=== PATIENT | male | born 1935 | race Caucasian/White ===

== ENCOUNTER 2017-05-31 13:38 | Emergency (ER) | payer MEDICARE ==
[~2017-05-31] VITALS: Ht 177.8 cm; Wt 80.0 kg
[~2017-05-31 13:38] MED LIST: GLUCTAB PO; [UNRECOGNIZED DRUG - OTHER] PO; [UNRECOGNIZED DRUG - OTHER] PO
[2017-05-31 13:40] VITALS: BP 150/87; PULSE 78; RESP 14; TEMP 98.8; O2SAT 97
[2017-05-31] MEDS ORDERED: TETANUS/DIPHTHERIA TOXOID ADULT 0.5 ML VIAL IM ONE (14:30)
--- NOTE | 2017-05-31 14:33 | PD ---
HPI Chief Complaint: Fall Time Seen by Provider: 14:20 Travel History International Travel<30 days: No Contact w/Intl Traveler<30days: No Traveled to known affect area: No History of Present Illness HPI This 81-year-old male says he lost his balance and fell. He landed on his head his right knee and his right arm. He did not have loss of consciousness. He was diagnosed with Parkinson's disease around 8 months ago and occasionally loses balance. He did not lose consciousness today. PFSH Past Medical History Diabetes: Yes Patient Takes Glucophage: No Hypertension: Yes Parkinson's Disease: Yes Tetanus Vaccination: Unknown Influenza Vaccination: No Past Surgical History Abdominal Surgery: Yes ([facility]) Joint Replacement: Yes (Lt. hip ) Pacemaker: No Social History Alcohol Use: Yes (Occ.) Tobacco Use: No Substance Use: No Allergies-Medications (Allergen,Severity, Reaction): Coded Allergies: No Known Allergies (Unverified , 05/31/17) Reported Meds & Prescriptions Reported Meds & Active Scripts Active Reported Megace Liq (Megestrol Acetate) 40 Mg/Ml Susp 10 Ml PO BID Tolterodine ER (Tolterodine Tartrate) 2 Mg Cap 2 Mg PO DAILY Flomax (Tamsulosin HCl) 0.4 Mg Cap 0.4 Mg PO HS Gabapentin 100 Mg Cap 100 Mg PO TID Metformin (Metformin HCl) 1,000 Mg Tab 1,000 Mg PO BIDPC With meals Carbidopa-Levodopa 25-100 Mg Tab 1 Tab PO Q8HR Meclizine (Meclizine HCl) 25 Mg Tab 25 Mg PO TID Review of Systems General / Constitutional: No: Fever, Chills Eyes: No: Diploplia HENT: Positive: Headaches, No: Vertigo Cardiovascular: No: Chest Pain or Discomfort Respiratory: No: Cough, Shortness of Breath Gastrointestinal: No: Nausea, Vomiting Genitourinary: No: Urgency, Frequency Musculoskeletal: No: Myalgias Skin: No Rash Physical Exam Narrative GENERAL: Well-developed male SKIN: Focused skin assessment warm/dry. HEAD: There is an abrasion and swelling on the right side of forehead Normocephalic. EYES: Pupils equal and round. No scleral icterus. No injection or drainage. ENT: No nasal bleeding or discharge. Mucous membranes pink and moist. NECK: Trachea midline. No JVD. CARDIOVASCULAR: Regular rate and rhythm. No murmur appreciated. RESPIRATORY: No accessory muscle use. Clear to auscultation. Breath sounds equal bilaterally. GASTROINTESTINAL: Abdomen soft, non-tender, nondistended. Hepatic and splenic margins not palpable. MUSCULOSKELETAL: No obvious deformities. No clubbing. No cyanosis. No edema. He is an abrasion of the right wrist. There is no bony tenderness There is an abrasion over the right knee. There is no bony tenderness NEUROLOGICAL: Awake and alert. No obvious cranial nerve deficits. Motor grossly within normal limits. Normal speech. PSYCHIATRIC: Appropriate mood and affect; insight and judgment normal. Data Data Last Documented VS Vital Signs Date Time Temp Pulse Resp B/P (MAP) Pulse Ox O2 Delivery O2 Flow Rate FiO2 05/31/17 13:40 98.8 78 14 150/87 (108) [address] Brain W/O Iv Contrast(Rout) (05/31/17 14:30) Tetanus/Diphtheria Tox Adult (Tetanus/Di (05/31/17 14:30) MDM Medical Decision Making Medical Screen Exam Complete: Yes Emergency Medical Condition: Yes Medical Record Reviewed: Yes Differential Diagnosis Differential includes contusion, skull fracture, subdural Narrative Course CT of the brain is negative. Patient is stable for discharge Diagnosis Primary Impression: Contusion of head Disposition: 01 DISCHARGE HOME Condition: Stable Arturo Perez MD May 31, 2017 14:33
[2017-05-31] MEDS ORDERED: MECL-62 PO (14:35)
[2017-05-31] MEDS ORDERED: CARB25TA9 PO (14:35)
[2017-05-31] MEDS ORDERED: METF1000 PO (14:35)
[2017-05-31] MEDS ORDERED: GABA100C4 PO (14:35)
[2017-05-31] MEDS ORDERED: MEGE40S PO (14:35)
[2017-05-31] MEDS ORDERED: TOLT1CAP4 PO (14:35)
[2017-05-31] MEDS ORDERED: TAMS5CAP PO (14:35)
--- NOTE | 2017-05-31 15:26 | RADRPT ---
EXAM DATE/TIME: 05/31/2017 15:11 [place] COMPARISON: No previous studies available for comparison. INDICATIONS : Fall. Right frontal abrasion. RADIATION DOSE: 60.99 CTDIvol (mGy) MEDICAL HISTORY : Parkinson's. Hypertension. Diabetes. SURGICAL HISTORY : None. ENCOUNTER: Initial ACUITY: 1 day PAIN SCALE: 4/10 LOCATION: Right frontal TECHNIQUE: Multiple contiguous axial images were obtained of the head. Using automated exposure control and adj ustment of the mA and/or kV according to patient size, radiation dose was kept as low as reasonably a chievable to obtain optimal diagnostic quality images. DICOM format image data is available electro nically for review and comparison. FINDINGS: CEREBRUM: The ventricles are normal for age. No evidence of midline shift, mass lesion, hemorrhage or acute in farction. No extra-axial fluid collections are seen. POSTERIOR FOSSA: The cerebellum and brainstem are intact. The 4th ventricle is midline. The cerebellopontine angle i s unremarkable. EXTRACRANIAL: The visualized portion of the orbits is intact. SKULL: The calvaria is intact. No evidence of skull fracture. CONCLUSION: 1. No acute intracranial abnormality. Domingo uBnch MD on May 31, 2017 at 15:23 Board Certified Radiologist. This report was verified electronically.
== END 2017-05-31 15:49 | disposition home or self-care (01) ==
LOC: PHED 13:38
DX: S00.83XA Contusion of other part of head, initial encounter (principal); G20 Parkinson's disease; W01.0XXA Fall on same level from slipping, tripping and stumbling without subsequent striking against object, initial encounter; Z23 Encounter for immunization
CPT/HCPCS: 70450; 90471; 90714

== ENCOUNTER 2018-04-04 00:34 | Inpatient (IN) ==
[2018-04-04 01:33] LABS: Baso # (Auto) 0.2 th/mm3 (0.0-0.2); Eos # (Auto) 0.1 th/mm3 (0.0-0.4); Eos % (Auto) 1.2 % (0.0-4.0); Hematocrit 46.1 % (39.0-51.0); Hemoglobin 15.7 gm/dL (13.0-17.0); Lymph # (Auto) 1.3 th/mm3 (1.0-4.8); Lymph % (Auto) 11.1 % (9.0-44.0); Mean Corpuscular HGB Conc 34.1 % (32.0-36.0); Mean Corpuscular Hemoglobin 30.6 pg (27.0-34.0); Mean Corpuscular Volume 89.8 fL (80.0-100.0); Mean Platelet Volume 8.4 fL (7.0-11.0); Mono # (Auto) 0.9 th/mm3 (0.0-0.9); Mono % (Auto) 7.6 % (0.0-8.0); Neut # (Auto) 9.4 th/mm3 (1.8-7.7); Neut % (Auto) 78.1 % (16.0-70.0); Platelet Count 190 th/mm3 (150-450); Red Blood Count 5.13 mil/mm3 (4.50-5.90)
[2018-04-04 02:00] LABS: Alanine Aminotransferase 13 U/L (12-78); Albumin 3.3 g/dL (3.4-5.0); Anion Gap 9 meq/L (5-15); Aspartate Aminotransferase 20 U/L (15-37); Blood Urea Nitrogen 26 mg/dL (7-18); Calcium 9.5 mg/dL (8.5-10.1); Carbon Dioxide 27.1 meq/L (21.0-32.0); Chloride 104 meq/L (98-107); Glomerular Filtration Rate 48 mL/min (>89); Glucose,Random 324 mg/dL (74-106); Potassium 4.1 meq/L (3.5-5.1); Sodium 140 meq/L (136-145)
[2018-04-04 02:09] LABS: Alkaline Phosphatase 130 U/L (45-117); Total Protein 7.4 g/dL (6.4-8.2)
[2018-04-04 02:15] LABS: Ovalocytes 1+; Platelet Estimate Normal (Normal); Platelet Morphology Normal (Normal)
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
[2018-04-04] MEDS ORDERED: LORazepam 1 MG Tablet PO PRN (08:21)
[2018-04-04] MEDS ORDERED: Aluminum/Magnesium/Simethacone Susp 30 ML UDC PO PRN (08:21)
[2018-04-04] MEDS ORDERED: Haloperidol Inj 5 MG/ML Ampul IM PRN (08:21)
[2018-04-04] MEDS ORDERED: Sod Chloride 0.9% Inj 1,000 ML IV.SIG ONE (09:54)
[2018-04-04 14:23] LABS: Bacteria,Urine Moderate /hpf; Bilirubin,Urine Negative (Negative); Clarity,Urine Hazy (Clear); Color,Urine Yellow (Yellw/Straw); Glucose,Urine (UA) 500 or Greater mg/dL (Negative); Hyaline Casts,Urine 1 /lpf (0-3); Leukocyte Esterase,Urine Negative (Negative); Nitrite,Urine Positive (Negative)
[2018-04-04 14:36] LABS: Amphetamine Screen,Urine Neg (Neg); Barbiturate Screen,Urine Neg (Neg); Cannabinoid Screen,Urine Neg (Neg); Cocaine Screen,Urine Neg (Neg)
[2018-04-04 14:43] LABS: Opiate Screen,Urine Neg (Neg)
[2018-04-04] MEDS ORDERED: Dextrose 50% in Water 50 ML Vial IV.PUSH PRN (16:56)
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
[2018-04-04] MEDS: Insulin NovoLOG Aspart Correctional Sugar Inj SQ SCH ×2 (17:32→21:19)
[2018-04-05] MEDS: Insulin NovoLOG Aspart Correctional Sugar Inj SQ SCH ×5 (03:18→20:19)
[2018-04-05 11:43] LABS: Anion Gap 9 meq/L (5-15); Aspartate Aminotransferase 16 U/L (15-37); Blood Urea Nitrogen 19 mg/dL (7-18); Calcium 9.3 mg/dL (8.5-10.1); Carbon Dioxide 27.5 meq/L (21.0-32.0); Chloride 105 meq/L (98-107); Glomerular Filtration Rate 63 mL/min (>89); Glucose,Random 285 mg/dL (74-106); Potassium 3.6 meq/L (3.5-5.1); Sodium 141 meq/L (136-145)
[2018-04-05 11:44] LABS: Alanine Aminotransferase 21 U/L (12-78)
[2018-04-05 11:46] LABS: Alkaline Phosphatase 126 U/L (45-117); Total Protein 7.1 g/dL (6.4-8.2)
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
[2018-04-05] MEDS ORDERED: hydrALAZINE HCl Inj 20 MG/ML Vial IV.PUSH PRN (15:01)
[2018-04-05 18:44] LABS: Hemoglobin A1c 8.3 % (4.3-6.0)
[2018-04-06] MEDS: Insulin NovoLOG Aspart Correctional Sugar Inj SQ SCH ×4 (08:40→21:30)
--- NOTE | 2018-04-06 10:13 | P.PN ---
Subjective Interval history: Patient is seen resting quietly in bed. Sitter is at bedside and reports no adverse events other than the fact that he was very active and up most of the night. Patient briefly wakes him on both that he is "okay" and goes back to sleep. Physical Exam Vital signs: Vital Signs 04/05/18 18:05 Temperature 97.2 F L Pulse Rate 97 H Respiratory Rate 16 Blood Pressure 136/85 Pulse Oximetry 95 Intake & Output 04/05/18 04/06/18 04/06/18 18:59 06:59 18:59 Intake Total 1200 / 1200 0 / 0 Balance 1200 / 1200 0 / 0 Intake: Oral 1200 / 1200 0 / 0 Oral Supplement 0 / 0 Other: # Voids 1 # Bowel Movements 0 Narrative: GENERAL: Well-nourished, well-developed adult male in no obvious distress. SKIN: Warm and dry. HEAD: Atraumatic. Normocephalic. CARDIOVASCULAR: Regular rate and rhythm. RESPIRATORY: No accessory muscle use. Clear to auscultation. Breath sounds equal bilaterally. GASTROINTESTINAL: Abdomen soft, non-tender, non-distended. Positive bowel sounds. MUSCULOSKELETAL: Extremities without clubbing, cyanosis, or edema. No obvious deformities. NEUROLOGICAL: sleepy; oriented to self. No obvious cranial nerve deficits. Motor grossly within normal limits. Normal speech. Results - Labs CBC & Chem 7: 04/04/18 01:20 04/05/18 10:35 Laboratory Results - last 24 hr 04/05/18 04/05/18 04/05/18 10:35 11:59 16:25 Sodium 141 Potassium 3.6 Chloride 105 Carbon Dioxide 27.5 Anion Gap 9 BUN 19 H Creatinine 1.12 Estimated GFR 63 L POC Glucose 255 H 239 H Random Glucose 285 H Hemoglobin A1c Calcium 9.3 Total Bilirubin 0.7 AST 16 ALT 21 Alkaline Phosphatase 126 H Total Protein 7.1 Albumin 3.0 L 04/05/18 04/05/18 04/06/18 17:05 20:01 07:44 Sodium Potassium Chloride Carbon Dioxide Anion Gap BUN Creatinine Estimated GFR POC Glucose 123 H 154 H Random Glucose Hemoglobin A1c 8.3 H Calcium Total Bilirubin AST ALT Alkaline Phosphatase Total Protein Albumin Assessment and Plan - Plan 82-year-old male admitted for dementia with agitation. Past medical history includes Parkinson's, DM, HTN. Hospitalist service consulted for medical management. Dementia (Acute) -Managed by psychiatry/primary Parkinson disease -Need confirmation of doses of current medications -will restart as appropriate when known. Diabetes -Continue metformin 1000 twice daily. Add sliding scale coverage. -A1c 8.3 Hypertension -Reported as chronic however no home medications are known; patient is an adequate historian. Nursing to confirm current medication -Improved; possibly related to agitation -Add as needed hydralazine DVT prophylaxis: Patient is ambulatory Discussed with: Nurse
--- NOTE | 2018-04-06 16:42 | P.PNPSY ---
Subjective Remarks: Patient seen for follow, chart reviewed. Discussion nursing staff reported the patient continued to be confused, no behavioral issues, compliant with medications. Patient was found sitting in hospital bed noted B, cooperative. Patient states that his appetite has been "a little off for the past couple of weeks" but states that he is attempting to improve his nutritional intake. Patient's reports having slept well last evening, his mood has been "pretty good " recalls having had visitors earlier today primarily his sister's which he states had gone well. Patient aware of the plan to implement services in the home to assist with his care which he agrees with. Patient denies any difficulty bowel movement. Patient denies any perceptional services or delusions. Review of Systems All other systems reviewed negative except as stated in HPI Mental Status Examination Appearance: Appropriate Consciousness: Clouded Orientation: Person, Place Speech: Hesitant, Slow Language: Adequate Fund of Knowledge: Inadequate Attention and Concentration: Easily distracted Memory: Impaired Mood: Good Affect: Blunt Thought Process & Associations: Other ([place]) Thought Content: Appropriate Hallucination Type: None Delusion Type: None Suicidal Ideation: No Suicidal Plan: No Suicidal Intention: No Homicidal Ideation: No Homicidal Plan: No Homicidal Intention: No Insight: Poor Judgment: Poor Assessment and Plan - Assessment (1) Unspecified psychosis Code(s): F29 - Unspecified psychosis not due to a substance or known physiological condition Status: Acute - Plan Plan: Patient continued with good behavioral control, had sister's visit with patient which went well. Siblings currently attempting to establish home services for support in his care upon discharge back to his residence. We will continue current treatment. We will continue to monitor mood and behavior. Discharge planning in progress. Justification for Continued Inpatient Stay: At risk for further decompensation if at lower level of care
[2018-04-06] MEDS: QUEtiapine 25 MG Tablet PO SCH (20:55)
[2018-04-07] MEDS: Insulin NovoLOG Aspart Correctional Sugar Inj SQ SCH ×4 (05:14→16:29)
[2018-04-07] MEDS: QUEtiapine 25 MG Tablet PO SCH ×2 (08:28→20:13)
--- NOTE | 2018-04-07 11:19 | P.PN ---
Subjective Interval history: Patient is seen lying in bed. He continues to be very confused and is a poor historian. Does not have any specific complaints but tells me that he is kind of tired. Nursing reports no adverse events. Physical Exam Vital signs: Vital Signs 04/07/18 06:09 Temperature 96.8 F L Pulse Rate 64 Respiratory Rate 14 Blood Pressure 152/82 H Pulse Oximetry 95 Intake & Output 04/06/18 04/07/18 04/07/18 18:59 06:59 18:59 Other: # Voids 1 Narrative: GENERAL: Well-nourished, well-developed adult male in no obvious distress. SKIN: Warm and dry. HEAD: Atraumatic. Normocephalic. CARDIOVASCULAR: Regular rate and rhythm. RESPIRATORY: No accessory muscle use. Clear to auscultation. Breath sounds equal bilaterally. GASTROINTESTINAL: Abdomen soft, non-tender, non-distended. Positive bowel sounds. MUSCULOSKELETAL: Extremities without clubbing, cyanosis, or edema. No obvious deformities. NEUROLOGICAL: sleepy; oriented to self. No obvious cranial nerve deficits. Motor grossly within normal limits. Normal speech. Results - Labs CBC & Chem 7: 04/04/18 01:20 04/05/18 10:35 Laboratory Results - last 24 hr 04/06/18 04/06/18 04/06/18 11:53 16:48 21:11 POC Glucose 158 H 148 H 219 H 04/07/18 04/07/18 05:56 11:11 POC Glucose 98 184 H Assessment and Plan - Plan 82-year-old male admitted for dementia with agitation. Past medical history includes Parkinson's, DM, HTN. Hospitalist service consulted for medical management. Dementia (Acute) -Managed by psychiatry/primary Parkinson disease -Need confirmation of doses of current medications -will restart as appropriate when known. Diabetes -Continue metformin 1000 twice daily. Add sliding scale coverage. -A1c 8.3 Hypertension -Reported as chronic however no home medications are known; patient is an adequate historian. Nursing to confirm current medication; second request made. -Improved; possibly related to agitation -Add as needed hydralazine DVT prophylaxis: Patient is ambulatory Discussed with: Nurse
--- NOTE | 2018-04-07 18:09 | P.PNPSY ---
Subjective Remarks: Patient seen for follow-up, chart reviewed. Discussion with nursing staff reported that the patient confused at times, pleasant, cooperative treatment. Patient was found sitting in hospital bed stating feeling "alright" reports sleeping well "like a log". Patient stated his mood has been fine, denying physical complaints at this time, denies any perceptional services or delusions. Review of Systems All other systems reviewed negative except as stated in HPI Mental Status Examination Appearance: Appropriate Consciousness: Clouded Orientation: Person, Place Speech: Hesitant, Slow Language: Adequate Fund of Knowledge: Inadequate Attention and Concentration: Easily distracted Memory: Impaired Mood: Good Affect: Blunt Thought Process & Associations: Other ([place]) Thought Content: Appropriate Hallucination Type: None Delusion Type: None Suicidal Ideation: No Suicidal Plan: No Suicidal Intention: No Homicidal Ideation: No Homicidal Plan: No Homicidal Intention: No Insight: Poor Judgment: Poor Assessment and Plan - Assessment (1) Unspecified psychosis Code(s): F29 - Unspecified psychosis not due to a substance or known physiological condition Status: Acute - Plan Plan: Patient continues with adequate behavioral control, no episodes of agitation, calm and cooperative with staff and compliant with treatment. We will continue to monitor mood and behavior. Arranging home health services upon patient's discharge. Discharge planning in progress. Justification for Continued Inpatient Stay: At risk for further decompensation if at lower level of care.
[2018-04-08 08:26] LABS: Baso % (Auto) 0.5 % (0.0-2.0); Eos # (Auto) 0.2 th/mm3 (0.0-0.4); Eos % (Auto) 2.7 % (0.0-4.0); Hemoglobin 14.9 gm/dL (13.0-17.0); Lymph # (Auto) 1.4 th/mm3 (1.0-4.8); Lymph % (Auto) 18.6 % (9.0-44.0); Mean Corpuscular HGB Conc 33.8 % (32.0-36.0); Mean Corpuscular Hemoglobin 30.5 pg (27.0-34.0); Mean Corpuscular Volume 90.1 fL (80.0-100.0); Mean Platelet Volume 7.7 fL (7.0-11.0); Mono # (Auto) 0.9 th/mm3 (0.0-0.9); Mono % (Auto) 11.1 % (0.0-8.0); Neut # (Auto) 5.2 th/mm3 (1.8-7.7); Neut % (Auto) 67.1 % (16.0-70.0); Platelet Count 212 th/mm3 (150-450); Red Blood Count 4.89 mil/mm3 (4.50-5.90); Red Cell Distribution Width 13.7 % (11.6-17.2); White Blood Count 7.7 th/mm3 (4.0-11.0)
[2018-04-08 08:34] LABS: Calcium 9.1 mg/dL (8.5-10.1); Carbon Dioxide 29.7 meq/L (21.0-32.0); Potassium 3.2 meq/L (3.5-5.1)
[2018-04-08] MEDS: QUEtiapine 25 MG Tablet PO SCH ×2 (09:13→21:38)
[2018-04-08] MEDS: amLODIPine 5 MG Tablet PO SCH (09:16)
[2018-04-08] MEDS: Insulin NovoLOG Aspart Correctional Sugar Inj SQ SCH ×4 (10:46→21:35)
--- NOTE | 2018-04-08 12:10 | P.PN ---
Subjective Interval history: Patient is seen sleeping in bed. Awakes easily but is somewhat drowsy. He has a poor historian. Simply tells me that he is doing okay. Nursing reports no adverse events. Physical Exam Vital signs: Vital Signs 04/07/18 18:00 04/08/18 05:44 04/08/18 06:00 Temperature 97.2 F L 97.9 F 97.7 F Pulse Rate 87 68 68 Respiratory Rate 16 16 16 Blood Pressure 174/89 H 171/86 H 171/86 H Pulse Oximetry 94 L 93 L 93 L 04/08/18 06:32 Temperature 97.7 F Pulse Rate 68 Respiratory Rate 16 Blood Pressure 171/86 H Pulse Oximetry 93 L Intake & Output 04/07/18 04/08/18 04/08/18 18:59 06:59 18:59 Intake Total 360 / 360 240 / 240 Balance 360 / 360 240 / 240 Intake: Oral 360 / 360 240 / 240 Other: # Voids 2 Narrative: GENERAL: Well-nourished, well-developed adult male in no obvious distress. SKIN: Warm and dry. HEAD: Atraumatic. Normocephalic. CARDIOVASCULAR: Regular rate and rhythm. RESPIRATORY: No accessory muscle use. Clear to auscultation. Breath sounds equal bilaterally. GASTROINTESTINAL: Abdomen soft, non-tender, non-distended. Positive bowel sounds. MUSCULOSKELETAL: Extremities without clubbing, cyanosis, or edema. No obvious deformities. NEUROLOGICAL: sleepy; oriented to self. No obvious cranial nerve deficits. Motor grossly within normal limits. Normal speech. Results - Labs CBC & Chem 7: 04/08/18 06:30 04/08/18 06:30 Laboratory Results - last 24 hr 04/07/18 04/07/18 04/08/18 16:09 20:05 06:30 WBC 7.7 RBC 4.89 Hgb 14.9 Hct 44.0 MCV 90.1 MCH 30.5 MCHC 33.8 RDW 13.7 Plt Count 212 MPV 7.7 Neut % (Auto) 67.1 Lymph % (Auto) 18.6 Burnett % (Auto) 11.1 H Eos % (Auto) 2.7 Baso % (Auto) 0.5 Neut # (Auto) 5.2 Lymph # (Auto) 1.4 [place]ett # (Auto) 0.9 Eos # (Auto) 0.2 Baso # (Auto) 0.0 WBC Differential . Differential Comment Auto diff final Sodium Potassium Chloride Carbon Dioxide Anion Gap BUN Creatinine Estimated GFR POC Glucose 118 H 151 H Random Glucose Calcium 04/08/18 04/08/18 04/08/18 06:30 07:45 11:59 WBC RBC Hgb Hct MCV MCH MCHC RDW Plt Count MPV Neut % (Auto) Lymph % (Auto) Burnett % (Auto) Eos % (Auto) Baso % (Auto) Neut # (Auto) Lymph # (Auto) [place]ett # (Auto) Eos # (Auto) Baso # (Auto) WBC Differential Differential Comment Sodium 142 Potassium 3.2 L Chloride 104 Carbon Dioxide 29.7 Anion Gap 8 BUN 18 Creatinine 1.00 Estimated GFR 72 L POC Glucose 130 H 158 H Random Glucose 131 H Calcium 9.1 Assessment and Plan - Plan 82-year-old male admitted for dementia with agitation. Past medical history includes Parkinson's, DM, HTN. Hospitalist service consulted for medical management. Dementia (Acute) -Managed by psychiatry/primary Parkinson disease -Need confirmation of doses of current medications -will restart as appropriate when known. Diabetes -Continue metformin 1000 twice daily. Add sliding scale coverage. -A1c 8.3 Hypertension -Reported as chronic however no home medications are known; patient is a poor historian. Nursing to confirm current medication; second request made. -Improved but still remains elevated; added amlodipine 5 mg on 04/08. -Add as needed hydralazine Hypokalemia -acute -3.2 on 04/08. Ordered 20 mEq oral replacement. Monitor labs. DVT prophylaxis: Patient is ambulatory Discussed with: Nurse
--- NOTE | 2018-04-08 19:07 | P.PNPSY ---
Subjective Remarks: Patient seen for follow-up, chart reviewed. Discussion with nursing staff reported that the patient compliant with medications. Patient was found sitting hospital bed asleep was able to wake up to interact with interview. Patient states that he is feeling somewhat constipated the past couple of days but had a small bowel movement yesterday. Patient denies any other physical complaints at this time reports his mood has been "just fine". Patient continued denying perceptual services or delusions. Review of Systems All other systems reviewed negative except as stated in HPI Gastrointestinal: Reports constipation Mental Status Examination Appearance: Appropriate Consciousness: Clouded Orientation: Person, Place Speech: Hesitant, Slow Language: Adequate Fund of Knowledge: Inadequate Attention and Concentration: Easily distracted Memory: Impaired Mood: Good Affect: Blunt Thought Process & Associations: Other ([place]) Thought Content: Appropriate Hallucination Type: None Delusion Type: None Suicidal Ideation: No Suicidal Plan: No Suicidal Intention: No Homicidal Ideation: No Homicidal Plan: No Homicidal Intention: No Insight: Poor Judgment: Poor Assessment and Plan - Assessment (1) Unspecified psychosis Code(s): F29 - Unspecified psychosis not due to a substance or known physiological condition Status: Acute - Plan Plan: Patient continues with appropriate behavior,, cooperative. Patient tolerated medications well. Patient currently waiting to have services implemented as patient's family cannot care for patient at this time without help. We will continue current treatment. We will continue to monitor mood and behavior. Discharge planning a progress. Justification for Continued Inpatient Stay: At risk for further decompensation if at lower level of care.
[2018-04-09] MEDS: QUEtiapine 25 MG Tablet PO SCH ×2 (08:52→20:53)
[2018-04-09] MEDS: amLODIPine 5 MG Tablet PO SCH (08:52)
[2018-04-09] MEDS: Insulin NovoLOG Aspart Correctional Sugar Inj SQ SCH ×4 (08:52→21:00)
[2018-04-09 10:01] LABS: Potassium 3.2 meq/L (3.5-5.1)
[2018-04-09 10:02] LABS: Magnesium 1.7 mg/dL (1.5-2.5)
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
--- NOTE | 2018-04-09 16:42 | P.PN ---
Subjective Interval history: Patient is seen lying in bed. Continues to be drowsy but does awaken easily. Denies any pain or discomfort. Denies any shortness of breath. No nausea vomiting or diarrhea. Nursing reports no adverse events; they have been unable to confirm doses of home meds. Physical Exam Vital signs: Vital Signs 04/08/18 18:08 04/09/18 05:44 Temperature 97.8 F 97.4 F L Pulse Rate 91 H 64 Respiratory Rate 18 15 Blood Pressure 163/86 H 170/82 H Pulse Oximetry 96 96 Intake & Output 04/08/18 04/09/18 04/09/18 18:59 06:59 18:59 Intake Total 600 / 600 Output Total Balance 599 / 599 - Intake: Oral 600 / 600 Output: Urine Stool Other: # Voids 3 # Incontinent Voids 3 # Urine Diapers 3 Date of Last Bowel Movement 04/08/18 04/08/18 # Bowel Movements 1 Narrative: GENERAL: Well-nourished, well-developed adult male in no obvious distress. SKIN: Warm and dry. HEAD: Atraumatic. Normocephalic. CARDIOVASCULAR: Regular rate and rhythm. RESPIRATORY: No accessory muscle use. Clear to auscultation. Breath sounds equal bilaterally. GASTROINTESTINAL: Abdomen soft, non-tender, non-distended. Positive bowel sounds. MUSCULOSKELETAL: Extremities without clubbing, cyanosis, or edema. No obvious deformities. NEUROLOGICAL: sleepy; oriented to self. No obvious cranial nerve deficits. Motor grossly within normal limits. Normal speech. Results - Labs CBC & Chem 7: 04/08/18 06:30 04/09/18 09:00 Laboratory Results - last 24 hr 04/08/18 04/08/18 04/09/18 21:23 22:27 07:31 Potassium POC Glucose 55 L 109 135 H Magnesium 04/09/18 04/09/18 04/09/18 09:00 11:27 16:17 Potassium 3.2 L POC Glucose 149 H 169 H Magnesium 1.7 Assessment and Plan - Plan 82-year-old male admitted for dementia with agitation. Past medical history includes Parkinson's, DM, HTN. Hospitalist service consulted for medical management. Dementia (Acute) -Managed by psychiatry/primary Parkinson disease - 04/09 add carbidopalevodopa -Unable to confirm via family; dose taken from prior records Diabetes -Continue metformin 1000 twice daily. Add sliding scale coverage. -A1c 8.3 Hypertension -Reported as chronic however no home medications are known; patient is a poor historian. Nursing to confirm current medication. -Improved but still remains elevated; added amlodipine 5 mg on 04/08. 04/09 still elevated - add lisinopril 10mg -PRN hydralazine added Hypokalemia -acute -3.2 on 04/08. Ordered 20 mEq oral replacement (questionable if received). 04/09 Repeat 20 mEq dose and Monitor labs. DVT prophylaxis: Patient is ambulatory Discussed with: Nurse
[2018-04-10] MEDS: Insulin NovoLOG Aspart Correctional Sugar Inj SQ SCH ×5 (04:09→21:26)
[2018-04-10] MEDS: Lisinopril 10 MG Tablet PO SCH (10:38)
[2018-04-10] MEDS: QUEtiapine 25 MG Tablet PO SCH ×2 (10:38→21:27)
[2018-04-10] MEDS: amLODIPine 5 MG Tablet PO SCH (10:38)
[2018-04-10 12:07] LABS: Carbon Dioxide 28.4 meq/L (21.0-32.0); Magnesium 1.5 mg/dL (1.5-2.5); Potassium 3.5 meq/L (3.5-5.1)
--- NOTE | 2018-04-10 15:50 | P.PN ---
Subjective Interval history: Patient is seen sitting up in bed eating lunch. He is much more alert and talkative today. Tells me that he is feeling pretty good. Does ask if his brother is lost in the hospital -orientation remains questionable. Nurse reports no adverse events overnight and no concerns. Physical Exam Vital signs: Vital Signs 04/09/18 18:29 04/10/18 05:04 Temperature 98.2 F 98.1 F Pulse Rate 76 67 Respiratory Rate 15 16 Blood Pressure 169/81 H 171/85 H Pulse Oximetry 92 L 93 L Intake & Output 04/09/18 04/10/18 04/10/18 18:59 06:59 18:59 Intake Total 1680 / 1680 600 / 600 720 / 720 Output Total 2 / 2 Balance 1678 / 1678 600 / 600 720 / 720 Intake: Oral 1680 / 1680 600 / 600 720 / 720 Output: Urine 2 / Other: # Voids 3 Date of Last Bowel Movement 04/08/18 Narrative: GENERAL: Well-nourished, well-developed adult male in no obvious distress. SKIN: Warm and dry. HEAD: Atraumatic. Normocephalic. CARDIOVASCULAR: Regular rate and rhythm. RESPIRATORY: No accessory muscle use. Clear to auscultation. Breath sounds equal bilaterally. GASTROINTESTINAL: Abdomen soft, non-tender, non-distended. Positive bowel sounds. MUSCULOSKELETAL: Extremities without clubbing, cyanosis, or edema. No obvious deformities. NEUROLOGICAL: sleepy; oriented to self. No obvious cranial nerve deficits. Motor grossly within normal limits. Normal speech. Results - Labs CBC & Chem 7: 04/08/18 06:30 04/10/18 11:11 Laboratory Results - last 24 hr 04/09/18 04/10/18 04/10/18 16:17 04:08 06:33 Sodium Potassium Chloride Carbon Dioxide Anion Gap BUN Creatinine Estimated GFR POC Glucose 169 H 103 118 H Random Glucose Calcium Magnesium 04/10/18 04/10/18 10:53 11:11 Sodium 140 Potassium 3.5 Chloride 103 Carbon Dioxide 28.4 Anion Gap 9 BUN 17 Creatinine 1.14 Estimated GFR 62 L POC Glucose 170 H Random Glucose 152 H Calcium 9.0 Magnesium 1.5 Assessment and Plan - Plan 82-year-old male admitted for dementia with agitation. Past medical history includes Parkinson's, DM, HTN. Hospitalist service consulted for medical management. Dementia (Acute) -Managed by psychiatry/primary Parkinson disease - 04/09 add carbidopalevodopa -Unable to confirm via family; dose taken from prior records Diabetes -Continue metformin 1000 twice daily. Add sliding scale coverage. -A1c 8.3 Hypertension -Reported as chronic however no home medications are known; patient is a poor historian. Nursing to confirm current medication. -Improved but still remains elevated; added amlodipine 5 mg on 04/08. 04/09 still elevated - add lisinopril 10mg. 04/10 - BP unchanged. Nursing order to evaluate BP in both arms ordered. -PRN hydralazine added Hypokalemia -acute -3.2 on 04/08. Ordered 20 mEq oral replacement (questionable if received). 04/09 Repeat 20 mEq dose and Monitor labs. 04/10 - K+ WNL DVT prophylaxis: Patient is ambulatory Discussed with: Nurse and pt
--- NOTE | 2018-04-10 19:44 | P.PNPSY ---
Subjective Remarks: Reviewed electronic medical records and discussed case with staff. Follow-up was conducted in patient's room. He had just come back from a visit with his sister. He is pleasantly confused. He attempts to hold a conversation however is largely disorganized. He denies having any complaints at this time. His sister advises that they are in the process having him [facility]". Mental Status Examination Appearance: Appropriate Consciousness: Clouded Orientation: Person, Place Speech: Hesitant, Slow Language: Adequate Fund of Knowledge: Inadequate Attention and Concentration: Easily distracted Memory: Impaired Mood: Good Affect: Blunt Thought Process & Associations: Other ([place]) Thought Content: Appropriate Hallucination Type: None Delusion Type: None Suicidal Ideation: No Suicidal Plan: No Suicidal Intention: No Homicidal Ideation: No Homicidal Plan: No Homicidal Intention: No Insight: Poor Judgment: Poor Assessment and Plan - Assessment (1) Unspecified psychosis Code(s): F29 - Unspecified psychosis not due to a substance or known physiological condition Status: Acute - Plan Plan: Patient will be reevaluated tomorrow by the attending psychiatrist. Continue with current treatment plan. Appears family is working on a safe discharge plan. Justification for Continued Inpatient Stay: Moving this patient to a less restrictive environment would likely result in decompensation.
[2018-04-11] MEDS: Insulin NovoLOG Aspart Correctional Sugar Inj SQ SCH ×2 (03:35→07:53)
[2018-04-11] MEDS: amLODIPine 5 MG Tablet PO SCH (10:15)
[2018-04-11] MEDS: Lisinopril 10 MG Tablet PO SCH (10:15)
[2018-04-11] MEDS: QUEtiapine 25 MG Tablet PO SCH (10:16)
--- NOTE | 2018-04-11 11:06 | P.PN ---
Subjective Interval history: Patient is seen lying in bed. Nurse is present. Patient is pleasant and denies any problems but remains somewhat confused. Recheck blood pressure with nurse and found left arm to be 20 points higher systolic than right arm-190's vs 160's. Patient noted to have tremor in left arm. Physical Exam Vital signs: Vital Signs 04/10/18 18:00 04/11/18 06:00 04/11/18 10:12 Temperature 98.3 F 98 F Pulse Rate 91 H 63 65 Respiratory Rate 18 16 Blood Pressure 106/58 L 154/80 H 190/84 H Pulse Oximetry 96 94 L 04/11/18 10:14 Temperature Pulse Rate 61 Respiratory Rate Blood Pressure 172/81 H Pulse Oximetry Intake & Output 04/10/18 04/11/18 04/11/18 18:59 06:59 18:59 Intake Total 1919 / 1919 340 / 340 Output Total 2 / 2 Balance 1917 / 1917 340 / 340 Weight 85.8 kg Intake: Oral 1919 / 1919 240 / 240 Oral Supplement 100 / 100 Output: Urine 2 / 2 Other: # Voids 2 Narrative: GENERAL: Well-nourished, well-developed adult male in no obvious distress. SKIN: Warm and dry. CARDIOVASCULAR: Regular rate and rhythm. RESPIRATORY: No accessory muscle use. Clear to auscultation. Breath sounds equal bilaterally. GASTROINTESTINAL: Abdomen soft, non-tender, non-distended. Positive bowel sounds. MUSCULOSKELETAL: Extremities without clubbing, cyanosis, or edema. No obvious deformities. NEUROLOGICAL: sleepy; oriented to self. No obvious cranial nerve deficits. Motor grossly within normal limits. Normal speech. Results - Labs CBC & Chem 7: 04/08/18 06:30 04/10/18 11:11 Laboratory Results - last 24 hr 04/10/18 04/10/18 04/10/18 11:11 16:45 20:46 Sodium 140 Potassium 3.5 Chloride 103 Carbon Dioxide 28.4 Anion Gap 9 BUN 17 Creatinine 1.14 Estimated GFR 62 L POC Glucose 81 160 H Random Glucose 152 H Calcium 9.0 Magnesium 1.5 04/11/18 05:52 Sodium Potassium Chloride Carbon Dioxide Anion Gap BUN Creatinine Estimated GFR POC Glucose 118 H Random Glucose Calcium Magnesium Assessment and Plan - Plan 82-year-old male admitted for dementia with agitation. Past medical history includes Parkinson's, DM, HTN. Hospitalist service consulted for medical management. Dementia (Acute) -Managed by psychiatry/primary Parkinson disease - 04/09 add carbidopalevodopa 25/ -Unable to confirm via family; dose taken from prior records Diabetes -Continue metformin 1000 twice daily. Add sliding scale coverage. -A1c 8.3 Hypertension -Reported as chronic however no home medications are known; patient is a poor historian. Nursing to confirm current medication. -Improved but still remains elevated; added amlodipine 5 mg on 04/08. 04/09 still elevated - add lisinopril 10mg. 04/10 - BP unchanged. Nursing order to evaluate BP in both arms ordered -due to discrepancy blood pressure should be taken in right arm only. -PRN hydralazine added Hypokalemia -acute -3.2 on 04/08. Ordered 20 mEq oral replacement (questionable if received). 04/09 Repeat 20 mEq dose and Monitor labs. 04/10 - K+ WNL DVT prophylaxis: Patient is ambulatory Discussed with: Nurse and pt Patient appears medically stable. Agree with plan to discharge.
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
== END 2018-04-11 13:15 | disposition home or self-care (01) ==
LOC: NEPD 00:34 → H4EA 14:49
PROVIDERS: ADMIT Student in an Organized Health Care Education/Training Program; ATTEND Student in an Organized Health Care Education/Training Program

== ENCOUNTER 2018-06-06 21:41 | Inpatient (IN) ==
--- NOTE | 2018-06-06 22:13 | ED ---
HPI General Chief Complaint: Psychiatric Symptoms Stated Complaint: Psych eval / [employer] Time Seen by Provider: 06/06/18 22:08 Source: patient and police Mode of arrival: ambulatory Limitations: no limitations History of Present Illness HPI Narrative: 82-year-old white male presents emergency department under [employer] act by PD. Patient has a history of dementia, Parkinson's disease, hypertension , diabetes and behavioral issues. According to the [employer] act the patient has been having more confusion. He is been attempting to leave his home. The patient here is alert to person but does not know the year, president, or reason for evaluation. He denies any medical complaints. He has been eating and drinking. He states that he has a appointment tomorrow at court. 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 Related Data Home Medications Medication Instructions Recorded Confirmed memantine 0 03/20/18 Allergies Allergy/AdvReac Type Severity Reaction Status Date / Time No Known Allergies Allergy Unverified 03/24/18 12:16 Review of Systems ROS: all other systems reviewed are negative [facility] Medical History Medical History Parkinson disease (Acute) Diabetes (Acute) Dementia (Acute) Hypertension (Acute) Hernia (Acute) Surgical History Surgical History History of left hip replacement (Acute) Social History Social History Substance History: No History of Abuse Second Hand Smoke Exposure: No Smoking Status: Unknown if ever smoked How Often Do You Have a Drink Containing Alcohol: Never Recent Travel in [facility] [[email or web address] within the Last 8 Weeks: No Recent Out of Country Travel within the Last 8 Weeks: No Exam Narrative Exam Narrative: GENERAL: Well-nourished, well-developed patient. SKIN: Warm and dry. HEAD: Normocephalic and atraumatic. EYES: No scleral icterus. No injection or drainage. ENT: No nasal drainage noted. Mucous membranes pink. Airway patent. NECK: Supple, trachea midline. Moves head freely without obvious discomfort. CARDIOVASCULAR: Regular rate and rhythm without murmurs, gallops, or rubs. RESPIRATORY: Breath sounds equal bilaterally. No accessory muscle use. GASTROINTESTINAL: Abdomen soft, non-tender, nondistended. EXTREMITIES: No cyanosis or edema. BACK: Nontender without obvious deformity. No CVA tenderness. NEURO: Patient is alert and oriented to person. no focal motor or sensory deficits. Patient is generally weak and uses a walker secondary to his Parkinson's. Normal speech. PSYCH: No delusions. No auditory or visual hallucinations. Course Initial Documented Vital Signs Temperature 97.9 F 06/06/18 21:53 Pulse Rate 86 06/06/18 21:53 Respiratory Rate 12 06/06/18 21:53 Blood Pressure 186/100 H 06/06/18 21:53 Pulse Oximetry 97 06/06/18 21:53 Last Documented Vital Signs Temperature 97.9 F 06/06/18 21:53 Pulse Rate 86 06/06/18 21:53 Respiratory Rate 12 06/06/18 21:53 Blood Pressure 186/100 H 06/06/18 21:53 Pulse Oximetry 97 06/06/18 21:53 Medical Decision Making MDM Narrative Medical decision making narrative: We will perform routine laboratory testing for medical clearance. Medical Screen Exam Complete: Yes Emergency Medical Condition: Yes Differential Diagnosis Differential Diagnosis: MDM: High Differential diagnoses: Schizophrenia, schizoaffective disorder, bipolar, anxiety, depression, adjustment reaction, mood disorder NOS, ODD, depressive disorder NOS, Parkinson's dementia, dementia with agitation, psychosis NOS, substance induced mood disorder, DMDD, Asperger syndrome, infection,electrolyte abnormality, malingering. Mental health screening discussed with the patient. Psychiatric screen ordered. Lab Data Result diagrams: 06/06/18 23:10 06/06/18 23:10 Lab Results 06/06/18 06/06/18 06/07/18 Range/Units 23:10 23:10 00:35 WBC 8.4 (4.0-11.0) th/mm3 RBC 4.91 (4.50-5.90) mil/mm3 Hgb 15.0 (13.0-17.0) gm/dL Hct 44.9 (39.0-51.0) % MCV 91.5 (80.0-100.0) fL MCH 30.6 (27.0-34.0) pg MCHC 33.4 (32.0-36.0) % RDW 14.6 (11.6-17.2) % Plt Count 188 (150-450) th/mm3 MPV 7.9 (7.0-11.0) fL Neut % (Auto) 68.5 (16.0-70.0) % Lymph % (Auto) 18.5 (9.0-44.0) % Curry % (Auto) 9.7 H (0.0-8.0) % Eos % (Auto) 2.3 (0.0-4.0) % Baso % (Auto) 1.0 (0.0-2.0) % Neut # (Auto) 5.7 (1.8-7.7) th/mm3 Lymph # (Auto) 1.6 (1.0-4.8) th/mm3 Curry # (Auto) 0.8 (0.0-0.9) th/mm3 Eos # (Auto) 0.2 (0.0-0.4) th/mm3 Baso # (Auto) 0.1 (0.0-0.2) th/mm3 WBC Differential . Differential Comment Auto diff final Sodium 143 (136-145) meq/L Potassium 4.1 (3.5-5.1) meq/L Chloride 105 (98-107) meq/L Carbon Dioxide 24.6 (21.0-32.0) meq/L Anion Gap 13 (5-15) meq/L BUN 24 H (7-18) mg/dL Creatinine 1.11 (0.60-1.30) mg/dL Estimated GFR 64 L (>89) mL/min Random Glucose 144 H (74-106) mg/dL Calcium 8.8 (8.5-10.1) mg/dL Total Bilirubin 0.5 (0.2-1.0) mg/dL AST 18 (15-37) U/L ALT 11 L (12-78) U/L Alkaline Phosphatase 106 (45-117) U/L Total Protein 6.7 (6.4-8.2) g/dL Albumin 3.2 L (3.4-5.0) g/dL TSH 1.190 (0.358-3.740) uIU/mL Urine Opiates Screen Neg (Neg) Ur Barbiturates Screen Neg (Neg) Ur Amphetamines Screen Neg (Neg) U Benzodiazepines Scrn Neg (Neg) Urine Cocaine Screen Neg (Neg) U Cannabinoids Screen Neg (Neg) Serum Alcohol Less than 3 (0-5) mg/dL Discharge Plan Discharge Disposition Patient Disposition: 30 Still Patient Discharge Condition Condition: Stable Discharge Details Anticipated Discharge Date: 06/07/18 Physicians Team ED Provider: Domingo Bravo ED Midlevel Provider: Juanpablo Morgan Rxs /Orders / Referrals /Forms Prescriptions: No Action memantine 5 mg Tablet RF: 0 Status ED Status: Medically Cleared
[2018-06-06 23:38] LABS: Baso # (Auto) 0.1 th/mm3 (0.0-0.2); Eos # (Auto) 0.2 th/mm3 (0.0-0.4); Eos % (Auto) 2.3 % (0.0-4.0); Hematocrit 44.9 % (39.0-51.0); Lymph # (Auto) 1.6 th/mm3 (1.0-4.8); Lymph % (Auto) 18.5 % (9.0-44.0); Mean Corpuscular HGB Conc 33.4 % (32.0-36.0); Mean Corpuscular Hemoglobin 30.6 pg (27.0-34.0); Mean Corpuscular Volume 91.5 fL (80.0-100.0); Mean Platelet Volume 7.9 fL (7.0-11.0); Mono # (Auto) 0.8 th/mm3 (0.0-0.9); Mono % (Auto) 9.7 % (0.0-8.0); Neut # (Auto) 5.7 th/mm3 (1.8-7.7); Neut % (Auto) 68.5 % (16.0-70.0); Platelet Count 188 th/mm3 (150-450); Red Blood Count 4.91 mil/mm3 (4.50-5.90); Red Cell Distribution Width 14.6 % (11.6-17.2); White Blood Count 8.4 th/mm3 (4.0-11.0)
[2018-06-06 23:55] LABS: Alanine Aminotransferase 11 U/L (12-78); Albumin 3.2 g/dL (3.4-5.0); Anion Gap 13 meq/L (5-15); Aspartate Aminotransferase 18 U/L (15-37); Blood Urea Nitrogen 24 mg/dL (7-18); Calcium 8.8 mg/dL (8.5-10.1); Carbon Dioxide 24.6 meq/L (21.0-32.0); Chloride 105 meq/L (98-107); Glomerular Filtration Rate 64 mL/min (>89); Glucose,Random 144 mg/dL (74-106); Potassium 4.1 meq/L (3.5-5.1); Sodium 143 meq/L (136-145)
[2018-06-07 00:05] LABS: Alkaline Phosphatase 106 U/L (45-117); Total Protein 6.7 g/dL (6.4-8.2)
[2018-06-07 01:01] LABS: Barbiturate Screen,Urine Neg (Neg)
[2018-06-07 01:03] LABS: Amphetamine Screen,Urine Neg (Neg); Cannabinoid Screen,Urine Neg (Neg); Cocaine Screen,Urine Neg (Neg)
[2018-06-07 01:08] LABS: Opiate Screen,Urine Neg (Neg)
[2018-06-07] MEDS ORDERED: amLODIPine 10 MG Tablet PO ONE (10:37)
[2018-06-07] MEDS ORDERED: Aluminum/Magnesium/Simethacone Susp 30 ML UDC PO PRN (11:03)
[2018-06-07] MEDS ORDERED: Bisacodyl 10 MG Supp RECTAL PRN (11:03)
[2018-06-07] MEDS: Senna/Docusate Sodium 8.6/50 MG Tablet PO SCH (20:25)
[2018-06-07 22:17] LABS: Bacteria,Urine Moderate /hpf; Bilirubin,Urine Negative (Negative); Clarity,Urine Hazy (Clear); Color,Urine Yellow (Yellw/Straw); Glucose,Urine (UA) 50 mg/dL (Negative); Leukocyte Esterase,Urine Trace (Negative); Nitrite,Urine Positive (Negative); Specific Gravity,Urine 1.014 (1.002-1.035)
[2018-06-08] MEDS: Senna/Docusate Sodium 8.6/50 MG Tablet PO SCH ×2 (12:08→20:32)
[2018-06-08] MEDS ORDERED: Docusate Sodium 100 MG Capsule PO PRN (13:01)
--- NOTE | 2018-06-08 13:08 | P.HPPSY ---
Provisional Diagnosis Admission Date: June 07, 2018 11:35 Powell I.: Dementia with behavioral disturbances Competence Certification of Person's Competence To Provide Express and Informed Consent I have personally examined Sin Liao, a person being served at [facility] on, June 08, 2018 1303. Express and informed consent means consent voluntarily given in writing, by a competent person, after sufficient explanation and disclosure of the subject matter involved to enable the person to make a knowing and willful decision without any element of force, fraud, deceit, duress, or other form of constraint or coercion. This person is 18 years of age or older, is not now known to be incompetent to consent to treatment with a guardian advocate, and does not have a health care surrogate or proxy currently making medical treatment decisions. I have found this person to be one of the following: [] Competent to provide express and informed consent, as defined above, for voluntary admission to this facility and is competent to provide express and informed consent for treatment. He/she has the consistent capacity to make well reasoned, willful, and knowing decisions concerning his or her medical or mental health treatment. The person fully and consistently understands the purpose of the admission for examination/placement and is fully capable of personally exercising all rights assured under [place]] Incompetent to provide express and informed consent to voluntary admission, and this is incompetent to provide express and informed consent to treatment. The person must be transferred to involuntary status and a petition for a guardian advocate filed with the Circuit Court. [] Refusing to provide express and informed consent to voluntary admission but is competent to provide express and informed consent for treatment. The person must be discharged or transferred to involuntary status. Form shall be completed within 24 hours of a person's arrival at the receiving facility and filed in the clinical record of each person: 1. Admitted on a voluntary basis 2. Permitted to provide express and informed consent to his/her own treatment 3. Allowed to transfer from involuntary to voluntary status 4. Prior to permitting a person to consent to his or her own treatment after having been previously found incompetent to consent to treatment. History of Present Illness Capacity: Lacks capacity History of Present Illness: Patient is an 82-year-old male comes here under Merchant act by the [place] [employer] dated 06/06/2018 at 205 4 hours that document reviewed status when I contacted Mr. Liao he appeared to be very confused but asked what year it was and who was the president Mr. Liao stated there was 2008 and the president was Ernst. There is denial stated that a female and 2 males were walking past I thought it was krystle Nicole and her crew. Mr. Liao also stated that he was at a dinner last night however his sister stated that he was at home did not go anywhere but she is now sister advised that he suffers from Parkinson's disease and has been suffering from dementia and now is wanted to leave his residence tonight however one asked where he lives stated the pickup location and did not realize that is where he already was patient seen and screened in the ED urine toxicology negative, urinalysis showed signs of a UTI with culture indicated. Of interest patient was hospitalized here recently under Dr. Kristian Gifford that time was also confused with psychotic flavor also at the time to his aggressive towards family. At the present time patient sitting quietly in Heidy chair in the dayroom nurse Analia present throughout session. Patient is diffusely disorganized he knows that [place] but did not know what was [place]. He does have moments [place] he thought it was 2018 and September he did not know the day of the week. There is some confusion as to his living situation he states he has 3 sisters that he may be living with 1 of them. 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 He states he was a social drinker but then for a period of time was perseverating on his past alcohol history. He denied detox or rehab. Denies other drug use. He states he has been but he has no children. There is a vagueness about past mental health history in family. He denies any physical or sexual abuse if the stomach feel patient does meet criteria for further involuntary psychiatric hospitalization and observation and assessment. I will do first opinion request second opinion. I feel he does not have capacity thus I will ask for guardian advocate. We will attempt to reach patient's family to get further information. We will have the hospitalist consult will us she does have Parkinson's disease along with his dementia and other medical issues. - Inpatient Certification I certify that the inpatient services were ordered in accordance with Medicare regulations governing the order. This includes certification that hospital inpatient services are reasonable and necessary and in the case of services not specified as inpatient-only under 42 CFR 419.22(n), that they are appropriately provided as inpatient services in accordance to with the 2-midnight benchmark under 43 CFR 412.3(e) I certify that inpatient psychiatric hospital services are medically necessary. Evaluation and treatment and/or diagnostic testing are expected to improve the patient's condition. The patient needs on a daily basis, active treatment furnished directly by or requiring the supervision of inpatient psychiatric facility personnel. Estimated Total Length of Stay (Days): 7 Plans for Post Hospital Care: Not yet determined Review of Systems All other systems reviewed negative except as stated in HPI PMFSH - History History Provided By: Patient, Medical Record - Medical History Medical History: Medical History (Last Reviewed 06/08/18 @ 13:11 by Gregorio Pierre MD) Parkinson disease (Acute) Diabetes (Acute) Dementia (Acute) Hypertension (Acute) Hernia (Acute) - Surgical History Surgical History: Surgical History (Last Reviewed 06/08/18 @ 13:11 by Gregorio Pierre MD) History of left hip replacement (Acute) - Family History Family History: Family History (Last Reviewed 06/08/18 @ 13:11 by Gregorio Pierre MD) Other Family history non-contributory - Social History I have reviewed the patient's Social History: Yes - Tobacco History Second Hand Smoke Exposure: No Smoking Status: Cognitive impairment - Alcohol History How Often Do You Have a Drink Containing Alcohol: Unable to Obtain - Substance Use History Substance History: No History of Abuse - Travel History Recent Travel in the USA Within the Last 8 Weeks: No Recent Travel Out of the Country Within the Last 8 Weeks: No - Immunization History Tetanus Immunization: Unsure Quality Measures - Psychiatric History Psychological trauma history: Patient denies Violence risk to others in the last 6 months: Patient has been aggressive towards family members Violence risk to self in the last 6 months: Denies suicidality - Substance Abuse History Drug or alcohol use in the past 12 months: States occasional "social drinker" but none in a few weeks - Patient Strengths Patient's strengths (minimum of 2): Patient verbal able access healthcare Medications and Allergies Active Medications: Active Medications Al Hydrox/Mg Hydrox/Simethicone (Mag-Al Plus Susp Liq) 30 ml PO Q6H PRN PRN Reason: DYSPEPSIA Al Hydroxide/Mg Hydroxide (Milk Of Magnesia Liq) 30 ml PO Q12H PRN PRN Reason: Mild Constipation Al Hydroxide/Mg Hydroxide (Milk Of Magnesia Liq) 30 ml PO Q12H PRN PRN Reason: Mild Constipation Bisacodyl (Dulcolax Supp) 10 mg RECTAL DAILY PRN PRN Reason: SEVERE CONSITIPATION Carbidopa/Levodopa (Sinemet 25/100 Mg) tab PO BID [facility] Diphenhydramine HCl (Benadryl) 50 mg PO HS PRN PRN Reason: INSOMNIA Docusate Sodium (Colace) 100 mg PO DAILY PRN PRN Reason: Constipation Hydroxyzine HCl (Atarax) 50 mg PO Q6H PRN PRN Reason: ANXIETY Lactulose (Lactulose Liq) 30 ml PO DAILY PRN PRN Reason: SEVERE CONSITIPATION Memantine (Namenda) 20 mg PO BID [facility] Metformin HCl (Glucophage) 1,000 mg PO BID [facility] Senna/Docusate Sodium (Ginny-Colace) 1 tab PO BID [facility] Last Admin: 06/08/18 12:08 Dose: Not Given Sennosides (Senokot) 17.2 mg PO Q12H PRN PRN Reason: Moderate Constipation Allergies Allergy/AdvReac Type Severity Reaction Status Date / Time No Known Allergies Allergy Verified 06/07/18 06:13 Home Medications Medication Instructions Recorded Confirmed Type carbidopa-levodopa 200 mg PO BID 06/07/18 06/07/18 History docusate sodium [Colace] 100 mg PO DAILY PRN 06/07/18 06/07/18 History memantine 20 mg PO BID 06/07/18 06/07/18 History metformin [Glucophage] 1,000 mg PO BID 06/07/18 06/07/18 History Results - Labs CBC & Chem 7: 06/06/18 23:10 06/06/18 23:10 Labs: Laboratory Results - last 24 hr 06/07/18 18:04 Urine Color Yellow Urine Clarity Hazy H Urine pH 5.0 Ur Specific [place] 1.014 Urine Protein 100 H Urine Glucose (UA) 50 Urine Ketones Negative Urine Occult Blood Negative Urine Nitrate Positive H Urine Bilirubin Negative Urine Urobilinogen Less than 2 Ur Leukocyte Esterase Trace H Urine RBC 2 Urine WBC 18 H Urine WBC Clumps Rare H Urine Bacteria Moderate H Micro UA Comment Culture indicated Ur Microscopic Review Not Reportable Urine Culture Comments Culture indicated Exam Vital signs: Vital Signs 06/07/18 14:33 06/07/18 18:16 Temperature 98.1 F 97.9 F Pulse Rate 75 102 H Respiratory Rate 18 18 Blood Pressure 173/85 H 150/82 H Pulse Oximetry 100 96 Intake & Output 06/07/18 06/08/18 06/08/18 18:59 06:59 18:59 Intake Total 1919 840 / 840 Balance 1919 840 / 840 Weight 92.4 kg Intake: Oral 1919 840 / 840 Other: # Voids 3 2 # Urine Diapers 1 Weight On Admission 92.4 kg Narrative: Patient seen in day room with nurse Analia, patient in no acute distress, patient no respiratory distress, no complaints of chest pain or abdominal pain. Patient moving all 4 extremities but unable to assess his ambulation Mental Status Examination Appearance: Appropriate Consciousness: Alert Orientation: Person, Place, Date/Time (Vaguely confused vaguely confused) Motor Activity: Other (Patient sitting in Heidy chair unable to ascertain) Speech: Unremarkable Language: Adequate Fund of Knowledge: Inadequate Attention and Concentration: Adequate Memory: Impaired (Fair) Mood: Other (Euthymic to somewhat restricted) Affect: Other (Good range and intensity) Thought Process & Associations: Disorganized Thought Content: Other (Disorganized) Hallucination Type: None Delusion Type: None Suicidal Ideation: No Suicidal Plan: No Suicidal Intention: No Homicidal Ideation: No Homicidal Plan: No Homicidal Intention: No Insight: Poor Judgment: Poor Assessment and Plan - Assessment (1) Dementia in other diseases classified elsewhere with behavioral disturbance Code(s): F02.81 - Dementia in other diseases classified elsewhere with behavioral disturbance Status: Acute (2) Alzheimer's disease with late onset Code(s): G30.1 - Alzheimer's disease with late onset; F02.80 - Dementia in other diseases classified elsewhere without behavioral disturbance Status: Acute - Plan Plan: Estimated LOS: [] days Patient remains confused demented. He does not meet criteria for further involuntary psychiatric hospitalization thus I will do first opinion request second opinion. I also feel he does not have capacity I will ask for guardian advocate. We will have hospitalist consult will us continue medications per the med reconciliation Justification for Continued Inpatient Stay: At this time patient would decompensate a place to a lower level of care Discharge Planning: To be determined Request Healthcare Surrogate/Guardian Advocate?: Yes
--- NOTE | 2018-06-08 14:53 | P.TTN ---
- Patient Problems Problems: 1. Discharge planning 2. Medication compliance 3. Knowledge deficit 4. Lack of coping skills - Progress Toward Goals Provider Present: Dr. Julián Pierre Provider Input: 06/08/18: New admission as of 06/07/18. Will remain for further stabilization. Nurse(s) Present: Analia GARCIA Nurse Input: Confused, Med compliant, No behavioral issues. Psychiatric Counselors Present: Carmelo Berger Jr., [facility], Other (Talia Duncan) Psychiatric Therapist Input: New admission: 06/07/18 Group Spec/RT/OT/PAYTON Present: KENDRA Wilson, Phil Mckeon, OT Group Spec/RT/OT/PAYTON Input: Unable to tolerate the group activities at this time. Pt will be encouraged to attend and participate. - Documentation Teaching Recipient: Patient
[2018-06-09 07:12] LABS: Calcium 8.9 mg/dL (8.5-10.1); Carbon Dioxide 30.2 meq/L (21.0-32.0); Potassium 3.6 meq/L (3.5-5.1)
[2018-06-09 07:14] LABS: Chol/HDL Ratio 3.64 Ratio; HDL Cholesterol 48.3 mg/dL (40.0-60.0)
[2018-06-09] MEDS: Senna/Docusate Sodium 8.6/50 MG Tablet PO SCH ×2 (13:09→21:04)
--- NOTE | 2018-06-09 13:15 | P.PNPSY ---
Subjective Remarks: Patient seen and unit with nurse Analia, chart reviewed, patient compliant medication. Patient remains somewhat diffusely confused still overall response fairly well. He did remember me but totally mispronounce my name. He denies suicidality homicidality voice or visions. There is no behavioral problems. For now continue treatment Review of Systems All other systems reviewed negative except as stated in HPI Mental Status Examination Appearance: Appropriate Consciousness: Alert Orientation: Person, Place, Date/Time (Vaguely confused vaguely confused) Motor Activity: Other (Patient sitting in Heidy chair unable to ascertain) Speech: Unremarkable Language: Adequate Fund of Knowledge: Inadequate Attention and Concentration: Adequate Memory: Impaired (Fair) Mood: Other (Euthymic to somewhat restricted) Affect: Other (Good range and intensity) Thought Process & Associations: Disorganized Thought Content: Other (Disorganized) Hallucination Type: None Delusion Type: None Suicidal Ideation: No Suicidal Plan: No Suicidal Intention: No Homicidal Ideation: No Homicidal Plan: No Homicidal Intention: No Insight: Poor Judgment: Poor Assessment and Plan - Assessment (1) Dementia in other diseases classified elsewhere with behavioral disturbance Code(s): F02.81 - Dementia in other diseases classified elsewhere with behavioral disturbance Status: Acute (2) Alzheimer's disease with late onset Code(s): G30.1 - Alzheimer's disease with late onset; F02.80 - Dementia in other diseases classified elsewhere without behavioral disturbance Status: Acute - Plan Plan: Patient continues somewhat confused and demented the low behavioral problems, compliant medication Justification for Continued Inpatient Stay: At this time patient would decompensate a place to a lower level of care Discharge Planning: To be determined Request Healthcare Surrogate/Guardian Advocate?: Yes
--- NOTE | 2018-06-09 15:02 | P.CONPSY ---
Provisional Diagnosis Admission Date: June 07, 2018 11:35 Alma I.: Dementia with behavioral disturbances History of Present Illness Service: Psychiatry Primary Care Provider: UNKNOWN Family Provider: Rubio Puga MD History of Present Illness: Patient is an 82-year-old male comes here under [employer]chant act by the [place] [employer] dated 06/06/2018 at 205 4 hours that document reviewed status when I contacted Mr. Liao he appeared to be very confused but asked what year it was and who was the president Mr. Liao stated there was 2008 and the president was Ernst. There is denial stated that a female and 2 males were walking past I thought it was [employer] and her crew. Mr. Liao also stated that he was at a dinner last night however his sister stated that he was at home did not go anywhere but she is now sister advised that he suffers from Parkinson's disease and has been suffering from dementia and now is wanted to leave his residence tonight however one asked where he lives stated the pickup location and did not realize that is where he already was patient seen and screened in the ED urine toxicology negative, urinalysis showed signs of a UTI with culture indicated. Of interest patient was hospitalized here recently under Dr. Kristian Gifford that time was also confused with psychotic flavor also at the time to his aggressive towards family. At the present time patient sitting quietly in Heidy chair in the dayroom nurse Analia present throughout session. Patient is diffusely disorganized he knows that [place] but did not know what was [place]. He does have moments [place] he thought it was 2018 and September he did not know the day of the week. There is some confusion as to his living situation he states he has 3 sisters that he may be living with 1 of them. 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 He states he was a social drinker but then for a period of time was perseverating on his past alcohol history. He denied detox or rehab. Denies other drug use. He states he has been but he has no children. There is a vagueness about past mental health history in family. He denies any physical or sexual abuse if the stomach feel patient does meet criteria for further involuntary psychiatric hospitalization and observation and assessment. I will do first opinion request second opinion. I feel he does not have capacity thus I will ask for guardian advocate. We will attempt to reach patient's family to get further information. We will have the hospitalist consult will us she does have Parkinson's disease along with his dementia and other medical issues. The patient is a 82 years old man, with psychiatric history of psychosis, dementia, medication induced psychosis, medical history of Parkinson disease, admitted on the [employer] act. Consulted to me for second opinion. Today on psychiatric evaluation. He reports feeling better today. Patient remains somewhat diffusely confused still overall response fairly well. He did remember me but totally mispronounce my name. He denies suicidality homicidality voice or visions. There is no behavioral problems. He has been compliant with medications, no significant side effects. PMF - History History Provided By: Patient, Medical Record - Medical History Medical History: Medical History (Last Reviewed 06/08/18 @ 13:11 by Gregorio Pierre MD) Parkinson disease (Acute) Diabetes (Acute) Dementia (Acute) Hypertension (Acute) Hernia (Acute) - Surgical History Surgical History: Surgical History (Last Reviewed 06/08/18 @ 13:11 by Gregorio Pierre MD) History of left hip replacement (Acute) - Family History Family History: Family History (Last Reviewed 06/08/18 @ 13:11 by Gregorio Pierre MD) Other Family history non-contributory - Tobacco History Second Hand Smoke Exposure: No Smoking Status: Cognitive impairment - Alcohol History How Often Do You Have a Drink Containing Alcohol: Unable to Obtain - Substance Use History Substance History: No History of Abuse - Travel History Recent Travel in the [place] Within the Last 8 Weeks: No Recent Travel Out of the Country Within the Last 8 Weeks: No - Immunization History Tetanus Immunization: Unsure Medications and Allergies Active Medications: Active Medications Al Hydrox/Mg Hydrox/Simethicone (Mag-Al Plus Susp Liq) 30 ml PO Q6H PRN PRN Reason: DYSPEPSIA Al Hydroxide/Mg Hydroxide (Milk Of Magnesia Liq) 30 ml PO Q12H PRN PRN Reason: Mild Constipation Bisacodyl (Dulcolax Supp) 10 mg RECTAL DAILY PRN PRN Reason: SEVERE CONSITIPATION Carbidopa/Levodopa (Sinemet 25/100 Mg) 1 tab PO BID [facility] Last Admin: 06/09/18 13:09 Dose: 1 tab Diphenhydramine HCl (Benadryl) 50 mg PO HS PRN PRN Reason: INSOMNIA Docusate Sodium (Colace) 100 mg PO DAILY PRN PRN Reason: Constipation Hydroxyzine HCl (Atarax) 50 mg PO Q6H PRN PRN Reason: ANXIETY Lactulose (Lactulose Liq) 30 ml PO DAILY PRN PRN Reason: SEVERE CONSITIPATION Memantine (Namenda) 20 mg PO BID [facility] Last Admin: 06/09/18 13:09 Dose: 20 mg Metformin HCl (Glucophage) 1,000 mg PO BIDPC [facility] Last Admin: 06/09/18 13:09 Dose: 1,000 mg Senna/Docusate Sodium (Ginny-Colace) 1 tab PO BID [facility] Last Admin: 06/09/18 13:09 Dose: 1 tab Sennosides (Senokot) 17.2 mg PO Q12H PRN PRN Reason: Moderate Constipation Allergies Allergy/AdvReac Type Severity Reaction Status Date / Time No Known Allergies Allergy Verified 06/07/18 06:13 Home Medications Medication Instructions Recorded Confirmed Type carbidopa-levodopa 200 mg PO BID 06/07/18 06/07/18 History docusate sodium [Colace] 100 mg PO DAILY PRN 06/07/18 06/07/18 History memantine 20 mg PO BID 06/07/18 06/07/18 History metformin [Glucophage] 1,000 mg PO BID 06/07/18 06/07/18 History Exam Vital signs: Vital Signs 06/09/18 06:07 06/09/18 06:56 Temperature 98.5 F Pulse Rate 70 92 H Respiratory Rate 16 16 Blood Pressure 184/88 H 165/89 H Pulse Oximetry 96 Intake & Output 06/08/18 06/09/18 06/09/18 18:59 06:59 18:59 Intake Total 480 / 480 340 / 340 840 / 840 Balance 480 / 480 340 / 340 840 / 840 Intake: Oral 480 / 480 240 / 240 840 / 840 Oral Supplement 100 / 100 Other: # Incontinent Voids 3 # Urine Diapers 1 # Bowel Movements 0 Mental Status Examination Appearance: Appropriate Consciousness: Alert Orientation: Person, Place, Date/Time (Vaguely confused vaguely confused) Motor Activity: Other (Patient sitting in Heidy chair unable to ascertain) Speech: Unremarkable Language: Adequate Fund of Knowledge: Inadequate Attention and Concentration: Adequate Memory: Impaired (Fair) Mood: Other (Euthymic to somewhat restricted) Affect: Other (Good range and intensity) Thought Process & Associations: Disorganized Thought Content: Other (Disorganized) Hallucination Type: None Delusion Type: None Suicidal Ideation: No Suicidal Plan: No Suicidal Intention: No Homicidal Ideation: No Homicidal Plan: No Homicidal Intention: No Insight: Poor Judgment: Poor Assessment and Plan - Assessment (1) Dementia in other diseases classified elsewhere with behavioral disturbance Code(s): F02.81 - Dementia in other diseases classified elsewhere with behavioral disturbance Status: Acute (2) Alzheimer's disease with late onset Code(s): G30.1 - Alzheimer's disease with late onset; F02.80 - Dementia in other diseases classified elsewhere without behavioral disturbance Status: Acute - Plan Plan: I have seen and examined this patient for psychiatric second opinion reviewed documentation, I completely agree with Dr. Pierre's assessment and plan. Justification for Continued Inpatient Stay: Continue admission Request Healthcare Surrogate/Guardian Advocate?: Yes
[2018-06-09 17:44] LABS: Hemoglobin A1c 8.7 % (4.3-6.0)
--- NOTE | 2018-06-10 11:53 | P.PNPSY ---
Subjective Remarks: Patient is seen in day room with nurse Georgia and medical student Ashley, chart reviewed, patient calm continues pleasantly confused, no behavioral problems, needs some frequent assistance. We are attempting to reach patient's family I attempted to call patient's sister whose name is Katy at [phone] left a message for her to call me here Review of Systems All other systems reviewed negative except as stated in HPI Mental Status Examination Appearance: Appropriate Consciousness: Alert Orientation: Person, Place, Date/Time (Vaguely confused vaguely confused) Motor Activity: Other (Patient sitting in Heidy chair unable to ascertain) Speech: Unremarkable Language: Adequate Fund of Knowledge: Inadequate Attention and Concentration: Adequate Memory: Impaired (Fair) Mood: Other (Euthymic to somewhat restricted) Affect: Other (Good range and intensity) Thought Process & Associations: Disorganized Thought Content: Other (Disorganized) Hallucination Type: None Delusion Type: None Suicidal Ideation: No Suicidal Plan: No Suicidal Intention: No Homicidal Ideation: No Homicidal Plan: No Homicidal Intention: No Insight: Poor Judgment: Poor Assessment and Plan - Assessment (1) Dementia in other diseases classified elsewhere with behavioral disturbance Code(s): F02.81 - Dementia in other diseases classified elsewhere with behavioral disturbance Status: Acute (2) Alzheimer's disease with late onset Code(s): G30.1 - Alzheimer's disease with late onset; F02.80 - Dementia in other diseases classified elsewhere without behavioral disturbance Status: Acute - Plan Plan: Patient remains diffusely confused disoriented though no behavioral problems. He is calm and cooperative Justification for Continued Inpatient Stay: At this time patient would decompensate a place to a lower level of care Discharge Planning: To be determined Request Healthcare Surrogate/Guardian Advocate?: Yes
[2018-06-10] MEDS: Senna/Docusate Sodium 8.6/50 MG Tablet PO SCH ×2 (14:54→20:53)
--- NOTE | 2018-06-11 11:11 | P.PNPSY ---
Subjective Remarks: Reviewed electronic medical records and discussed case with staff. Follow-up was conducted in his room. Patient was found in bed still sleeping. His nurse reports that her staff he was confused last night. He states that he "stayed up late". Does report feeling a bit lightheaded and dizzy however, he was just awakened. He states that his appetite has been off that he has "just not been hungry". In looking back through the records it seems as if recently he has been eating as much. Question whether he may be becoming depressed. Mental Status Examination Appearance: Appropriate Consciousness: Alert Orientation: Person, Place, Date/Time (Vaguely confused vaguely confused) Motor Activity: Other (Patient sitting in Heidy chair unable to ascertain) Speech: Unremarkable Language: Adequate Fund of Knowledge: Inadequate Attention and Concentration: Adequate Memory: Impaired (Fair) Mood: Other (Euthymic to somewhat restricted) Affect: Other (Good range and intensity) Thought Process & Associations: Disorganized Thought Content: Other (Disorganized) Hallucination Type: None Delusion Type: None Suicidal Ideation: No Suicidal Plan: No Suicidal Intention: No Homicidal Ideation: No Homicidal Plan: No Homicidal Intention: No Insight: Poor Judgment: Poor Assessment and Plan - Assessment (1) Dementia in other diseases classified elsewhere with behavioral disturbance Code(s): F02.81 - Dementia in other diseases classified elsewhere with behavioral disturbance Status: Acute - Plan Plan: Patient will be reevaluated Wednesday by the attending psychiatrist. Continue with current treatment plan. Justification for Continued Inpatient Stay: Moving this patient to a less restrictive environment would likely result in decompensation. Request Healthcare Surrogate/Guardian Advocate?: Yes
[2018-06-11] MEDS: Senna/Docusate Sodium 8.6/50 MG Tablet PO SCH ×2 (11:23→20:41)
[2018-06-12] MEDS: Senna/Docusate Sodium 8.6/50 MG Tablet PO SCH ×2 (09:29→21:17)
--- NOTE | 2018-06-12 12:42 | P.PNPSY ---
Subjective Remarks: Reviewed electronic medical records and discussed case with staff. Follow-up was conducted in the hallway. Patient observed ambulating with a walker after staff had woke him up to come to lunch. Patient reports that he slept well his appetite's been good. When asked about his mood he responds "I do not know how I feel". His affect continues to be depressed. Mental Status Examination Appearance: Appropriate Consciousness: Alert Orientation: Person, Place, Date/Time (Vaguely confused vaguely confused) Motor Activity: Other (Patient sitting in Heidy chair unable to ascertain) Speech: Unremarkable Language: Adequate Fund of Knowledge: Inadequate Attention and Concentration: Adequate Memory: Impaired (Fair) Mood: Other (Euthymic to somewhat restricted) Affect: Other (Good range and intensity) Thought Process & Associations: Disorganized Thought Content: Other (Disorganized) Hallucination Type: None Delusion Type: None Suicidal Ideation: No Suicidal Plan: No Suicidal Intention: No Homicidal Ideation: No Homicidal Plan: No Homicidal Intention: No Insight: Poor Judgment: Poor Assessment and Plan - Assessment (1) Dementia in other diseases classified elsewhere with behavioral disturbance Code(s): F02.81 - Dementia in other diseases classified elsewhere with behavioral disturbance Status: Acute - Plan Plan: Patient will be reevaluated Wednesday by the attending psychiatrist. Continue with current treatment plan. Justification for Continued Inpatient Stay: Moving this patient to a less restrictive environment would likely result in decompensation. Request Healthcare Surrogate/Guardian Advocate?: Yes
[2018-06-13] MEDS: Senna/Docusate Sodium 8.6/50 MG Tablet PO SCH ×2 (08:26→20:10)
--- NOTE | 2018-06-13 11:36 | P.PNPSY ---
Subjective Remarks: Patient seen in day room with medical student Iram chart reviewed, patient compliant medication., patient eating lunch she is calm cooperative continues confused but no behavioral problem. Counselors have been contact with patient' s family they have made arrangements for him to return home tomorrow. They are planning on a gradual transition to a alf type facility in the next 1- 2 weeks. Review of Systems All other systems reviewed negative except as stated in HPI Mental Status Examination Appearance: Appropriate Consciousness: Alert Orientation: Person, Place, Date/Time (Vaguely confused vaguely confused) Motor Activity: Other (Patient sitting in Heidy chair unable to ascertain) Speech: Unremarkable Language: Adequate Fund of Knowledge: Inadequate Attention and Concentration: Adequate Memory: Impaired (Fair) Mood: Other (Euthymic to somewhat restricted) Affect: Other (Good range and intensity) Thought Process & Associations: Disorganized Thought Content: Other (Disorganized) Hallucination Type: None Delusion Type: None Suicidal Ideation: No Suicidal Plan: No Suicidal Intention: No Homicidal Ideation: No Homicidal Plan: No Homicidal Intention: No Insight: Poor Judgment: Poor Assessment and Plan - Assessment (1) Dementia in other diseases classified elsewhere with behavioral disturbance Code(s): F02.81 - Dementia in other diseases classified elsewhere with behavioral disturbance Status: Acute (2) Alzheimer's disease with late onset Code(s): G30.1 - Alzheimer's disease with late onset; F02.80 - Dementia in other diseases classified elsewhere without behavioral disturbance Status: Acute - Plan Plan: Patient continues demented confused the low behavioral problems, family is willing to take patient home tomorrow with a gradual transition to a alf in the near future. Patient to be discharged tomorrow to family Justification for Continued Inpatient Stay: Family will take patient home tomorrow Discharge Planning: Discharge tomorrow to family Request Healthcare Surrogate/Guardian Advocate?: Yes
[2018-06-14] MEDS: Senna/Docusate Sodium 8.6/50 MG Tablet PO SCH ×2 (08:56→20:29)
--- NOTE | 2018-06-14 09:56 | P.PNPSY ---
Subjective Remarks: Patient seen in day room with medical student Ashley and medical student Kwaku, chart reviewed, patient compliant medication. Patient continues diffusely confused disoriented but no behavioral problems. [facility] appears [facility] will be coming to assess patient today. For possible placement. Otherwise consider discharge to family and to his own home tomorrow Review of Systems All other systems reviewed negative except as stated in HPI Mental Status Examination Appearance: Appropriate Consciousness: Alert Orientation: Person, Place, Date/Time (Vaguely confused vaguely confused) Motor Activity: Other (Patient sitting in Heidy chair unable to ascertain) Speech: Unremarkable Language: Adequate Fund of Knowledge: Inadequate Attention and Concentration: Adequate Memory: Impaired (Fair) Mood: Other (Euthymic to somewhat restricted) Affect: Other (Good range and intensity) Thought Process & Associations: Disorganized Thought Content: Other (Disorganized) Hallucination Type: None Delusion Type: None Suicidal Ideation: No Suicidal Plan: No Suicidal Intention: No Homicidal Ideation: No Homicidal Plan: No Homicidal Intention: No Insight: Poor Judgment: Poor Assessment and Plan - Assessment (1) Dementia in other diseases classified elsewhere with behavioral disturbance Code(s): F02.81 - Dementia in other diseases classified elsewhere with behavioral disturbance Status: Acute (2) Alzheimer's disease with late onset Code(s): G30.1 - Alzheimer's disease with late onset; F02.80 - Dementia in other diseases classified elsewhere without behavioral disturbance Status: Acute - Plan Plan: Patient continues diffusely confused and no behavior problems today, compliant medication. Patient to be assessed by [facility] today. If the not able to accept him consider discharge to his home within 24-48 hours Justification for Continued Inpatient Stay: At this time patient would decompensate a place to a lower level of care Discharge Planning: To be determined Request Healthcare Surrogate/Guardian Advocate?: Yes
[2018-06-14 17:48] VITALS: RESP 16
[2018-06-15] MEDS: Senna/Docusate Sodium 8.6/50 MG Tablet PO SCH ×2 (09:10→20:28)
--- NOTE | 2018-06-15 10:09 | P.DSPSY ---
Psychiatry Discharge Summary Inpatient Psychiatric care?: Yes Advance Directives: No Reason for Unknown:: Due to Patient Condition Mental Health Advance Directive: No Health Care Proxy: No - Admission Admission Date: June 07, 2018 11:35 - Admission Diagnosis (1) Dementia in other diseases classified elsewhere with behavioral disturbance Code(s): F02.81 - Dementia in other diseases classified elsewhere with behavioral disturbance (2) Alzheimer's disease with late onset Code(s): G30.1 - Alzheimer's disease with late onset; F02.80 - Dementia in other diseases classified elsewhere without behavioral disturbance Brief History: Patient is an 82-year-old male comes here under [employer] act by the [place] [employer] dated 06/06/2018 at 205 4 hours that document reviewed status when I contacted Mr. Liao he appeared to be very confused but asked what year it was and who was the president Mr. Liao stated there was 2008 and the president was Marco Antonionick. There is denial stated that a female and 2 males were walking past I thought it was [employer] and her crew. Mr. Liao also stated that he was at a dinner last night however his sister stated that he was at home did not go anywhere but she is now sister advised that he suffers from Parkinson's disease and has been suffering from dementia and now is wanted to leave his residence tonight however one asked where he lives stated the pickup location and did not realize that is where he already was patient seen and screened in the ED urine toxicology negative, urinalysis showed signs of a UTI with culture indicated. Of interest patient was hospitalized here recently under Dr. Kristian Gifford that time was also confused with psychotic flavor also at the time to his aggressive towards family. At the present time patient sitting quietly in Heidy chair in the dayroom nurse Analia present throughout session. Patient is diffusely disorganized he knows that [place] but did not know what was [place]. He does have moments [place] he thought it was 2018 and September he did not know the day of the week. There is some confusion as to his living situation he states he has 3 sisters that he may be living with 1 of them. 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 He states he was a social drinker but then for a period of time was perseverating on his past alcohol history. He denied detox or rehab. Denies other drug use. He states he has been but he has no children. There is a vagueness about past mental health history in family. He denies any physical or sexual abuse if the stomach feel patient does meet criteria for further involuntary psychiatric hospitalization and observation and assessment. I will do first opinion request second opinion. I feel he does not have capacity thus I will ask for guardian advocate. We will attempt to reach patient's family to get further information. We will have the hospitalist consult will us she does have Parkinson's disease along with his dementia and other medical issues. Tobacco Use In Past 30 Days: No How Often Do You Have a Drink Containing Alcohol: Unable to Obtain Hospital Course: Patient's hospital course was uneventful, he showed no significant behavioral problems. Though did the patient intervention by staff. His cognitive deficits remained consistent. He was calm pleasant. It appears his siblings are attempting to find a bed at [facility] for this gentleman. However there may be some delays in the bed placement. However the patient is reached maximum benefit of this hospitalization. Thus patient will go back to his own condominium with his sister to await possible placement at [facility]. The B Rx times 1 month. He may follow through with his PCP if he is at home or with the services through [facility] if he does go there in the next few days - Discharge Discharge Date: 06/15/18 - Discharge Diagnosis (1) Dementia in other diseases classified elsewhere with behavioral disturbance Diagnosis: Principal Code(s): F02.81 - Dementia in other diseases classified elsewhere with behavioral disturbance Status: Acute (2) Alzheimer's disease with late onset Diagnosis: Principal Code(s): G30.1 - Alzheimer's disease with late onset; F02.80 - Dementia in other diseases classified elsewhere without behavioral disturbance Status: Acute Discharge Disposition: Or possibly to [facility] - Discharge Instructions Discharge Diet: Diabetic Diet Activities You Can Perform: Regular- No Restrictions - Discharge Time > 30 minutes Mental Status Examination Appearance: Appropriate Consciousness: Alert Orientation: Person, Place, Date/Time (Vaguely confused vaguely confused) Motor Activity: Other (Patient sitting in Heidy chair unable to ascertain) Speech: Unremarkable Language: Adequate Fund of Knowledge: Inadequate Attention and Concentration: Adequate Memory: Impaired (Fair) Mood: Other (Euthymic to somewhat restricted) Affect: Other (Good range and intensity) Thought Process & Associations: Disorganized Thought Content: Other (Disorganized) Hallucination Type: None Delusion Type: None Suicidal Ideation: No Suicidal Plan: No Suicidal Intention: No Homicidal Ideation: No Homicidal Plan: No Homicidal Intention: No Insight: Poor Judgment: Poor Discharge/Advance Care Plan - Results Vital Signs: Last Vital Signs Temp 97.8 F 06/15/18 06:13 Pulse 77 06/15/18 06:13 Resp 16 06/14/18 17:47 BP 162/104 H 06/15/18 06:13 Pulse Ox 93 L 06/15/18 06:13 Lab Results: Laboratory Results Hemoglobin A1c 8.7 % (4.3-6.0) H 06/09/18 05:38 Triglycerides 136 mg/dL (42-150) 06/09/18 05:38 Cholesterol 176 mg/dL (120-200) 06/09/18 05:38 LDL Cholesterol, Calc 101 mg/dL (0-99) H 06/09/18 05:38 HDL Cholesterol 48.3 mg/dL (40.0-60.0) 06/09/18 05:38 TSH 1.190 uIU/mL (0.358-3.740) 06/06/18 23:10 Urine Culture Comments Culture indicated 06/07/18 18:04 Summary of Procedures: None done Pending Results: None - Medications Number of antipsychotic medications at discharge: 0 - Discharge Care Plan Goals to Promote Your Health: * To prevent worsening of your condition and complications * To maintain your health at the optimal level Directions to Meet Your Goals: Take your medications as prescribed Follow your dietary instruction Follow activity as directed Keep your appointments as scheduled Take your immunizations and boosters as scheduled If your symptoms worsen call your PCP, if no PCP go to Urgent Care Center or Emergency Room For 29/03 questions related to your inpatient stay or results of tests pending at discharge, please contact Dr. Gregorio Pierre MD at Smoking is Dangerous to Your Health. Avoid second hand smoking
[2018-06-16 05:30] VITALS: BP 146/75; PULSE 74; TEMP 97.5; O2SAT 95
[2018-06-16] MEDS: Senna/Docusate Sodium 8.6/50 MG Tablet PO SCH (09:54)
== END 2018-06-16 14:40 ==
LOC: NEDAMB 21:41 → NEDA 06-07 11:35 → H250 06-07 14:14
PROVIDERS: ADMIT Psychiatry & Neurology Psychiatry; ATTEND Psychiatry & Neurology Psychiatry

== ENCOUNTER 2018-09-10 13:34 | Inpatient (IN) ==
[2018-09-10] MEDS ORDERED: Acetaminophen 650 MG Supp RECTAL ONE (13:41)
--- NOTE | 2018-09-10 13:53 | ED ---
HPI General Chief Complaint: Altered Mental Status Stated Complaint: confusion Time Seen by Provider: 09/10/18 13:40 Source: EMS Mode of arrival: EMS Limitations: altered mental status History of Present Illness HPI narrative: 83-year-old male with PMH of HTN, DM, dementia, Parkinson's presents the ED from [facility] for evaluation of 3-day history of altered mental status. The patient is breathing on his own but does not respond to questioning or follow commands. He does not respond to noxious stimuli. Per the EMS report the patient has been having difficulties breathing for the last few days. His sister has been at bedside feeding him despite his altered mental status. EMS states that the patient is able to communicate independently but is nonambulatory at baseline. Patient is unable to provide any other meaningful history. Per review of the record the patient has been on Bactrim for the last 5 days. There is no paperwork to indicate the condition being treated. Related Data Home Medications Medication Instructions Recorded Confirmed acetaminophen [Tylenol Extra 500 mg PO TID 09/10/18 09/10/18 Strength] amlodipine [Norvasc] 5 mg PO DAILY 09/10/18 09/10/18 hydrochlorothiazide 25 mg PO DAILY 09/10/18 09/10/18 lactulose 2 tbsp PO EVERY OTHER DAY 09/10/18 09/10/18 memantine 10 mg PO BID 09/10/18 09/10/18 montelukast [Singulair] 10 mg PO QPM 09/10/18 09/10/18 sulfamethoxazole-trimethoprim 1 tab PO BID 09/10/18 09/10/18 Previous Rx's Medication Instructions Recorded carbidopa-levodopa 1 tab PO BID #60 tab 06/15/18 metformin [Glucophage] 1,000 mg PO BID #120 tab 06/15/18 Allergies Allergy/AdvReac Type Severity Reaction Status Date / Time No Known Allergies Allergy Verified 09/10/18 13:43 Review of Systems ROS Unobtainable ROS Unobtainable: unobtainable due to mental status PMFSH Medical History Medical History Parkinson disease (Acute) Diabetes (Acute) Dementia (Acute) Hypertension (Acute) Hernia (Acute) Surgical History Surgical History History of left hip replacement (Acute) Family History Family History Other Family history non-contributory Social History Social History Substance History: Unable to Obtain Second Hand Smoke Exposure: No Smoking Status: Unknown if ever smoked Tobacco Type: Cigarettes How Often Do You Have a Drink Containing Alcohol: Unable to Obtain Recent Travel in [facility] within the Last 8 Weeks: No Recent Out of Country Travel within the Last 8 Weeks: No Exam Narrative Exam Narrative: GENERAL: Thin, pale white male with tachypnea and shallow breathing. SKIN: Focused skin assessment warm/pale. 3-4 cm necrotic wound of the left hip noted. There is also a shallow necrotic wound of the sacrum. Heel pads bilaterally with a necrotic and foul smelling wound of the left heel. HEAD: Atraumatic. Normocephalic. EYES: Pupils equal and round. No scleral icterus. No injection or drainage. ENT: No nasal bleeding or discharge. Mucous membranes pink and moist. NECK: Trachea midline. No JVD. CARDIOVASCULAR: Regular rate and rhythm. No murmur appreciated. RESPIRATORY:+ accessory muscle use. Rhonchi in all lung guevara. Breath sounds equal bilaterally. GASTROINTESTINAL: Abdomen soft, non-tender, nondistended. No palpable masses. Hypoactive bowel sounds. RECTAL: Brown stool with streaky blood. Guaiac +. MUSCULOSKELETAL: Contractures of bilateral lower extremities. No clubbing. No cyanosis. No edema. NEUROLOGICAL: Obtunded Course Initial Documented Vital Signs Temperature 103.4 F H 09/10/18 13:43 Pulse Rate 110 H 09/10/18 13:43 Respiratory Rate 50 H 09/10/18 13:43 Blood Pressure 129/83 09/10/18 13:43 Pulse Oximetry 94 L 09/10/18 13:43 Last Documented Vital Signs Temperature 102.4 F H 09/10/18 18:00 Pulse Rate 89 09/10/18 19:27 Respiratory Rate 17 09/10/18 19:27 Blood Pressure 106/68 09/10/18 19:00 Pulse Oximetry 100 09/10/18 19:27 Procedures Hemaprompt Stool Procedural Steps Taken: specimen placed in appropriate test area and controls appropriately positive and negative Hemaprompt Stool Result: positive Intubation Time Out Performed: Yes Sedative: etomidate Mg Given: 20 Paralytic: succinylcholine Mg Given: 100 Laryngoscope: fiber optic video scope Assist Device Used: fiber optic device ET Tube Size: 8 ET Tube Uncuffed: No Tube Secured Depth (cm): 23 Tube Secured Location: lips Tube Placement Confirmation: visualized tube passing through cords, equal breath sounds bilaterally, no breath sounds over epigastrium and confirmation by capnometry Patient Tolerated Procedure: well Intubation Complications: none Critical Care Time Critical Care Time: Yes Total Critical Care Time: 45 Attestation: Aggregate critical care time was Gibbs minutes. Time to perform other separately billable procedures was not included in the critical care time. My time did not include minutes spent treating any other patients simultaneously or on activities that did not directly contribute to the patient' s treatment. The services I provided to this patient were to treat and/or prevent clinically significant deterioration that could result in: Anoxia, hypoxia, aspiration, septic shock, . I provided critical care services requiring my management, as noted below: Chart data review, documentation time, medication orders and management, vital sign assessments/reviewing monitor data, ordering and reviewing lab tests, ordering and interpreting/reviewing x-rays and diagnostic studies, care of the patient and discussion of the patient with the admitting physicians. Medical Decision Making LEVY Attestation LEVY supervised visit: Yes Attestation: I, Dr. Gibbs, have reviewed the advance practice practitioner' s documentation and am in agreement, met with the patient face to face, made the diagnosis, and the medical decision making was done by me. *My assessment and Findings: The patient is 83-year-old male who presents to the emergency department from the correction for altered mental status, fever , and increased work of breathing. The patient apparently has a history of dementia but is able to hold a conversation with the staff at the correction. It was noted that the patient had decreased mental status with increased work of breathing earlier this morning. The patient apparently has been fed by family members at the correction, there was concern for possible aspiration pneumonia. Upon arrival the patient was noted to have tachypnea with a respiratory rate of 50, mild withdrawal to pain, positive gag reflex, temperature of greater than 103, and tachycardia. The patient was placed on supplemental oxygen is as initial O2 saturation was 89% on room air. The patient continued to have increased work of breathing with a respiratory rate in the 30s, therefore, was intubated using rapid sequence intubation with etomidate and succinylcholine at bedside. Post intubation chest x-ray was obtained. The patient had a lactic acid and blood culture sent to lab and was covered with cefepime, Zithromax, and vancomycin. The patient was also noted to have chronic wounds on the sacrum, left ankle, and left hip. The patient also had a foul smell to the necrotic left heel wound. The patient meets sepsis criteria with fever, tachycardia, altered mental status, and increased work of breathing. The patient will be admitted to the intensive care unit. MDM Narrative Medical decision making narrative: 83-year-old male with PMH of HTN, DM, dementia, Parkinson's presents the ED from [facility] for evaluation of 3-day history of altered mental status. The patient is breathing on his own but does not respond to questioning or follow commands. Per reports the patient is normally able to converse with staff. Patient is febrile, tachycardic with a respiratory rate nearing 50 and O2 saturations of 94% on 4 L by nasal cannula on arrival. On physical exam he is has several necrotic pressure wounds and coarse lung sounds diffusely. IV was established. Patient was placed on continuous monitoring and intubated shortly after arrival. IV fluid resuscitation was initiated. CBC with WBCs of 17.5, 90.4% neutrophils. Blood gas with pH of 7.45, PCO2 33, bicarb 23. CMP with sodium of 155, potassium of 5.5 and chloride of 122. BUN 50, creatinine 1.84, lactic acid 3.3. Patient was administered vancomycin, cefepime, azithromycin. Flu swab was positive. Patient was administered a dose of Tamiflu. Dr. Gibbs spoke with the [employer] business analyst who agrees to accept the patient to the medicine service. Please see medicine notes for disposition per Medical Screen Exam Complete: Yes Emergency Medical Condition: Yes Differential Diagnosis Differential Diagnosis: Urosepsis versus pneumonia versus aspiration pneumonia versus metabolic derangement versus other Lab Data Result diagrams: 09/10/18 13:53 09/10/18 13:53 Lab Results 09/10/18 09/10/18 09/10/18 Range/Units 13:53 13:53 13:53 WBC 17.5 H (4.0-11.0) th/mm3 RBC 5.55 (4.50-5.90) mil/mm3 Hgb 16.9 (13.0-17.0) gm/dL Hct 50.9 (39.0-51.0) % MCV 91.6 (80.0-100.0) fL MCH 30.3 (27.0-34.0) pg MCHC 33.1 (32.0-36.0) % RDW 14.3 (11.6-17.2) % Plt Count 329 (150-450) th/mm3 MPV 8.6 (7.0-11.0) fL Neut % (Auto) 90.4 H (16.0-70.0) % Lymph % (Auto) 6.1 L (9.0-44.0) % Nolan % (Auto) 2.8 (0.0-8.0) % Eos % (Auto) 0.2 (0.0-4.0) % Baso % (Auto) 0.5 (0.0-2.0) % Neut # (Auto) 15.8 H (1.8-7.7) th/mm3 Lymph # (Auto) 1.1 (1.0-4.8) th/mm3 Nolan # (Auto) 0.5 (0.0-0.9) th/mm3 Eos # (Auto) 0.0 (0.0-0.4) th/mm3 Baso # (Auto) 0.1 (0.0-0.2) th/mm3 WBC Differential . Differential Comment Auto diff final PT 11.6 (9.8-11.6) sec INR 1.1 Ratio APTT 25.2 (23.4-31.7) sec Puncture Site Patient Temperature O2 Saturation (90-100) % ABG pH (7.380-7.420) ABG pCO2 (38-42) mmHg ABG pO2 (61-120) mmHg ABG HCO3 (22-26) mmol/L ABG O2 Content (12.0-20.0) Vol % ABG Base Excess (-2-2) mmol/L ABG Methemoglobin (0-2) % Lino Test Hemoglobin (12.0-16.0) G/DL Carboxyhemoglobin (0-4) % O2 Delivery Device Vent Setting Inspired O2 % Critical Value Sodium 155 H (136-145) meq/L Potassium 5.5 H (3.5-5.1) meq/L Chloride 122 H (98-107) meq/L Carbon Dioxide 26.1 (21.0-32.0) meq/L Anion Gap 7 (5-15) meq/L BUN 50 H (7-18) mg/dL Creatinine 1.84 H (0.60-1.30) mg/dL Estimated GFR 35 L (>89) mL/min POC Glucose (68-110) mg/dl Random Glucose 308 H (74-106) mg/dL Lactic Acid (0.4-2.0) mmol/L Calcium 9.2 (8.5-10.1) mg/dL Calcium Adj for Albumin Magnesium 2.6 H (1.5-2.5) mg/dL Total Bilirubin 2.1 H (0.2-1.0) mg/dL AST 78 H (15-37) U/L ALT 63 (12-78) U/L Alkaline Phosphatase 174 H (45-117) U/L Ammonia (11-32) mcmol/L Total Creatine Kinase 310 H (39-308) U/L CK-MB (CK-2) Less than 1.0 (0.5-3.6) ng/mL CK-MB (CK-2) % 0.3 (0.0-4.0) % Troponin I Less than 0.02 L (0.02-0.05) ng/mL Total Protein 7.7 (6.4-8.2) g/dL Albumin 2.0 L (3.4-5.0) g/dL Urine Color (Yellw/Straw) Urine Clarity (Clear) Urine pH (5.0-8.5) Ur Specific [place] (1.002-1.035) Urine Protein (Neg-Trace) mg/dL Urine Glucose (UA) (Negative) mg/dL Urine Ketones (Negative) mg/dL Urine Occult Blood (Negative) Urine Nitrate (Negative) Urine Bilirubin (Negative) Urine Urobilinogen (Less than 2) mg/dL Ur Leukocyte Esterase (Negative) Urine RBC (0-3) /hpf Urine WBC (0-5) /hpf Amorphous Sediment (None) /hpf Urine Bacteria (None) /hpf Granular Casts (None) /lpf Urine Mucus (Occasional) /lpf Micro UA Comment Ur Microscopic Review Urine Culture Comments 09/10/18 09/10/18 09/10/18 Range/Units 13:53 13:53 15:00 WBC (4.0-11.0) th/mm3 RBC (4.50-5.90) mil/mm3 Hgb (13.0-17.0) gm/dL Hct (39.0-51.0) % MCV (80.0-100.0) fL MCH (27.0-34.0) pg MCHC (32.0-36.0) % RDW (11.6-17.2) % Plt Count (150-450) th/mm3 MPV (7.0-11.0) fL Neut % (Auto) (16.0-70.0) % Lymph % (Auto) (9.0-44.0) % Nolan % (Auto) (0.0-8.0) % Eos % (Auto) (0.0-4.0) % Baso % (Auto) (0.0-2.0) % Neut # (Auto) (1.8-7.7) th/mm3 Lymph # (Auto) (1.0-4.8) th/mm3 Nolan # (Auto) (0.0-0.9) th/mm3 Eos # (Auto) (0.0-0.4) th/mm3 Baso # (Auto) (0.0-0.2) th/mm3 WBC Differential Differential Comment PT (9.8-11.6) sec INR Ratio APTT (23.4-31.7) sec Puncture Site Right radial Patient Temperature 98.6 O2 Saturation 98 (90-100) % ABG pH 7.45 H (7.380-7.420) ABG pCO2 33 L (38-42) mmHg ABG pO2 226 H (61-120) mmHg ABG HCO3 23 (22-26) mmol/L ABG O2 Content 18.2 (12.0-20.0) Vol % ABG Base Excess -0.9 (-2-2) mmol/L ABG Methemoglobin 0.7 (0-2) % Lino Test Present Hemoglobin 12.9 (12.0-16.0) G/DL Carboxyhemoglobin 0.9 (0-4) % O2 Delivery Device Ventilator Vent Setting Prvc/ac Inspired O2 60 % Critical Value No Sodium Cancelled (136-145) meq/L Potassium Cancelled (3.5-5.1) meq/L Chloride Cancelled (98-107) meq/L Carbon Dioxide Cancelled (21.0-32.0) meq/L Anion Gap Cancelled (5-15) meq/L BUN Cancelled (7-18) mg/dL Creatinine Cancelled (0.60-1.30) mg/dL Estimated GFR Cancelled (>89) mL/min POC Glucose (68-110) mg/dl Random Glucose Cancelled (74-106) mg/dL Lactic Acid 3.3 H (0.4-2.0) mmol/L Calcium Cancelled (8.5-10.1) mg/dL Calcium Adj for Albumin Cancelled Magnesium Cancelled (1.5-2.5) mg/dL Total Bilirubin Cancelled (0.2-1.0) mg/dL AST Cancelled (15-37) U/L ALT Cancelled (12-78) U/L Alkaline Phosphatase Cancelled (45-117) U/L Ammonia (11-32) mcmol/L Total Creatine Kinase (39-308) U/L CK-MB (CK-2) (0.5-3.6) ng/mL CK-MB (CK-2) % (0.0-4.0) % Troponin I (0.02-0.05) ng/mL Total Protein Cancelled (6.4-8.2) g/dL Albumin Cancelled (3.4-5.0) g/dL Urine Color (Yellw/Straw) Urine Clarity (Clear) Urine pH (5.0-8.5) Ur Specific [place] (1.002-1.035) Urine Protein (Neg-Trace) mg/dL Urine Glucose (UA) (Negative) mg/dL Urine Ketones (Negative) mg/dL Urine Occult Blood (Negative) Urine Nitrate (Negative) Urine Bilirubin (Negative) Urine Urobilinogen (Less than 2) mg/dL Ur Leukocyte Esterase (Negative) Urine RBC (0-3) /hpf Urine WBC (0-5) /hpf Amorphous Sediment (None) /hpf Urine Bacteria (None) /hpf Granular Casts (None) /lpf Urine Mucus (Occasional) /lpf Micro UA Comment Ur Microscopic Review Urine Culture Comments 09/10/18 09/10/18 09/10/18 Range/Units 15:15 17:15 17:15 WBC (4.0-11.0) th/mm3 RBC (4.50-5.90) mil/mm3 Hgb (13.0-17.0) gm/dL Hct (39.0-51.0) % MCV (80.0-100.0) fL MCH (27.0-34.0) pg MCHC (32.0-36.0) % RDW (11.6-17.2) % Plt Count (150-450) th/mm3 MPV (7.0-11.0) fL Neut % (Auto) (16.0-70.0) % Lymph % (Auto) (9.0-44.0) % Nolan % (Auto) (0.0-8.0) % Eos % (Auto) (0.0-4.0) % Baso % (Auto) (0.0-2.0) % Neut # (Auto) (1.8-7.7) th/mm3 Lymph # (Auto) (1.0-4.8) th/mm3 Nolan # (Auto) (0.0-0.9) th/mm3 Eos # (Auto) (0.0-0.4) th/mm3 Baso # (Auto) (0.0-0.2) th/mm3 WBC Differential Differential Comment PT (9.8-11.6) sec INR Ratio APTT (23.4-31.7) sec Puncture Site Patient Temperature O2 Saturation (90-100) % ABG pH (7.380-7.420) ABG pCO2 (38-42) mmHg ABG pO2 (61-120) mmHg ABG HCO3 (22-26) mmol/L ABG O2 Content (12.0-20.0) Vol % ABG Base Excess (-2-2) mmol/L ABG Methemoglobin (0-2) % Lino Test Hemoglobin (12.0-16.0) G/DL Carboxyhemoglobin (0-4) % O2 Delivery Device Vent Setting Inspired O2 % Critical Value Sodium (136-145) meq/L Potassium (3.5-5.1) meq/L Chloride (98-107) meq/L Carbon Dioxide (21.0-32.0) meq/L Anion Gap (5-15) meq/L BUN (7-18) mg/dL Creatinine (0.60-1.30) mg/dL Estimated GFR (>89) mL/min POC Glucose (68-110) mg/dl Random Glucose (74-106) mg/dL Lactic Acid 2.2 H (0.4-2.0) mmol/L Calcium (8.5-10.1) mg/dL Calcium Adj for Albumin Magnesium (1.5-2.5) mg/dL Total Bilirubin (0.2-1.0) mg/dL AST (15-37) U/L ALT (12-78) U/L Alkaline Phosphatase (45-117) U/L Ammonia 29 (11-32) mcmol/L Total Creatine Kinase (39-308) U/L CK-MB (CK-2) (0.5-3.6) ng/mL CK-MB (CK-2) % (0.0-4.0) % Troponin I (0.02-0.05) ng/mL Total Protein (6.4-8.2) g/dL Albumin (3.4-5.0) g/dL Urine Color Norma (Yellw/Straw) Urine Clarity Hazy H (Clear) Urine pH 5.0 (5.0-8.5) Ur Specific [place] 1.023 (1.002-1.035) Urine Protein 100 H (Neg-Trace) mg/dL Urine Glucose (UA) Negative (Negative) mg/dL Urine Ketones Negative (Negative) mg/dL Urine Occult Blood Negative (Negative) Urine Nitrate Negative (Negative) Urine Bilirubin Negative (Negative) Urine Urobilinogen 4 or greater (Less than 2) mg/dL Ur Leukocyte Esterase Negative (Negative) Urine RBC 1 (0-3) /hpf Urine WBC 3 (0-5) /hpf Amorphous Sediment Rare H (None) /hpf Urine Bacteria Rare H (None) /hpf Granular Casts 1 (None) /lpf Urine Mucus Few H (Occasional) /lpf Micro UA Comment Cath-culture ind Ur Microscopic Review Not Reportable Urine Culture Comments Cath-cult indicated 09/10/18 Range/Units 18:59 WBC (4.0-11.0) th/mm3 RBC (4.50-5.90) mil/mm3 Hgb (13.0-17.0) gm/dL Hct (39.0-51.0) % MCV (80.0-100.0) fL MCH (27.0-34.0) pg MCHC (32.0-36.0) % RDW (11.6-17.2) % Plt Count (150-450) th/mm3 MPV (7.0-11.0) fL Neut % (Auto) (16.0-70.0) % Lymph % (Auto) (9.0-44.0) % Nolan % (Auto) (0.0-8.0) % Eos % (Auto) (0.0-4.0) % Baso % (Auto) (0.0-2.0) % Neut # (Auto) (1.8-7.7) th/mm3 Lymph # (Auto) (1.0-4.8) th/mm3 Nolan # (Auto) (0.0-0.9) th/mm3 Eos # (Auto) (0.0-0.4) th/mm3 Baso # (Auto) (0.0-0.2) th/mm3 WBC Differential Differential Comment PT (9.8-11.6) sec INR Ratio APTT (23.4-31.7) sec Puncture Site Patient Temperature O2 Saturation (90-100) % ABG pH (7.380-7.420) ABG pCO2 (38-42) mmHg ABG pO2 (61-120) mmHg ABG HCO3 (22-26) mmol/L ABG O2 Content (12.0-20.0) Vol % ABG Base Excess (-2-2) mmol/L ABG Methemoglobin (0-2) % Lino Test Hemoglobin (12.0-16.0) G/DL Carboxyhemoglobin (0-4) % O2 Delivery Device Vent Setting Inspired O2 % Critical Value Sodium (136-145) meq/L Potassium (3.5-5.1) meq/L Chloride (98-107) meq/L Carbon Dioxide (21.0-32.0) meq/L Anion Gap (5-15) meq/L BUN (7-18) mg/dL Creatinine (0.60-1.30) mg/dL Estimated GFR (>89) mL/min POC Glucose 314 H (68-110) mg/dl Random Glucose (74-106) mg/dL Lactic Acid (0.4-2.0) mmol/L Calcium (8.5-10.1) mg/dL Calcium Adj for Albumin Magnesium (1.5-2.5) mg/dL Total Bilirubin (0.2-1.0) mg/dL AST (15-37) U/L ALT (12-78) U/L Alkaline Phosphatase (45-117) U/L Ammonia (11-32) mcmol/L Total Creatine Kinase (39-308) U/L CK-MB (CK-2) (0.5-3.6) ng/mL CK-MB (CK-2) % (0.0-4.0) % Troponin I (0.02-0.05) ng/mL Total Protein (6.4-8.2) g/dL Albumin (3.4-5.0) g/dL Urine Color (Yellw/Straw) Urine Clarity (Clear) Urine pH (5.0-8.5) Ur Specific [place] (1.002-1.035) Urine Protein (Neg-Trace) mg/dL Urine Glucose (UA) (Negative) mg/dL Urine Ketones (Negative) mg/dL Urine Occult Blood (Negative) Urine Nitrate (Negative) Urine Bilirubin (Negative) Urine Urobilinogen (Less than 2) mg/dL Ur Leukocyte Esterase (Negative) Urine RBC (0-3) /hpf Urine WBC (0-5) /hpf Amorphous Sediment (None) /hpf Urine Bacteria (None) /hpf Granular Casts (None) /lpf Urine Mucus (Occasional) /lpf Micro UA Comment Ur Microscopic Review Urine Culture Comments Imaging Data Radiologist's impression: Chest X-Ray 09/10/18 13:42 CONCLUSION: No acute cardiopulmonary disease. ECG Data EKG Prior to Arrival: No Attestation: I personally reviewed and interpreted this ECG as follows: Interpretation: EKG reveals sinus tachycardia with a heart rate of 113. Right bundle branch block. Discharge Plan Discharge Disposition Patient Disposition: ED Admit(ED Internal Use Only) Discharge Order Discharge Orders: ED Use Only Admit Order (Routine); Ordered 09/10/18 Ordered By: Phoebe Roberts Physicians Team ED Provider: Escobar Gibbs ED Midlevel Provider: Phoebe Roberts Primary Care Provider: Rubio Puga Attending Provider: Consuelo Hobson Other Providers: Mary Hernandez ; Neil Wade ; Ines Staples Status ED Status: Admitted Patient
[2018-09-10] MEDS ORDERED: Sodium Chlor 0.9% Inj 500 ML IV.SIG SCH (14:00)
[2018-09-10] MEDS ORDERED: Etomidate Inj 20 MG/10 ML Ampul IV.PUSH ONE (14:04)
[2018-09-10] MEDS ORDERED: Succinylcholine Inj 100 MG/5 ML Syringe IV.PUSH ONE (14:04)
[2018-09-10] MEDS ORDERED: Succinylcholine Inj 200 MG/10 ML Vial ONE (14:09)
[2018-09-10 14:23] LABS: Baso # (Auto) 0.1 th/mm3 (0.0-0.2); Baso % (Auto) 0.5 % (0.0-2.0); Eos % (Auto) 0.2 % (0.0-4.0); Hematocrit 50.9 % (39.0-51.0); Hemoglobin 16.9 gm/dL (13.0-17.0); Lymph # (Auto) 1.1 th/mm3 (1.0-4.8); Lymph % (Auto) 6.1 % (9.0-44.0); Mean Corpuscular HGB Conc 33.1 % (32.0-36.0); Mean Corpuscular Hemoglobin 30.3 pg (27.0-34.0); Mean Corpuscular Volume 91.6 fL (80.0-100.0); Mean Platelet Volume 8.6 fL (7.0-11.0); Mono # (Auto) 0.5 th/mm3 (0.0-0.9); Mono % (Auto) 2.8 % (0.0-8.0); Neut # (Auto) 15.8 th/mm3 (1.8-7.7); Neut % (Auto) 90.4 % (16.0-70.0); Platelet Count 329 th/mm3 (150-450); Red Blood Count 5.55 mil/mm3 (4.50-5.90); Red Cell Distribution Width 14.3 % (11.6-17.2); White Blood Count 17.5 th/mm3 (4.0-11.0)
[2018-09-10] MEDS ORDERED: Midazolam Inj 5 MG/ML 1 ML Vial ONE (14:23)
[2018-09-10 14:26] LABS: Activated Partial Thrombo Time 25.2 sec (23.4-31.7); INR 1.1 Ratio; Prothrombin Time 11.6 sec (9.8-11.6)
[2018-09-10] MEDS ORDERED: Azithromycin Inj 500 MG in Sodium Chlor 0.9% Inj 250 ML IV.SIG ONE (14:28)
[2018-09-10] MEDS ORDERED: Vancomycin Inj 1,000 MG in Sodium Chlor 0.9% Inj 250 ML IV.SIG ONE ×2 (14:28→17:00)
[2018-09-10] MEDS ORDERED: Sod Chloride 0.9% Inj 1,000 ML IV.SIG ONE (14:28)
[2018-09-10 14:44] LABS: Alanine Aminotransferase 63 U/L (12-78); Alkaline Phosphatase 174 U/L (45-117); Anion Gap 7 meq/L (5-15); Aspartate Aminotransferase 78 U/L (15-37); Blood Urea Nitrogen 50 mg/dL (7-18); Calcium 9.2 mg/dL (8.5-10.1); Carbon Dioxide 26.1 meq/L (21.0-32.0); Chloride 122 meq/L (98-107); Creatine Kinase 310 U/L (39-308); Glomerular Filtration Rate 35 mL/min (>89); Glucose,Random 308 mg/dL (74-106); Magnesium 2.6 mg/dL (1.5-2.5); Potassium 5.5 meq/L (3.5-5.1); Sodium 155 meq/L (136-145); Total Protein 7.7 g/dL (6.4-8.2)
[2018-09-10 14:56] LABS: CKMB Percent 0.3 % (0.0-4.0)
[2018-09-10] MEDS: Propofol 1000 mg/100 ml Inj 1,000 MG/100 ML BOTTLE IV.CONT PRN ×3 (14:57→17:00)
--- NOTE | 2018-09-10 14:57 | XR ---
EXAM DATE: 09/10/2018 2:43 PM EST AGE/SEX: 83 years / Male INDICATIONS: Status post intubation and OG tube placement. CLINICAL DATA: This is the patient's initial encounter. Patient reports that signs and symptoms have been present for 1 day and indicates a pain score of Nonresponsive. MEDICAL/SURGICAL HISTORY: Non-responsive. Non-responsive. COMPARISON: [facility] [place], CHEST 1V SINGLE AP, 08/10/2018. . FINDINGS: The lungs are clear without infiltrate, nodule, or mass. There is no appreciable pleural effusion for technique. Heart and mediastinum are unremarkable. NG tube is present with tip in the stomach. ET tube is present with tip overlapping approximately 4 above the yury. CONCLUSION: No acute cardiopulmonary disease. Electronically signed by: Dottie Sahu MD Board Certified Radiologist 09/10/2018 2:55 PM EST
[2018-09-10 15:08] LABS: ABG Base Excess -0.9 mmol/L (-2-2); ABG PCO2 33 mmHg (38-42); ABG PO2 226 mmHg (61-120)
[2018-09-10] MEDS ORDERED: Acetaminophen 325 MG Tablet PO PRN (15:49)
[2018-09-10] MEDS ORDERED: Bisacodyl 10 MG Supp RECTAL PRN (15:49)
[2018-09-10] MEDS ORDERED: fentaNYL 10 mcg/mL Premix Drip 2,500 MCG/250 ML BAG IV.SIG PRN (15:49)
[2018-09-10 15:53] LABS: Amorphous Sediment,Urine Rare /hpf; Bacteria,Urine Rare /hpf; Bilirubin,Urine Negative (Negative); Clarity,Urine Hazy (Clear); Color,Urine Amber (Yellw/Straw); Glucose,Urine (UA) Negative (Negative); Leukocyte Esterase,Urine Negative (Negative); Mucus,Urine Few /lpf (Occasional); Nitrite,Urine Negative (Negative); Specific Gravity,Urine 1.023 (1.002-1.035); Urobilinogen,Urine 4 or Greater mg/dL (Less than 2)
[2018-09-10] MEDS ORDERED: Vancomycin Consult Pharmacy OTHER PRN (16:04)
[2018-09-10] MEDS ORDERED: Dextrose 50% in Water 50 ML Vial IV.PUSH PRN (16:06)
[2018-09-10] MEDS ORDERED: Oseltamivir Liq 30 MG/5 ML Oral Syringe NG/OG ONE (16:53)
[2018-09-10] MEDS ORDERED: RASS Change Order OTHER ONE (17:00)
[2018-09-10] MEDS: Sod Chloride 0.9% Inj 1,000 ML IV.CONT SCH (17:27)
--- NOTE | 2018-09-10 18:36 | P.HPCC ---
History of Present Illness Service: ICU Primary Care Physician: Rubio Puga MD Chief Complaint: Altered mental status History of Present Illness: This is an 83-year-old male with a medical history significant for Parkinson's and dementia that resides in a half-way but normally with half-way staff and family members. The patient was noted to have a change in mentation as well as the patient became tachycardic and hypoxic. EMS was called the patient was transported emergently to the [facility]. Upon arrival the patient was noted to have a lactic acidemia and a leukocytosis parental diagnosis included healthcare associated pneumonia in the antibiotic coverage. The patient was also bolused with 2 L of normal saline. The patient continued to have respiratory insufficiency and required emergent intubation in the emergency department and placed on sedation. Further review the patient was noted to have significant multiple decubiti ,chronic wounds noted on the left hip the left ankle and sacral area all 3 necrotic and malodorous. Critical care medicine was consulted for management. Further cultures were obtained, the patient was noted to be positive for influenza A. Other cultures are pending. - Diagnosis (1) Influenza A (2) Sacral decubitus ulcer, stage IV (3) Decubitus ulcer of ankle (4) Decubitus ulcer, hip (5) Renal insufficiency (6) Sepsis Inpatient Certification: I certify that the inpatient services were ordered in accordance with Medicare regulations governing the order. This includes certification that hospital inpatient services are reasonable and necessary and in the case of services not specified as inpatient-only under 42 CFR 419.22(n), that they are appropriately provided as inpatient services in accordance to with the 2-midnight benchmark under 43 CFR 412.3(e) Estimated Total Length of Stay (Days): 5 Plans for Post Hospital Care: Not yet determined Review of Systems unobtainable due to endotracheal tube, unobtainable due to mental condition, unobtainable due to mental status PMFSH - History History Provided By: Patient - Medical History Medical History: Medical History (Last Reviewed 09/10/18 @ 13:49 by CATHERINE Castillo) Parkinson disease (Acute) Diabetes (Acute) Dementia (Acute) Hypertension (Acute) Hernia (Acute) - Surgical History Surgical History: Surgical History (Last Reviewed 09/10/18 @ 13:49 by CATHERINE Castillo) History of left hip replacement (Acute) - Family History Family History: Family History (Last Reviewed 09/10/18 @ 13:49 by CATHERINE Castillo) Other Family history non-contributory - Tobacco History Second Hand Smoke Exposure: No Tobacco Use In Past 30 Days: No Smoking Status: Smoker, status unknown Tobacco Type: Cigarettes - Alcohol History How Often Do You Have a Drink Containing Alcohol: Unable to Obtain - Substance Use History Substance History: Unable to Obtain - Travel History Recent Travel in the [place] Within the Last 8 Weeks: No Recent Travel Out of the Country Within the Last 8 Weeks: No - Immunization History Tetanus Immunization: Unable to Assess Medications and Allergies Active Medications: Active Medications Acetaminophen (Tylenol) 650 mg PO Q6H PRN PRN Reason: PAIN 1-10 AND/OR FEVER >101F Al Hydroxide/Mg Hydroxide (Milk Of Magnnegrita Liq) 30 ml PO Q12H PRN PRN Reason: Mild Constipation Albuterol (Albuterol Neb (Prn)) 2.5 mg NEB Q2HR NEB PRN PRN Reason: SHORTNESS OF BREATH/WHEEZING Albuterol (Duoneb Neb (Bienvenido)) 1 ampul NEB Q4HR NEB [facility] Last Admin: 09/10/18 16:20 Dose: 1 ampul Bisacodyl (Dulcolax Supp) 10 mg RECTAL DAILY PRN PRN Reason: SEVERE CONSITIPATION Chlorhexidine Gluconate (Peridex 0.12% Oral Kit) 15 ml OROPHARYNG BID@0800, 2000 [facility] Chlorhexidine Gluconate (Chlorhexidine 2% Cloth) 3 pack TOPICAL DAILY@0400 BIENVENIDO Stop: 09/16/18 03:59 Chlorhexidine Gluconate (Chlorhexidine 2% Cloth) 3 pack TOPICAL DAILY@0400 PRN PRN Reason: Extra cloth needed Stop: 09/16/18 03:59 Dextrose (D50w Vial) 50 ml IV.PUSH UNSCH PRN PRN Reason: PER HYPOGLYCEMIA PROTOCOL Famotidine (Pepcid Pf Inj) 20 mg IV.PUSH Q12HR BIENVENIDO Glucagon (Glucagon Inj) 1 mg OTHER PRN PRN PRN Reason: for Hypoglycemia Protocol Heparin Sodium (Porcine) (Heparin Inj) 5,000 units SQ Q12H BIENVENIDO Fentanyl (Fentanyl 10 Mcg/Ml Premix Drip) 2,500 mcg in 250 mls @ 5 mls/hr IV.SIG TITRATE PRN; Protocol PRN Reason: Per Protocol Sodium Chloride (Ns Inj) 1,000 mls @ 84 mls/hr IV.CONT .[id number] [facility] Last Admin: 09/10/18 17:27 Dose: 84 mls/hr Propofol (Diprivan 1000 Mg/100 Ml Inj) 1,000 mg in 100 mls @ 2.381 mls/hr IV.CONT TITRATE PRN; Protocol PRN Reason: Per Protocol Cefepime HCl 500 mg/ Sodium (Chloride) 100 mls @ 200 mls/hr IV.SIG Q12H [facility] Insulin Aspart (Novolog Insulin Correctional Sugar Inj) 0 unit SQ Q6HR [facility]; Protocol Lactulose (Lactulose Liq) 30 ml PO DAILY PRN PRN Reason: SEVERE CONSITIPATION Miscellaneous Medication () 1 each OROPHARYNG 0000,0400,1200,1600 [facility] Pharmacy Profile Note (Vancomycin Consult Pharmacy) 1 each OTHER UNSCH PRN PRN Reason: Pharmacy to dose Senna/Docusate Sodium (Ginny-Colace) 1 tab PO BID [facility] Sennosides (Senokot) 17.2 mg PO Q12H PRN PRN Reason: Moderate Constipation Sodium Chloride (Ns Flush) 2 ml IV.FLUSH BID [facility] Sodium Chloride (Ns Flush) 2 ml IV.FLUSH PRN PRN PRN Reason: FLUSH AFTER USING IV ACCESS Allergies Allergy/AdvReac Type Severity Reaction Status Date / Time No Known Allergies Allergy Verified 09/10/18 13:43 Home Medications Medication Instructions Recorded Confirmed Type acetaminophen [Tylenol Extra 500 mg PO TID 09/10/18 09/10/18 History Strength] amlodipine [Norvasc] 5 mg PO DAILY 09/10/18 09/10/18 History hydrochlorothiazide 25 mg PO DAILY 09/10/18 09/10/18 History lactulose 2 tbsp PO EVERY OTHER DAY 09/10/18 09/10/18 History memantine 10 mg PO BID 09/10/18 09/10/18 History montelukast [Singulair] 10 mg PO QPM 09/10/18 09/10/18 History sulfamethoxazole-trimethoprim 1 tab PO BID 09/10/18 09/10/18 History Results - Labs CBC & Chem 7: 09/10/18 13:53 09/10/18 13:53 Labs: Short CBC 09/10/18 Range/Units 13:53 WBC 17.5 H (4.0-11.0) th/mm3 Hgb 16.9 (13.0-17.0) gm/dL Hct 50.9 (39.0-51.0) % Plt Count 329 (150-450) th/mm3 BMP 09/10/18 09/10/18 13:53 13:53 Sodium 155 H Cancelled Potassium 5.5 H Cancelled Chloride 122 H Cancelled Carbon Dioxide 26.1 Cancelled BUN 50 H Cancelled Creatinine 1.84 H Cancelled Calcium 9.2 Cancelled Cardiac Enzymes 09/10/18 Range/Units 13:53 Total Creatine Kinase 310 H (39-308) U/L CK-MB (CK-2) Less than 1.0 (0.5-3.6) ng/mL Troponin I Less than 0.02 L (0.02-0.05) ng/mL Liver Function 09/10/18 09/10/18 Range/Units 13:53 13:53 Total Bilirubin 2.1 H Cancelled (0.2-1.0) mg/dL AST 78 H Cancelled (15-37) U/L ALT 63 Cancelled (12-78) U/L Alkaline Phosphatase 174 H Cancelled (45-117) U/L Albumin 2.0 L Cancelled (3.4-5.0) g/dL Urine 09/10/18 Range/Units 15:15 Urine Color Norma (Yellw/Straw) Urine Clarity Hazy H (Clear) Urine pH 5.0 (5.0-8.5) Ur Specific [place] 1.023 (1.002-1.035) Urine Protein 100 H (Neg-Trace) mg/dL Urine Glucose (UA) Negative (Negative) mg/dL - Imaging Impressions Chest X-Ray 09/10/18 13:42 CONCLUSION: No acute cardiopulmonary disease. Exam Vital signs: Vital Signs 09/10/18 13:43 09/10/18 13:51 09/10/18 13:55 Temperature 103.4 F H Pulse Rate 110 H Respiratory Rate 50 H 50 H 28 H Blood Pressure 129/83 Pulse Oximetry 94 L 95 09/10/18 14:05 09/10/18 14:17 09/10/18 14:23 Temperature Pulse Rate 109 H 101 H 106 H Respiratory Rate 44 H 18 18 Blood Pressure 132/64 146/87 H 193/91 H Pulse Oximetry 4 L 100 100 09/10/18 14:26 09/10/18 14:30 09/10/18 14:44 Temperature Pulse Rate 113 H Respiratory Rate 18 32 H Blood Pressure 172/79 H Pulse Oximetry 99 199 H 99 09/10/18 15:18 09/10/18 16:21 09/10/18 16:25 Temperature Pulse Rate 89 89 88 Respiratory Rate 26 H 14 26 H Blood Pressure 103/67 108/59 L Pulse Oximetry 100 98 09/10/18 16:26 09/10/18 16:34 09/10/18 16:54 Temperature Pulse Rate 88 88 Respiratory Rate 31 H 14 28 H Blood Pressure 111/60 100/61 Pulse Oximetry 100 100 98 09/10/18 16:56 09/10/18 17:21 09/10/18 17:55 Temperature 101.4 F H Pulse Rate 89 90 Respiratory Rate 26 H 28 H Blood Pressure 109/63 125/63 Pulse Oximetry 100 Intake & Output 09/09/18 09/10/18 09/10/18 18:59 06:59 18:59 Intake Total 1700 / 1700 Balance 1700 / 1700 Weight 79.379 kg Intake: IV 1700 / 1700 Diprivan 1000 mg/100 ml Inj 1, 100 / 100 000 mg In 100 ml @ 5 MCG/KG/MIN 2.381 mls/hr IV.CONT TITRATE PRN Rx#:[id number] Maxipime Inj 2,000 MG In NS Inj 100 / 100 100 ML @ 200 mls/hr IV.SIG ONCE ONE Rx#:[id number] NS Inj 1,000 ML @ Wide Open IV. 1000 / 1000 SIG BOLUS ONE Rx#:[id number] NS Inj 500 ML @ 1000 mls/hr IV. 500 / 500 SIG BOLUS BIENVENIDO Rx#:[id number] - Constitutional moderate distress, average body habitus, chronically ill appearing - Routine HEENT Exam Head: Present: normocephalic Eye: Present: PERRL ENT: Present: mucous membranes moist, dentition normal, nares patent - Routine Neck Exam Present: supple, trachea midline - Routine Respiratory Exam Present: patient mechanically ventilated, CTA bilaterally - Routine Cardiovascular Exam Present: S1, S2, tachycardia - Routine Abdominal Exam Present: soft, normoactive bowel sounds - Routine Extremities Exam Present: pulses intact (Noted left ankle wound, necrotic, left hip wound necrotic, gluteal fold necrosis) - Routine Skin Exam Present: lesions, wounds Caprini VTE Risk Assessment Caprini VTE Risk Assessment: Moderate/High Risk (score >= 2) Caprini Risk Assessment Model: Point Value = 1 Point Value = 2 Point Value = 3 Point Value = 5 Age 41-60 Minor surgery BMI > 25 kg/m2 Swollen legs Varicose veins or History of unexplained or recurrent spontaneous Oral contraceptives or hormone replacement Sepsis (< 1 month) Serious lung disease, including pneumonia (< 1 month) Abnormal pulmonary function Acute myocardial infarction Congestive heart failure (< 1 month) History of inflammatory bowel disease Medical patient at bed rest Age 61-74 Arthroscopic surgery Major open surgery (> 45 min) Laparoscopic surgery (> 45 min) Malignancy Confined to bed (> 72 hours) Immobilizing plaster cast Central venous access Age >= 75 History of VTE Family history of VTE Factor V Leiden Prothrombin [id number] Lupus anticoagulant Anticardiolipin antibodies Elevated serum homocysteine Heparin-induced thrombocytopenia Other congenital or acquired thrombophilia Stroke (< 1 month) Elective arthroplasty Hip, pelvis, or leg fracture Acute spinal cord injury (< 1 month) Prophylaxis Regimen: Total Risk Factor Score Risk Level Prophylaxis Regimen 0-1 Low Early ambulation 2 Moderate Order ONE of the following: *Sequential Compression Device (SCD) *Heparin 5000 units SQ BID 3-4 Higher Order ONE of the following medications: *Heparin 5000 units SQ TID *Enoxaparin/Lovenox 40 mg SQ daily (WT < 150 kg, CrCl > 30 mL/min) *Enoxaparin/Lovenox 30 mg SQ daily (WT < 150 kg, CrCl > 10-29 mL/min) *Enoxaparin/Lovenox 30 mg SQ BID (WT < 150 kg, CrCl > 30 mL/min) AND/OR *Sequential Compression Device (SCD) 5 or more Highest Order ONE of the following medications: *Heparin 5000 units SQ TID (Preferred with Epidurals) *Enoxaparin/Lovenox 40 mg SQ daily (WT < 150 kg, CrCl > 30 mL/min) *Enoxaparin/Lovenox 30 mg SQ daily (WT < 150 kg, CrCl > 10-29 mL/min) *Enoxaparin/Lovenox 30 mg SQ BID (WT < 150 kg, CrCl > 30 mL/min) AND *Sequential Compression Device (SCD) Assessment and Plan - Problem List (1) Influenza A Code(s): J10.1 - Influenza due to other identified influenza virus with other respiratory manifestations Status: Acute (2) Sacral decubitus ulcer, stage IV Code(s): L89.154 - Pressure ulcer of sacral region, stage 4 Status: Acute (3) Decubitus ulcer of ankle Code(s): L89.509 - Pressure ulcer of unspecified ankle, unspecified stage Status: Acute (4) Decubitus ulcer, hip Code(s): L89.209 - Pressure ulcer of unspecified hip, unspecified stage Status : Acute (5) Renal insufficiency Code(s): N28.9 - Disorder of kidney and ureter, unspecified Status: Acute (6) Sepsis Code(s): A41.9 - Sepsis, unspecified organism Status: Acute - Assessment and Plan Plan: Assessment This is a 83-year-old half-way with multiple comorbidities that had an alteration in mental status most likely secondary to sepsis the patient required intubation for airway detection and due to respiratory insufficiency, with noted concomitant influenza A diagnosis. The patient is critically ill. Plan by systems: Neurologic: Dementia Parkinson's disease Metabolic encephalopathy, most likely secondary to sepsis Propofol and fentanyl infusions to maintain ventilator synchrony Daily sedation vacation Obtain ammonia, cortisol, TSH level Obtain medication list from half-way Respiratory: Acute hypoxemic respiratory failure 1/5 intubated in the ED 8.0 ET tube 26cm at the lip Ventilator bundle Duo nebs every 4 hours scheduled and every 2 hours as needed Wean FiO2 to maintain O2 saturation greater than 92% Follow-up chest x-ray in a.m. Cardiovascular: Sinus tachycardia Normotensive Initial troponin 0 0.02, follow-up in 6hrs Renal: Maintain Lainez Trend creatinine kinase -- Strict I/Os FEN/GI: Maintain n.p.o. status now Continue normal saline at 4 cc/hour Heme/ID: Influenza A Leukocytosis Sepsis Begin Tamiflu Follow pneumococcal, Legionella urine antigens Obtain sputum culture Follow-up blood and urine culture Monitor CBC Continue empiric dosing of vancomycin, and cefepime (renal dosing) Patient noted to have multiple necrotic wounds, malodorous will obtain wound consult Endocrine: Diabetes mellitus Glucose monitoring per ICU protocol -- SSI Prophylaxis: GI Prophylaxis Famotidine twice daily DVT Prophylaxis -- SCDs Subcutaneous heparin every 12 hours Lines: Of IVs providing adequate access. Central line if clinically indicated Dispo: My billing statement This patient remains critically ill with one or more organ systems which are or may become a threat to life. I have spent in excess of 60 minutes discontinuously in the care and management of this patient. This time is exclusive of procedures, and includes, but is not limited to, evaluation of the patient, review of the medical record, discussions with family, consultants, nursing staff, or respiratory therapy, and documentation in the medical record. Code Status: full Discussed Condition With: Family (sister) and DEBATE DIRECTOR at bedside
[2018-09-10] MEDS: Oral Hygiene Kit OROPHARYNG SCH (18:55)
[2018-09-10] MEDS: Insulin NovoLOG Aspart Correctional Sugar Inj SQ SCH (19:00)
[2018-09-10] MEDS: Heparin - SQ 10,000 UNITS/ML Vial SQ SCH (19:26)
[2018-09-10] MEDS ORDERED: Sodium Polystyrene Sulfonate/Sorbitol Liq 15 GM/60 ML UDC NG/OG ONE (20:32)
[2018-09-10] MEDS: Oseltamivir Liq 30 MG/5 ML Oral Syringe PO SCH (20:38)
[2018-09-10] MEDS: Senna/Docusate Sodium 8.6/50 MG Tablet PO SCH (20:38)
[2018-09-10] MEDS: Chlorhexidine 0.12% Oral Kit 15 ML UDC OROPHARYNG SCH (20:38)
[2018-09-10] MEDS: Famotidine PF Inj 20 MG/2 ML Vial IV.PUSH SCH (20:38)
[2018-09-10 21:32] LABS: T4 (Thyroxine) 8.7 mcg/dL (4.5-12.1)
[2018-09-10 21:40] LABS: Thyroid Stimulating Hormone 0.435 uIU/mL (0.358-3.740); Troponin I 0.05 ng/mL (0.02-0.05)
[2018-09-11] MEDS: Insulin NovoLOG Aspart Correctional Sugar Inj SQ SCH (00:08)
[2018-09-11] MEDS: Oral Hygiene Kit OROPHARYNG SCH ×4 (00:08→16:43)
[2018-09-11] MEDS: Cefepime Inj 500 MG in Sodium Chlor 0.9% Inj 100 ML IV.SIG SCH ×2 (03:27→14:03)
[2018-09-11] MEDS: Chlorhexidine Gluconate 2% 1 Pack (2 Cloths) TOPICAL SCH (03:28)
[2018-09-11] MEDS: Heparin - SQ 10,000 UNITS/ML Vial SQ SCH ×2 (03:28→16:42)
[2018-09-11] MEDS: Propofol 1000 mg/100 ml Inj 1,000 MG/100 ML BOTTLE IV.CONT PRN ×2 (03:29→21:01)
[2018-09-11] MEDS ORDERED: Chlorhexidine Gluconate 2% 1 Pack (2 Cloths) TOPICAL PRN (04:00)
[2018-09-11] MEDS: Sod Chloride 0.9% Inj 1,000 ML IV.CONT SCH (04:05)
[2018-09-11 04:12] LABS: Alanine Aminotransferase 56 U/L (12-78); Albumin 1.6 g/dL (3.4-5.0); Alkaline Phosphatase 139 U/L (45-117); Anion Gap 10 meq/L (5-15); Aspartate Aminotransferase 43 U/L (15-37); Blood Urea Nitrogen 45 mg/dL (7-18); Calcium 8.2 mg/dL (8.5-10.1); Carbon Dioxide 24.1 meq/L (21.0-32.0); Chloride 129 meq/L (98-107); Creatine Kinase 154 U/L (39-308); Glomerular Filtration Rate 36 mL/min (>89); Glucose,Random 290 mg/dL (74-106); Magnesium 2.4 mg/dL (1.5-2.5); Phosphorus 3.4 mg/dL (2.5-4.9); Potassium 3.7 meq/L (3.5-5.1); Total Protein 6.2 g/dL (6.4-8.2)
[2018-09-11 04:14] LABS: Sodium 163 meq/L (136-145)
[2018-09-11] MEDS ORDERED: Dextrose 50% in Water 50 ML Vial IV.PUSH PRN (04:39)
[2018-09-11] MEDS: Insulin Regular (For Infusion) 100 UNIT in Sodium Chlor 0.9% Inj 99 ML IV.CONT PRN (05:09)
--- NOTE | 2018-09-11 06:52 | XR ---
EXAM DATE: 09/11/2018 6:33 AM EST AGE/SEX: 83 years / Male INDICATIONS: Shortness of breath, possible pulmonary disease. Patient with slurred speech. CLINICAL DATA: This is the patient's subsequent encounter. Patient reports that signs and symptoms h ave been present for 2 days and indicates a pain score of Nonresponsive. MEDICAL/SURGICAL HISTORY: Diabetes. Hypertension. Parkinson's disease. Non-responsive. COMPARISON: [facility] [place], CHEST 1V SINGLE AP, 09/10/2018. . FINDINGS: A single AP view of the chest demonstrates the lungs to be symmetrically aerated without evidence of mass, infiltrate or effusion. The cardiomediastinal contours are unremarkable. Osseous structures a re intact. The endotracheal tube and nasogastric tube remain in place. CONCLUSION: Stable appearance with no acute cardiopulmonary disease. Electronically signed by: Jorge Berry MD Board Certified Radiologist 09/11/2018 6:51 AM EST
[2018-09-11] MEDS: Dextrose 5% in Water Inj 1,000 ML IV.CONT SCH ×2 (07:00→16:52)
[2018-09-11] MEDS: Famotidine PF Inj 20 MG/2 ML Vial IV.PUSH SCH ×2 (08:15→21:02)
[2018-09-11] MEDS: Chlorhexidine 0.12% Oral Kit 15 ML UDC OROPHARYNG SCH ×2 (08:16→20:12)
[2018-09-11] MEDS: Oseltamivir Liq 30 MG/5 ML Oral Syringe PO SCH ×2 (08:16→22:43)
[2018-09-11 11:50] LABS: Baso # (Auto) 0.1 th/mm3 (0.0-0.2); Baso % (Auto) 0.3 % (0.0-2.0); Eos # (Auto) 0.2 th/mm3 (0.0-0.4); Eos % (Auto) 1.1 % (0.0-4.0); Hematocrit 37.7 % (39.0-51.0); Hemoglobin 11.4 gm/dL (13.0-17.0); Lymph # (Auto) 1.4 th/mm3 (1.0-4.8); Lymph % (Auto) 8.4 % (9.0-44.0); Mean Corpuscular Hemoglobin 29.3 pg (27.0-34.0); Mean Corpuscular Volume 97.1 fL (80.0-100.0); Mono # (Auto) 0.6 th/mm3 (0.0-0.9); Mono % (Auto) 3.9 % (0.0-8.0); Neut # (Auto) 14.3 th/mm3 (1.8-7.7); Neut % (Auto) 86.3 % (16.0-70.0); Platelet Count 194 th/mm3 (150-450); Red Blood Count 3.88 mil/mm3 (4.50-5.90); Red Cell Distribution Width 15.4 % (11.6-17.2); White Blood Count 16.6 th/mm3 (4.0-11.0)
[2018-09-11 11:54] LABS: Mean Corpuscular HGB Conc 30.2 % (32.0-36.0)
[2018-09-11 12:36] LABS: ABG Base Excess -1.8 mmol/L (-2-2); ABG PCO2 31 mmHg (38-42); ABG PO2 178 mmHG (61-120)
--- NOTE | 2018-09-11 13:08 | P.DIET ---
Nutritional Evaluation Type of nutrition evaluation: initial Nutrition consult regarding: Tube Feeding Nutrition screening: [facility] [place] Screening comments: 09/11 [facility] [place] TF Objective - Diagnosis Sepsis - Objective % IBW: 93 Body Weight Used for Calculations: Actual (78.4) Energy Needs - Lower Range (kCal/kg): 27 Energy Needs - Upper Range (kCal/kg): 32 Lower Limit kCal/kg (kCals): 2,117 Upper Limit kCal/kg (kCals): 2,509 Lower Limit Protein Factor (Grams per Kg): 1.2 Upper Limit Protein Factor (Grams per Kg): 1.5 Lower Protein Needs (Protein): 94 Upper Protein Needs (Protein): 118 Dietitian Reviewed in Medical Record: Current diet, Curent medications, Intake & Output, Labs, Medical history Diet Order: NPO Objective Comments: PMH: Dementia, HTN, DM, Parkinson's Labs include: Lactic Acid 5.4, Cr 1.8, Na 163, Glu 290 Meds include: Propofol Skin: Stage IV sacral decubitus ulcer, L hip and ankle decubitus ulcers not staged Assessment Assessment: Pt at high nutritional risk r/t current clinical status. Pt intubated and sedated, admitted from intermediate with sepsis. Pt has multiple pressure injuries, WOC consult pending. Pt's nutritional needs as stated above. Recommend TF Glucerna 1.5 with goal rate 60ml/hr to provide 2160kcals, 119 gms protein and 1093mls free water. Propofol adds additional kcals when running. Recommend Bhanu 1 pkt bid to aid in wound healing. Will monitor TF tolerance, wounds, clinical course. Recommendations: TF Glucerna 1.5 with goal rate 60ml/hr Bhanu, 1 packet bid to help promote wound healing Dietitian to Monitor: Lab values, Renal labs, Intake & Output, Tube feeding tolerance, Weight change, Wound/skin status, Medical course
[2018-09-11] MEDS: Senna/Docusate Sodium 8.6/50 MG Tablet PO SCH ×2 (13:50→21:02)
[2018-09-11] MEDS ORDERED: Vancomycin Inj 1,250 MG in Sodium Chlor 0.9% Inj 250 ML IV.SIG ONE (14:00)
--- NOTE | 2018-09-11 14:47 | ECG ---
Date Performed: 09/10/2018 Time Performed: 13:58:16 PTAGE: 83 years EKG: SINUS TACHYCARDIA RIGHT BUNDLE BRANCH BLOCK ABNORMAL ECG Since PREVIOUS TRACING , no significant change noted PREVIOUS TRACIN08/10/2018 13.40 DOCTOR: Kenny Workman Interpretating Date/Time 09/11/2018 14:46:29
[2018-09-11 14:48] LABS: Calcium 8.2 mg/dL (8.5-10.1); Carbon Dioxide 22.6 meq/L (21.0-32.0); Potassium 3.2 meq/L (3.5-5.1)
--- NOTE | 2018-09-11 14:54 | P.CONID ---
History of Present Illness Service: Infectious disease Consult date: 09/11/18 Requesting Physician: Consuelo Hobson Reason for Consult: Evaluate patient with sepsis, positive influenza a Primary Care Provider: Rubio Puga MD Chief Complaint: Altered mental status History of Present Illness: Patient seen and examined. Records reviewed. Patient is an 83-year-old male, brought into the hospital with altered mental status. He apparently also has been having breathing problem the last several days. There was no mention of any fever chills or any congestion. No mention of any other problem as far as or any GI complaints. According to the record patient is able to communicate but otherwise nonambulatory as a baseline. On evaluation he was found to have leukocytosis. His creatinine was 1.8. Lactic acid was elevated. Chest x-ray was normal. Urinalysis was unremarkable. Patient required intubation. His initial white count was 17,000 , and its down to 16,000. Influenza testing is positive for influenza A. Blood cultures are negative. Patient was found to have multiple decubitus including the left hip, the coccyx, and bilateral heel. His LFTs are also mildly elevated. Infectious disease consultation has been requested to assist with evaluation and treatment of leukocytosis. Review of Systems unobtainable due to endotracheal tube PMFSH - History History Provided By: Patient - Medical History Medical History: Medical History (Last Reviewed 09/11/18 @ 15:04 by Margo Cooper MD) Parkinson disease (Acute) Diabetes (Acute) Dementia (Acute) Hypertension (Acute) Hernia (Acute) - Surgical History Surgical History: Surgical History (Last Reviewed 09/11/18 @ 15:04 by Margo Cooper MD) History of left hip replacement (Acute) - Family History Family History: Family History (Last Reviewed 09/11/18 @ 15:04 by Margo Cooper MD) Other Family history non-contributory - Tobacco History Second Hand Smoke Exposure: No Tobacco Use In Past 30 Days: No Smoking Status: Unknown if ever smoked Tobacco Type: Cigarettes - Alcohol History How Often Do You Have a Drink Containing Alcohol: Unable to Obtain - Substance Use History Substance History: Unable to Obtain - Travel History Recent Travel in the [place] Within the Last 8 Weeks: No Recent Travel Out of the Country Within the Last 8 Weeks: No - Immunization History Tetanus Immunization: Unable to Assess Medications and Allergies Active Medications: Active Medications Acetaminophen (Tylenol) 650 mg PO Q6H PRN PRN Reason: PAIN 1-10 AND/OR FEVER >101F Al Hydroxide/Mg Hydroxide (Milk Of Magnnegrita Liq) 30 ml PO Q12H PRN PRN Reason: Mild Constipation Albuterol (Albuterol Neb (Prn)) 2.5 mg NEB Q2HR NEB PRN PRN Reason: SHORTNESS OF BREATH/WHEEZING Albuterol (Duoneb Neb ([facility])) 1 ampul NEB Q4HR NEB [facility] Last Admin: 09/11/18 07:07 Dose: 1 ampul Bisacodyl (Dulcolax Supp) 10 mg RECTAL DAILY PRN PRN Reason: SEVERE CONSITIPATION Chlorhexidine Gluconate (Peridex 0.12% Oral Kit) 15 ml OROPHARYNG BID@0800, 1999 [facility] Last Admin: 09/11/18 08:16 Dose: 15 ml Chlorhexidine Gluconate (Chlorhexidine 2% Cloth) 3 pack TOPICAL DAILY@0400 [facility] Stop: 09/16/18 03:59 Last Admin: 09/11/18 03:28 Dose: Not Given Chlorhexidine Gluconate (Chlorhexidine 2% Cloth) 3 pack TOPICAL DAILY@0400 PRN PRN Reason: Extra cloth needed Stop: 09/16/18 03:59 Dextrose (D50w Vial) 50 ml IV.PUSH UNSCH PRN PRN Reason: PER HYPOGLYCEMIA PROTOCOL Famotidine (Pepcid Pf Inj) 20 mg IV.PUSH Q12HR [facility] Last Admin: 09/11/18 08:15 Dose: 20 mg Heparin Sodium (Porcine) (Heparin Inj) 5,000 units SQ Q12H [facility] Last Admin: 09/11/18 03:28 Dose: 5,000 units Propofol (Diprivan 1000 Mg/100 Ml Inj) 1,000 mg in 100 mls @ 2.381 mls/hr IV.CONT TITRATE PRN; Protocol PRN Reason: Per Protocol Last Titration: 09/11/18 08:30 Dose: 15 mcg/kg/min, 7.14 mls/hr Cefepime HCl 500 mg/ Sodium (Chloride) 100 mls @ 200 mls/hr IV.SIG Q12H [facility] Last Admin: 09/11/18 14:03 Dose: 100 mls/hr Insulin Human Regular 100 unit (/ Sodium Chloride) 100 mls @ 0 mls/hr IV.CONT TITRATE PRN; Protocol PRN Reason: See protocol Last Titration: 09/11/18 07:03 Dose: 2 units/hr, 2 mls/hr Dextrose (D5w Inj) 1,000 mls @ 110 mls/hr IV.CONT .Q9H6M [facility] Last Admin: 09/11/18 07:00 Dose: 110 mls/hr Vancomycin HCl 1,250 mg/ (Sodium Chloride) 262.5 mls @ 250 mls/hr IV.SIG ONCE ONE Stop: 09/11/18 15:02 Last Admin: 09/11/18 13:56 Dose: 125 mls/hr Lactulose (Lactulose Liq) 30 ml PO DAILY PRN PRN Reason: SEVERE CONSITIPATION Miscellaneous Medication () 1 each OROPHARYNG 0000,0400,1200,1600 [facility] Last Admin: 09/11/18 12:00 Dose: 1 each Oseltamivir Phosphate (Tamiflu Liq) 75 mg PO BID [facility] Stop: 09/17/18 20:59 Last Admin: 09/11/18 08:16 Dose: 75 mg Pharmacy Profile Note (Vancomycin Consult Pharmacy) 1 each OTHER UNSCH PRN PRN Reason: Pharmacy to dose Senna/Docusate Sodium (Ginny-Colace) 1 tab PO BID [facility] Last Admin: 09/11/18 13:50 Dose: 1 tab Sennosides (Senokot) 17.2 mg PO Q12H PRN PRN Reason: Moderate Constipation Sodium Chloride (Ns Flush) 2 ml IV.FLUSH BID [facility] Last Admin: 09/11/18 08:16 Dose: 2 ml Sodium Chloride (Ns Flush) 2 ml IV.FLUSH PRN PRN PRN Reason: FLUSH AFTER USING IV ACCESS Allergies Allergy/AdvReac Type Severity Reaction Status Date / Time No Known Allergies Allergy Verified 09/10/18 13:43 Home Medications Medication Instructions Recorded Confirmed Type acetaminophen [Tylenol Extra 500 mg PO TID 09/10/18 09/10/18 History Strength] amlodipine [Norvasc] 5 mg PO DAILY 09/10/18 09/10/18 History hydrochlorothiazide 25 mg PO DAILY 09/10/18 09/10/18 History lactulose 2 tbsp PO EVERY OTHER DAY 09/10/18 09/10/18 History memantine 10 mg PO BID 09/10/18 09/10/18 History montelukast [Singulair] 10 mg PO QPM 09/10/18 09/10/18 History sulfamethoxazole-trimethoprim 1 tab PO BID 09/10/18 09/10/18 History Exam Vital signs: Vital Signs 09/10/18 15:18 09/10/18 16:21 09/10/18 16:25 Temperature Pulse Rate 89 89 88 Respiratory Rate 26 H 14 26 H Blood Pressure 103/67 108/59 L Pulse Oximetry 100 98 09/10/18 16:26 09/10/18 16:34 09/10/18 16:54 Temperature Pulse Rate 88 88 Respiratory Rate 31 H 14 28 H Blood Pressure 111/60 100/61 Pulse Oximetry 100 100 98 09/10/18 16:56 09/10/18 17:21 09/10/18 17:50 Temperature 101.4 F H Pulse Rate 89 90 90 Respiratory Rate 26 H 28 H Blood Pressure 109/63 125/63 Pulse Oximetry 09/10/18 17:55 09/10/18 18:00 09/10/18 18:01 Temperature 102.4 F H Pulse Rate 89 89 Respiratory Rate 31 H 26 H Blood Pressure 106/67 106/67 Pulse Oximetry 100 100 100 09/10/18 18:30 09/10/18 18:36 09/10/18 19:00 Temperature Pulse Rate 88 90 Respiratory Rate 16 24 12 Blood Pressure 105/61 106/68 Pulse Oximetry 100 100 09/10/18 19:27 09/10/18 19:30 09/10/18 20:00 Temperature 100.3 F H Pulse Rate 89 88 89 Respiratory Rate 17 13 12 Blood Pressure 102/63 111/63 Pulse Oximetry 100 100 100 09/10/18 20:30 09/10/18 21:00 09/10/18 21:30 Temperature Pulse Rate 90 90 89 Respiratory Rate 17 20 19 Blood Pressure 117/62 115/62 114/63 Pulse Oximetry 100 100 100 09/10/18 21:59 09/10/18 22:00 09/10/18 22:30 Temperature Pulse Rate 89 89 87 Respiratory Rate 16 16 19 Blood Pressure 124/64 119/64 Pulse Oximetry 100 100 100 09/10/18 23:00 09/11/18 00:00 09/11/18 00:05 Temperature 100.5 F H Pulse Rate 86 86 86 Respiratory Rate 21 17 18 Blood Pressure 121/64 129/62 Pulse Oximetry 100 100 100 09/11/18 01:00 09/11/18 02:00 09/11/18 03:00 Temperature Pulse Rate 88 87 84 Respiratory Rate 21 19 31 H Blood Pressure 121/65 119/66 Pulse Oximetry 100 100 100 09/11/18 03:03 09/11/18 03:18 09/11/18 04:00 Temperature 98.8 F Pulse Rate 83 81 86 Respiratory Rate 18 19 22 Blood Pressure 112/60 119/76 Pulse Oximetry 100 100 100 09/11/18 05:00 09/11/18 06:00 09/11/18 07:00 Temperature Pulse Rate 85 78 73 Respiratory Rate 19 21 17 Blood Pressure 132/75 143/71 H 99/57 L Pulse Oximetry 100 96 100 09/11/18 07:08 09/11/18 07:39 09/11/18 08:00 Temperature 96.4 F L Pulse Rate 71 78 Respiratory Rate 16 15 20 Blood Pressure 103/55 L Pulse Oximetry 100 99 09/11/18 09:00 09/11/18 10:00 09/11/18 11:00 Temperature Pulse Rate 63 68 66 Respiratory Rate 17 17 19 Blood Pressure 104/56 L 107/58 L 103/58 L Pulse Oximetry 100 94 L 98 09/11/18 11:34 09/11/18 11:35 09/11/18 12:00 Temperature 97.8 F Pulse Rate 70 63 Respiratory Rate 17 17 16 Blood Pressure Pulse Oximetry 98 100 09/11/18 12:01 09/11/18 13:00 Temperature Pulse Rate 64 68 Respiratory Rate 16 19 Blood Pressure 121/59 L 98/56 L Pulse Oximetry 100 100 Intake & Output 09/10/18 09/11/18 09/11/18 18:59 06:59 18:59 Intake Total 1999 2774 / 2774 1000 / 1000 Output Total 450 / 450 Balance 1999 2324 / 2324 1000 / 1000 Weight 79.379 kg 78.4 kg Intake: IV 1999 277 / 2774 1000 / 1000 Diprivan 1000 mg/100 ml Inj 1, 150 / 150 90 / 90 000 mg In 100 ml @ 5 MCG/KG/MIN 2.381 mls/hr IV.CONT TITRATE PRN Rx#:[id number] NS Inj 1,000 ML @ 84 mls/hr IV. 1084 / 1084 CONT .[id number] [facility] Rx#:[id number] Azithromycin Inj 500 MG In NS 250 / 250 Inj 250 ML @ 250 mls/hr IV.SIG ONCE ONE Rx#:[id number] Maxipime Inj 500 MG In NS Inj 100 / 100 100 ML @ 200 mls/hr IV.SIG Q12H [facility] Rx#:[id number] Maxipime Inj 2,000 MG In NS Inj 100 / 100 100 ML @ 200 mls/hr IV.SIG ONCE ONE Rx#:[id number] LR 1000 mL Inj 1,000 ML @ 1000 1000 / 1000 1000 / 1000 mls/hr IV.SIG BOLUS ONE Rx#: [id number] NS Inj 1,000 ML @ Wide Open IV. 1000 / 1000 SIG BOLUS ONE Rx#:[id number] NS Inj 500 ML @ 1000 mls/hr IV. 500 / 500 SIG BOLUS [facility] Rx#:[id number] Vancomycin Inj 1,000 MG In NS 250 / 250 250 / 250 Inj 250 ML @ 250 mls/hr IV.SIG ONCE ONE Rx#:[id number] Output: Urine Amount (Catheter) 450 / 450 Indwelling Urethral Catheter 450 / 450 Other: Date of Last Bowel Movement 09/11/18 09/11/18 # Bowel Movements 1 Narrative: Physical examination GENERAL: Patient is a well-nourished, well-developed male, sedated on the vent, not in respiratory distress. SKIN: Cool and dry. No generalized rash. He has dry decubitus in both heel, larger on L than on R. There is an unstageable decubitus, black eschar, about 1.2 in, in L hip. There is a large black eschar in coccyx. HEAD: Atraumatic. Normocephalic. No temporal wasting, or tenderness. EYES: [place] conjunctiva. No petechia or hemorrhage. Pupils equal, round and reactive to light. Extraocular movements full and intact. No scleral icterus. No injection or drainage. EARS, NOSE AND THROAT: Nose without bleeding or purulent nasal discharge. He is orally intubated. NECK: Trachea midline. Supple and not tender, no meningeal signs CARDIOVASCULAR: Regular rate and rhythm. No murmurs, rubs or gallops heard RESPIRATORY: Clear to auscultation. Breath sounds equal bilaterally. No rales , wheezing or rhonchi ABDOMEN: Soft, non-tender, nondistended. Bowel sounds present and normoactive. No guarding. No rebound. No organomegaly. EXTREMITIES: No clubbing, cyanosis, or edema.his extremities are very stiff and spastic NEUROLOGICAL: Sedated on the vent PSYCHIATRIC: Unable to assess : Lainez catheter in place, urine looks clear LINE: No evidence of infection Results - Labs CBC & Chem 7: 09/11/18 11:18 09/11/18 13:50 Labs: Laboratory Results - last 24 hr 09/10/18 09/10/18 09/10/18 13:53 15:00 15:15 WBC RBC Hgb Hct MCV MCH MCHC RDW Plt Count MPV Neut % (Auto) Lymph % (Auto) [place] % (Auto) Eos % (Auto) Baso % (Auto) Neut # (Auto) Lymph # (Auto) [place] # (Auto) Eos # (Auto) Baso # (Auto) WBC Differential Differential Comment Puncture Site Right radial Patient Temperature 98.6 O2 Saturation 98 ABG pH 7.45 H ABG pCO2 33 L ABG pO2 226 H ABG HCO3 23 ABG O2 Content 18.2 ABG Base Excess -0.9 ABG Methemoglobin 0.7 Lino Test Present Hemoglobin 12.9 Carboxyhemoglobin 0.9 O2 Delivery Device Ventilator Vent Setting Prvc/ac Inspired O2 60 Critical Value No Sodium Potassium Chloride Carbon Dioxide Anion Gap BUN Creatinine Estimated GFR POC Glucose Random Glucose Lactic Acid Calcium Phosphorus Magnesium Total Bilirubin AST ALT Alkaline Phosphatase Ammonia Total Creatine Kinase CK-MB (CK-2) Less than 1.0 CK-MB (CK-2) % 0.3 Troponin I Total Protein Albumin TSH Thyroxine (T4) Cortisol Urine Color Norma Urine Clarity Hazy H Urine pH 5.0 Ur Specific [place] 1.023 Urine Protein 100 H Urine Glucose (UA) Negative Urine Ketones Negative Urine Occult Blood Negative Urine Nitrate Negative Urine Bilirubin Negative Urine Urobilinogen 4 or greater Ur Leukocyte Esterase Negative Urine RBC 1 Urine WBC 3 Amorphous Sediment Rare H Urine Bacteria Rare H Granular Casts 1 Urine Mucus Few H Micro UA Comment Cath-culture ind Ur Microscopic Review Not Reportable Urine Culture Comments Cath-cult indicated Nasal Screen MRSA (PCR) Random Vancomycin 09/10/18 09/10/18 09/10/18 17:15 17:15 18:30 WBC RBC Hgb Hct MCV MCH MCHC RDW Plt Count MPV Neut % (Auto) Lymph % (Auto) [place] % (Auto) Eos % (Auto) Baso % (Auto) Neut # (Auto) Lymph # (Auto) [place] # (Auto) Eos # (Auto) Baso # (Auto) WBC Differential Differential Comment Puncture Site Patient Temperature O2 Saturation ABG pH ABG pCO2 ABG pO2 ABG HCO3 ABG O2 Content ABG Base Excess ABG Methemoglobin Lino Test Hemoglobin Carboxyhemoglobin O2 Delivery Device Vent Setting Inspired O2 Critical Value Sodium Potassium Chloride Carbon Dioxide Anion Gap BUN Creatinine Estimated GFR POC Glucose Random Glucose Lactic Acid 2.2 H Calcium Phosphorus Magnesium Total Bilirubin AST ALT Alkaline Phosphatase Ammonia 29 Total Creatine Kinase CK-MB (CK-2) CK-MB (CK-2) % Troponin I Total Protein Albumin TSH Thyroxine (T4) Cortisol Urine Color Urine Clarity Urine pH Ur Specific [place] Urine Protein Urine Glucose (UA) Urine Ketones Urine Occult Blood Urine Nitrate Urine Bilirubin Urine Urobilinogen Ur Leukocyte Esterase Urine RBC Urine WBC Amorphous Sediment Urine Bacteria Granular Casts Urine Mucus Micro UA Comment Ur Microscopic Review Urine Culture Comments Nasal Screen MRSA (PCR) Not detected Random Vancomycin 09/10/18 09/10/18 09/10/18 18:59 20:59 20:59 WBC RBC Hgb Hct MCV MCH MCHC RDW Plt Count MPV Neut % (Auto) Lymph % (Auto) [place] % (Auto) Eos % (Auto) Baso % (Auto) Neut # (Auto) Lymph # (Auto) [place] # (Auto) Eos # (Auto) Baso # (Auto) WBC Differential Differential Comment Puncture Site Patient Temperature O2 Saturation ABG pH ABG pCO2 ABG pO2 ABG HCO3 ABG O2 Content ABG Base Excess ABG Methemoglobin Lino Test Hemoglobin Carboxyhemoglobin O2 Delivery Device Vent Setting Inspired O2 Critical Value Sodium Potassium Chloride Carbon Dioxide Anion Gap BUN Creatinine Estimated GFR POC Glucose 314 H Random Glucose Lactic Acid Calcium Phosphorus Magnesium Total Bilirubin AST ALT Alkaline Phosphatase Ammonia 18 Total Creatine Kinase CK-MB (CK-2) CK-MB (CK-2) % Troponin I 0.05 Total Protein Albumin TSH 0.435 Thyroxine (T4) 8.7 Cortisol Urine Color Urine Clarity Urine pH Ur Specific [place] Urine Protein Urine Glucose (UA) Urine Ketones Urine Occult Blood Urine Nitrate Urine Bilirubin Urine Urobilinogen Ur Leukocyte Esterase Urine RBC Urine WBC Amorphous Sediment Urine Bacteria Granular Casts Urine Mucus Micro UA Comment Ur Microscopic Review Urine Culture Comments Nasal Screen MRSA (PCR) Random Vancomycin 09/10/18 09/10/18 09/11/18 20:59 23:53 00:46 WBC RBC Hgb Hct MCV MCH MCHC RDW Plt Count MPV Neut % (Auto) Lymph % (Auto) [place] % (Auto) Eos % (Auto) Baso % (Auto) Neut # (Auto) Lymph # (Auto) [place] # (Auto) Eos # (Auto) Baso # (Auto) WBC Differential Differential Comment Puncture Site Patient Temperature O2 Saturation ABG pH ABG pCO2 ABG pO2 ABG HCO3 ABG O2 Content ABG Base Excess ABG Methemoglobin Lino Test Hemoglobin Carboxyhemoglobin O2 Delivery Device Vent Setting Inspired O2 Critical Value Sodium Potassium 4.0 D Chloride Carbon Dioxide Anion Gap BUN Creatinine Estimated GFR POC Glucose 376 H Random Glucose Lactic Acid Calcium Phosphorus Magnesium Total Bilirubin AST ALT Alkaline Phosphatase Ammonia Total Creatine Kinase CK-MB (CK-2) CK-MB (CK-2) % Troponin I Total Protein Albumin TSH Thyroxine (T4) Cortisol 34.8 Urine Color Urine Clarity Urine pH Ur Specific [place] Urine Protein Urine Glucose (UA) Urine Ketones Urine Occult Blood Urine Nitrate Urine Bilirubin Urine Urobilinogen Ur Leukocyte Esterase Urine RBC Urine WBC Amorphous Sediment Urine Bacteria Granular Casts Urine Mucus Micro UA Comment Ur Microscopic Review Urine Culture Comments Nasal Screen MRSA (PCR) Random Vancomycin 09/11/18 09/11/18 09/11/18 02:45 02:45 05:05 WBC RBC Hgb Hct MCV MCH MCHC RDW Plt Count MPV Neut % (Auto) Lymph % (Auto) [place] % (Auto) Eos % (Auto) Baso % (Auto) Neut # (Auto) Lymph # (Auto) [place] # (Auto) Eos # (Auto) Baso # (Auto) WBC Differential Differential Comment Puncture Site Patient Temperature O2 Saturation ABG pH ABG pCO2 ABG pO2 ABG HCO3 ABG O2 Content ABG Base Excess ABG Methemoglobin Lino Test Hemoglobin Carboxyhemoglobin O2 Delivery Device Vent Setting Inspired O2 Critical Value Sodium 163 H* Potassium 3.7 Chloride 129 H Carbon Dioxide 24.1 Anion Gap 10 BUN 45 H Creatinine 1.80 H Estimated GFR 36 L POC Glucose 305 H Random Glucose 290 H Lactic Acid 5.5 H* Calcium 8.2 L D Phosphorus 3.4 Magnesium 2.4 Total Bilirubin 1.6 H AST 43 H ALT 56 Alkaline Phosphatase 139 H Ammonia Total Creatine Kinase 154 CK-MB (CK-2) CK-MB (CK-2) % Troponin I Total Protein 6.2 L D Albumin 1.6 L TSH Thyroxine (T4) Cortisol Urine Color Urine Clarity Urine pH Ur Specific [place] Urine Protein Urine Glucose (UA) Urine Ketones Urine Occult Blood Urine Nitrate Urine Bilirubin Urine Urobilinogen Ur Leukocyte Esterase Urine RBC Urine WBC Amorphous Sediment Urine Bacteria Granular Casts Urine Mucus Micro UA Comment Ur Microscopic Review Urine Culture Comments Nasal Screen MRSA (PCR) Random Vancomycin 20.0 09/11/18 09/11/18 09/11/18 06:01 07:03 08:07 WBC RBC Hgb Hct MCV MCH MCHC RDW Plt Count MPV Neut % (Auto) Lymph % (Auto) [place] % (Auto) Eos % (Auto) Baso % (Auto) Neut # (Auto) Lymph # (Auto) [place] # (Auto) Eos # (Auto) Baso # (Auto) WBC Differential Differential Comment Puncture Site Patient Temperature O2 Saturation ABG pH ABG pCO2 ABG pO2 ABG HCO3 ABG O2 Content ABG Base Excess ABG Methemoglobin Lino Test Hemoglobin Carboxyhemoglobin O2 Delivery Device Vent Setting Inspired O2 Critical Value Sodium Potassium Chloride Carbon Dioxide Anion Gap BUN Creatinine Estimated GFR POC Glucose 265 H 217 H 224 H Random Glucose Lactic Acid Calcium Phosphorus Magnesium Total Bilirubin AST ALT Alkaline Phosphatase Ammonia Total Creatine Kinase CK-MB (CK-2) CK-MB (CK-2) % Troponin I Total Protein Albumin TSH Thyroxine (T4) Cortisol Urine Color Urine Clarity Urine pH Ur Specific [place] Urine Protein Urine Glucose (UA) Urine Ketones Urine Occult Blood Urine Nitrate Urine Bilirubin Urine Urobilinogen Ur Leukocyte Esterase Urine RBC Urine WBC Amorphous Sediment Urine Bacteria Granular Casts Urine Mucus Micro UA Comment Ur Microscopic Review Urine Culture Comments Nasal Screen MRSA (PCR) Random Vancomycin 09/11/18 09/11/18 09/11/18 09:08 10:03 10:04 WBC RBC Hgb Hct MCV MCH MCHC RDW Plt Count MPV Neut % (Auto) Lymph % (Auto) [place] % (Auto) Eos % (Auto) Baso % (Auto) Neut # (Auto) Lymph # (Auto) [place] # (Auto) Eos # (Auto) Baso # (Auto) WBC Differential Differential Comment Puncture Site Patient Temperature O2 Saturation ABG pH ABG pCO2 ABG pO2 ABG HCO3 ABG O2 Content ABG Base Excess ABG Methemoglobin Lino Test Hemoglobin Carboxyhemoglobin O2 Delivery Device Vent Setting Inspired O2 Critical Value Sodium Potassium Chloride Carbon Dioxide Anion Gap BUN Creatinine Estimated GFR POC Glucose 212 H 197 H Random Glucose Lactic Acid 5.4 H* Calcium Phosphorus Magnesium Total Bilirubin AST ALT Alkaline Phosphatase Ammonia Total Creatine Kinase CK-MB (CK-2) CK-MB (CK-2) % Troponin I Total Protein Albumin TSH Thyroxine (T4) Cortisol Urine Color Urine Clarity Urine pH Ur Specific [place] Urine Protein Urine Glucose (UA) Urine Ketones Urine Occult Blood Urine Nitrate Urine Bilirubin Urine Urobilinogen Ur Leukocyte Esterase Urine RBC Urine WBC Amorphous Sediment Urine Bacteria Granular Casts Urine Mucus Micro UA Comment Ur Microscopic Review Urine Culture Comments Nasal Screen MRSA (PCR) Random Vancomycin 09/11/18 09/11/18 09/11/18 11:07 11:18 11:56 WBC 16.6 H RBC 3.88 L Hgb 11.4 L D Hct 37.7 L MCV 97.1 D MCH 29.3 MCHC 30.2 L RDW 15.4 Plt Count 194 D MPV 9.0 Neut % (Auto) 86.3 H Lymph % (Auto) 8.4 L [place] % (Auto) 3.9 Eos % (Auto) 1.1 Baso % (Auto) 0.3 Neut # (Auto) 14.3 H Lymph # (Auto) 1.4 [place] # (Auto) 0.6 Eos # (Auto) 0.2 Baso # (Auto) 0.1 WBC Differential . Differential Comment Auto diff final Puncture Site Patient Temperature O2 Saturation ABG pH ABG pCO2 ABG pO2 ABG HCO3 ABG O2 Content ABG Base Excess ABG Methemoglobin Lino Test Hemoglobin Carboxyhemoglobin O2 Delivery Device Vent Setting Inspired O2 Critical Value Sodium Potassium Chloride Carbon Dioxide Anion Gap BUN Creatinine Estimated GFR POC Glucose 224 H 208 H Random Glucose Lactic Acid Calcium Phosphorus Magnesium Total Bilirubin AST ALT Alkaline Phosphatase Ammonia Total Creatine Kinase CK-MB (CK-2) CK-MB (CK-2) % Troponin I Total Protein Albumin TSH Thyroxine (T4) Cortisol Urine Color Urine Clarity Urine pH Ur Specific [place] Urine Protein Urine Glucose (UA) Urine Ketones Urine Occult Blood Urine Nitrate Urine Bilirubin Urine Urobilinogen Ur Leukocyte Esterase Urine RBC Urine WBC Amorphous Sediment Urine Bacteria Granular Casts Urine Mucus Micro UA Comment Ur Microscopic Review Urine Culture Comments Nasal Screen MRSA (PCR) Random Vancomycin 09/11/18 09/11/18 09/11/18 12:30 13:06 14:02 WBC RBC Hgb Hct MCV MCH MCHC RDW Plt Count MPV Neut % (Auto) Lymph % (Auto) [place] % (Auto) Eos % (Auto) Baso % (Auto) Neut # (Auto) Lymph # (Auto) [place] # (Auto) Eos # (Auto) Baso # (Auto) WBC Differential Differential Comment Puncture Site Right radial Patient Temperature 98.6 O2 Saturation 97 ABG pH 7.46 H ABG pCO2 31 L ABG pO2 178 H ABG HCO3 22 ABG O2 Content 15.4 ABG Base Excess -1.8 ABG Methemoglobin 1.5 Lino Test Present Hemoglobin 11.1 L Carboxyhemoglobin 0.7 O2 Delivery Device Ventilator Vent Setting [id number] Inspired O2 35 Critical Value No Sodium Potassium Chloride Carbon Dioxide Anion Gap BUN Creatinine Estimated GFR POC Glucose 220 H 200 H Random Glucose Lactic Acid Calcium Phosphorus Magnesium Total Bilirubin AST ALT Alkaline Phosphatase Ammonia Total Creatine Kinase CK-MB (CK-2) CK-MB (CK-2) % Troponin I Total Protein Albumin TSH Thyroxine (T4) Cortisol Urine Color Urine Clarity Urine pH Ur Specific [place] Urine Protein Urine Glucose (UA) Urine Ketones Urine Occult Blood Urine Nitrate Urine Bilirubin Urine Urobilinogen Ur Leukocyte Esterase Urine RBC Urine WBC Amorphous Sediment Urine Bacteria Granular Casts Urine Mucus Micro UA Comment Ur Microscopic Review Urine Culture Comments Nasal Screen MRSA (PCR) Random Vancomycin - Imaging Impressions Chest X-Ray 09/10/18 13:42 CONCLUSION: No acute cardiopulmonary disease. Chest X-Ray 09/11/18 04:00 CONCLUSION: Stable appearance with no acute cardiopulmonary disease. Assessment and Plan - Plan Impression Leukocytosis, etiology? - CXR clear - UA ok - has multiple unstageable decubitus - dehydrated - abnormal LFT Multiple decubitus Influenza A (+) Respiratory failure Renal insufficiency, better, likely dehydrated Recommendation Follow C/S Liver US IV Unasyn Wound care consult Follow CBC Will make further recs once results of workup available Monitor progress I will follow along with you Thank you for this consultation
--- NOTE | 2018-09-11 15:26 | P.PNCC ---
Subjective Subjective Remarks/Hospital Course: Subjective 09/11: Afebrile . Lactic acid only slightly decreased this a.m. ID has been consulted patient continues on vancomycin and the patient was noted to be hypernatremic D5W was started last evening and subsequently insulin infusion at 2 units/h. The patient has 3 siblings. Sister met yesterday evidently is the one that goes to the shelter facility and feeds him, despite being lethargic. Also informed that that sister was also feeding him narcotics, which the shelter facility is investigating. The patient continues to have decreased mentation off propofol. Repeat BMP shows decreasing sodium now 160. Free water flushes have been added to medication regimen. I discussed extensively with Sister Trena Zafar by telephone, the patient's POA the patient's condition and provided a medical status update. The patient's POA, and another sibling requested we place him in DNR. The POA states she has the paperwork at home however she is on vacation at this time and will provided via fax the patient has a living will. Palliative care also has been consulted to help evaluate/to define goals. The patient was placed in alternate CODE STATUS. The patient is hemodynamically stable at this time. Objective Vital Signs / I&O: Vital Signs 09/10/18 15:18 09/10/18 16:21 09/10/18 16:25 Temperature Pulse Rate 89 89 88 Respiratory Rate 26 H 14 26 H Blood Pressure 103/67 108/59 L Pulse Oximetry 100 98 09/10/18 16:26 09/10/18 16:34 09/10/18 16:54 Temperature Pulse Rate 88 88 Respiratory Rate 31 H 14 28 H Blood Pressure 111/60 100/61 Pulse Oximetry 100 100 98 09/10/18 16:56 09/10/18 17:21 09/10/18 17:50 Temperature 101.4 F H Pulse Rate 89 90 90 Respiratory Rate 26 H 28 H Blood Pressure 109/63 125/63 Pulse Oximetry 09/10/18 17:55 09/10/18 18:00 09/10/18 18:01 Temperature 102.4 F H Pulse Rate 89 89 Respiratory Rate 31 H 26 H Blood Pressure 106/67 106/67 Pulse Oximetry 100 100 100 09/10/18 18:30 09/10/18 18:36 09/10/18 19:00 Temperature Pulse Rate 88 90 Respiratory Rate 16 24 12 Blood Pressure 105/61 106/68 Pulse Oximetry 100 100 09/10/18 19:27 09/10/18 19:30 09/10/18 20:00 Temperature 100.3 F H Pulse Rate 89 88 89 Respiratory Rate 17 13 12 Blood Pressure 102/63 111/63 Pulse Oximetry 100 100 100 09/10/18 20:30 09/10/18 21:00 09/10/18 21:30 Temperature Pulse Rate 90 90 89 Respiratory Rate 17 20 19 Blood Pressure 117/62 115/62 114/63 Pulse Oximetry 100 100 100 09/10/18 21:59 09/10/18 22:00 09/10/18 22:30 Temperature Pulse Rate 89 89 87 Respiratory Rate 16 16 19 Blood Pressure 124/64 119/64 Pulse Oximetry 100 100 100 09/10/18 23:00 09/11/18 00:00 09/11/18 00:05 Temperature 100.5 F H Pulse Rate 86 86 86 Respiratory Rate 21 17 18 Blood Pressure 121/64 129/62 Pulse Oximetry 100 100 100 09/11/18 01:00 09/11/18 02:00 09/11/18 03:00 Temperature Pulse Rate 88 87 84 Respiratory Rate 21 19 31 H Blood Pressure 121/65 119/66 Pulse Oximetry 100 100 100 09/11/18 03:03 09/11/18 03:18 09/11/18 04:00 Temperature 98.8 F Pulse Rate 83 81 86 Respiratory Rate 18 19 22 Blood Pressure 112/60 119/76 Pulse Oximetry 100 100 100 09/11/18 05:00 09/11/18 06:00 09/11/18 07:00 Temperature Pulse Rate 85 78 73 Respiratory Rate 19 21 17 Blood Pressure 132/75 143/71 H 99/57 L Pulse Oximetry 100 96 100 09/11/18 07:08 09/11/18 07:39 09/11/18 08:00 Temperature 96.4 F L Pulse Rate 71 78 Respiratory Rate 16 15 20 Blood Pressure 103/55 L Pulse Oximetry 100 99 09/11/18 09:00 09/11/18 10:00 09/11/18 11:00 Temperature Pulse Rate 63 68 66 Respiratory Rate 17 17 19 Blood Pressure 104/56 L 107/58 L 103/58 L Pulse Oximetry 100 94 L 98 09/11/18 11:34 09/11/18 11:35 09/11/18 12:00 Temperature 97.8 F Pulse Rate 70 63 Respiratory Rate 17 17 16 Blood Pressure Pulse Oximetry 98 100 09/11/18 12:01 09/11/18 13:00 09/11/18 15:02 Temperature Pulse Rate 64 68 74 Respiratory Rate 16 19 12 Blood Pressure 121/59 L 98/56 L Pulse Oximetry 100 100 Intake & Output 09/10/18 09/11/18 09/11/18 18:59 06:59 18:59 Intake Total 1999 2774 / 2774 1000 / 1000 Output Total 450 / 450 Balance 1999 2324 / 2324 1000 / 1000 Weight 79.379 kg 78.4 kg Intake: IV 1999 2774 / 2774 1000 / 1000 Diprivan 1000 mg/100 ml Inj 1, 150 / 150 90 / 90 000 mg In 100 ml @ 5 MCG/KG/MIN 2.381 mls/hr IV.CONT TITRATE PRN Rx#:[id number] NS Inj 1,000 ML @ 84 mls/hr IV. 1084 / 1084 CONT .[id number] [facility] Rx#:[id number] Azithromycin Inj 500 MG In NS 250 / 250 Inj 250 ML @ 250 mls/hr IV.SIG ONCE ONE Rx#:[id number] Maxipime Inj 500 MG In NS Inj 100 / 100 100 ML @ 200 mls/hr IV.SIG Q12H [facility] Rx#:[id number] Maxipime Inj 2,000 MG In NS Inj 100 / 100 100 ML @ 200 mls/hr IV.SIG ONCE ONE Rx#:[id number] LR 1000 mL Inj 1,000 ML @ 1000 1000 / 1000 1000 / 1000 mls/hr IV.SIG BOLUS ONE Rx#: [id number] NS Inj 1,000 ML @ Wide Open IV. 1000 / 1000 SIG BOLUS ONE Rx#:[id number] NS Inj 500 ML @ 1000 mls/hr IV. 500 / 500 SIG BOLUS [facility] Rx#:[id number] Vancomycin Inj 1,000 MG In NS 250 / 250 250 / 250 Inj 250 ML @ 250 mls/hr IV.SIG ONCE ONE Rx#:[id number] Output: Urine Amount (Catheter) 450 / 450 Indwelling Urethral Catheter 450 / 450 Other: Date of Last Bowel Movement 09/11/18 09/11/18 # Bowel Movements 1 Result Diagrams: 09/12/18 04:11 09/12/18 04:11 Other Results: Laboratory Results WBC 16.6 th/mm3 (4.0-11.0) H 09/11/18 11:18 RBC 3.88 mil/mm3 (4.50-5.90) L 09/11/18 11:18 Hgb 11.4 gm/dL (13.0-17.0) L D 09/11/18 11:18 Hct 37.7 % (39.0-51.0) L 09/11/18 11:18 MCV 97.1 fL (80.0-100.0) D 09/11/18 11:18 MCH 29.3 pg (27.0-34.0) 09/11/18 11:18 MCHC 30.2 % (32.0-36.0) L 09/11/18 11:18 RDW 15.4 % (11.6-17.2) 09/11/18 11:18 Plt Count 194 th/mm3 (150-450) D 09/11/18 11:18 MPV 9.0 fL (7.0-11.0) 09/11/18 11:18 Neut % (Auto) 86.3 % (16.0-70.0) H 09/11/18 11:18 Lymph % (Auto) 8.4 % (9.0-44.0) L 09/11/18 11:18 [place] % (Auto) 3.9 % (0.0-8.0) 09/11/18 11:18 Eos % (Auto) 1.1 % (0.0-4.0) 09/11/18 11:18 Baso % (Auto) 0.3 % (0.0-2.0) 09/11/18 11:18 Neut # (Auto) 14.3 th/mm3 (1.8-7.7) H 09/11/18 11:18 Lymph # (Auto) 1.4 th/mm3 (1.0-4.8) 09/11/18 11:18 [place] # (Auto) 0.6 th/mm3 (0.0-0.9) 09/11/18 11:18 Eos # (Auto) 0.2 th/mm3 (0.0-0.4) 09/11/18 11:18 Baso # (Auto) 0.1 th/mm3 (0.0-0.2) 09/11/18 11:18 WBC Differential . 09/11/18 11:18 Differential Comment Auto diff final 09/11/18 11:18 PT 11.6 sec (9.8-11.6) 09/10/18 13:53 INR 1.1 Ratio 09/10/18 13:53 APTT 25.2 sec (23.4-31.7) 09/10/18 13:53 Puncture Site Right radial 09/11/18 12:30 Patient Temperature 98.6 09/11/18 12:30 O2 Saturation 97 % (90-100) 09/11/18 12:30 ABG pH 7.46 (7.380-7.420) H 09/11/18 12:30 ABG pCO2 31 mmHg (38-42) L 09/11/18 12:30 ABG pO2 178 mmHG (61-120) H 09/11/18 12:30 ABG HCO3 22 mmol/L (22-26) 09/11/18 12:30 ABG O2 Content 15.4 Vol % (12.0-20.0) 09/11/18 12:30 ABG Base Excess -1.8 mmol/L (-2-2) 09/11/18 12:30 ABG Methemoglobin 1.5 % (0-2) 09/11/18 12:30 Lino Test Present 09/11/18 12:30 Hemoglobin 11.1 G/DL (12.0-16.0) L 09/11/18 12:30 Carboxyhemoglobin 0.7 % (0-4) 09/11/18 12:30 O2 Delivery Device Ventilator 09/11/18 12:30 Vent Setting Prvc/ac550/14/5peep 09/11/18 12:30 Inspired O2 35 % 09/11/18 12:30 Critical Value No 09/11/18 12:30 Sodium 160 meq/L (136-145) H* 09/11/18 13:50 Potassium 3.2 meq/L (3.5-5.1) L 09/11/18 13:50 Chloride 127 meq/L (98-107) H 09/11/18 13:50 Carbon Dioxide 22.6 meq/L (21.0-32.0) 09/11/18 13:50 Anion Gap 10 meq/L (5-15) 09/11/18 13:50 BUN 40 mg/dL (7-18) H 09/11/18 13:50 Creatinine 1.45 mg/dL (0.60-1.30) H 09/11/18 13:50 Estimated GFR 47 mL/min (>89) L 09/11/18 13:50 POC Glucose 200 mg/dl (68-110) H 09/11/18 14:02 Random Glucose 227 mg/dL (74-106) H 09/11/18 13:50 Lactic Acid 5.4 mmol/L (0.4-2.0) H* 09/11/18 10:04 Calcium 8.2 mg/dL (8.5-10.1) L 09/11/18 13:50 Calcium Adj for Albumin Cancelled 09/10/18 13:53 Phosphorus 3.4 mg/dL (2.5-4.9) 09/11/18 02:45 Magnesium 2.4 mg/dL (1.5-2.5) 09/11/18 02:45 Total Bilirubin 1.6 mg/dL (0.2-1.0) H 09/11/18 02:45 AST 43 U/L (15-37) H 09/11/18 02:45 ALT 56 U/L (12-78) 09/11/18 02:45 Alkaline Phosphatase 139 U/L (45-117) H 09/11/18 02:45 Ammonia 18 mcmol/L (11-32) 09/10/18 20:59 Total Creatine Kinase 154 U/L (39-308) 09/11/18 02:45 CK-MB (CK-2) Less than 1.0 ng/mL (0.5-3.6) 09/10/18 13:53 CK-MB (CK-2) % 0.3 % (0.0-4.0) 09/10/18 13:53 Troponin I 0.05 ng/mL (0.02-0.05) 09/10/18 20:59 B-Natriuretic Peptide 39 pg/mL (0-100) 09/11/18 13:50 Total Protein 6.2 g/dL (6.4-8.2) L D 09/11/18 02:45 Albumin 1.6 g/dL (3.4-5.0) L 09/11/18 02:45 TSH 0.435 uIU/mL (0.358-3.740) 09/10/18 20:59 Thyroxine (T4) 8.7 mcg/dL (4.5-12.1) 09/10/18 20:59 Cortisol 34.8 mcg/dL 09/10/18 20:59 Urine Color Norma (Yellw/Straw) 09/10/18 15:15 Urine Clarity Hazy (Clear) H 09/10/18 15:15 Urine pH 5.0 (5.0-8.5) 09/10/18 15:15 Ur Specific [place] 1.023 (1.002-1.035) 09/10/18 15:15 Urine Protein 100 mg/dL (Neg-Trace) H 09/10/18 15:15 Urine Glucose (UA) Negative mg/dL (Negative) 09/10/18 15:15 Urine Ketones Negative mg/dL (Negative) 09/10/18 15:15 Urine Occult Blood Negative (Negative) 09/10/18 15:15 Urine Nitrate Negative (Negative) 09/10/18 15:15 Urine Bilirubin Negative (Negative) 09/10/18 15:15 Urine Urobilinogen 4 or greater mg/dL (Less than 2) 09/10/18 15:15 Ur Leukocyte Esterase Negative (Negative) 09/10/18 15:15 Urine RBC 1 /hpf (0-3) 09/10/18 15:15 Urine WBC 3 /hpf (0-5) 09/10/18 15:15 Amorphous Sediment Rare /hpf (None) H 09/10/18 15:15 Urine Bacteria Rare /hpf (None) H 09/10/18 15:15 Granular Casts 1 /lpf (None) 09/10/18 15:15 Urine Mucus Few /lpf (Occasional) H 09/10/18 15:15 Micro UA Comment Cath-culture ind 09/10/18 15:15 Ur Microscopic Review Not Reportable 09/10/18 15:15 Urine Culture Comments Cath-cult indicated 09/10/18 15:15 Nasal Screen MRSA (PCR) Not detected (Negative) 09/10/18 18:30 Random Vancomycin 20.0 Comment 09/11/18 02:45 Impressions Chest X-Ray 09/11/18 04:00 CONCLUSION: Stable appearance with no acute cardiopulmonary disease. Objective Remarks: GENERAL: Well-developed well-nourished early gentleman, intubated and sedated on Propofol SKIN: Warm and dry. HEAD: Atraumatic. Normocephalic. EYES: Pupils equal and round. No scleral icterus. No injection or drainage. ENT: No nasal bleeding or discharge. Mucous membranes pink and moist. NECK: Trachea midline. No JVD. CARDIOVASCULAR: Normal rate, regular rhythm. RESPIRATORY: No accessory muscle use. Clear to auscultation. Breath sounds equal bilaterally. GASTROINTESTINAL: Abdomen soft, non-tender, nondistended. No guarding. MUSCULOSKELETAL: Extremities without clubbing, cyanosis, or edema. Left heel necrotic skin wound, left hip, necrotic skin wound gluteal fold. NEUROLOGICAL: Intubated and sedated. RASS -3. No gross focal/sensory deficits. Does not follow command Assessment and Plan - Problem List (1) Influenza A Code(s): J10.1 - Influenza due to other identified influenza virus with other respiratory manifestations Status: Acute (2) Sacral decubitus ulcer, stage IV Code(s): L89.154 - Pressure ulcer of sacral region, stage 4 Status: Acute (3) Decubitus ulcer of ankle Code(s): L89.509 - Pressure ulcer of unspecified ankle, unspecified stage Status: Acute (4) Decubitus ulcer, hip Code(s): L89.209 - Pressure ulcer of unspecified hip, unspecified stage Status : Acute (5) Renal insufficiency Code(s): N28.9 - Disorder of kidney and ureter, unspecified Status: Acute (6) Sepsis Code(s): A41.9 - Sepsis, unspecified organism Status: Acute - Assessment and Plan Plan: Assessment This is a 83-year-old shelter with multiple comorbidities that had an alteration in mental status most likely secondary to sepsis the patient required intubation for airway detection and due to respiratory insufficiency, with noted concomitant influenza A diagnosis. The patient is critically ill. Plan by systems: Neurologic: Dementia Parkinson's disease Metabolic encephalopathy, most likely secondary to sepsis Propofol and fentanyl infusions to maintain ventilator synchrony Daily sedation vacation Ammonia, cortisol, TSH level-WNL Home medications and Singulair,Norvasc, Resume Sinemet 25/100 Respiratory: Acute hypoxemic respiratory failure 1/5 intubated in the ED 8.0 ET tube 26cm at the lip Ventilator bundle Duo nebs every 4 hours scheduled and every 2 hours as needed Wean FiO2 to maintain O2 saturation greater than 92% Follow-up chest x-ray in a.m. Cardiovascular: Sinus tachycardia-resolved Normotensive Initial troponin 0.02->0.05 Renal: Maintain Lainez Trend creatinine kinase-decreasing -- Strict I/Os FEN/GI: Hypernatremia Hypokalemia Maintain n.p.o. status now Placed on D5W at 110 cc/now her last p.m. he is to 75 cc/hour Sodium level 163->160, continue to trend BMP Heme/ID: Influenza A Leukocytosis Sepsis Begin Tamiflu x 7days 09/10 Pneumococcal, Legionella urine antigens-NGTD F/u sputum culture Follow-up blood and urine culture Wound culture to-group D enterococcus Monitor CBC Continue empiric dosing of vancomycin, and cefepime (renal dosing)day 2 Patient noted to have multiple necrotic wounds, malodorous will obtain wound consult ID has been consulted Endocrine: Diabetes mellitus Glucose monitoring per ICU protocol Patient currently on insulin drip 2 units/hour plan to wean off transition to sliding scale dosing -- SSI Prophylaxis: GI Prophylaxis Famotidine twice daily DVT Prophylaxis -- SCDs Subcutaneous heparin every 12 hours Lines: Peripheral IVs providing adequate access. Central line if clinically indicated Dispo: My billing statement This patient remains critically ill with one or more organ systems which are or may become a threat to life. I have spent in excess of 35 minutes discontinuously in the care and management of this patient. This time is exclusive of procedures, and includes, but is not limited to, evaluation of the patient, review of the medical record, discussions with family, consultants, nursing staff, or respiratory therapy, and documentation in the medical record. The patient's CODE STATUS is changed to alternate CODE STATUS secondary to family request and patient's wishes. Palliative care has been consulted, to assist in determination of goals.
--- NOTE | 2018-09-11 15:50 | MB ---
cc: Ines Staples DPM DATE: 09/11/2018 REASON FOR CONSULTATION: Left heel wound. HISTORY OF PRESENT ILLNESS: The patient is an 83-year-old male who is intubated when I examine him. His medical history was gleaned from the chart. The patient is an 83-year-old male who presented to the hospital via EMS. Podiatry was consulted for his left heel wound. REVIEW OF SYSTEMS: Unable to obtain. PAST MEDICAL HISTORY: Per chart. PAST SURGICAL HISTORY: Per chart. PHYSICAL EXAMINATION: DP and PT diminished. Lower extremities, left warm, left heel decubitus ulcer. There is no fluctuance. There is no acute drainage. There is some ecchymosis. Muscle strength deferred. ASSESSMENT: Left heel decubitus ulcer. PLAN: Left foot x-ray. Continue offloading with left heel Hermes Prevalon boots. Recommend Betadine dressings daily for 3-5 days, then this can be changed to Santyl ointment, continue offloading. We will continue to follow the patient. If his x-rays are within normal limits, the patient can follow up as an outpatient or at his facility with local wound care. Ines Staples DPM SR/megan , 03:28 PM , 03:36 PM
[2018-09-11] MEDS ORDERED: Lidocaine 1%/Epinephrine 1:100,000 Inj 20 ML Vial ONE (15:54)
[2018-09-11] MEDS ORDERED: Potassium Phosphate Inj 30 MMOL in Sodium Chlor 0.9% Inj 250 ML IV.SIG PRN (15:58)
[2018-09-11] MEDS ORDERED: Sodium Phosphate Inj 30 MMOL in Sodium Chlor 0.9% Inj 250 ML IV.SIG PRN (15:58)
[2018-09-11] MEDS ORDERED: Potassium Chlor 40 mEq Premix 40 MEQ/100 ML PIGGYBACK IV.SIG PRN ×2 (15:58)
[2018-09-11] MEDS ORDERED: Potassium Phosphate 500 MG Soluble Tablet PO PRN (15:58)
[2018-09-11] MEDS ORDERED: Magnesium Sulfate Inj 2 GM in Sodium Chlor 0.9% Inj 96 ML IV.SIG PRN (15:58)
[2018-09-11] MEDS ORDERED: Magnesium Sulfate Inj 4 GM in Sodium Chlor 0.9% Inj 92 ML IV.SIG PRN (15:58)
[2018-09-11] MEDS ORDERED: Potassium Chlor 20 mEq Premix 20 MEQ/100 ML PIGGYBACK IV.SIG PRN (15:58)
[2018-09-11] MEDS ORDERED: Magnesium Oxide 400 MG Tablet PO PRN (15:58)
[2018-09-11] MEDS ORDERED: Potassium Chlor 20 mEq Premix 20 MEQ/100 ML PIGGYBACK IV.SIG ONE (16:02)
--- NOTE | 2018-09-11 16:07 | P.PNCC ---
Critical Care Event Note Code activated: No (Patient is DNR) Narrative: This case had a high probability of a clinically significant, sudden, or life threatening deterioration of this patient's condition which required my full and direct attention, intervention and personal management. The patient suddenly went into V. fib arrest, followed by asystole, during CPAP trials. Patient was placed on 100% oxygen and maintained on a rate. The patient returned to sinus rhythm and normotensive. The patient remains DNR no interventions performed Critical care time: less than 30 mins
[2018-09-11] MEDS: Potassium Chlor 20 mEq Premix 20 MEQ/100 ML PIGGYBACK IV.SIG PRN ×2 (16:19→18:06)
[2018-09-11] MEDS: Potassium Chloride 25 MEQ Effervescent Tablet PO PRN (16:19)
--- NOTE | 2018-09-11 16:21 | XR ---
EXAM DATE: 09/11/2018 4:07 PM EST AGE/SEX: 83 years / Male INDICATIONS: Pain. CLINICAL DATA: This is the patient's initial encounter. Patient reports that signs and symptoms have been present for 1 day and indicates a pain score of Nonresponsive. MEDICAL/SURGICAL HISTORY: Non-responsive. Non-responsive. COMPARISON: No prior exams available for comparison. FINDINGS: No definite fractures, or dislocations are identified. No definite lytic or sclerotic les ion is seen. 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 CONCLUSION: Chronic changes and no definite fracture for technique. Electronically signed by: Dottie Sahu MD Board Certified Radiologist 09/11/2018 4:20 PM EST
[2018-09-11] MEDS: Ampicillin/Sulbactam Inj 1,500 MG in Sodium Chloride 0.9% Inj 100 ML IV.SIG SCH ×2 (16:49→22:43)
[2018-09-12] MEDS: Oral Hygiene Kit OROPHARYNG SCH ×4 (00:37→20:28)
[2018-09-12] MEDS: Heparin - SQ 10,000 UNITS/ML Vial SQ SCH ×2 (04:12→16:54)
[2018-09-12] MEDS: Ampicillin/Sulbactam Inj 1,500 MG in Sodium Chloride 0.9% Inj 100 ML IV.SIG SCH ×4 (04:12→23:45)
[2018-09-12] MEDS: Chlorhexidine Gluconate 2% 1 Pack (2 Cloths) TOPICAL SCH (04:14)
[2018-09-12] MEDS: Dextrose 5% in Water Inj 1,000 ML IV.CONT SCH ×2 (04:55→20:28)
--- NOTE | 2018-09-12 05:34 | XR ---
EXAM DATE: 09/12/2018 5:11 AM EST AGE/SEX: 83 years / Male INDICATIONS: Shortness of breath, possible pulmonary disease. CLINICAL DATA: This is the patient's subsequent encounter. Patient reports that signs and symptoms h ave been present for 3 days and indicates a pain score of Nonresponsive. MEDICAL/SURGICAL HISTORY: Diabetes. Hypertension. Parkinson's disease. Non-responsive. COMPARISON: [facility] [place], CHEST 1V SINGLE AP, 09/11/2018. . FINDINGS: A single AP view of the chest demonstrates the lungs to be symmetrically aerated without evidence of mass, infiltrate or effusion. The cardiomediastinal contours are unremarkable. Osseous structures a re intact. Endotracheal tube in good position. Nasogastric tube courses off the inferior margin of t he film. CONCLUSION: Clear lungs. Electronically signed by: Juan Carlos Cisse MD Board Certified Radiologist 09/12/2018 5:33 AM EST
[2018-09-12 06:43] LABS: Baso # (Auto) 0.1 th/mm3 (0.0-0.2); Baso % (Auto) 0.5 % (0.0-2.0); Eos # (Auto) 0.4 th/mm3 (0.0-0.4); Eos % (Auto) 2.2 % (0.0-4.0); Hematocrit 37.1 % (39.0-51.0); Hemoglobin 11.7 gm/dL (13.0-17.0); Lymph # (Auto) 1.7 th/mm3 (1.0-4.8); Lymph % (Auto) 8.8 % (9.0-44.0); Mean Corpuscular HGB Conc 31.6 % (32.0-36.0); Mean Corpuscular Hemoglobin 29.3 pg (27.0-34.0); Mean Corpuscular Volume 92.7 fL (80.0-100.0); Mean Platelet Volume 9.2 fL (7.0-11.0); Mono # (Auto) 0.9 th/mm3 (0.0-0.9); Mono % (Auto) 4.8 % (0.0-8.0); Neut # (Auto) 15.7 th/mm3 (1.8-7.7); Neut % (Auto) 83.7 % (16.0-70.0); Platelet Count 193 th/mm3 (150-450); Red Cell Distribution Width 14.6 % (11.6-17.2); White Blood Count 18.7 th/mm3 (4.0-11.0)
[2018-09-12 07:08] LABS: Carbon Dioxide 21.2 meq/L (21.0-32.0); Magnesium 2.3 mg/dL (1.5-2.5); Phosphorus 2.4 mg/dL (2.5-4.9)
[2018-09-12 07:28] LABS: Potassium 4.2 meq/L (3.5-5.1)
--- NOTE | 2018-09-12 08:23 | P.PNCC ---
Subjective Subjective Remarks/Hospital Course: Subjective 09/11: Afebrile . Lactic acid only slightly decreased this a.m. ID has been consulted patient continues on vancomycin and the patient was noted to be hypernatremic D5W was started last evening and subsequently insulin infusion at 2 units/h. The patient has 3 siblings. Sister met yesterday evidently is the one that goes to the half-way facility and feeds him, despite being lethargic. Also informed that that sister was also feeding him narcotics, which the half-way facility is investigating. The patient continues to have decreased mentation off propofol. Repeat BMP shows decreasing sodium now 160. Free water flushes have been added to medication regimen. I discussed extensively with Sister Trena Zafar by telephone, the patient's POA the patient's condition and provided a medical status update. The patient's POA, and another sibling requested we place him in DNR. The POA states she has the paperwork at home however she is on vacation at this time and will provided via fax the patient has a living will. Palliative care also has been consulted to help evaluate/to define goals. The patient was placed in alternate CODE STATUS. The patient is hemodynamically stable at this time. 09/12: Today afternoon the patient during CPAP trials went into an episode of V. fib followed by asystole. Patient was immediately placed back on a ventilator rate and the patient converted to sinus arrhythmia and subsequently sinus rhythm. Post cardiac event neurological status was noted patient following commands and movement of extremities. Echo ordered. The patient remained normotensive post event. No vasopressor required. It was noted at that time potassium was 3.2 supplementation was provided. Overnight no cardiac events. The patient remains normotensive, home medication Norvasc remains on hold at this time. Hypernatremia resolving the patient continues on D5W at a decreased rate , and low-dose insulin infusion. D5W has been decreased, free water flushes have been added to medication regimen. Objective Vital Signs / I&O: Vital Signs 09/11/18 09:00 09/11/18 10:00 09/11/18 11:00 Temperature Pulse Rate 63 68 66 Respiratory Rate 17 17 19 Blood Pressure 104/56 L 107/58 L 103/58 L Pulse Oximetry 100 94 L 98 09/11/18 11:34 09/11/18 11:35 09/11/18 12:00 Temperature 97.8 F Pulse Rate 70 63 Respiratory Rate 17 17 16 Blood Pressure Pulse Oximetry 98 100 09/11/18 12:01 09/11/18 13:00 09/11/18 14:00 Temperature Pulse Rate 64 68 66 Respiratory Rate 16 19 21 Blood Pressure 121/59 L 98/56 L 140/68 Pulse Oximetry 100 100 100 09/11/18 15:00 09/11/18 15:02 09/11/18 15:28 Temperature Pulse Rate 74 74 Respiratory Rate 19 12 19 Blood Pressure 151/72 H Pulse Oximetry 100 100 09/11/18 15:56 09/11/18 16:00 09/11/18 16:04 Temperature 98.7 F Pulse Rate 79 96 H 96 H Respiratory Rate 16 26 H 20 Blood Pressure 143/69 H 128/78 Pulse Oximetry 100 100 100 09/11/18 16:10 09/11/18 16:20 09/11/18 16:30 Temperature Pulse Rate 101 H 93 H 92 H Respiratory Rate 24 19 18 Blood Pressure 138/78 129/72 132/70 Pulse Oximetry 100 100 100 09/11/18 16:40 09/11/18 16:50 09/11/18 17:00 Temperature Pulse Rate 93 H 88 91 H Respiratory Rate 20 17 19 Blood Pressure 129/72 109/62 125/67 Pulse Oximetry 100 100 100 09/11/18 17:10 09/11/18 17:20 09/11/18 17:30 Temperature Pulse Rate 90 86 84 Respiratory Rate 21 16 16 Blood Pressure 141/66 H 118/61 117/62 Pulse Oximetry 100 100 100 09/11/18 17:40 09/11/18 17:50 09/11/18 18:00 Temperature Pulse Rate 84 82 81 Respiratory Rate 17 18 17 Blood Pressure 118/64 109/64 105/60 Pulse Oximetry 100 100 100 09/11/18 18:10 09/11/18 18:20 09/11/18 19:45 Temperature Pulse Rate 83 81 78 Respiratory Rate 21 18 16 Blood Pressure 141/67 H 112/63 Pulse Oximetry 100 100 100 09/11/18 20:00 09/11/18 20:30 09/11/18 20:40 Temperature Pulse Rate 72 74 75 Respiratory Rate 17 17 Blood Pressure 125/70 123/68 Pulse Oximetry 99 100 100 09/11/18 20:50 09/11/18 21:00 09/11/18 21:10 Temperature Pulse Rate 74 75 79 Respiratory Rate 17 17 16 Blood Pressure 126/68 125/64 100/55 L Pulse Oximetry 100 100 100 09/11/18 21:20 09/11/18 21:30 09/11/18 21:40 Temperature Pulse Rate 75 69 67 Respiratory Rate 16 15 16 Blood Pressure 94/56 L 96/59 L 110/57 L Pulse Oximetry 100 100 100 09/11/18 21:50 09/11/18 22:00 09/11/18 22:10 Temperature Pulse Rate 66 70 73 Respiratory Rate 17 22 19 Blood Pressure 107/58 L 103/61 139/71 Pulse Oximetry 100 100 100 09/11/18 22:20 09/11/18 22:30 09/11/18 22:40 Temperature Pulse Rate 70 69 67 Respiratory Rate 17 16 19 Blood Pressure 132/71 122/70 124/65 Pulse Oximetry 100 100 100 09/11/18 22:50 09/11/18 23:00 09/11/18 23:10 Temperature Pulse Rate 69 67 66 Respiratory Rate 17 16 16 Blood Pressure 127/71 125/72 119/64 Pulse Oximetry 100 100 100 09/11/18 23:20 09/11/18 23:30 09/11/18 23:40 Temperature Pulse Rate 65 62 63 Respiratory Rate 16 15 15 Blood Pressure 115/63 105/62 106/57 L Pulse Oximetry 100 100 100 09/11/18 23:50 09/12/18 00:00 09/12/18 00:01 Temperature 98.5 F Pulse Rate 62 60 61 Respiratory Rate 15 16 14 Blood Pressure 105/59 L 107/55 L Pulse Oximetry 100 100 100 09/12/18 00:10 09/12/18 00:20 09/12/18 00:29 Temperature Pulse Rate 62 64 62 Respiratory Rate 16 14 15 Blood Pressure 115/64 107/58 L Pulse Oximetry 100 100 100 09/12/18 00:30 09/12/18 02:00 09/12/18 02:10 Temperature Pulse Rate 63 59 L Respiratory Rate 16 15 Blood Pressure 105/56 L 111/55 L Pulse Oximetry 100 100 09/12/18 02:20 09/12/18 02:30 09/12/18 02:40 Temperature Pulse Rate 60 68 60 Respiratory Rate 15 16 15 Blood Pressure 101/55 L 105/56 L 110/59 L Pulse Oximetry 100 100 100 09/12/18 02:50 09/12/18 03:00 09/12/18 03:10 Temperature Pulse Rate 59 L 59 L 59 L Respiratory Rate 16 15 18 Blood Pressure 113/62 106/56 L 149/72 H Pulse Oximetry 100 100 100 09/12/18 03:20 09/12/18 03:30 09/12/18 03:40 Temperature Pulse Rate 61 62 58 L Respiratory Rate 17 16 14 Blood Pressure 145/63 H 137/67 120/59 L Pulse Oximetry 100 100 100 09/12/18 03:51 09/12/18 04:00 09/12/18 04:01 Temperature 99.1 F Pulse Rate 60 65 64 Respiratory Rate 17 15 18 Blood Pressure 149/75 H 156/70 H Pulse Oximetry 100 100 100 09/12/18 04:10 09/12/18 04:20 09/12/18 04:30 Temperature Pulse Rate 59 L 60 56 L Respiratory Rate 16 16 14 Blood Pressure 133/58 L 136/65 123/58 L Pulse Oximetry 100 100 100 09/12/18 04:40 09/12/18 04:50 09/12/18 05:00 Temperature Pulse Rate 65 63 59 L Respiratory Rate 18 17 16 Blood Pressure 149/70 H 136/63 121/58 L Pulse Oximetry 99 100 99 09/12/18 05:10 09/12/18 05:20 09/12/18 05:30 Temperature Pulse Rate 54 L 57 L 62 Respiratory Rate 15 17 18 Blood Pressure 119/58 L 119/59 L 124/62 Pulse Oximetry 99 99 99 09/12/18 05:40 09/12/18 05:50 09/12/18 06:00 Temperature Pulse Rate 59 L 59 L 60 Respiratory Rate 19 18 17 Blood Pressure 148/65 H 125/55 L 124/60 Pulse Oximetry 100 100 100 09/12/18 07:11 09/12/18 07:23 Temperature Pulse Rate 56 L Respiratory Rate 17 17 Blood Pressure Pulse Oximetry 97 Intake & Output 09/11/18 09/12/18 09/12/18 18:59 06:59 18:59 Intake Total 2562.5 / 2562.5 1750 / 1750 Output Total 450 / 450 300 / 300 Balance 2112.5 / 2112.5 1450 / 1450 Weight 78.4 kg Intake: IV 2562.5 / 2562.5 1400 / 1400 D5W Inj 1,000 ML @ 75 mls/hr IV 1000 / 1000 1000 / 1000 .CONT .[id number] [facility] Rx#:[id number] Diprivan 1000 mg/100 ml Inj 1, 100 / 100 000 mg In 100 ml @ 5 MCG/KG/MIN 2.381 mls/hr IV.CONT TITRATE PRN Rx#:[id number] Unasyn Inj 1,500 MG In NS Inj 100 / 100 200 / 200 100 ML @ 200 mls/hr IV.SIG Q6H [facility] Rx#:[id number] Maxipime Inj 500 MG In NS Inj 100 / 100 100 ML @ 200 mls/hr IV.SIG Q12H [facility] Rx#:[id number] LR 1000 mL Inj 1,000 ML @ 1000 1000 / 1000 mls/hr IV.SIG BOLUS ONE Rx#: [id number] KCl 20 mEq Premix Inj 20 meq In 100 / 100 100 / 100 100 ml @ 50 mls/hr IV.SIG Q2H PRN Rx#:[id number] Vancomycin Inj 1,250 MG In NS 262.5 / 262.5 Inj 250 ML @ 250 mls/hr IV.SIG ONCE ONE Rx#:[id number] Tube Irrigant 100 / 100 Water Bolus Amount 250 / 250 Output: Urine Amount (Catheter) 450 / 450 300 / 300 Indwelling Urethral Catheter 450 / 450 300 / 300 Other: Date of Last Bowel Movement 09/11/18 09/11/18 # Bowel Movements 1 Result Diagrams: 09/12/18 04:11 09/12/18 04:11 Other Results: Laboratory Results WBC 18.7 th/mm3 (4.0-11.0) H 09/12/18 04:11 RBC 4.00 mil/mm3 (4.50-5.90) L 09/12/18 04:11 Hgb 11.7 gm/dL (13.0-17.0) L 09/12/18 04:11 Hct 37.1 % (39.0-51.0) L 09/12/18 04:11 MCV 92.7 fL (80.0-100.0) D 09/12/18 04:11 MCH 29.3 pg (27.0-34.0) 09/12/18 04:11 MCHC 31.6 % (32.0-36.0) L 09/12/18 04:11 RDW 14.6 % (11.6-17.2) 09/12/18 04:11 Plt Count 193 th/mm3 (150-450) 09/12/18 04:11 MPV 9.2 fL (7.0-11.0) 09/12/18 04:11 Neut % (Auto) 83.7 % (16.0-70.0) H 09/12/18 04:11 Lymph % (Auto) 8.8 % (9.0-44.0) L 09/12/18 04:11 Avery % (Auto) 4.8 % (0.0-8.0) 09/12/18 04:11 Eos % (Auto) 2.2 % (0.0-4.0) 09/12/18 04:11 Baso % (Auto) 0.5 % (0.0-2.0) 09/12/18 04:11 Neut # (Auto) 15.7 th/mm3 (1.8-7.7) H 09/12/18 04:11 Lymph # (Auto) 1.7 th/mm3 (1.0-4.8) 09/12/18 04:11 Avery # (Auto) 0.9 th/mm3 (0.0-0.9) 09/12/18 04:11 Eos # (Auto) 0.4 th/mm3 (0.0-0.4) 09/12/18 04:11 Baso # (Auto) 0.1 th/mm3 (0.0-0.2) 09/12/18 04:11 WBC Differential . 09/12/18 04:11 Differential Comment Auto diff final 09/12/18 04:11 PT 11.6 sec (9.8-11.6) 09/10/18 13:53 INR 1.1 Ratio 09/10/18 13:53 APTT 25.2 sec (23.4-31.7) 09/10/18 13:53 Puncture Site Right radial 09/11/18 12:30 Patient Temperature 98.6 09/11/18 12:30 O2 Saturation 97 % (90-100) 09/11/18 12:30 ABG pH 7.46 (7.380-7.420) H 09/11/18 12:30 ABG pCO2 31 mmHg (38-42) L 09/11/18 12:30 ABG pO2 178 mmHG (61-120) H 09/11/18 12:30 ABG HCO3 22 mmol/L (22-26) 09/11/18 12:30 ABG O2 Content 15.4 Vol % (12.0-20.0) 09/11/18 12:30 ABG Base Excess -1.8 mmol/L (-2-2) 09/11/18 12:30 ABG Methemoglobin 1.5 % (0-2) 09/11/18 12:30 Lino Test Present 09/11/18 12:30 Hemoglobin 11.1 G/DL (12.0-16.0) L 09/11/18 12:30 Carboxyhemoglobin 0.7 % (0-4) 09/11/18 12:30 O2 Delivery Device Ventilator 09/11/18 12:30 Vent Setting Prvc/[id number]/14/5peep 09/11/18 12:30 Inspired O2 35 % 09/11/18 12:30 Critical Value No 09/11/18 12:30 Sodium 156 meq/L (136-145) H* 09/12/18 04:11 Potassium 4.2 meq/L (3.5-5.1) D 09/12/18 04:11 Chloride 125 meq/L (98-107) H 09/12/18 04:11 Carbon Dioxide 21.2 meq/L (21.0-32.0) 09/12/18 04:11 Anion Gap 10 meq/L (5-15) 09/12/18 04:11 BUN 31 mg/dL (7-18) H 09/12/18 04:11 Creatinine 1.14 mg/dL (0.60-1.30) 09/12/18 04:11 Estimated GFR 62 mL/min (>89) L 09/12/18 04:11 POC Glucose 220 mg/dl (68-110) H 09/12/18 08:02 Random Glucose 162 mg/dL (74-106) H 09/12/18 04:11 Lactic Acid 5.4 mmol/L (0.4-2.0) H* 09/11/18 10:04 Calcium 8.0 mg/dL (8.5-10.1) L 09/12/18 04:11 Calcium Adj for Albumin Cancelled 09/10/18 13:53 Phosphorus 2.4 mg/dL (2.5-4.9) L D 09/12/18 04:11 Magnesium 2.3 mg/dL (1.5-2.5) 09/12/18 04:11 Total Bilirubin 1.6 mg/dL (0.2-1.0) H 09/11/18 02:45 AST 43 U/L (15-37) H 09/11/18 02:45 ALT 56 U/L (12-78) 09/11/18 02:45 Alkaline Phosphatase 139 U/L (45-117) H 09/11/18 02:45 Ammonia 18 mcmol/L (11-32) 09/10/18 20:59 Total Creatine Kinase 154 U/L (39-308) 09/11/18 02:45 CK-MB (CK-2) Less than 1.0 ng/mL (0.5-3.6) 09/10/18 13:53 CK-MB (CK-2) % 0.3 % (0.0-4.0) 09/10/18 13:53 Troponin I 0.05 ng/mL (0.02-0.05) 09/10/18 20:59 B-Natriuretic Peptide 39 pg/mL (0-100) 09/11/18 13:50 Total Protein 6.2 g/dL (6.4-8.2) L D 09/11/18 02:45 Albumin 1.6 g/dL (3.4-5.0) L 09/11/18 02:45 TSH 0.435 uIU/mL (0.358-3.740) 09/10/18 20:59 Thyroxine (T4) 8.7 mcg/dL (4.5-12.1) 09/10/18 20:59 Cortisol 34.8 mcg/dL 09/10/18 20:59 Urine Color Norma (Yellw/Straw) 09/10/18 15:15 Urine Clarity Hazy (Clear) H 09/10/18 15:15 Urine pH 5.0 (5.0-8.5) 09/10/18 15:15 Ur Specific [place] 1.023 (1.002-1.035) 09/10/18 15:15 Urine Protein 100 mg/dL (Neg-Trace) H 09/10/18 15:15 Urine Glucose (UA) Negative mg/dL (Negative) 09/10/18 15:15 Urine Ketones Negative mg/dL (Negative) 09/10/18 15:15 Urine Occult Blood Negative (Negative) 09/10/18 15:15 Urine Nitrate Negative (Negative) 09/10/18 15:15 Urine Bilirubin Negative (Negative) 09/10/18 15:15 Urine Urobilinogen 4 or greater mg/dL (Less than 2) 09/10/18 15:15 Ur Leukocyte Esterase Negative (Negative) 09/10/18 15:15 Urine RBC 1 /hpf (0-3) 09/10/18 15:15 Urine WBC 3 /hpf (0-5) 09/10/18 15:15 Amorphous Sediment Rare /hpf (None) H 09/10/18 15:15 Urine Bacteria Rare /hpf (None) H 09/10/18 15:15 Granular Casts 1 /lpf (None) 09/10/18 15:15 Urine Mucus Few /lpf (Occasional) H 09/10/18 15:15 Micro UA Comment Cath-culture ind 09/10/18 15:15 Ur Microscopic Review Not Reportable 09/10/18 15:15 Urine Culture Comments Cath-cult indicated 09/10/18 15:15 Nasal Screen MRSA (PCR) Not detected (Negative) 09/10/18 18:30 Random Vancomycin 20.0 Comment 09/11/18 02:45 Impressions Foot X-Ray 09/11/18 00:00 CONCLUSION: Chronic changes and no definite fracture for technique. Chest X-Ray 09/12/18 04:00 CONCLUSION: Clear lungs. Objective Remarks: GENERAL: Well-developed well-nourished early gentleman, intubated and lightly sedated on Propofol, responding to my commands SKIN: Warm and dry. HEAD: Atraumatic. Normocephalic. EYES: Pupils equal and round. No scleral icterus. No injection or drainage. ENT: No nasal bleeding or discharge. Mucous membranes pink and moist. NECK: Trachea midline. No JVD. CARDIOVASCULAR: Normal rate, regular rhythm. RESPIRATORY: No accessory muscle use. Clear to auscultation. Breath sounds equal bilaterally. GASTROINTESTINAL: Abdomen soft, non-tender, nondistended. No guarding. MUSCULOSKELETAL: Extremities without clubbing, cyanosis, or edema. Left heel necrotic skin wound with dressing intact, left hip, necrotic skin wound gluteal fold. NEUROLOGICAL: Intubated and sedated. RASS -1. No gross focal/sensory deficits. Does not follow command Assessment and Plan - Problem List (1) Influenza A Code(s): J10.1 - Influenza due to other identified influenza virus with other respiratory manifestations Status: Acute (2) Sacral decubitus ulcer, stage IV Code(s): L89.154 - Pressure ulcer of sacral region, stage 4 Status: Acute (3) Decubitus ulcer of ankle Code(s): L89.509 - Pressure ulcer of unspecified ankle, unspecified stage Status: Acute (4) Decubitus ulcer, hip Code(s): L89.209 - Pressure ulcer of unspecified hip, unspecified stage Status : Acute (5) Renal insufficiency Code(s): N28.9 - Disorder of kidney and ureter, unspecified Status: Acute (6) Sepsis Code(s): A41.9 - Sepsis, unspecified organism Status: Acute - Assessment and Plan Plan: Assessment This is a 83-year-old half-way with multiple comorbidities that had an alteration in mental status most likely secondary to sepsis the patient required intubation for airway detection and due to respiratory insufficiency, with noted concomitant influenza A diagnosis. The patient is critically ill. Plan by systems: Neurologic: Dementia Parkinson's disease Metabolic encephalopathy, most likely secondary to sepsis Propofol infusion to maintain ventilator synchrony Daily sedation vacation Ammonia, cortisol, TSH level-WNL Home medications and Marlen Shah, 09/11 resumed Sinemet 25/100 home medication Respiratory: Acute hypoxemic respiratory failure 09/10 intubated in the ED 8.0 ET tube 26cm at the lip Ventilator bundle Duo nebs every 4 hours scheduled and every 2 hours as needed Wean FiO2 to maintain O2 saturation greater than 92% Reinitiate CPAP trials, patient tolerated CPAP trials for approximately 4 hours yesterday ETT day 3 Cardiovascular: Sinus tachycardia-resolved H/O HTN Normotensive Initial troponin 0.02->0.05 Renal: Maintain Lainez -- Strict I/Os FEN/GI: Hypernatremia Hypokalemia Maintain n.p.o. status now Placed on D5W at 75 cc/hr decreased to 50 cc/hour Sodium level 160->156, continue to trend BMP Free water flushes 200 cc every 6 hours Continue to trend Na level F/U liver ultrasound Heme/ID: Influenza A Leukocytosis Sepsis Begin Tamiflu x 7days 09/10 Pneumococcal, Legionella urine antigens-NGTD F/u sputum culture Follow-up blood and urine culture Wound culture left hip-group D enterococcus Monitor CBC Patient noted to have multiple necrotic wounds, malodorous F/U wound consult ID following- Unasyn (day2), Vanc and Cefepime dc'd. Antibiotics recommendations per ID Podiatry following-wound recommendations per Dr. Staples Betadine dressing 3-5 days followed by [facility]: Diabetes mellitus Glucose monitoring per ICU protocol Patient currently on insulin drip 2 units/hour plan to wean off transition to sliding scale dosing -- SSI Prophylaxis: GI Prophylaxis Famotidine twice daily DVT Prophylaxis -- SCDs Subcutaneous heparin every 12 hours Lines: Peripheral IVs providing adequate access. Central line if clinically indicated Dispo: My billing statement This patient remains critically ill with one or more organ systems which are or may become a threat to life. I have spent in excess of 33 minutes discontinuously in the care and management of this patient. This time is exclusive of procedures, and includes, but is not limited to, evaluation of the patient, review of the medical record, discussions with family, consultants, nursing staff, or respiratory therapy, and documentation in the medical record. The patient's CODE STATUS is changed to alternate CODE STATUS secondary to family request and patient's wishes. Palliative care has been consulted, to assist in determination of goals. Code Status: Alternate-intubation only Discussed Condition With: No family at bedside. Discussed with VP [employer] at bedside.
[2018-09-12] MEDS: Senna/Docusate Sodium 8.6/50 MG Tablet PO SCH ×2 (08:47→21:02)
[2018-09-12] MEDS: Chlorhexidine 0.12% Oral Kit 15 ML UDC OROPHARYNG SCH ×2 (08:48→20:29)
[2018-09-12] MEDS: Famotidine PF Inj 20 MG/2 ML Vial IV.PUSH SCH ×2 (08:48→21:02)
--- NOTE | 2018-09-12 08:59 | US ---
EXAM DATE: 09/12/2018 8:31 AM EST AGE/SEX: 83 years / Male INDICATIONS: Elevated liver function tests. CLINICAL DATA: This is the patient's initial encounter. Patient reports that signs and symptoms have been present for 2 days and indicates a pain score of Nonresponsive. MEDICAL/SURGICAL HISTORY: Hypertension. Parkinson's disease. Dementia. Diabetes. Hernia. . Le ft hip replacement. COMPARISON: No prior exams available for comparison. MEASUREMENTS: Liver:__ 17.7 cm. Common Bile Duct:__ 5mm. Right Kidney:__ 12.5 x 5.0 x 5.4 cm. FINDINGS: Liver: Increased echogenicity without focal lesion or ductal dilatation. Portal Vein: Hepatopedal flow seen in portal vein. Common Duct: No intraluminal mass or stone visualized. Gallbladder: Gallbladder sludge without gallbladder wall thickening Pancreas: Not well visualized. Right Kidney: Increased echogenicity. No mass or hydronephrosis. Other: None. CONCLUSION: 1. Gallbladder sludge without gallbladder wall thickening 2. No intrahepatic biliary duct dilatation Electronically signed by: Murphy Bunch MD Board Certified Radiologist 09/12/2018 8:57 AM EST
--- NOTE | 2018-09-12 10:09 | P.CONPAL ---
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 Comment Ur Microscopic Review Urine Culture Comments Nasal Screen MRSA (PCR) Random Vancomycin 20.0 09/11/18 09/11/18 09/11/18 05:05 06:01 07:03 WBC RBC Hgb Hct MCV MCH MCHC RDW Plt Count MPV Neut % (Auto) Lymph % (Auto) [place] % (Auto) Eos % (Auto) Baso % (Auto) Neut # (Auto) Lymph # (Auto) [place] # (Auto) Eos # (Auto) Baso # (Auto) WBC Differential Differential Comment PT INR APTT Puncture Site Patient Temperature O2 Saturation ABG pH ABG pCO2 ABG pO2 ABG HCO3 ABG O2 Content ABG Base Excess ABG Methemoglobin Lino Test Hemoglobin Carboxyhemoglobin O2 Delivery Device Vent Setting Inspired O2 Critical Value Sodium Potassium Chloride Carbon Dioxide Anion Gap BUN Creatinine Estimated GFR POC Glucose 305 H 265 H 217 H Random Glucose Lactic Acid Calcium Calcium Adj for Albumin Phosphorus Magnesium Total Bilirubin AST ALT Alkaline Phosphatase Ammonia Total Creatine Kinase CK-MB (CK-2) CK-MB (CK-2) % Troponin I B-Natriuretic Peptide Total Protein Albumin TSH Thyroxine (T4) Cortisol Urine Color Urine Clarity Urine pH Ur Specific [place] Urine Protein Urine Glucose (UA) Urine Ketones Urine Occult Blood Urine Nitrate Urine Bilirubin Urine Urobilinogen Ur Leukocyte Esterase Urine RBC Urine WBC Amorphous Sediment Urine Bacteria Granular Casts Urine Mucus Micro UA Comment Ur Microscopic Review Urine Culture Comments Nasal Screen MRSA (PCR) Random Vancomycin 09/11/18 09/11/18 09/11/18 08:07 09:08 10:03 WBC RBC Hgb Hct MCV MCH MCHC RDW Plt Count MPV Neut % (Auto) Lymph % (Auto) [place] % (Auto) Eos % (Auto) Baso % (Auto) Neut # (Auto) Lymph # (Auto) [place] # (Auto) Eos # (Auto) Baso # (Auto) WBC Differential Differential Comment PT INR APTT Puncture Site Patient Temperature O2 Saturation ABG pH ABG pCO2 ABG pO2 ABG HCO3 ABG O2 Content ABG Base Excess ABG Methemoglobin Lino Test Hemoglobin Carboxyhemoglobin O2 Delivery Device Vent Setting Inspired O2 Critical Value Sodium Potassium Chloride Carbon Dioxide Anion Gap BUN Creatinine Estimated GFR POC Glucose 224 H 212 H 197 H Random Glucose Lactic Acid Calcium Calcium Adj for Albumin Phosphorus Magnesium Total Bilirubin AST ALT Alkaline Phosphatase Ammonia Total Creatine Kinase CK-MB (CK-2) CK-MB (CK-2) % Troponin I B-Natriuretic Peptide Total Protein Albumin TSH Thyroxine (T4) Cortisol Urine Color Urine Clarity Urine pH Ur Specific [place] Urine Protein Urine Glucose (UA) Urine Ketones Urine Occult Blood Urine Nitrate Urine Bilirubin Urine Urobilinogen Ur Leukocyte Esterase Urine RBC Urine WBC Amorphous Sediment Urine Bacteria Granular Casts Urine Mucus Micro UA Comment Ur Microscopic Review Urine Culture Comments Nasal Screen MRSA (PCR) Random Vancomycin 09/11/18 09/11/18 09/11/18 10:04 11:07 11:18 WBC 16.6 H RBC 3.88 L Hgb 11.4 L D Hct 37.7 L MCV 97.1 D MCH 29.3 MCHC 30.2 L RDW 15.4 Plt Count 194 D MPV 9.0 Neut % (Auto) 86.3 H Lymph % (Auto) 8.4 L [place] % (Auto) 3.9 Eos % (Auto) 1.1 Baso % (Auto) 0.3 Neut # (Auto) 14.3 H Lymph # (Auto) 1.4 [place] # (Auto) 0.6 Eos # (Auto) 0.2 Baso # (Auto) 0.1 WBC Differential . Differential Comment Auto diff final PT INR APTT Puncture Site Patient Temperature O2 Saturation ABG pH ABG pCO2 ABG pO2 ABG HCO3 ABG O2 Content ABG Base Excess ABG Methemoglobin Lino Test Hemoglobin Carboxyhemoglobin O2 Delivery Device Vent Setting Inspired O2 Critical Value Sodium Potassium Chloride Carbon Dioxide Anion Gap BUN Creatinine Estimated GFR POC Glucose 224 H Random Glucose Lactic Acid 5.4 H* Calcium Calcium Adj for Albumin Phosphorus Magnesium Total Bilirubin AST ALT Alkaline Phosphatase Ammonia Total Creatine Kinase CK-MB (CK-2) CK-MB (CK-2) % Troponin I B-Natriuretic Peptide Total Protein Albumin TSH Thyroxine (T4) Cortisol Urine Color Urine Clarity Urine pH Ur Specific [place] Urine Protein Urine Glucose (UA) Urine Ketones Urine Occult Blood Urine Nitrate Urine Bilirubin Urine Urobilinogen Ur Leukocyte Esterase Urine RBC Urine WBC Amorphous Sediment Urine Bacteria Granular Casts Urine Mucus Micro UA Comment Ur Microscopic Review Urine Culture Comments Nasal Screen MRSA (PCR) Random Vancomycin 09/11/18 09/11/18 09/11/18 11:56 12:30 13:06 WBC RBC Hgb Hct MCV MCH MCHC RDW Plt Count MPV Neut % (Auto) Lymph % (Auto) [place] % (Auto) Eos % (Auto) Baso % (Auto) Neut # (Auto) Lymph # (Auto) [place] # (Auto) Eos # (Auto) Baso # (Auto) WBC Differential Differential Comment PT INR APTT Puncture Site Right radial Patient Temperature 98.6 O2 Saturation 97 ABG pH 7.46 H ABG pCO2 31 L ABG pO2 178 H ABG HCO3 22 ABG O2 Content 15.4 ABG Base Excess -1.8 ABG Methemoglobin 1.5 Lino Test Present Hemoglobin 11.1 L Carboxyhemoglobin 0.7 O2 Delivery Device Ventilator Vent Setting [id number] Inspired O2 35 Critical Value No Sodium Potassium Chloride Carbon Dioxide Anion Gap BUN Creatinine Estimated GFR POC Glucose 208 H 220 H Random Glucose Lactic Acid Calcium Calcium Adj for Albumin Phosphorus Magnesium Total Bilirubin AST ALT Alkaline Phosphatase Ammonia Total Creatine Kinase CK-MB (CK-2) CK-MB (CK-2) % Troponin I B-Natriuretic Peptide Total Protein Albumin TSH Thyroxine (T4) Cortisol Urine Color Urine Clarity Urine pH Ur Specific [place] Urine Protein Urine Glucose (UA) Urine Ketones Urine Occult Blood Urine Nitrate Urine Bilirubin Urine Urobilinogen Ur Leukocyte Esterase Urine RBC Urine WBC Amorphous Sediment Urine Bacteria Granular Casts Urine Mucus Micro UA Comment Ur Microscopic Review Urine Culture Comments Nasal Screen MRSA (PCR) Random Vancomycin 09/11/18 09/11/18 09/11/18 13:50 13:50 14:02 WBC RBC Hgb Hct MCV MCH MCHC RDW Plt Count MPV Neut % (Auto) Lymph % (Auto) [place] % (Auto) Eos % (Auto) Baso % (Auto) Neut # (Auto) Lymph # (Auto) [place] # (Auto) Eos # (Auto) Baso # (Auto) WBC Differential Differential Comment PT INR APTT Puncture Site Patient Temperature O2 Saturation ABG pH ABG pCO2 ABG pO2 ABG HCO3 ABG O2 Content ABG Base Excess ABG Methemoglobin Lino Test Hemoglobin Carboxyhemoglobin O2 Delivery Device Vent Setting Inspired O2 Critical Value Sodium 160 H* Potassium 3.2 L Chloride 127 H Carbon Dioxide 22.6 Anion Gap 10 BUN 40 H Creatinine 1.45 H Estimated GFR 47 L POC Glucose 200 H Random Glucose 227 H Lactic Acid Calcium 8.2 L Calcium Adj for Albumin Phosphorus Magnesium Total Bilirubin AST ALT Alkaline Phosphatase Ammonia Total Creatine Kinase CK-MB (CK-2) CK-MB (CK-2) % Troponin I B-Natriuretic Peptide 39 Total Protein Albumin TSH Thyroxine (T4) Cortisol Urine Color Urine Clarity Urine pH Ur Specific [place] Urine Protein Urine Glucose (UA) Urine Ketones Urine Occult Blood Urine Nitrate Urine Bilirubin Urine Urobilinogen Ur Leukocyte Esterase Urine RBC Urine WBC Amorphous Sediment Urine Bacteria Granular Casts Urine Mucus Micro UA Comment Ur Microscopic Review Urine Culture Comments Nasal Screen MRSA (PCR) Random Vancomycin 09/11/18 09/11/18 09/11/18 15:18 16:36 16:58 WBC RBC Hgb Hct MCV MCH MCHC RDW Plt Count MPV Neut % (Auto) Lymph % (Auto) [place] % (Auto) Eos % (Auto) Baso % (Auto) Neut # (Auto) Lymph # (Auto) [place] # (Auto) Eos # (Auto) Baso # (Auto) WBC Differential Differential Comment PT INR APTT Puncture Site Patient Temperature O2 Saturation ABG pH ABG pCO2 ABG pO2 ABG HCO3 ABG O2 Content ABG Base Excess ABG Methemoglobin Lino Test Hemoglobin Carboxyhemoglobin O2 Delivery Device Vent Setting Inspired O2 Critical Value Sodium Potassium Chloride Carbon Dioxide Anion Gap BUN Creatinine Estimated GFR POC Glucose 230 H 221 H 238 H Random Glucose Lactic Acid Calcium Calcium Adj for Albumin Phosphorus Magnesium Total Bilirubin AST ALT Alkaline Phosphatase Ammonia Total Creatine Kinase CK-MB (CK-2) CK-MB (CK-2) % Troponin I B-Natriuretic Peptide Total Protein Albumin TSH Thyroxine (T4) Cortisol Urine Color Urine Clarity Urine pH Ur Specific [place] Urine Protein Urine Glucose (UA) Urine Ketones Urine Occult Blood Urine Nitrate Urine Bilirubin Urine Urobilinogen Ur Leukocyte Esterase Urine RBC Urine WBC Amorphous Sediment Urine Bacteria Granular Casts Urine Mucus Micro UA Comment Ur Microscopic Review Urine Culture Comments Nasal Screen MRSA (PCR) Random Vancomycin 09/11/18 09/11/18 09/11/18 18:05 18:46 20:10 WBC RBC Hgb Hct MCV MCH MCHC RDW Plt Count MPV Neut % (Auto) Lymph % (Auto) [place] % (Auto) Eos % (Auto) Baso % (Auto) Neut # (Auto) Lymph # (Auto) [place] # (Auto) Eos # (Auto) Baso # (Auto) WBC Differential Differential Comment PT INR APTT Puncture Site Patient Temperature O2 Saturation ABG pH ABG pCO2 ABG pO2 ABG HCO3 ABG O2 Content ABG Base Excess ABG Methemoglobin Lino Test Hemoglobin Carboxyhemoglobin O2 Delivery Device Vent Setting Inspired O2 Critical Value Sodium Potassium Chloride Carbon Dioxide Anion Gap BUN Creatinine Estimated GFR POC Glucose 269 H 245 H 234 H Random Glucose Lactic Acid Calcium Calcium Adj for Albumin Phosphorus Magnesium Total Bilirubin AST ALT Alkaline Phosphatase Ammonia Total Creatine Kinase CK-MB (CK-2) CK-MB (CK-2) % Troponin I B-Natriuretic Peptide Total Protein Albumin TSH Thyroxine (T4) Cortisol Urine Color Urine Clarity Urine pH Ur Specific [place] Urine Protein Urine Glucose (UA) Urine Ketones Urine Occult Blood Urine Nitrate Urine Bilirubin Urine Urobilinogen Ur Leukocyte Esterase Urine RBC Urine WBC Amorphous Sediment Urine Bacteria Granular Casts Urine Mucus Micro UA Comment Ur Microscopic Review Urine Culture Comments Nasal Screen MRSA (PCR) Random Vancomycin 09/11/18 09/11/18 09/11/18 21:29 22:51 23:21 WBC RBC Hgb Hct MCV MCH MCHC RDW Plt Count MPV Neut % (Auto) Lymph % (Auto) [place] % (Auto) Eos % (Auto) Baso % (Auto) Neut # (Auto) Lymph # (Auto) [place] # (Auto) Eos # (Auto) Baso # (Auto) WBC Differential Differential Comment PT INR APTT Puncture Site Patient Temperature O2 Saturation ABG pH ABG pCO2 ABG pO2 ABG HCO3 ABG O2 Content ABG Base Excess ABG Methemoglobin Lino Test Hemoglobin Carboxyhemoglobin O2 Delivery Device Vent Setting Inspired O2 Critical Value Sodium Potassium Chloride Carbon Dioxide Anion Gap BUN Creatinine Estimated GFR POC Glucose 226 H 234 H 188 H Random Glucose Lactic Acid Calcium Calcium Adj for Albumin Phosphorus Magnesium Total Bilirubin AST ALT Alkaline Phosphatase Ammonia Total Creatine Kinase CK-MB (CK-2) CK-MB (CK-2) % Troponin I B-Natriuretic Peptide Total Protein Albumin TSH Thyroxine (T4) Cortisol Urine Color Urine Clarity Urine pH Ur Specific [place] Urine Protein Urine Glucose (UA) Urine Ketones Urine Occult Blood Urine Nitrate Urine Bilirubin Urine Urobilinogen Ur Leukocyte Esterase Urine RBC Urine WBC Amorphous Sediment Urine Bacteria Granular Casts Urine Mucus Micro UA Comment Ur Microscopic Review Urine Culture Comments Nasal Screen MRSA (PCR) Random Vancomycin 09/12/18 09/12/18 09/12/18 00:36 01:45 02:49 WBC RBC Hgb Hct MCV MCH MCHC RDW Plt Count MPV Neut % (Auto) Lymph % (Auto) [place] % (Auto) Eos % (Auto) Baso % (Auto) Neut # (Auto) Lymph # (Auto) [place] # (Auto) Eos # (Auto) Baso # (Auto) WBC Differential Differential Comment PT INR APTT Puncture Site Patient Temperature O2 Saturation ABG pH ABG pCO2 ABG pO2 ABG HCO3 ABG O2 Content ABG Base Excess ABG Methemoglobin Lino Test Hemoglobin Carboxyhemoglobin O2 Delivery Device Vent Setting Inspired O2 Critical Value Sodium Potassium Chloride Carbon Dioxide Anion Gap BUN Creatinine Estimated GFR POC Glucose 187 H 195 H 186 H Random Glucose Lactic Acid Calcium Calcium Adj for Albumin Phosphorus Magnesium Total Bilirubin AST ALT Alkaline Phosphatase Ammonia Total Creatine Kinase CK-MB (CK-2) CK-MB (CK-2) % Troponin I B-Natriuretic Peptide Total Protein Albumin TSH Thyroxine (T4) Cortisol Urine Color Urine Clarity Urine pH Ur Specific [place] Urine Protein Urine Glucose (UA) Urine Ketones Urine Occult Blood Urine Nitrate Urine Bilirubin Urine Urobilinogen Ur Leukocyte Esterase Urine RBC Urine WBC Amorphous Sediment Urine Bacteria Granular Casts Urine Mucus Micro UA Comment Ur Microscopic Review Urine Culture Comments Nasal Screen MRSA (PCR) Random Vancomycin 09/12/18 09/12/18 09/12/18 03:49 04:11 04:11 WBC 18.7 H RBC 4.00 L Hgb 11.7 L Hct 37.1 L MCV 92.7 D MCH 29.3 MCHC 31.6 L RDW 14.6 Plt Count 193 MPV 9.2 Neut % (Auto) 83.7 H Lymph % (Auto) 8.8 L [place] % (Auto) 4.8 Eos % (Auto) 2.2 Baso % (Auto) 0.5 Neut # (Auto) 15.7 H Lymph # (Auto) 1.7 [place] # (Auto) 0.9 Eos # (Auto) 0.4 Baso # (Auto) 0.1 WBC Differential . Differential Comment Auto diff final PT INR APTT Puncture Site Patient Temperature O2 Saturation ABG pH ABG pCO2 ABG pO2 ABG HCO3 ABG O2 Content ABG Base Excess ABG Methemoglobin Lino Test Hemoglobin Carboxyhemoglobin O2 Delivery Device Vent Setting Inspired O2 Critical Value Sodium 156 H* Potassium 4.2 D Chloride 125 H Carbon Dioxide 21.2 Anion Gap 10 BUN 31 H Creatinine 1.14 Estimated GFR 62 L POC Glucose 175 H Random Glucose 162 H Lactic Acid Calcium 8.0 L Calcium Adj for Albumin Phosphorus 2.4 L D Magnesium 2.3 Total Bilirubin AST ALT Alkaline Phosphatase Ammonia Total Creatine Kinase CK-MB (CK-2) CK-MB (CK-2) % Troponin I B-Natriuretic Peptide Total Protein Albumin TSH Thyroxine (T4) Cortisol Urine Color Urine Clarity Urine pH Ur Specific [place] Urine Protein Urine Glucose (UA) Urine Ketones Urine Occult Blood Urine Nitrate Urine Bilirubin Urine Urobilinogen Ur Leukocyte Esterase Urine RBC Urine WBC Amorphous Sediment Urine Bacteria Granular Casts Urine Mucus Micro UA Comment Ur Microscopic Review Urine Culture Comments Nasal Screen MRSA (PCR) Random Vancomycin 09/12/18 09/12/18 09/12/18 04:17 05:34 06:19 WBC RBC Hgb Hct MCV MCH MCHC RDW Plt Count MPV Neut % (Auto) Lymph % (Auto) [place] % (Auto) Eos % (Auto) Baso % (Auto) Neut # (Auto) Lymph # (Auto) [place] # (Auto) Eos # (Auto) Baso # (Auto) WBC Differential Differential Comment PT INR APTT Puncture Site Patient Temperature O2 Saturation ABG pH ABG pCO2 ABG pO2 ABG HCO3 ABG O2 Content ABG Base Excess ABG Methemoglobin Lino Test Hemoglobin Carboxyhemoglobin O2 Delivery Device Vent Setting Inspired O2 Critical Value Sodium Potassium Chloride Carbon Dioxide Anion Gap BUN Creatinine Estimated GFR POC Glucose 187 H 165 H 194 H Random Glucose Lactic Acid Calcium Calcium Adj for Albumin Phosphorus Magnesium Total Bilirubin AST ALT Alkaline Phosphatase Ammonia Total Creatine Kinase CK-MB (CK-2) CK-MB (CK-2) % Troponin I B-Natriuretic Peptide Total Protein Albumin TSH Thyroxine (T4) Cortisol Urine Color Urine Clarity Urine pH Ur Specific [place] Urine Protein Urine Glucose (UA) Urine Ketones Urine Occult Blood Urine Nitrate Urine Bilirubin Urine Urobilinogen Ur Leukocyte Esterase Urine RBC Urine WBC Amorphous Sediment Urine Bacteria Granular Casts Urine Mucus Micro UA Comment Ur Microscopic Review Urine Culture Comments Nasal Screen MRSA (PCR) Random Vancomycin 09/12/18 09/12/18 09/12/18 07:02 08:02 09:02 WBC RBC Hgb Hct MCV MCH MCHC RDW Plt Count MPV Neut % (Auto) Lymph % (Auto) [place] % (Auto) Eos % (Auto) Baso % (Auto) Neut # (Auto) Lymph # (Auto) [place] # (Auto) Eos # (Auto) Baso # (Auto) WBC Differential Differential Comment PT INR APTT Puncture Site Patient Temperature O2 Saturation ABG pH ABG pCO2 ABG pO2 ABG HCO3 ABG O2 Content ABG Base Excess ABG Methemoglobin Lino Test Hemoglobin Carboxyhemoglobin O2 Delivery Device Vent Setting Inspired O2 Critical Value Sodium Potassium Chloride Carbon Dioxide Anion Gap BUN Creatinine Estimated GFR POC Glucose 216 H 220 H 225 H Random Glucose Lactic Acid Calcium Calcium Adj for Albumin Phosphorus Magnesium Total Bilirubin AST ALT Alkaline Phosphatase Ammonia Total Creatine Kinase CK-MB (CK-2) CK-MB (CK-2) % Troponin I B-Natriuretic Peptide Total Protein Albumin TSH Thyroxine (T4) Cortisol Urine Color Urine Clarity Urine pH Ur Specific [place] Urine Protein Urine Glucose (UA) Urine Ketones Urine Occult Blood Urine Nitrate Urine Bilirubin Urine Urobilinogen Ur Leukocyte Esterase Urine RBC Urine WBC Amorphous Sediment Urine Bacteria Granular Casts Urine Mucus Micro UA Comment Ur Microscopic Review Urine Culture Comments Nasal Screen MRSA (PCR) Random Vancomycin Result Diagrams: 09/12/18 04:11 09/12/18 04:11 Microbiology: Microbiology 09/10/18 15:55 Gram Stain - Final Wound - Hip Wound Culture - Preliminary Group D Enterococcus 09/10/18 15:15 Urine Culture - Preliminary Catheterized Urine No growth in 24 hours 09/10/18 20:20 Gram Stain - Final Sputum - Endotracheal Sputum Culture - Preliminary Immature growth - reincubate 09/10/18 13:53 Aerobic Blood Culture - Preliminary Blood - Peripheral No growth in 1 day Anaerobic Blood Culture - Preliminary No growth in 1 day 09/10/18 13:53 Aerobic Blood Culture - Preliminary Blood - Peripheral No growth in 1 day Anaerobic Blood Culture - Preliminary No growth in 1 day 09/10/18 15:15 Streptococcus pneumoniae Antigen (M - Final Urine - Catheterized Urine Presumptive negative for streptococcus pneumoniae antigen, suggesting no current or recent infection. Infection due to Streptococcus pneumoniae cannot be ruled out since the antigen present in the sample may be below the detection limit of the test. 09/10/18 15:55 Influenza Types A,B Antigen - Final Nasal Wash Positive for Flu A Antigen Imaging: Impressions Foot X-Ray 09/11/18 00:00 CONCLUSION: Chronic changes and no definite fracture for technique. Liver Ultrasound 09/12/18 00:00 CONCLUSION: 1. Gallbladder sludge without gallbladder wall thickening 2. No intrahepatic biliary duct dilatation Chest X-Ray 09/12/18 04:00 CONCLUSION: Clear lungs. Patient/Family Conference Issues Discussed: DRAFT * * Palliative care role, purpose, approach * Additional medical, psychosocial, and spiritual history * Patients general health, functional status, and cognitive changes in the months leading up to the current hospitalization * Patient/family understanding of the current medical problems * Patient/family understanding of prognosis * Patients goals of care as best understood from advance directives and/or conversations and/or values * Current medical treatment options and benefits/burdens of those options * Likely scenarios comparing ongoing aggressive care with a transition to comfort measures only * Questions answered to the best of my ability * Palliative care contact information provided Assessment and Plan - Symptom Scale (1) Pain 0-10 Scale: Unable to quantify (2) Dyspnea 0-10 Scale: Unable to quantify (3) Falls 0-10 Scale: Unable to quantify (4) Confusion 0-10 Scale: Unable to quantify Pertinent Non-Medical Issues: Psychosocial: Spiritual: Legal: Ethical issues impacting care: Important Contacts: Sister Trena Zafar (POA) [phone] Sister Radha Liao [phone] Sister Ginette Goldstein [phone] Prognosis: Patient has a long history of Parkinson's and dementia. He is sustained multiple falls over the past several months as well as had multiple ED visits secondary to altered mental status/unresponsiveness. He now presents with necrotic wounds likely secondary to immobility. This puts him at risk for complications and infections. Currently positive for influenza A, now having episodes of V. fib while attempting ventilator weaning trials further compounding complications and ability to be weaned from the ventilator. Code Status: Alternative Code Plan: Legal decision maker: Goals: CODE STATUS: SYMPTOMS: -- -- Palliative care will continue to follow during hospital course as condition evolves, to assist patient/decision-maker with understanding of medical conditions, weighing benefits/burdens of treatment options, for clarification of goals of treatment. Additionally will assist with any symptoms of palliative concern Appreciation Thank you for the opportunity to participate in the care of Sin Liao. Attestation Attestation: To help prompt me to consider important information that might be impacting today's encounter and assessment, information from prior notes written by myself or my colleagues may have been "brought forward" into today's note. My signature on this note, however, is an attestation that I personally performed the exam, history, and/or decision-making noted today, and, unless otherwise indicated, the interactions with patient, family, and staff as well as the review of records all occurred today. I also attest that the listed assessment and stated plan reflect my best clinical judgment today based on the combination of historical information, prior notes, and today's exam/ interactions. When time spent is documented, it refers only to time spent today by the signer, or if indicated, combined time spent today by collaborating physician/nurse practitioner.
[2018-09-12] MEDS: Oseltamivir Liq 30 MG/5 ML Oral Syringe PO SCH ×2 (10:11→22:39)
--- NOTE | 2018-09-12 12:45 | P.PNID ---
Subjective Remarks: Patient is an 83-year-old male, brought into the hospital with altered mental status. He apparently also has been having breathing problem the last several days. There was no mention of any fever chills or any congestion. No mention of any other problem as far as or any GI complaints. According to the record patient is able to communicate but otherwise nonambulatory as a baseline. On evaluation he was found to have leukocytosis. His creatinine was 1.8. Lactic acid was elevated. Chest x-ray was normal. Urinalysis was unremarkable. Patient required intubation. His initial white count was 17,000 , and its down to 16,000. Influenza testing is positive for influenza A. Blood cultures are negative. Patient was found to have multiple decubitus including the left hip, the coccyx, and bilateral heel. His LFTs are also mildly elevated. Infectious disease consultation has been requested to assist with evaluation and treatment of leukocytosis. Notes reviewed Events of yesterday noted Had cardiac arrest while he was on CPAP Put back on rate and he converted on his own without any other intervention He awakens Looks comfortable on vent Temps ok WBC higher today Cultures pending CXR clear Liver US with GB sludge no fluid around Antibiotics: Tamiflu Unasyn Past Medical History: Parkinson disease (Acute) Diabetes (Acute) Dementia (Acute) Hypertension (Acute) Hernia (Acute) History of left hip replacement (Acute) Allergies/Adverse Reactions: Allergies No Known Allergies Allergy (Verified 09/10/18 13:43) Objective Vital Signs 09/11/18 13:00 09/11/18 14:00 09/11/18 15:00 Temperature Pulse Rate 68 66 74 Respiratory Rate 19 21 19 Blood Pressure 98/56 L 140/68 151/72 H Pulse Oximetry 100 100 100 09/11/18 15:02 09/11/18 15:28 09/11/18 15:56 Temperature Pulse Rate 74 79 Respiratory Rate 12 19 16 Blood Pressure 143/69 H Pulse Oximetry 100 100 09/11/18 16:00 09/11/18 16:04 09/11/18 16:10 Temperature 98.7 F Pulse Rate 96 H 96 H 101 H Respiratory Rate 26 H 20 24 Blood Pressure 128/78 138/78 Pulse Oximetry 100 100 100 09/11/18 16:20 09/11/18 16:30 09/11/18 16:40 Temperature Pulse Rate 93 H 92 H 93 H Respiratory Rate 19 18 20 Blood Pressure 129/72 132/70 129/72 Pulse Oximetry 100 100 100 09/11/18 16:50 09/11/18 17:00 09/11/18 17:10 Temperature Pulse Rate 88 91 H 90 Respiratory Rate 17 19 21 Blood Pressure 109/62 125/67 141/66 H Pulse Oximetry 100 100 100 09/11/18 17:20 09/11/18 17:30 09/11/18 17:40 Temperature Pulse Rate 86 84 84 Respiratory Rate 16 16 17 Blood Pressure 118/61 117/62 118/64 Pulse Oximetry 100 100 100 09/11/18 17:50 09/11/18 18:00 09/11/18 18:10 Temperature Pulse Rate 82 81 83 Respiratory Rate 18 17 21 Blood Pressure 109/64 105/60 141/67 H Pulse Oximetry 100 100 100 09/11/18 18:20 09/11/18 19:45 09/11/18 20:00 Temperature Pulse Rate 81 78 72 Respiratory Rate 18 16 Blood Pressure 112/63 Pulse Oximetry 100 100 99 09/11/18 20:30 09/11/18 20:40 09/11/18 20:50 Temperature Pulse Rate 74 75 74 Respiratory Rate 17 17 17 Blood Pressure 125/70 123/68 126/68 Pulse Oximetry 100 100 100 09/11/18 21:00 09/11/18 21:10 09/11/18 21:20 Temperature Pulse Rate 75 79 75 Respiratory Rate 17 16 16 Blood Pressure 125/64 100/55 L 94/56 L Pulse Oximetry 100 100 100 09/11/18 21:30 09/11/18 21:40 09/11/18 21:50 Temperature Pulse Rate 69 67 66 Respiratory Rate 15 16 17 Blood Pressure 96/59 L 110/57 L 107/58 L Pulse Oximetry 100 100 100 09/11/18 22:00 09/11/18 22:10 09/11/18 22:20 Temperature Pulse Rate 70 73 70 Respiratory Rate 22 19 17 Blood Pressure 103/61 139/71 132/71 Pulse Oximetry 100 100 100 09/11/18 22:30 09/11/18 22:40 09/11/18 22:50 Temperature Pulse Rate 69 67 69 Respiratory Rate 16 19 17 Blood Pressure 122/70 124/65 127/71 Pulse Oximetry 100 100 100 09/11/18 23:00 09/11/18 23:10 09/11/18 23:20 Temperature Pulse Rate 67 66 65 Respiratory Rate 16 16 16 Blood Pressure 125/72 119/64 115/63 Pulse Oximetry 100 100 100 09/11/18 23:30 09/11/18 23:40 09/11/18 23:50 Temperature Pulse Rate 62 63 62 Respiratory Rate 15 15 15 Blood Pressure 105/62 106/57 L 105/59 L Pulse Oximetry 100 100 100 09/12/18 00:00 09/12/18 00:01 09/12/18 00:10 Temperature 98.5 F Pulse Rate 60 61 62 Respiratory Rate 16 14 16 Blood Pressure 107/55 L 115/64 Pulse Oximetry 100 100 100 09/12/18 00:20 09/12/18 00:29 09/12/18 00:30 Temperature Pulse Rate 64 62 Respiratory Rate 14 15 Blood Pressure 107/58 L 105/56 L Pulse Oximetry 100 100 09/12/18 02:00 09/12/18 02:10 09/12/18 02:20 Temperature Pulse Rate 63 59 L 60 Respiratory Rate 16 15 15 Blood Pressure 111/55 L 101/55 L Pulse Oximetry 100 100 100 09/12/18 02:30 09/12/18 02:40 09/12/18 02:50 Temperature Pulse Rate 68 60 59 L Respiratory Rate 16 15 16 Blood Pressure 105/56 L 110/59 L 113/62 Pulse Oximetry 100 100 100 09/12/18 03:00 09/12/18 03:10 09/12/18 03:20 Temperature Pulse Rate 59 L 59 L 61 Respiratory Rate 15 18 17 Blood Pressure 106/56 L 149/72 H 145/63 H Pulse Oximetry 100 100 100 09/12/18 03:30 09/12/18 03:40 09/12/18 03:51 Temperature Pulse Rate 62 58 L 60 Respiratory Rate 16 14 17 Blood Pressure 137/67 120/59 L 149/75 H Pulse Oximetry 100 100 100 09/12/18 04:00 09/12/18 04:01 09/12/18 04:10 Temperature 99.1 F Pulse Rate 65 64 59 L Respiratory Rate 15 18 16 Blood Pressure 156/70 H 133/58 L Pulse Oximetry 100 100 100 09/12/18 04:20 09/12/18 04:30 09/12/18 04:40 Temperature Pulse Rate 60 56 L 65 Respiratory Rate 16 14 18 Blood Pressure 136/65 123/58 L 149/70 H Pulse Oximetry 100 100 99 09/12/18 04:50 09/12/18 05:00 09/12/18 05:10 Temperature Pulse Rate 63 59 L 54 L Respiratory Rate 17 16 15 Blood Pressure 136/63 121/58 L 119/58 L Pulse Oximetry 100 99 99 09/12/18 05:20 09/12/18 05:30 09/12/18 05:40 Temperature Pulse Rate 57 L 62 59 L Respiratory Rate 17 18 19 Blood Pressure 119/59 L 124/62 148/65 H Pulse Oximetry 99 99 100 09/12/18 05:50 09/12/18 06:00 09/12/18 07:10 Temperature Pulse Rate 59 L 60 56 L Respiratory Rate 18 17 17 Blood Pressure 125/55 L 124/60 114/58 L Pulse Oximetry 100 100 97 09/12/18 07:11 09/12/18 07:20 09/12/18 07:23 Temperature Pulse Rate 57 L 56 L Respiratory Rate 17 18 17 Blood Pressure 118/55 L Pulse Oximetry 97 100 09/12/18 07:30 09/12/18 07:40 09/12/18 07:50 Temperature Pulse Rate 60 61 64 Respiratory Rate 17 17 17 Blood Pressure 115/56 L 116/62 117/57 L Pulse Oximetry 100 100 100 09/12/18 08:00 09/12/18 08:10 09/12/18 08:21 Temperature 98.5 F Pulse Rate 63 65 62 Respiratory Rate 18 17 17 Blood Pressure 122/63 133/62 122/57 L Pulse Oximetry 99 100 100 09/12/18 08:30 09/12/18 08:40 09/12/18 08:50 Temperature Pulse Rate 61 61 61 Respiratory Rate 18 17 17 Blood Pressure 120/60 119/61 124/64 Pulse Oximetry 100 100 100 09/12/18 09:00 09/12/18 09:10 09/12/18 09:20 Temperature Pulse Rate 66 59 L 62 Respiratory Rate 22 17 18 Blood Pressure 141/75 H 124/66 121/63 Pulse Oximetry 99 100 100 09/12/18 09:30 09/12/18 09:40 09/12/18 09:50 Temperature Pulse Rate 59 L 61 61 Respiratory Rate 16 18 18 Blood Pressure 117/60 116/61 113/59 L Pulse Oximetry 100 100 100 09/12/18 10:00 09/12/18 10:10 09/12/18 10:20 Temperature Pulse Rate 62 56 L 55 L Respiratory Rate 18 19 19 Blood Pressure 117/63 113/58 L 117/59 L Pulse Oximetry 100 100 100 09/12/18 10:30 09/12/18 10:40 09/12/18 10:50 Temperature Pulse Rate 55 L 57 L 59 L Respiratory Rate 19 20 19 Blood Pressure 112/57 L 113/62 119/61 Pulse Oximetry 100 100 100 09/12/18 11:00 09/12/18 11:07 09/12/18 11:10 Temperature Pulse Rate 56 L 54 L Respiratory Rate 20 19 Blood Pressure 124/63 119/62 Pulse Oximetry 100 100 100 Intake & Output 09/11/18 09/12/18 09/12/18 18:59 06:59 18:59 Intake Total 2562.5 / 2562.5 1750 / 1750 Output Total 450 / 450 300 / 300 Balance 2112.5 / 2112.5 1450 / 1450 Weight 78.4 kg Intake: IV 2562.5 / 2562.5 1400 / 1400 D5W Inj 1,000 ML @ 75 mls/hr IV 1000 / 1000 1000 / 1000 .CONT .[id number] [facility] Rx#:[id number] Diprivan 1000 mg/100 ml Inj 1, 100 / 100 000 mg In 100 ml @ 5 MCG/KG/MIN 2.381 mls/hr IV.CONT TITRATE PRN Rx#:[id number] Unasyn Inj 1,500 MG In NS Inj 100 / 100 200 / 200 100 ML @ 200 mls/hr IV.SIG Q6H [facility] Rx#:[id number] Maxipime Inj 500 MG In NS Inj 100 / 100 100 ML @ 200 mls/hr IV.SIG Q12H [facility]A Rx#:[id number] LR 1000 mL Inj 1,000 ML @ 1000 1000 / 1000 mls/hr IV.SIG BOLUS ONE Rx#: [id number] KCl 20 mEq Premix Inj 20 meq In 100 / 100 100 / 100 100 ml @ 50 mls/hr IV.SIG Q2H PRN Rx#:[id number] Vancomycin Inj 1,250 MG In NS 262.5 / 262.5 Inj 250 ML @ 250 mls/hr IV.SIG ONCE ONE Rx#:[id number] Tube Irrigant 100 / 100 Water Bolus Amount 250 / 250 Output: Urine Amount (Catheter) 450 / 450 300 / 300 Indwelling Urethral Catheter 450 / 450 300 / 300 Other: Date of Last Bowel Movement 09/11/18 09/11/18 09/11/18 # Bowel Movements 1 09/10/18 20:20 Sputum - Endotracheal Gram Stain - Final 09/10/18 20:20 Sputum - Endotracheal Sputum Culture - Preliminary Heavy growth normal respiratory almas 09/10/18 13:53 Blood - Peripheral Aerobic Blood Culture - Preliminary No growth in 2 days 09/10/18 13:53 Blood - Peripheral Anaerobic Blood Culture - Preliminary No growth in 2 days 09/10/18 13:53 Blood - Peripheral Aerobic Blood Culture - Preliminary No growth in 2 days 09/10/18 13:53 Blood - Peripheral Anaerobic Blood Culture - Preliminary No growth in 2 days 09/10/18 15:55 Wound - Hip Gram Stain - Final 09/10/18 15:55 Wound - Hip Wound Culture - Preliminary Group D Enterococcus 09/10/18 15:15 Catheterized Urine Urine Culture - Final No growth in 48 hours 09/10/18 15:15 Urine - Catheterized Urine Streptococcus pneumoniae Antigen ( M - Final Presumptive negative for streptococcus pneumoniae antigen, suggesting no current or recent infection. Infection due to Streptococcus pneumoniae cannot be ruled out since the antigen present in the sample may be below the detection limit of the test. 09/10/18 15:55 Nasal Wash Influenza Types A,B Antigen - Final Positive for Flu A Antigen Lab - Hematology Results 09/10/18 09/11/18 09/12/18 13:53 11:18 04:11 WBC 17.5 H 16.6 H 18.7 H RBC 5.55 3.88 L 4.00 L Hgb 16.9 11.4 L D 11.7 L Hct 50.9 37.7 L 37.1 L MCV 91.6 97.1 D 92.7 D MCH 30.3 29.3 29.3 MCHC 33.1 30.2 L 31.6 L RDW 14.3 15.4 14.6 Plt Count 329 194 D 193 MPV 8.6 9.0 9.2 Neut % (Auto) 90.4 H 86.3 H 83.7 H Lymph % (Auto) 6.1 L 8.4 L 8.8 L [place] % (Auto) 2.8 3.9 4.8 Eos % (Auto) 0.2 1.1 2.2 Baso % (Auto) 0.5 0.3 0.5 Neut # (Auto) 15.8 H 14.3 H 15.7 H Lymph # (Auto) 1.1 1.4 1.7 [place] # (Auto) 0.5 0.6 0.9 Eos # (Auto) 0.0 0.2 0.4 Baso # (Auto) 0.1 0.1 0.1 WBC Differential . . . Differential Comment Auto diff final Auto diff final Auto diff final Lab - Chemistry Results 09/10/18 09/10/18 09/10/18 13:53 13:53 13:53 Sodium 155 H Cancelled Potassium 5.5 H Cancelled Chloride 122 H Cancelled Carbon Dioxide 26.1 Cancelled Anion Gap 7 Cancelled BUN 50 H Cancelled Creatinine 1.84 H Cancelled Estimated GFR 35 L Cancelled POC Glucose Random Glucose 308 H Cancelled Lactic Acid 3.3 H Calcium 9.2 Cancelled Calcium Adj for Albumin Cancelled Phosphorus Magnesium 2.6 H Cancelled Total Bilirubin 2.1 H Cancelled AST 78 H Cancelled ALT 63 Cancelled Alkaline Phosphatase 174 H Cancelled Ammonia Total Creatine Kinase 310 H CK-MB (CK-2) Less than 1.0 CK-MB (CK-2) % 0.3 Troponin I Less than 0.02 L B-Natriuretic Peptide Total Protein 7.7 Cancelled Albumin 2.0 L Cancelled TSH Thyroxine (T4) Cortisol 09/10/18 09/10/18 09/10/18 17:15 17:15 18:59 Sodium Potassium Chloride Carbon Dioxide Anion Gap BUN Creatinine Estimated GFR POC Glucose 314 H Random Glucose Lactic Acid 2.2 H Calcium Calcium Adj for Albumin Phosphorus Magnesium Total Bilirubin AST ALT Alkaline Phosphatase Ammonia 29 Total Creatine Kinase CK-MB (CK-2) CK-MB (CK-2) % Troponin I B-Natriuretic Peptide Total Protein Albumin TSH Thyroxine (T4) Cortisol 09/10/18 09/10/18 09/10/18 20:59 20:59 20:59 Sodium Potassium Chloride Carbon Dioxide Anion Gap BUN Creatinine Estimated GFR POC Glucose Random Glucose Lactic Acid Calcium Calcium Adj for Albumin Phosphorus Magnesium Total Bilirubin AST ALT Alkaline Phosphatase Ammonia 18 Total Creatine Kinase CK-MB (CK-2) CK-MB (CK-2) % Troponin I 0.05 B-Natriuretic Peptide Total Protein Albumin TSH 0.435 Thyroxine (T4) 8.7 Cortisol 34.8 09/10/18 09/11/18 09/11/18 23:53 00:46 02:45 Sodium 163 H* Potassium 4.0 D 3.7 Chloride 129 H Carbon Dioxide 24.1 Anion Gap 10 BUN 45 H Creatinine 1.80 H Estimated GFR 36 L POC Glucose 376 H Random Glucose 290 H Lactic Acid Calcium 8.2 L D Calcium Adj for Albumin Phosphorus 3.4 Magnesium 2.4 Total Bilirubin 1.6 H AST 43 H ALT 56 Alkaline Phosphatase 139 H Ammonia Total Creatine Kinase 154 CK-MB (CK-2) CK-MB (CK-2) % Troponin I B-Natriuretic Peptide Total Protein 6.2 L D Albumin 1.6 L TSH Thyroxine (T4) Cortisol 09/11/18 09/11/18 09/11/18 02:45 05:05 06:01 Sodium Potassium Chloride Carbon Dioxide Anion Gap BUN Creatinine Estimated GFR POC Glucose 305 H 265 H Random Glucose Lactic Acid 5.5 H* Calcium Calcium Adj for Albumin Phosphorus Magnesium Total Bilirubin AST ALT Alkaline Phosphatase Ammonia Total Creatine Kinase CK-MB (CK-2) CK-MB (CK-2) % Troponin I B-Natriuretic Peptide Total Protein Albumin TSH Thyroxine (T4) Cortisol 09/11/18 09/11/18 09/11/18 07:03 08:07 09:08 Sodium Potassium Chloride Carbon Dioxide Anion Gap BUN Creatinine Estimated GFR POC Glucose 217 H 224 H 212 H Random Glucose Lactic Acid Calcium Calcium Adj for Albumin Phosphorus Magnesium Total Bilirubin AST ALT Alkaline Phosphatase Ammonia Total Creatine Kinase CK-MB (CK-2) CK-MB (CK-2) % Troponin I B-Natriuretic Peptide Total Protein Albumin TSH Thyroxine (T4) Cortisol 09/11/18 09/11/18 09/11/18 10:03 10:04 11:07 Sodium Potassium Chloride Carbon Dioxide Anion Gap BUN Creatinine Estimated GFR POC Glucose 197 H 224 H Random Glucose Lactic Acid 5.4 H* Calcium Calcium Adj for Albumin Phosphorus Magnesium Total Bilirubin AST ALT Alkaline Phosphatase Ammonia Total Creatine Kinase CK-MB (CK-2) CK-MB (CK-2) % Troponin I B-Natriuretic Peptide Total Protein Albumin TSH Thyroxine (T4) Cortisol 09/11/18 09/11/18 09/11/18 11:56 13:06 13:50 Sodium Potassium Chloride Carbon Dioxide Anion Gap BUN Creatinine Estimated GFR POC Glucose 208 H 220 H Random Glucose Lactic Acid Calcium Calcium Adj for Albumin Phosphorus Magnesium Total Bilirubin AST ALT Alkaline Phosphatase Ammonia Total Creatine Kinase CK-MB (CK-2) CK-MB (CK-2) % Troponin I B-Natriuretic Peptide 39 Total Protein Albumin TSH Thyroxine (T4) Cortisol 09/11/18 09/11/18 09/11/18 13:50 14:02 15:18 Sodium 160 H* Potassium 3.2 L Chloride 127 H Carbon Dioxide 22.6 Anion Gap 10 BUN 40 H Creatinine 1.45 H Estimated GFR 47 L POC Glucose 200 H 230 H Random Glucose 227 H Lactic Acid Calcium 8.2 L Calcium Adj for Albumin Phosphorus Magnesium Total Bilirubin AST ALT Alkaline Phosphatase Ammonia Total Creatine Kinase CK-MB (CK-2) CK-MB (CK-2) % Troponin I B-Natriuretic Peptide Total Protein Albumin TSH Thyroxine (T4) Cortisol 09/11/18 09/11/18 09/11/18 16:36 16:58 18:05 Sodium Potassium Chloride Carbon Dioxide Anion Gap BUN Creatinine Estimated GFR POC Glucose 221 H 238 H 269 H Random Glucose Lactic Acid Calcium Calcium Adj for Albumin Phosphorus Magnesium Total Bilirubin AST ALT Alkaline Phosphatase Ammonia Total Creatine Kinase CK-MB (CK-2) CK-MB (CK-2) % Troponin I B-Natriuretic Peptide Total Protein Albumin TSH Thyroxine (T4) Cortisol 09/11/18 09/11/18 09/11/18 18:46 20:10 21:29 Sodium Potassium Chloride Carbon Dioxide Anion Gap BUN Creatinine Estimated GFR POC Glucose 245 H 234 H 226 H Random Glucose Lactic Acid Calcium Calcium Adj for Albumin Phosphorus Magnesium Total Bilirubin AST ALT Alkaline Phosphatase Ammonia Total Creatine Kinase CK-MB (CK-2) CK-MB (CK-2) % Troponin I B-Natriuretic Peptide Total Protein Albumin TSH Thyroxine (T4) Cortisol 09/11/18 09/11/18 09/12/18 22:51 23:21 00:36 Sodium Potassium Chloride Carbon Dioxide Anion Gap BUN Creatinine Estimated GFR POC Glucose 234 H 188 H 187 H Random Glucose Lactic Acid Calcium Calcium Adj for Albumin Phosphorus Magnesium Total Bilirubin AST ALT Alkaline Phosphatase Ammonia Total Creatine Kinase CK-MB (CK-2) CK-MB (CK-2) % Troponin I B-Natriuretic Peptide Total Protein Albumin TSH Thyroxine (T4) Cortisol 09/12/18 09/12/18 09/12/18 01:45 02:49 03:49 Sodium Potassium Chloride Carbon Dioxide Anion Gap BUN Creatinine Estimated GFR POC Glucose 195 H 186 H 175 H Random Glucose Lactic Acid Calcium Calcium Adj for Albumin Phosphorus Magnesium Total Bilirubin AST ALT Alkaline Phosphatase Ammonia Total Creatine Kinase CK-MB (CK-2) CK-MB (CK-2) % Troponin I B-Natriuretic Peptide Total Protein Albumin TSH Thyroxine (T4) Cortisol 09/12/18 09/12/18 09/12/18 04:11 04:17 05:34 Sodium 156 H* Potassium 4.2 D Chloride 125 H Carbon Dioxide 21.2 Anion Gap 10 BUN 31 H Creatinine 1.14 Estimated GFR 62 L POC Glucose 187 H 165 H Random Glucose 162 H Lactic Acid Calcium 8.0 L Calcium Adj for Albumin Phosphorus 2.4 L D Magnesium 2.3 Total Bilirubin AST ALT Alkaline Phosphatase Ammonia Total Creatine Kinase CK-MB (CK-2) CK-MB (CK-2) % Troponin I B-Natriuretic Peptide Total Protein Albumin TSH Thyroxine (T4) Cortisol 09/12/18 09/12/18 09/12/18 06:19 07:02 08:02 Sodium Potassium Chloride Carbon Dioxide Anion Gap BUN Creatinine Estimated GFR POC Glucose 194 H 216 H 220 H Random Glucose Lactic Acid Calcium Calcium Adj for Albumin Phosphorus Magnesium Total Bilirubin AST ALT Alkaline Phosphatase Ammonia Total Creatine Kinase CK-MB (CK-2) CK-MB (CK-2) % Troponin I B-Natriuretic Peptide Total Protein Albumin TSH Thyroxine (T4) Cortisol 09/12/18 09/12/18 09/12/18 09:02 10:10 11:05 Sodium Potassium Chloride Carbon Dioxide Anion Gap BUN Creatinine Estimated GFR POC Glucose 225 H 212 H 211 H Random Glucose Lactic Acid Calcium Calcium Adj for Albumin Phosphorus Magnesium Total Bilirubin AST ALT Alkaline Phosphatase Ammonia Total Creatine Kinase CK-MB (CK-2) CK-MB (CK-2) % Troponin I B-Natriuretic Peptide Total Protein Albumin TSH Thyroxine (T4) Cortisol 09/12/18 12:01 Sodium Potassium Chloride Carbon Dioxide Anion Gap BUN Creatinine Estimated GFR POC Glucose 191 H Random Glucose Lactic Acid Calcium Calcium Adj for Albumin Phosphorus Magnesium Total Bilirubin AST ALT Alkaline Phosphatase Ammonia Total Creatine Kinase CK-MB (CK-2) CK-MB (CK-2) % Troponin I B-Natriuretic Peptide Total Protein Albumin TSH Thyroxine (T4) Cortisol Imaging: ITS Impressions Foot X-Ray 09/11/18 00:00 CONCLUSION: Chronic changes and no definite fracture for technique. Liver Ultrasound 09/12/18 00:00 CONCLUSION: 1. Gallbladder sludge without gallbladder wall thickening 2. No intrahepatic biliary duct dilatation Chest X-Ray 09/12/18 04:00 CONCLUSION: Clear lungs. Physical Exam: GENERAL: opens eyes, on the vent, not in respiratory distress. SKIN: Cool and dry. No generalized rash. He has dry decubitus in both heel, larger on L than on R. There is an unstageable decubitus, black eschar, about 1.2 in, in L hip. There is a large black eschar in coccyx. HEAD: Atraumatic. Normocephalic. No temporal wasting, or tenderness. EYES: Rulo conjunctiva. No petechia or hemorrhage. Pupils equal, round and reactive to light. Extraocular movements full and intact. No scleral icterus. No injection or drainage. EARS, NOSE AND THROAT: Nose without bleeding or purulent nasal discharge. He is orally intubated. NECK: Trachea midline. Supple and not tender, no meningeal signs CARDIOVASCULAR: Regular rate and rhythm. No murmurs, rubs or gallops heard RESPIRATORY: Clear to auscultation. Breath sounds equal bilaterally. No rales , wheezing or rhonchi ABDOMEN: Soft, non-tender, nondistended. Bowel sounds present and normoactive. No guarding. No rebound. No organomegaly. EXTREMITIES: No clubbing, cyanosis, or edema. NEUROLOGICAL: Opens eyes PSYCHIATRIC: Unable to assess : Lainez catheter in place, urine looks clear LINE: No evidence of infection Assessment and Plan - Plan Impression Leukocytosis, etiology? - CXR clear - UA ok - has multiple unstageable decubitus - dehydrated - abnormal LFT Multiple decubitus Influenza A (+) Respiratory failure Renal insufficiency, better, likely dehydrated Recommendation Follow C/S Continue IV Unasyn Wound care consult Follow CBC Will make further recs once results of workup available Monitor progress
[2018-09-12] MEDS ORDERED: Vancomycin Consult Pharmacy OTHER PRN (14:26)
--- NOTE | 2018-09-12 15:01 | ECHRPT ---
EXAM DATE: 09/12/2018 2:34 PM EST AGE/SEX: 83 years / Male INDICATIONS: sepsis CLINICAL DATA: This is the patient's initial encounter. Patient reports that signs and symptoms have been present for 1 week and indicates a pain score of 0/10. MEDICAL/SURGICAL HISTORY: None. dementia, diabetes, hernia, hypertension, Parkinson's . left h ip replacement COMPARISON: No prior exams available for comparison. TECHNIQUE: Five-station segmental examination of the lower extremities was performed. Pulsed-cuff wa veform tracings and pressures were recorded. Ankle-brachial indices and toe-brachial indices were kristen culated. PRESSURES (mmHg): Brachial (arm) : RIGHT: iv site, LEFT: 145 Ankle : RIGHT: 146, LEFT: 150 ANITRA : RIGHT: 1.01, LEFT: 1.03 Toe : RIGHT: 92, LEFT: 71 TBI : RIGHT: 0.63, LEFT: 0.49 FINDINGS: Pulsed-Cuff Waveform: There are good upstroke and dicrotic downstroke of the tracings. Other: None. CONCLUSION: 1. Normal ANITRA bilaterally. 2. 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 Electronically signed by: Daniel Ponce MD Board Certified Radiologist 09/12/2018 3:00 PM EST
--- NOTE | 2018-09-12 17:00 | ECHRPT ---
Indication: HYPERTENSIVE HEART FAILURE CONCLUSIONS The left ventricular systolic function is normal with an estimated ejection fraction in the range of 55-60%. Mild concentric left ventricular hypertrophy. There is trace tricuspid valve regurgitation. BP: / HR: Rhythm: MEASUREMENTS (Male / Female) Normal Values Technical Quality: 2D ECHO LV Diastolic Diameter PLAX 4.0 cm 4.2 - 5.9 / 3.9 - 5.3 cm LV Systolic Diameter PLAX 2.9 cm IVS Diastolic Thickness 3.3 cm 0.6 - 1.0 / 0.6 - 0.9 cm LVPW Diastolic Thickness 1.4 cm 0.6 - 1.0 / 0.6 - 0.9 cm LV Relative Wall Thickness 1.2 RV Internal Dim ED PLAX 2.9 cm LVOT Diameter 1.7 cm Aortic Root Diameter 3.3 cm LA Systolic Diameter LX 3.1 cm 3.0 - 4.0 / 2.7 - 3.8 cm M-MODE Aortic Root Diameter MM 3.0 cm LA Systolic Diameter MM 1.0 cm LA Ao Ratio MM 0.3 AV Cusp Separation MM 2.5 cm DOPPLER AV Peak Velocity 85.5 cm/s AV Peak Gradient 2.9 mmHg LVOT Peak Velocity 85.4 cm/s LVOT Peak Gradient 2.9 mmHg AV Area Cont Eq pk 2.3 cm Mitral E Point Velocity 67.1 cm/s Mitral A Point Velocity 77.0 cm/s Mitral E to A Ratio 0.9 TR Peak Velocity 267.0 cm/s TR Peak Gradient 28.5 mmHg Right Atrial Pressure 10.0 mmHg Pulmonary Artery Systolic Pressu 38.5 mmHg Right Ventricular Systolic Press 38.5 mmHg PV Peak Velocity 85.5 cm/s PV Peak Gradient 2.9 mmHg FINDINGS LEFT VENTRICLE Wall thickness is normal. Mild concentric left ventricular hypertrophy. The left ventricular systolic function is normal with an estimated ejection fraction in the range of 55-60%. RIGHT VENTRICLE Grossly normal LEFT ATRIUM The left atrial size is normal. RIGHT ATRIUM The right atrial size is normal. ATRIAL SEPTUM Normal atrial septal thickness. AORTA The aortic root and proximal ascending aorta are not well visualized. MITRAL VALVE Structurally normal mitral valve. No mitral valve regurgitation. No mitral valve stenosis. AORTIC VALVE Grossly normal No aortic valve regurgitation. No aortic valve stenosis. TRICUSPID VALVE Grossly normal The estimated pulmonary arterial pressure is 36 mmHg. There is trace tricuspid valve regurgitation. PULMONARY VALVE The pulmonary valve is not well visualized. PERICARDIUM No pericardial effusion. Maicol Bravo DO (Electronically Signed) Final Date:12 September 2018 16:58
--- NOTE | 2018-09-12 18:21 | P.PNWCN ---
Wound Care Nurse Consult Description: Received wound management consult for L heel, gluteal fold and Left hip areas from Doctor Consuelo hobson. Communicated with: RADHA LEE and Doctor Consuelo Hobson. Recommendation: 1.Please cleanse wounds to L hip and gluteal cleft/ Sacrococcygeal areas with normal saline and pat dry. 2. apply Dakin's 0.125% soaked gauze to wounds for 10 minutes and remove. 3. Apply Santyl to wound beds rosangela thickness. 4. Cover wounds with Dakin's moistened fluffed gauze avoiding intact skin at wound edges. 5. Apply Cavilon skin barrier film to periwound. 6. cover wounds with bordered gauze. 7. Change dressings daily. 8. Please follow orders written by podiatry for L heel wound. 9. Turn patient from L side to R side every 2 hours, limit time spent on back to P.T. and meals. 10. will need low airloss bed airapy or K4. Wound/Pressure Injury - Patient Status Premedicated for Pain Prior to Dressing Change: Yes - Wound Sacrococcygeal/ gluteal cleft Wound Staging: Unstageable Wound Assessment: Ongoing Wound Type: Pressure Injury Is This a Chronic Wound: No Requested from Provider a Wound Care Consult: Yes Length (cm): 9 Width (cm): 7 Depth (cm): 0 (eschar) Wound Bed Appearance: Wound bed presents with ~70% island of black eschar that has from the edges to reveal ~30% red non-granulation tissue. Surrounding Tissue Appearance: Erythema Surrounding Tissue Temperature: Cool Drainage Description: Serosanguinous Drainage Amount: Scant Drainage Odor: No Odor Dressing Status: Changed Cleansing Solution: Saline Primary Dressing: Gauze Pad Cover Dressing: Gauze Roll/Wrap Tape Type: Paper Wound Dressing Change Date: 09/12/18 Wound Margin Description: Wound margins are well defined and uneven. Left Hip Wound Staging: Unstageable Wound Assessment: Ongoing Wound Type: Pressure Injury Is This a Chronic Wound: No Requested from Provider a Wound Care Consult: Yes (Patient seen today by inpatient wound care nurse.) Length (cm): 2.9 Width (cm): 2.5 Depth (cm): 0 (eschar) Wound Bed Appearance: Necrotic Wound Bed Appearance: Wound bed presents with 100% black dry eschar that is at edges at 3 o 'clock. Surrounding Tissue Appearance: Blanched/Dull Surrounding Tissue Temperature: Cool Drainage Description: Serosanguinous Drainage Amount: Scant Drainage Odor: No Odor Dressing Status: Open to Air Cleansing Solution: Saline Topical: Povidine-Iodine (Betadine) Cover Dressing: Bordered gauze Wound Margin Description: Wound margins are well defined and uneven. Left Heel Wound Staging: DTI Wound Assessment: Ongoing Wound Type: Pressure Injury Is This a Chronic Wound: No Requested from Provider a Wound Care Consult: Yes (Patient seen today by inpatient wound care nurse.) Length (cm): 6 Width (cm): 11 Depth (cm): 0 (eschar) Wound Bed Appearance: Wound to L heel presents with Non-blanchable purple skin (DTI) that is opening. Surrounding Tissue Temperature: Cool Drainage Description: Serosanguinous Drainage Amount: Scant Drainage Odor: No Odor Dressing Status: Changed Cleansing Solution: Saline Topical: Povidine-Iodine (Betadine) Primary Dressing: Gauze Pad Cover Dressing: Gauze Roll/Wrap Tape Type: Paper Wound Dressing Change Date: 09/12/18 - Additional Information Patient seen on IM for wound management of L heel, gluteal fold and Left hip.Patient was assessed with the assistance of Jessica GARCIA [facility] and blog writer. Removed heel raiser boot to reveal opening Deep tissue injury to L heel. Wound presents with scant sero-sanguinous drainage and is without odor. 80% of wound is covered with intact non blanchable purple colored skin and ~20% of wound is opening to reveal pink tissue. Applied povidone-iodine to opening to DTI on L heel and covered with dry gauze, secured with rolled gauze and tape. The wound to L hip presents with 100% black dry eschar that is at edges at 3 o'clock. Wound has scant sero-sanguinous drainage where eschar is beginning to separate. Povidone iodine was applied to L hip wound and left open to air for now. Patient was then turned toward the R side to reveal wound to sacrococcygeal area /gluteal cleft. Wound presents with mixed etiology of moisture, pressure and friction. Wound bed presents with ~70% island of black eschar that has from the edges to reveal ~30% red non-granulation tissue.Wound drainage is scant and sero-sanguinous with odor. Periwound presents with erythema that is blanchable. Wound was cleansed with normal saline and patted dry. Applied cavilon skin barrier film to periwound before covering wound with bordered gauze. Patient is currently intubated and sedated. Will need plastics when stable.
[2018-09-12] MEDS ORDERED: Sodium Hypochlorite 0.125% Top Soln 500 ML Bottle TOPICAL ONE (19:00)
[2018-09-12] MEDS ORDERED: Collagenase Oint 30 GM Tube TOPICAL ONE (19:00)
[2018-09-12] MEDS: Propofol 1000 mg/100 ml Inj 1,000 MG/100 ML BOTTLE IV.CONT PRN (21:01)
--- NOTE | 2018-09-12 21:20 | ECG ---
Date Performed: 09/11/2018 Time Performed: 16:01:16 PTAGE: 83 years EKG: Sinus arrhythmia. Right bundle branch block Inferior ST changes are nonspecific Low QRS vol tages in precordial leads Abnormal ECG PREVIOUS TRACING : 09/10/2018 13.58 Since the previous tracing, no significant change noted DOCTOR: Corky Rosario Interpretating Date/Time 09/12/2018 21:18:39
[2018-09-12 21:35] LABS: Hemoglobin A1c 8.8 % (4.3-6.0)
[2018-09-13] MEDS: Oral Hygiene Kit OROPHARYNG SCH ×4 (00:43→15:53)
[2018-09-13] MEDS: Heparin - SQ 10,000 UNITS/ML Vial SQ SCH ×2 (04:45→15:53)
[2018-09-13] MEDS: Ampicillin/Sulbactam Inj 1,500 MG in Sodium Chloride 0.9% Inj 100 ML IV.SIG SCH ×3 (05:48→16:00)
[2018-09-13 06:34] LABS: Alanine Aminotransferase 10 U/L (12-78); Albumin 1.4 g/dL (3.4-5.0); Anion Gap 8 meq/L (5-15); Aspartate Aminotransferase 37 U/L (15-37); Blood Urea Nitrogen 22 mg/dL (7-18); Calcium 8.4 mg/dL (8.5-10.1); Carbon Dioxide 22.1 meq/L (21.0-32.0); Chloride 122 meq/L (98-107); Glomerular Filtration Rate 76 mL/min (>89); Glucose,Random 162 mg/dL (74-106); Magnesium 2.2 mg/dL (1.5-2.5); Phosphorus 2.5 mg/dL (2.5-4.9); Potassium 3.6 meq/L (3.5-5.1); Sodium 152 meq/L (136-145)
[2018-09-13 06:39] LABS: Alkaline Phosphatase 162 U/L (45-117)
[2018-09-13] MEDS: Chlorhexidine Gluconate 2% 1 Pack (2 Cloths) TOPICAL SCH (06:49)
[2018-09-13] MEDS: Insulin Regular (For Infusion) 100 UNIT in Sodium Chlor 0.9% Inj 99 ML IV.CONT PRN (08:14)
[2018-09-13] MEDS: Famotidine PF Inj 20 MG/2 ML Vial IV.PUSH SCH ×2 (08:15→20:59)
[2018-09-13] MEDS: Senna/Docusate Sodium 8.6/50 MG Tablet PO SCH ×2 (08:15→21:00)
[2018-09-13] MEDS: Oseltamivir Liq 30 MG/5 ML Oral Syringe PO SCH ×2 (08:15→21:00)
[2018-09-13] MEDS: Chlorhexidine 0.12% Oral Kit 15 ML UDC OROPHARYNG SCH ×2 (08:15→21:00)
[2018-09-13 08:47] LABS: Baso # (Auto) 0.1 th/mm3 (0.0-0.2); Baso % (Auto) 0.7 % (0.0-2.0); Eos # (Auto) 0.2 th/mm3 (0.0-0.4); Eos % (Auto) 1.6 % (0.0-4.0); Hematocrit 34.6 % (39.0-51.0); Hemoglobin 11.5 gm/dL (13.0-17.0); Lymph # (Auto) 1.7 th/mm3 (1.0-4.8); Lymph % (Auto) 11.6 % (9.0-44.0); Mean Corpuscular HGB Conc 33.4 % (32.0-36.0); Mean Corpuscular Hemoglobin 30.5 pg (27.0-34.0); Mean Corpuscular Volume 91.1 fL (80.0-100.0); Mean Platelet Volume 9.2 fL (7.0-11.0); Mono # (Auto) 0.8 th/mm3 (0.0-0.9); Mono % (Auto) 5.1 % (0.0-8.0); Neut # (Auto) 12.2 th/mm3 (1.8-7.7); Platelet Count 206 th/mm3 (150-450); Red Blood Count 3.79 mil/mm3 (4.50-5.90); Red Cell Distribution Width 14.2 % (11.6-17.2)
--- NOTE | 2018-09-13 09:43 | P.DIET ---
Nutritional Evaluation Type of nutrition evaluation: initial Nutrition consult regarding: Tube Feeding [place] [facility] [place]: [place] [facility]13 NPO alert x3 days Objective - Diagnosis Sepsis - Objective % IBW: 93 Body Weight Used for Calculations: Actual (78.4) Energy Needs - Lower Range (kCal/kg): 27 Energy Needs - Upper Range (kCal/kg): 32 Lower Limit kCal/kg (kCals): 2,117 Upper Limit kCal/kg (kCals): 2,509 Lower Limit Protein Factor (Grams per Kg): 1.2 Upper Limit Protein Factor (Grams per Kg): 1.5 Lower Protein Needs (Protein): 94 Upper Protein Needs (Protein): 118 Dietitian Reviewed in Medical Record: Curent medications, Intake & Output, Labs , Medical history, Wound/DTI Diet Order: NPO Wound Care Note: Multiple wounds: Sacrum, R heel, L heel (DTI), L hip (unstageable), sacrococcygeal gluteal cleft (unstageable) Objective Comments: PMH: Dementia, HTN, DM, Parkinson's Labs include: Lactic Acid 5.4, Cr 1.8, Na 163, Glu 290 Meds include: Propofol Skin: Stage IV sacral decubitus ulcer, L hip and ankle decubitus ulcers not staged Assessment Assessment: Pt remains high nutritional risk r/t current clinical status. Pt remains intubated and sedated, admitted from care home with sepsis. Pt has multiple pressure injuries, two that are unstageable. Pt's nutritional needs as stated above. Recommend TF Glucerna 1.5 with goal rate 60ml/hr to provide 2160kcals, 119 gms protein and 1093mls free water as an alternate means of nutrition. Recommend Bhanu 1 pkt bid to aid in wound healing. Will monitor TF tolerance, wounds, clinical course. Recommendations: TF Glucerna 1.5 with goal rate 60ml/hr Bhanu, 1 packet bid to help promote wound healing Dietitian to Monitor: Lab values, Renal labs, Intake & Output, Tube feeding tolerance, Weight change, Wound/skin status, Medical course
[2018-09-13] MEDS ORDERED: Dextrose 50% in Water 50 ML Vial IV.PUSH PRN (09:48)
--- NOTE | 2018-09-13 10:01 | P.PNCC ---
Subjective Subjective Remarks/Hospital Course: Subjective 09/11: Afebrile . Lactic acid only slightly decreased this a.m. ID has been consulted patient continues on vancomycin and the patient was noted to be hypernatremic D5W was started last evening and subsequently insulin infusion at 2 units/h. The patient has 3 siblings. Sister met yesterday evidently is the one that goes to the jail facility and feeds him, despite being lethargic. Also informed that that sister was also feeding him narcotics, which the jail facility is investigating. The patient continues to have decreased mentation off propofol. Repeat BMP shows decreasing sodium now 160. Free water flushes have been added to medication regimen. I discussed extensively with Sister Trena Zafar by telephone, the patient's POA the patient's condition and provided a medical status update. The patient's POA, and another sibling requested we place him in DNR. The POA states she has the paperwork at home however she is on vacation at this time and will provided via fax the patient has a living will. Palliative care also has been consulted to help evaluate/to define goals. The patient was placed in alternate CODE STATUS. The patient is hemodynamically stable at this time. 09/12: Afebrile. No further cardiac events overnight. And CPAP trials this a.m. Wound care consulted all wounds unstageable recommendations implemented. Tube feeds initiated per dietitian's recommendations per hypernatremia resolving D5W discontinued. The patient is continued on free water flushes. Leukocytosis resolving. 09/13: No acute events overnight. Patient tolerating CPAP trials. Patient tolerating tube feeds. Continues on low-dose propofol. Objective Vital Signs / I&O: Vital Signs 09/12/18 10:00 09/12/18 10:10 09/12/18 10:20 Temperature Pulse Rate 62 56 L 55 L Respiratory Rate 18 19 19 Blood Pressure 117/63 113/58 L 117/59 L Pulse Oximetry 100 100 100 09/12/18 10:30 09/12/18 10:40 09/12/18 10:50 Temperature Pulse Rate 55 L 57 L 59 L Respiratory Rate 19 20 19 Blood Pressure 112/57 L 113/62 119/61 Pulse Oximetry 100 100 100 09/12/18 11:00 09/12/18 11:07 09/12/18 11:10 Temperature Pulse Rate 56 L 54 L Respiratory Rate 20 19 Blood Pressure 124/63 119/62 Pulse Oximetry 100 100 100 09/12/18 11:20 09/12/18 11:30 09/12/18 11:40 Temperature Pulse Rate 54 L 58 L 65 Respiratory Rate 19 20 17 Blood Pressure 122/66 122/64 126/67 Pulse Oximetry 100 99 99 09/12/18 11:50 09/12/18 12:00 09/12/18 12:10 Temperature 98.4 F Pulse Rate 56 L 60 73 Respiratory Rate 18 19 19 Blood Pressure 116/56 L 125/61 142/68 H Pulse Oximetry 98 98 100 09/12/18 12:20 09/12/18 12:31 09/12/18 12:40 Temperature Pulse Rate 63 66 58 L Respiratory Rate 18 18 19 Blood Pressure 126/62 152/67 H 128/60 Pulse Oximetry 99 99 99 09/12/18 12:50 09/12/18 13:00 09/12/18 13:10 Temperature Pulse Rate 53 L 54 L 53 L Respiratory Rate 17 18 18 Blood Pressure 114/55 L 118/61 128/60 Pulse Oximetry 98 98 99 09/12/18 13:20 09/12/18 13:30 09/12/18 13:41 Temperature Pulse Rate 58 L 59 L 64 Respiratory Rate 20 18 20 Blood Pressure 146/65 H 121/58 L 145/65 H Pulse Oximetry 100 100 99 09/12/18 15:00 09/12/18 15:10 09/12/18 15:20 Temperature Pulse Rate 63 59 L 58 L Respiratory Rate 21 18 19 Blood Pressure 126/61 122/59 L 114/56 L Pulse Oximetry 100 100 98 09/12/18 15:30 09/12/18 15:34 09/12/18 15:37 Temperature Pulse Rate 58 L 59 L Respiratory Rate 20 19 19 Blood Pressure 122/62 Pulse Oximetry 100 99 09/12/18 15:40 09/12/18 15:50 09/12/18 16:00 Temperature Pulse Rate 60 63 64 Respiratory Rate 18 20 17 Blood Pressure 118/57 L 117/60 116/58 L Pulse Oximetry 99 99 98 09/12/18 16:10 09/12/18 16:20 09/12/18 16:30 Temperature Pulse Rate 63 64 65 Respiratory Rate 19 17 18 Blood Pressure 125/63 128/60 122/58 L Pulse Oximetry 98 97 97 09/12/18 16:40 09/12/18 16:50 09/12/18 17:00 Temperature Pulse Rate 66 63 65 Respiratory Rate 19 20 19 Blood Pressure 123/62 131/61 124/66 Pulse Oximetry 99 100 99 09/12/18 17:10 09/12/18 17:20 09/12/18 17:30 Temperature Pulse Rate 63 64 64 Respiratory Rate 17 19 17 Blood Pressure 128/68 133/65 131/63 Pulse Oximetry 99 99 100 09/12/18 17:40 09/12/18 17:50 09/12/18 18:00 Temperature Pulse Rate 63 63 63 Respiratory Rate 19 19 18 Blood Pressure 136/68 136/67 134/66 Pulse Oximetry 09/12/18 18:10 09/12/18 18:20 09/12/18 18:30 Temperature Pulse Rate 64 65 63 Respiratory Rate 18 18 18 Blood Pressure 143/72 H 128/64 148/71 H Pulse Oximetry 99 99 09/12/18 18:40 09/12/18 18:50 09/12/18 19:00 Temperature Pulse Rate 64 65 68 Respiratory Rate 17 18 17 Blood Pressure 135/66 145/72 H 130/62 Pulse Oximetry 99 100 99 09/12/18 19:45 09/12/18 19:47 09/12/18 20:00 Temperature 98.8 F Pulse Rate 63 66 Respiratory Rate 17 21 18 Blood Pressure 129/67 Pulse Oximetry 100 100 09/12/18 21:00 09/12/18 22:00 09/12/18 23:00 Temperature Pulse Rate 70 67 67 Respiratory Rate 17 16 16 Blood Pressure 140/73 141/74 H 153/75 H Pulse Oximetry 98 100 100 09/12/18 23:33 09/13/18 00:00 09/13/18 01:00 Temperature 98.6 F Pulse Rate 65 81 84 Respiratory Rate 19 16 22 Blood Pressure 142/74 H 134/65 Pulse Oximetry 98 99 99 09/13/18 02:00 09/13/18 03:00 09/13/18 03:34 Temperature Pulse Rate 79 79 67 Respiratory Rate 21 19 20 Blood Pressure 126/69 130/71 Pulse Oximetry 100 100 100 09/13/18 04:00 09/13/18 05:00 09/13/18 06:00 Temperature 99.9 F H Pulse Rate 71 80 70 Respiratory Rate 20 18 20 Blood Pressure 131/67 134/63 133/63 Pulse Oximetry 99 99 99 09/13/18 07:41 Temperature Pulse Rate 68 Respiratory Rate 16 Blood Pressure Pulse Oximetry 100 Intake & Output 09/12/18 09/13/18 09/13/18 18:59 06:59 18:59 Intake Total 300 / 300 3650 / 3650 Output Total 550 / 550 525 / 525 Balance -250 / -250 3125 / 3125 Weight 79.4 kg Intake: IV 300 / 300 1300 / 1300 D5W Inj 1,000 ML @ 50 mls/hr IV 1000 / 1000 .CONT .Q20H HERRERA Rx#:[id number] NovoLIN R (IV Infusion) 100 100 / 100 UNIT In NS Inj 99 ML @ Per Protocol IV.CONT TITRATE PRN Rx #:[id number] Diprivan 1000 mg/100 ml Inj 1, 100 / 100 000 mg In 100 ml @ 5 MCG/KG/MIN 2.381 mls/hr IV.CONT TITRATE PRN Rx#:[id number] Unasyn Inj 1,500 MG In NS Inj 200 / 200 200 / 200 100 ML @ 200 mls/hr IV.SIG Q6H HERRERA Rx#:[id number] Tube Irrigant 100 / 100 Water Bolus Amount 250 / 250 Other 1999 Output: Urine Amount (Catheter) 550 / 550 525 / 525 Indwelling Urethral Catheter 550 / 550 525 / 525 Other: Other Intake Source Saline Solution Date of Last Bowel Movement 09/11/18 09/13/18 # Bowel Movements 1 Result Diagrams: 09/14/18 05:25 09/14/18 04:05 Other Results: Laboratory Results WBC 15.0 th/mm3 (4.0-11.0) H 09/13/18 08:20 RBC 3.79 mil/mm3 (4.50-5.90) L 09/13/18 08:20 Hgb 11.5 gm/dL (13.0-17.0) L 09/13/18 08:20 Hct 34.6 % (39.0-51.0) L 09/13/18 08:20 MCV 91.1 fL (80.0-100.0) 09/13/18 08:20 MCH 30.5 pg (27.0-34.0) 09/13/18 08:20 MCHC 33.4 % (32.0-36.0) 09/13/18 08:20 RDW 14.2 % (11.6-17.2) 09/13/18 08:20 Plt Count 206 th/mm3 (150-450) 09/13/18 08:20 MPV 9.2 fL (7.0-11.0) 09/13/18 08:20 Prelim Diff (Auto) Slide review pending 09/13/18 08:20 Neut % (Auto) 81.0 % (16.0-70.0) H 09/13/18 08:20 Lymph % (Auto) 11.6 % (9.0-44.0) 09/13/18 08:20 [place] % (Auto) 5.1 % (0.0-8.0) 09/13/18 08:20 Eos % (Auto) 1.6 % (0.0-4.0) 09/13/18 08:20 Baso % (Auto) 0.7 % (0.0-2.0) 09/13/18 08:20 Neut # (Auto) 12.2 th/mm3 (1.8-7.7) H 09/13/18 08:20 Lymph # (Auto) 1.7 th/mm3 (1.0-4.8) 09/13/18 08:20 [place] # (Auto) 0.8 th/mm3 (0.0-0.9) 09/13/18 08:20 Eos # (Auto) 0.2 th/mm3 (0.0-0.4) 09/13/18 08:20 Baso # (Auto) 0.1 th/mm3 (0.0-0.2) 09/13/18 08:20 WBC Differential . 09/13/18 08:20 Diff Scan Auto diff confirmed 09/13/18 08:20 Differential Comment . 09/13/18 08:20 Hematology Comments 09/13/18 08:20 PT 11.6 sec (9.8-11.6) 09/10/18 13:53 INR 1.1 Ratio 09/10/18 13:53 APTT 25.2 sec (23.4-31.7) 09/10/18 13:53 Puncture Site Right radial 09/11/18 12:30 Patient Temperature 98.6 09/11/18 12:30 O2 Saturation 97 % (90-100) 09/11/18 12:30 ABG pH 7.46 (7.380-7.420) H 09/11/18 12:30 ABG pCO2 31 mmHg (38-42) L 09/11/18 12:30 ABG pO2 178 mmHG (61-120) H 09/11/18 12:30 ABG HCO3 22 mmol/L (22-26) 09/11/18 12:30 ABG O2 Content 15.4 Vol % (12.0-20.0) 09/11/18 12:30 ABG Base Excess -1.8 mmol/L (-2-2) 09/11/18 12:30 ABG Methemoglobin 1.5 % (0-2) 09/11/18 12:30 Lino Test Present 09/11/18 12:30 Hemoglobin 11.1 G/DL (12.0-16.0) L 09/11/18 12:30 Carboxyhemoglobin 0.7 % (0-4) 09/11/18 12:30 O2 Delivery Device Ventilator 09/11/18 12:30 Vent Setting Prvc/ac550/14/5peep 09/11/18 12:30 Inspired O2 35 % 09/11/18 12:30 Critical Value No 09/11/18 12:30 Sodium 152 meq/L (136-145) H 09/13/18 05:49 Potassium 3.6 meq/L (3.5-5.1) 09/13/18 05:49 Chloride 122 meq/L (98-107) H 09/13/18 05:49 Carbon Dioxide 22.1 meq/L (21.0-32.0) 09/13/18 05:49 Anion Gap 8 meq/L (5-15) 09/13/18 05:49 BUN 22 mg/dL (7-18) H 09/13/18 05:49 Creatinine 0.95 mg/dL (0.60-1.30) 09/13/18 05:49 Estimated GFR 76 mL/min (>89) L 09/13/18 05:49 POC Glucose 151 mg/dl (68-110) H 09/13/18 08:11 Random Glucose 162 mg/dL (74-106) H 09/13/18 05:49 Hemoglobin A1c 8.8 % (4.3-6.0) H 09/11/18 13:50 Lactic Acid 5.4 mmol/L (0.4-2.0) H* 09/11/18 10:04 Calcium 8.4 mg/dL (8.5-10.1) L 09/13/18 05:49 Calcium Adj for Albumin Cancelled 09/10/18 13:53 Phosphorus 2.5 mg/dL (2.5-4.9) 09/13/18 05:49 Magnesium 2.2 mg/dL (1.5-2.5) 09/13/18 05:49 Total Bilirubin 1.8 mg/dL (0.2-1.0) H 09/13/18 05:49 AST 37 U/L (15-37) 09/13/18 05:49 ALT 10 U/L (12-78) L 09/13/18 05:49 Alkaline Phosphatase 162 U/L (45-117) H 09/13/18 05:49 Ammonia 18 mcmol/L (11-32) 09/10/18 20:59 Total Creatine Kinase 154 U/L (39-308) 09/11/18 02:45 CK-MB (CK-2) Less than 1.0 ng/mL (0.5-3.6) 09/10/18 13:53 CK-MB (CK-2) % 0.3 % (0.0-4.0) 09/10/18 13:53 Troponin I 0.05 ng/mL (0.02-0.05) 09/10/18 20:59 B-Natriuretic Peptide 39 pg/mL (0-100) 09/11/18 13:50 Total Protein 6.0 g/dL (6.4-8.2) L 09/13/18 05:49 Albumin 1.4 g/dL (3.4-5.0) L 09/13/18 05:49 TSH 0.435 uIU/mL (0.358-3.740) 09/10/18 20:59 Thyroxine (T4) 8.7 mcg/dL (4.5-12.1) 09/10/18 20:59 Cortisol 34.8 mcg/dL 09/10/18 20:59 Urine Color Norma (Yellw/Straw) 09/10/18 15:15 Urine Clarity Hazy (Clear) H 09/10/18 15:15 Urine pH 5.0 (5.0-8.5) 09/10/18 15:15 Ur Specific Kite 1.023 (1.002-1.035) 09/10/18 15:15 Urine Protein 100 mg/dL (Neg-Trace) H 09/10/18 15:15 Urine Glucose (UA) Negative mg/dL (Negative) 09/10/18 15:15 Urine Ketones Negative mg/dL (Negative) 09/10/18 15:15 Urine Occult Blood Negative (Negative) 09/10/18 15:15 Urine Nitrate Negative (Negative) 09/10/18 15:15 Urine Bilirubin Negative (Negative) 09/10/18 15:15 Urine Urobilinogen 4 or greater mg/dL (Less than 2) 09/10/18 15:15 Ur Leukocyte Esterase Negative (Negative) 09/10/18 15:15 Urine RBC 1 /hpf (0-3) 09/10/18 15:15 Urine WBC 3 /hpf (0-5) 09/10/18 15:15 Amorphous Sediment Rare /hpf (None) H 09/10/18 15:15 Urine Bacteria Rare /hpf (None) H 09/10/18 15:15 Granular Casts 1 /lpf (None) 09/10/18 15:15 Urine Mucus Few /lpf (Occasional) H 09/10/18 15:15 Micro UA Comment Cath-culture ind 09/10/18 15:15 Ur Microscopic Review Not Reportable 09/10/18 15:15 Urine Culture Comments Cath-cult indicated 09/10/18 15:15 Nasal Screen MRSA (PCR) Not detected (Negative) 09/10/18 18:30 Random Vancomycin 14.6 Comment 09/12/18 17:39 Impressions Extremity Arterial Study 09/11/18 00:00 CONCLUSION: 1. Normal ANITRA bilaterally. 2. 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 Foot X-Ray 09/11/18 00:00 CONCLUSION: Chronic changes and no definite fracture for technique. Liver Ultrasound 09/12/18 00:00 CONCLUSION: 1. Gallbladder sludge without gallbladder wall thickening 2. No intrahepatic biliary duct dilatation Chest X-Ray 09/12/18 04:00 CONCLUSION: Clear lungs. Objective Remarks: GENERAL: Well-developed well-nourished early gentleman, intubated and lightly sedated on Propofol SKIN: Warm and dry. HEAD: Atraumatic. Normocephalic. EYES: Pupils equal and round. No scleral icterus. No injection or drainage. ENT: No nasal bleeding or discharge. Mucous membranes pink and moist. NECK: Trachea midline. No JVD. CARDIOVASCULAR: Normal rate, regular rhythm. RESPIRATORY: No accessory muscle use. Clear to auscultation. Breath sounds equal bilaterally. GASTROINTESTINAL: Abdomen soft, non-tender, nondistended. No guarding. MUSCULOSKELETAL: Extremities without clubbing, cyanosis, or edema. Left heel necrotic skin wound, left hip, necrotic skin wound gluteal fold unstageable. NEUROLOGICAL: Intubated and sedated. RASS -1. No gross focal/sensory deficits. Following commands are midline Assessment and Plan - Problem List (1) Influenza A Code(s): J10.1 - Influenza due to other identified influenza virus with other respiratory manifestations Status: Acute (2) Sacral decubitus ulcer, stage IV Code(s): L89.154 - Pressure ulcer of sacral region, stage 4 Status: Acute (3) Decubitus ulcer of ankle Code(s): L89.509 - Pressure ulcer of unspecified ankle, unspecified stage Status: Acute (4) Decubitus ulcer, hip Code(s): L89.209 - Pressure ulcer of unspecified hip, unspecified stage Status : Acute (5) Renal insufficiency Code(s): N28.9 - Disorder of kidney and ureter, unspecified Status: Acute (6) Sepsis Code(s): A41.9 - Sepsis, unspecified organism Status: Acute - Assessment and Plan Plan: Assessment This is a 83-year-old jail with multiple comorbidities that had an alteration in mental status most likely secondary to sepsis the patient required intubation for airway detection and due to respiratory insufficiency, with noted concomitant influenza A diagnosis. The patient is critically ill. Plan by systems: Neurologic: Dementia Parkinson's disease Metabolic encephalopathy, most likely secondary to sepsis Propofol infusions to maintain ventilator synchrony Daily sedation vacation Ammonia, cortisol, TSH level-WNL Home medications and Singulair,Norvasc, Continue Sinemet 25/100 Respiratory: Acute hypoxemic respiratory failure 1/5 intubated in the ED 8.0 ET tube 26cm at the lip Ventilator bundle Duo nebs every 4 hours scheduled and every 2 hours as needed Wean FiO2 to maintain O2 saturation greater than 92% Follow-up chest x-ray in a.m. Reinitiate CPAP trials Cardiovascular: Sinus tachycardia-resolved Normotensive Initial troponin 0.02->0.05 Maintain map greater than 65 mmHg Renal: Maintain Lainez Trend creatinine kinase-decreasing -- Strict I/Os FEN/GI: Hypernatremia Severe protein calorie malnutrition D5W discontinued Sodium level 160->152, continue free water flushes 200 cc every 6 hours Begin Glucerna tube feeds goal rate 60 cc/hour and Bhanu protein packets 3 times daily Bowel regimen Zofran for nausea Albumin 1.4 Heme/ID: Influenza A Leukocytosis Sepsis Tamiflu x 7days 09/10 Pneumococcal, Legionella urine antigens-NGTD 09/10 sputum culture-NGTD 09/10 blood and urine cultures- NGTD Wound culture to-group D enterococcus,MRSA Patient noted to have multiple necrotic unstageable wound ID following-Unasyn and Vanco. Cefepime discontinued 09/11 Endocrine: Diabetes mellitus Glucose monitoring per ICU protocol Insulin infusion discontinued -- SSI-medium dose Prophylaxis: GI Prophylaxis Famotidine twice daily DVT Prophylaxis -- SCDs Subcutaneous heparin every 12 hours Lines: Peripheral IVs providing adequate access. Central line if clinically indicated Dispo: My billing statement This patient remains critically ill with one or more organ systems which are or may become a threat to life. I have spent in excess of 31 minutes discontinuously in the care and management of this patient. This time is exclusive of procedures, and includes, but is not limited to, evaluation of the patient, review of the medical record, discussions with family, consultants, nursing staff, or respiratory therapy, and documentation in the medical record. The patient's CODE STATUS is changed to alternate CODE STATUS secondary to family request and patient's wishes. Palliative care has been consulted, to assist in determination of goals. Code Status: Alternative Discussed Condition With: MARKETING FINANCE MANAGER at bedside. No family at bedside
[2018-09-13] MEDS: Vancomycin Inj 1,250 MG in Sodium Chlor 0.9% Inj 250 ML IV.SIG SCH (11:44)
[2018-09-13] MEDS: Insulin NovoLOG Aspart Correctional Sugar Inj SQ SCH ×2 (11:44→17:18)
--- NOTE | 2018-09-13 13:53 | P.PNID ---
Subjective Remarks: Patient is an 83-year-old male, brought into the hospital with altered mental status. He apparently also has been having breathing problem the last several days. There was no mention of any fever chills or any congestion. No mention of any other problem as far as or any GI complaints. According to the record patient is able to communicate but otherwise nonambulatory as a baseline. On evaluation he was found to have leukocytosis. His creatinine was 1.8. Lactic acid was elevated. Chest x-ray was normal. Urinalysis was unremarkable. Patient required intubation. His initial white count was 17,000 , and its down to 16,000. Influenza testing is positive for influenza A. Blood cultures are negative. Patient was found to have multiple decubitus including the left hip, the coccyx, and bilateral heel. His LFTs are also mildly elevated. Infectious disease consultation has been requested to assist with evaluation and treatment of leukocytosis. Notes reviewed Doing well on CPAP No further cardiac events Temps ok Looks comfortable on CPAP Temps ok WBC lower CXR clear Liver US with GB sludge no fluid around Influenza A Ag (+) Sputum Staph aureus ID pending Wound C/S MRSA, skin almas and Enterococcus Antibiotics: Tamiflu Unasyn Vancomycin Past Medical History: Parkinson disease (Acute) Diabetes (Acute) Dementia (Acute) Hypertension (Acute) Hernia (Acute) History of left hip replacement (Acute) Allergies/Adverse Reactions: Allergies No Known Allergies Allergy (Verified 09/10/18 13:43) Objective Vital Signs 09/12/18 15:00 09/12/18 15:10 09/12/18 15:20 Temperature Pulse Rate 63 59 L 58 L Respiratory Rate 21 18 19 Blood Pressure 126/61 122/59 L 114/56 L Pulse Oximetry 100 100 98 09/12/18 15:30 09/12/18 15:34 09/12/18 15:37 Temperature Pulse Rate 58 L 59 L Respiratory Rate 20 19 19 Blood Pressure 122/62 Pulse Oximetry 100 99 09/12/18 15:40 09/12/18 15:50 09/12/18 16:00 Temperature Pulse Rate 60 63 64 Respiratory Rate 18 20 17 Blood Pressure 118/57 L 117/60 116/58 L Pulse Oximetry 99 99 98 09/12/18 16:10 09/12/18 16:20 09/12/18 16:30 Temperature Pulse Rate 63 64 65 Respiratory Rate 19 17 18 Blood Pressure 125/63 128/60 122/58 L Pulse Oximetry 98 97 97 09/12/18 16:40 09/12/18 16:50 09/12/18 17:00 Temperature Pulse Rate 66 63 65 Respiratory Rate 19 20 19 Blood Pressure 123/62 131/61 124/66 Pulse Oximetry 99 100 99 09/12/18 17:10 09/12/18 17:20 09/12/18 17:30 Temperature Pulse Rate 63 64 64 Respiratory Rate 17 19 17 Blood Pressure 128/68 133/65 131/63 Pulse Oximetry 99 99 100 09/12/18 17:40 09/12/18 17:50 09/12/18 18:00 Temperature Pulse Rate 63 63 63 Respiratory Rate 19 19 18 Blood Pressure 136/68 136/67 134/66 Pulse Oximetry 09/12/18 18:10 09/12/18 18:20 09/12/18 18:30 Temperature Pulse Rate 64 65 63 Respiratory Rate 18 18 18 Blood Pressure 143/72 H 128/64 148/71 H Pulse Oximetry 99 99 09/12/18 18:40 09/12/18 18:50 09/12/18 19:00 Temperature Pulse Rate 64 65 68 Respiratory Rate 17 18 17 Blood Pressure 135/66 145/72 H 130/62 Pulse Oximetry 99 100 99 09/12/18 19:45 09/12/18 19:47 09/12/18 20:00 Temperature 98.8 F Pulse Rate 63 66 Respiratory Rate 17 21 18 Blood Pressure 129/67 Pulse Oximetry 100 100 09/12/18 21:00 09/12/18 22:00 09/12/18 23:00 Temperature Pulse Rate 70 67 67 Respiratory Rate 17 16 16 Blood Pressure 140/73 141/74 H 153/75 H Pulse Oximetry 98 100 100 09/12/18 23:33 09/13/18 00:00 09/13/18 01:00 Temperature 98.6 F Pulse Rate 65 81 84 Respiratory Rate 19 16 22 Blood Pressure 142/74 H 134/65 Pulse Oximetry 98 99 99 09/13/18 02:00 09/13/18 03:00 09/13/18 03:34 Temperature Pulse Rate 79 79 67 Respiratory Rate 21 19 20 Blood Pressure 126/69 130/71 Pulse Oximetry 100 100 100 09/13/18 04:00 09/13/18 05:00 09/13/18 06:00 Temperature 99.9 F H Pulse Rate 71 80 70 Respiratory Rate 20 18 20 Blood Pressure 131/67 134/63 133/63 Pulse Oximetry 99 99 99 09/13/18 07:41 09/13/18 09:30 09/13/18 09:40 Temperature 98.8 F Pulse Rate 68 66 67 Respiratory Rate 16 19 17 Blood Pressure 134/65 142/67 H Pulse Oximetry 100 99 99 09/13/18 09:50 09/13/18 10:00 09/13/18 10:10 Temperature Pulse Rate 65 65 63 Respiratory Rate 16 15 17 Blood Pressure 138/66 135/65 140/64 Pulse Oximetry 99 98 99 09/13/18 10:20 09/13/18 10:30 09/13/18 10:40 Temperature Pulse Rate 65 64 64 Respiratory Rate 17 17 18 Blood Pressure 143/69 H 148/73 H 144/68 H Pulse Oximetry 99 99 99 09/13/18 10:50 09/13/18 11:00 09/13/18 11:09 Temperature Pulse Rate 66 64 64 Respiratory Rate 18 17 16 Blood Pressure 139/68 153/72 H Pulse Oximetry 99 98 99 09/13/18 11:10 09/13/18 11:20 09/13/18 11:30 Temperature Pulse Rate 65 74 69 Respiratory Rate 17 23 22 Blood Pressure 152/75 H 157/71 H Pulse Oximetry 99 99 99 09/13/18 11:40 09/13/18 11:50 09/13/18 12:00 Temperature 98.9 F Pulse Rate 68 73 73 Respiratory Rate 21 22 21 Blood Pressure 160/74 H 164/71 H 161/75 H Pulse Oximetry 99 99 98 09/13/18 12:10 09/13/18 12:20 09/13/18 12:30 Temperature Pulse Rate 69 66 66 Respiratory Rate 21 21 21 Blood Pressure 159/75 H 155/72 H 151/68 H Pulse Oximetry 99 99 99 09/13/18 12:40 09/13/18 12:50 09/13/18 13:00 Temperature Pulse Rate 65 67 68 Respiratory Rate 23 23 22 Blood Pressure 144/64 H 142/69 H 143/69 H Pulse Oximetry 99 99 99 09/13/18 13:10 09/13/18 13:20 09/13/18 13:30 Temperature Pulse Rate 67 67 68 Respiratory Rate 25 H 21 Blood Pressure 144/70 H 139/67 135/64 Pulse Oximetry 99 99 99 Intake & Output 09/12/18 09/13/18 09/13/18 18:59 06:59 18:59 Intake Total 300 / 300 3650 / 3650 105 / 105 Output Total 550 / 550 525 / 525 Balance -250 / -250 3125 / 3125 105 / 105 Weight 79.4 kg Intake: IV 300 / 300 1300 / 1300 105 / 105 D5W Inj 1,000 ML @ 50 mls/hr IV 1000 / 1000 .CONT .Q20H [facility] Rx#:[id number] NovoLIN R (IV Infusion) 100 100 / 100 5 / 5 UNIT In NS Inj 99 ML @ Per Protocol IV.CONT TITRATE PRN Rx #:[id number] Diprivan 1000 mg/100 ml Inj 1, 100 / 100 000 mg In 100 ml @ 5 MCG/KG/MIN 2.381 mls/hr IV.CONT TITRATE PRN Rx#:[id number] Unasyn Inj 1,500 MG In NS Inj 200 / 200 200 / 200 100 / 100 100 ML @ 200 mls/hr IV.SIG Q6H [facility] Rx#:[id number] Tube Irrigant 100 / 100 Water Bolus Amount 250 / 250 Other 1999 / 1999 Output: Urine Amount (Catheter) 550 / 550 525 / 525 Indwelling Urethral Catheter 550 / 550 525 / 525 Other: Other Intake Source Saline Solution Date of Last Bowel Movement 09/11/18 09/13/18 # Bowel Movements 1 09/10/18 13:53 Blood - Peripheral Aerobic Blood Culture - Preliminary No growth in 3 days 09/10/18 13:53 Blood - Peripheral Anaerobic Blood Culture - Preliminary No growth in 3 days 09/10/18 13:53 Blood - Peripheral Aerobic Blood Culture - Preliminary No growth in 3 days 09/10/18 13:53 Blood - Peripheral Anaerobic Blood Culture - Preliminary No growth in 3 days 09/10/18 15:55 Wound - Hip Gram Stain - Final 09/10/18 15:55 Wound - Hip Wound Culture - Final Enterococcus faecalis S. aureus MRSA 09/10/18 20:20 Sputum - Endotracheal Gram Stain - Final 09/10/18 20:20 Sputum - Endotracheal Sputum Culture - Preliminary Staphylococcus aureus 09/10/18 15:15 Catheterized Urine Urine Culture - Final No growth in 48 hours 09/10/18 15:15 Urine - Catheterized Urine Streptococcus pneumoniae Antigen ( M - Final Presumptive negative for streptococcus pneumoniae antigen, suggesting no current or recent infection. Infection due to Streptococcus pneumoniae cannot be ruled out since the antigen present in the sample may be below the detection limit of the test. 09/10/18 15:55 Nasal Wash Influenza Types A,B Antigen - Final Positive for Flu A Antigen Lab - Hematology Results 09/12/18 09/13/18 04:11 08:20 WBC 18.7 H 15.0 H RBC 4.00 L 3.79 L Hgb 11.7 L 11.5 L Hct 37.1 L 34.6 L MCV 92.7 D 91.1 MCH 29.3 30.5 MCHC 31.6 L 33.4 RDW 14.6 14.2 Plt Count 193 206 MPV 9.2 9.2 Prelim Diff (Auto) Slide review pending Neut % (Auto) 83.7 H 81.0 H Lymph % (Auto) 8.8 L 11.6 [place] % (Auto) 4.8 5.1 Eos % (Auto) 2.2 1.6 Baso % (Auto) 0.5 0.7 Neut # (Auto) 15.7 H 12.2 H Lymph # (Auto) 1.7 1.7 [place] # (Auto) 0.9 0.8 Eos # (Auto) 0.4 0.2 Baso # (Auto) 0.1 0.1 WBC Differential . . Diff Scan Auto diff confirmed Differential Comment Auto diff final . Hematology Comments Lab - Chemistry Results 09/11/18 09/11/18 09/11/18 13:50 13:50 13:50 Sodium 160 H* Potassium 3.2 L Chloride 127 H Carbon Dioxide 22.6 Anion Gap 10 BUN 40 H Creatinine 1.45 H Estimated GFR 47 L POC Glucose Random Glucose 227 H Hemoglobin A1c 8.8 H Calcium 8.2 L Phosphorus Magnesium Total Bilirubin AST ALT Alkaline Phosphatase B-Natriuretic Peptide 39 Total Protein Albumin 09/11/18 09/11/18 09/11/18 14:02 15:18 16:36 Sodium Potassium Chloride Carbon Dioxide Anion Gap BUN Creatinine Estimated GFR POC Glucose 200 H 230 H 221 H Random Glucose Hemoglobin A1c Calcium Phosphorus Magnesium Total Bilirubin AST ALT Alkaline Phosphatase B-Natriuretic Peptide Total Protein Albumin 09/11/18 09/11/18 09/11/18 16:58 18:05 18:46 Sodium Potassium Chloride Carbon Dioxide Anion Gap BUN Creatinine Estimated GFR POC Glucose 238 H 269 H 245 H Random Glucose Hemoglobin A1c Calcium Phosphorus Magnesium Total Bilirubin AST ALT Alkaline Phosphatase B-Natriuretic Peptide Total Protein Albumin 09/11/18 09/11/18 09/11/18 20:10 21:29 22:51 Sodium Potassium Chloride Carbon Dioxide Anion Gap BUN Creatinine Estimated GFR POC Glucose 234 H 226 H 234 H Random Glucose Hemoglobin A1c Calcium Phosphorus Magnesium Total Bilirubin AST ALT Alkaline Phosphatase B-Natriuretic Peptide Total Protein Albumin 09/11/18 09/12/18 09/12/18 23:21 00:36 01:45 Sodium Potassium Chloride Carbon Dioxide Anion Gap BUN Creatinine Estimated GFR POC Glucose 188 H 187 H 195 H Random Glucose Hemoglobin A1c Calcium Phosphorus Magnesium Total Bilirubin AST ALT Alkaline Phosphatase B-Natriuretic Peptide Total Protein Albumin 09/12/18 09/12/18 09/12/18 02:49 03:49 04:11 Sodium 156 H* Potassium 4.2 D Chloride 125 H Carbon Dioxide 21.2 Anion Gap 10 BUN 31 H Creatinine 1.14 Estimated GFR 62 L POC Glucose 186 H 175 H Random Glucose 162 H Hemoglobin A1c Calcium 8.0 L Phosphorus 2.4 L D Magnesium 2.3 Total Bilirubin AST ALT Alkaline Phosphatase B-Natriuretic Peptide Total Protein Albumin 09/12/18 09/12/18 09/12/18 04:17 05:34 06:19 Sodium Potassium Chloride Carbon Dioxide Anion Gap BUN Creatinine Estimated GFR POC Glucose 187 H 165 H 194 H Random Glucose Hemoglobin A1c Calcium Phosphorus Magnesium Total Bilirubin AST ALT Alkaline Phosphatase B-Natriuretic Peptide Total Protein Albumin 09/12/18 09/12/18 09/12/18 07:02 08:02 09:02 Sodium Potassium Chloride Carbon Dioxide Anion Gap BUN Creatinine Estimated GFR POC Glucose 216 H 220 H 225 H Random Glucose Hemoglobin A1c Calcium Phosphorus Magnesium Total Bilirubin AST ALT Alkaline Phosphatase B-Natriuretic Peptide Total Protein Albumin 09/12/18 09/12/18 09/12/18 10:10 11:05 12:01 Sodium Potassium Chloride Carbon Dioxide Anion Gap BUN Creatinine Estimated GFR POC Glucose 212 H 211 H 191 H Random Glucose Hemoglobin A1c Calcium Phosphorus Magnesium Total Bilirubin AST ALT Alkaline Phosphatase B-Natriuretic Peptide Total Protein Albumin 09/12/18 09/12/18 09/12/18 13:00 14:02 15:45 Sodium Potassium Chloride Carbon Dioxide Anion Gap BUN Creatinine Estimated GFR POC Glucose 193 H 202 H 202 H Random Glucose Hemoglobin A1c Calcium Phosphorus Magnesium Total Bilirubin AST ALT Alkaline Phosphatase B-Natriuretic Peptide Total Protein Albumin 09/12/18 09/12/18 09/12/18 16:52 17:14 18:27 Sodium Potassium Chloride Carbon Dioxide Anion Gap BUN Creatinine Estimated GFR POC Glucose 198 H 153 H 168 H Random Glucose Hemoglobin A1c Calcium Phosphorus Magnesium Total Bilirubin AST ALT Alkaline Phosphatase B-Natriuretic Peptide Total Protein Albumin 09/12/18 09/12/18 09/12/18 19:14 20:48 22:03 Sodium Potassium Chloride Carbon Dioxide Anion Gap BUN Creatinine Estimated GFR POC Glucose 193 H 140 H 136 H Random Glucose Hemoglobin A1c Calcium Phosphorus Magnesium Total Bilirubin AST ALT Alkaline Phosphatase B-Natriuretic Peptide Total Protein Albumin 09/12/18 09/13/18 09/13/18 23:06 00:16 01:30 Sodium Potassium Chloride Carbon Dioxide Anion Gap BUN Creatinine Estimated GFR POC Glucose 190 H 157 H 192 H Random Glucose Hemoglobin A1c Calcium Phosphorus Magnesium Total Bilirubin AST ALT Alkaline Phosphatase B-Natriuretic Peptide Total Protein Albumin 09/13/18 09/13/18 09/13/18 02:25 04:01 05:08 Sodium Potassium Chloride Carbon Dioxide Anion Gap BUN Creatinine Estimated GFR POC Glucose 155 H 158 H 161 H Random Glucose Hemoglobin A1c Calcium Phosphorus Magnesium Total Bilirubin AST ALT Alkaline Phosphatase B-Natriuretic Peptide Total Protein Albumin 09/13/18 09/13/18 09/13/18 05:49 05:56 08:11 Sodium 152 H Potassium 3.6 Chloride 122 H Carbon Dioxide 22.1 Anion Gap 8 BUN 22 H Creatinine 0.95 Estimated GFR 76 L POC Glucose 160 H 151 H Random Glucose 162 H Hemoglobin A1c Calcium 8.4 L Phosphorus 2.5 Magnesium 2.2 Total Bilirubin 1.8 H AST 37 ALT 10 L Alkaline Phosphatase 162 H B-Natriuretic Peptide Total Protein 6.0 L Albumin 1.4 L 09/13/18 09/13/18 10:17 11:29 Sodium Potassium Chloride Carbon Dioxide Anion Gap BUN Creatinine Estimated GFR POC Glucose 175 H 212 H Random Glucose Hemoglobin A1c Calcium Phosphorus Magnesium Total Bilirubin AST ALT Alkaline Phosphatase B-Natriuretic Peptide Total Protein Albumin Imaging: ITS Impressions Extremity Arterial Study 09/11/18 00:00 CONCLUSION: 1. Normal ANITRA bilaterally. 2. 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 Foot X-Ray 09/11/18 00:00 CONCLUSION: Chronic changes and no definite fracture for technique. Liver Ultrasound 09/12/18 00:00 CONCLUSION: 1. Gallbladder sludge without gallbladder wall thickening 2. No intrahepatic biliary duct dilatation Chest X-Ray 09/12/18 04:00 CONCLUSION: Clear lungs. Physical Exam: GENERAL: opens eyes, on CPAP, NAD. SKIN: Cool and dry. No generalized rash. He has dry decubitus in both heel, larger on L than on R. There is an unstageable decubitus, black eschar, about 1.2 in, in L hip. There is a large black eschar in coccyx. HEAD: Atraumatic. Normocephalic. No temporal wasting, or tenderness. EYES: [place] conjunctiva. No petechia or hemorrhage. Pupils equal, round and reactive to light. Extraocular movements full and intact. No scleral icterus. No injection or drainage. EARS, NOSE AND THROAT: Nose without bleeding or purulent nasal discharge. He is orally intubated. NECK: Trachea midline. Supple and not tender, no meningeal signs CARDIOVASCULAR: Regular rate and rhythm. No murmurs, rubs or gallops heard RESPIRATORY: Clear to auscultation. Breath sounds equal bilaterally. No rales , wheezing or rhonchi ABDOMEN: Soft, non-tender, nondistended. Bowel sounds present and normoactive. No guarding. No rebound. No organomegaly. EXTREMITIES: No clubbing, cyanosis, or edema. NEUROLOGICAL: Opens eyes PSYCHIATRIC: Unable to assess : Lainez catheter in place, urine looks clear LINE: No evidence of infection Assessment and Plan - Plan Impression Leukocytosis, etiology? - CXR clear - UA ok - has multiple unstageable decubitus - dehydrated - abnormal LFT Multiple decubitus, unstageable Influenza A (+) Respiratory failure Renal insufficiency, better, likely dehydrated Recommendation Follow C/S Continue IV Unasyn Also on Vancomycin Wound care Follow CBC
--- NOTE | 2018-09-13 16:31 | P.PNPAL ---
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 (Auto) [place] # (Auto) Eos # (Auto) Baso # (Auto) WBC Differential Diff Scan Differential Comment Hematology Comments Puncture Site Patient Temperature O2 Saturation ABG pH ABG pCO2 ABG pO2 ABG HCO3 ABG O2 Content ABG Base Excess ABG Methemoglobin Lino Test Hemoglobin Carboxyhemoglobin O2 Delivery Device Vent Setting Inspired O2 Critical Value Sodium Potassium Chloride Carbon Dioxide Anion Gap BUN Creatinine Estimated GFR POC Glucose 187 H 165 H 194 H Random Glucose Hemoglobin A1c Lactic Acid Calcium Phosphorus Magnesium Total Bilirubin AST ALT Alkaline Phosphatase Ammonia Total Creatine Kinase Troponin I B-Natriuretic Peptide Total Protein Albumin TSH Thyroxine (T4) Cortisol Nasal Screen MRSA (PCR) Random Vancomycin 09/12/18 09/12/18 09/12/18 07:02 08:02 09:02 WBC RBC Hgb Hct MCV MCH MCHC RDW Plt Count MPV Prelim Diff (Auto) Neut % (Auto) Lymph % (Auto) [place] % (Auto) Eos % (Auto) Baso % (Auto) Neut # (Auto) Lymph # (Auto) [place] # (Auto) Eos # (Auto) Baso # (Auto) WBC Differential Diff Scan Differential Comment Hematology Comments Puncture Site Patient Temperature O2 Saturation ABG pH ABG pCO2 ABG pO2 ABG HCO3 ABG O2 Content ABG Base Excess ABG Methemoglobin Lino Test Hemoglobin Carboxyhemoglobin O2 Delivery Device Vent Setting Inspired O2 Critical Value Sodium Potassium Chloride Carbon Dioxide Anion Gap BUN Creatinine Estimated GFR POC Glucose 216 H 220 H 225 H Random Glucose Hemoglobin A1c Lactic Acid Calcium Phosphorus Magnesium Total Bilirubin AST ALT Alkaline Phosphatase Ammonia Total Creatine Kinase Troponin I B-Natriuretic Peptide Total Protein Albumin TSH Thyroxine (T4) Cortisol Nasal Screen MRSA (PCR) Random Vancomycin 09/12/18 09/12/18 09/12/18 10:10 11:05 12:01 WBC RBC Hgb Hct MCV MCH MCHC RDW Plt Count MPV Prelim Diff (Auto) Neut % (Auto) Lymph % (Auto) [place] % (Auto) Eos % (Auto) Baso % (Auto) Neut # (Auto) Lymph # (Auto) [place] # (Auto) Eos # (Auto) Baso # (Auto) WBC Differential Diff Scan Differential Comment Hematology Comments Puncture Site Patient Temperature O2 Saturation ABG pH ABG pCO2 ABG pO2 ABG HCO3 ABG O2 Content ABG Base Excess ABG Methemoglobin Lino Test Hemoglobin Carboxyhemoglobin O2 Delivery Device Vent Setting Inspired O2 Critical Value Sodium Potassium Chloride Carbon Dioxide Anion Gap BUN Creatinine Estimated GFR POC Glucose 212 H 211 H 191 H Random Glucose Hemoglobin A1c Lactic Acid Calcium Phosphorus Magnesium Total Bilirubin AST ALT Alkaline Phosphatase Ammonia Total Creatine Kinase Troponin I B-Natriuretic Peptide Total Protein Albumin TSH Thyroxine (T4) Cortisol Nasal Screen MRSA (PCR) Random Vancomycin 09/12/18 09/12/18 09/12/18 13:00 14:02 15:45 WBC RBC Hgb Hct MCV MCH MCHC RDW Plt Count MPV Prelim Diff (Auto) Neut % (Auto) Lymph % (Auto) [place] % (Auto) Eos % (Auto) Baso % (Auto) Neut # (Auto) Lymph # (Auto) [place] # (Auto) Eos # (Auto) Baso # (Auto) WBC Differential Diff Scan Differential Comment Hematology Comments Puncture Site Patient Temperature O2 Saturation ABG pH ABG pCO2 ABG pO2 ABG HCO3 ABG O2 Content ABG Base Excess ABG Methemoglobin Lino Test Hemoglobin Carboxyhemoglobin O2 Delivery Device Vent Setting Inspired O2 Critical Value Sodium Potassium Chloride Carbon Dioxide Anion Gap BUN Creatinine Estimated GFR POC Glucose 193 H 202 H 202 H Random Glucose Hemoglobin A1c Lactic Acid Calcium Phosphorus Magnesium Total Bilirubin AST ALT Alkaline Phosphatase Ammonia Total Creatine Kinase Troponin I B-Natriuretic Peptide Total Protein Albumin TSH Thyroxine (T4) Cortisol Nasal Screen MRSA (PCR) Random Vancomycin 09/12/18 09/12/18 09/12/18 16:52 17:14 17:39 WBC RBC Hgb Hct MCV MCH MCHC RDW Plt Count MPV Prelim Diff (Auto) Neut % (Auto) Lymph % (Auto) [place] % (Auto) Eos % (Auto) Baso % (Auto) Neut # (Auto) Lymph # (Auto) [place] # (Auto) Eos # (Auto) Baso # (Auto) WBC Differential Diff Scan Differential Comment Hematology Comments Puncture Site Patient Temperature O2 Saturation ABG pH ABG pCO2 ABG pO2 ABG HCO3 ABG O2 Content ABG Base Excess ABG Methemoglobin Lino Test Hemoglobin Carboxyhemoglobin O2 Delivery Device Vent Setting Inspired O2 Critical Value Sodium Potassium Chloride Carbon Dioxide Anion Gap BUN Creatinine Estimated GFR POC Glucose 198 H 153 H Random Glucose Hemoglobin A1c Lactic Acid Calcium Phosphorus Magnesium Total Bilirubin AST ALT Alkaline Phosphatase Ammonia Total Creatine Kinase Troponin I B-Natriuretic Peptide Total Protein Albumin TSH Thyroxine (T4) Cortisol Nasal Screen MRSA (PCR) Random Vancomycin 14.6 09/12/18 09/12/18 09/12/18 18:27 19:14 20:48 WBC RBC Hgb Hct MCV MCH MCHC RDW Plt Count MPV Prelim Diff (Auto) Neut % (Auto) Lymph % (Auto) [place] % (Auto) Eos % (Auto) Baso % (Auto) Neut # (Auto) Lymph # (Auto) [place] # (Auto) Eos # (Auto) Baso # (Auto) WBC Differential Diff Scan Differential Comment Hematology Comments Puncture Site Patient Temperature O2 Saturation ABG pH ABG pCO2 ABG pO2 ABG HCO3 ABG O2 Content ABG Base Excess ABG Methemoglobin Lino Test Hemoglobin Carboxyhemoglobin O2 Delivery Device Vent Setting Inspired O2 Critical Value Sodium Potassium Chloride Carbon Dioxide Anion Gap BUN Creatinine Estimated GFR POC Glucose 168 H 193 H 140 H Random Glucose Hemoglobin A1c Lactic Acid Calcium Phosphorus Magnesium Total Bilirubin AST ALT Alkaline Phosphatase Ammonia Total Creatine Kinase Troponin I B-Natriuretic Peptide Total Protein Albumin TSH Thyroxine (T4) Cortisol Nasal Screen MRSA (PCR) Random Vancomycin 09/12/18 09/12/18 09/13/18 22:03 23:06 00:16 WBC RBC Hgb Hct MCV MCH MCHC RDW Plt Count MPV Prelim Diff (Auto) Neut % (Auto) Lymph % (Auto) [place] % (Auto) Eos % (Auto) Baso % (Auto) Neut # (Auto) Lymph # (Auto) [place] # (Auto) Eos # (Auto) Baso # (Auto) WBC Differential Diff Scan Differential Comment Hematology Comments Puncture Site Patient Temperature O2 Saturation ABG pH ABG pCO2 ABG pO2 ABG HCO3 ABG O2 Content ABG Base Excess ABG Methemoglobin Lino Test Hemoglobin Carboxyhemoglobin O2 Delivery Device Vent Setting Inspired O2 Critical Value Sodium Potassium Chloride Carbon Dioxide Anion Gap BUN Creatinine Estimated GFR POC Glucose 136 H 190 H 157 H Random Glucose Hemoglobin A1c Lactic Acid Calcium Phosphorus Magnesium Total Bilirubin AST ALT Alkaline Phosphatase Ammonia Total Creatine Kinase Troponin I B-Natriuretic Peptide Total Protein Albumin TSH Thyroxine (T4) Cortisol Nasal Screen MRSA (PCR) Random Vancomycin 09/13/18 09/13/18 09/13/18 01:30 02:25 04:01 WBC RBC Hgb Hct MCV MCH MCHC RDW Plt Count MPV Prelim Diff (Auto) Neut % (Auto) Lymph % (Auto) [place] % (Auto) Eos % (Auto) Baso % (Auto) Neut # (Auto) Lymph # (Auto) [place] # (Auto) Eos # (Auto) Baso # (Auto) WBC Differential Diff Scan Differential Comment Hematology Comments Puncture Site Patient Temperature O2 Saturation ABG pH ABG pCO2 ABG pO2 ABG HCO3 ABG O2 Content ABG Base Excess ABG Methemoglobin Lino Test Hemoglobin Carboxyhemoglobin O2 Delivery Device Vent Setting Inspired O2 Critical Value Sodium Potassium Chloride Carbon Dioxide Anion Gap BUN Creatinine Estimated GFR POC Glucose 192 H 155 H 158 H Random Glucose Hemoglobin A1c Lactic Acid Calcium Phosphorus Magnesium Total Bilirubin AST ALT Alkaline Phosphatase Ammonia Total Creatine Kinase Troponin I B-Natriuretic Peptide Total Protein Albumin TSH Thyroxine (T4) Cortisol Nasal Screen MRSA (PCR) Random Vancomycin 09/13/18 09/13/18 09/13/18 05:08 05:49 05:56 WBC RBC Hgb Hct MCV MCH MCHC RDW Plt Count MPV Prelim Diff (Auto) Neut % (Auto) Lymph % (Auto) [place] % (Auto) Eos % (Auto) Baso % (Auto) Neut # (Auto) Lymph # (Auto) [place] # (Auto) Eos # (Auto) Baso # (Auto) WBC Differential Diff Scan Differential Comment Hematology Comments Puncture Site Patient Temperature O2 Saturation ABG pH ABG pCO2 ABG pO2 ABG HCO3 ABG O2 Content ABG Base Excess ABG Methemoglobin Lino Test Hemoglobin Carboxyhemoglobin O2 Delivery Device Vent Setting Inspired O2 Critical Value Sodium 152 H Potassium 3.6 Chloride 122 H Carbon Dioxide 22.1 Anion Gap 8 BUN 22 H Creatinine 0.95 Estimated GFR 76 L POC Glucose 161 H 160 H Random Glucose 162 H Hemoglobin A1c Lactic Acid Calcium 8.4 L Phosphorus 2.5 Magnesium 2.2 Total Bilirubin 1.8 H AST 37 ALT 10 L Alkaline Phosphatase 162 H Ammonia Total Creatine Kinase Troponin I B-Natriuretic Peptide Total Protein 6.0 L Albumin 1.4 L TSH Thyroxine (T4) Cortisol Nasal Screen MRSA (PCR) Random Vancomycin 09/13/18 09/13/18 09/13/18 08:11 08:20 10:17 WBC 15.0 H RBC 3.79 L Hgb 11.5 L Hct 34.6 L MCV 91.1 MCH 30.5 MCHC 33.4 RDW 14.2 Plt Count 206 MPV 9.2 Prelim Diff (Auto) Slide review pending Neut % (Auto) 81.0 H Lymph % (Auto) 11.6 [place] % (Auto) 5.1 Eos % (Auto) 1.6 Baso % (Auto) 0.7 Neut # (Auto) 12.2 H Lymph # (Auto) 1.7 [place] # (Auto) 0.8 Eos # (Auto) 0.2 Baso # (Auto) 0.1 WBC Differential . Diff Scan Auto diff confirmed Differential Comment . Hematology Comments Puncture Site Patient Temperature O2 Saturation ABG pH ABG pCO2 ABG pO2 ABG HCO3 ABG O2 Content ABG Base Excess ABG Methemoglobin Lino Test Hemoglobin Carboxyhemoglobin O2 Delivery Device Vent Setting Inspired O2 Critical Value Sodium Potassium Chloride Carbon Dioxide Anion Gap BUN Creatinine Estimated GFR POC Glucose 151 H 175 H Random Glucose Hemoglobin A1c Lactic Acid Calcium Phosphorus Magnesium Total Bilirubin AST ALT Alkaline Phosphatase Ammonia Total Creatine Kinase Troponin I B-Natriuretic Peptide Total Protein Albumin TSH Thyroxine (T4) Cortisol Nasal Screen MRSA (PCR) Random Vancomycin 09/13/18 11:29 WBC RBC Hgb Hct MCV MCH MCHC RDW Plt Count MPV Prelim Diff (Auto) Neut % (Auto) Lymph % (Auto) [place] % (Auto) Eos % (Auto) Baso % (Auto) Neut # (Auto) Lymph # (Auto) [place] # (Auto) Eos # (Auto) Baso # (Auto) WBC Differential Diff Scan Differential Comment Hematology Comments Puncture Site Patient Temperature O2 Saturation ABG pH ABG pCO2 ABG pO2 ABG HCO3 ABG O2 Content ABG Base Excess ABG Methemoglobin Lino Test Hemoglobin Carboxyhemoglobin O2 Delivery Device Vent Setting Inspired O2 Critical Value Sodium Potassium Chloride Carbon Dioxide Anion Gap BUN Creatinine Estimated GFR POC Glucose 212 H Random Glucose Hemoglobin A1c Lactic Acid Calcium Phosphorus Magnesium Total Bilirubin AST ALT Alkaline Phosphatase Ammonia Total Creatine Kinase Troponin I B-Natriuretic Peptide Total Protein Albumin TSH Thyroxine (T4) Cortisol Nasal Screen MRSA (PCR) Random Vancomycin Result Diagrams: 09/13/18 08:20 09/13/18 05:49 Microbiology: Microbiology 09/10/18 13:53 Aerobic Blood Culture - Preliminary Blood - Peripheral No growth in 3 days Anaerobic Blood Culture - Preliminary No growth in 3 days 09/10/18 13:53 Aerobic Blood Culture - Preliminary Blood - Peripheral No growth in 3 days Anaerobic Blood Culture - Preliminary No growth in 3 days 09/10/18 15:55 Gram Stain - Final Wound - Hip Wound Culture - Final Enterococcus faecalis S. aureus MRSA 09/10/18 20:20 Gram Stain - Final Sputum - Endotracheal Sputum Culture - Preliminary Staphylococcus aureus 09/10/18 15:15 Urine Culture - Final Catheterized Urine No growth in 48 hours 09/10/18 15:15 Streptococcus pneumoniae Antigen (M - Final Urine - Catheterized Urine Presumptive negative for streptococcus pneumoniae antigen, suggesting no current or recent infection. Infection due to Streptococcus pneumoniae cannot be ruled out since the antigen present in the sample may be below the detection limit of the test. 09/10/18 15:55 Influenza Types A,B Antigen - Final Nasal Wash Positive for Flu A Antigen Assessment and Plan - Symptom Scale (1) Pain 0-10 Scale: Unable to quantify (2) Dyspnea 0-10 Scale: Unable to quantify (3) Falls 0-10 Scale: Unable to quantify (4) Confusion 0-10 Scale: Unable to quantify Pertinent Non-Medical Issues: Psychosocial: Patient has 3 children, 2 sons and 1 daughter. Sister reports 1 of the children is disabled. He was living with his sister Radha up until 3 months ago. Sister Trena reports that patient was Merchant acted several times while living with his sister, they had a complicated relationship. For the past 3 months, patient has been residing in the [facility] with a memory care unit. 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 He is not expected to regain capacity. Per [place] statutes decision making would fall to his 3 children. 1 of his children reportedly disabled, however this is not confirmed. Been provided names of the children, but have not been provided contact information to this point. Patient also has power of capacitor repairer designating his sister, though not for healthcare decision making Ethical issues impacting care: None Important Contacts: Sister Trena Zafar (not healthcare POA) [phone] Sister Radha Liao [phone] Sister Ginette Goldstein [phone] Prognosis: Patient has a long history of Parkinson's and dementia. He is sustained multiple falls over the past several months as well as had multiple ED visits secondary to altered mental status/unresponsiveness. He now presents with necrotic wounds likely secondary to immobility. This puts him at risk for complications and infections. Currently positive for influenza A, now having episodes of V. fib while attempting ventilator weaning trials further compounding complications and ability to be weaned from the ventilator. Code Status: Alternative Code Plan: Legal decision maker: Patient is currently an capacitated to make his own decisions at this time. He is not expected to regain capacity due to underlying dementia/Parkinson's. Was formally reported that patient's sister, Trena, was POA, however after conversation today she indicates that she is only POA for "general stuff." She indicates that there is no verbiage on the paperwork that specifies healthcare decision making. Therefore, decision making would fall to his biological children of which he has 3, reportedly 1 of them is disabled. Goals: Aggressive short of code at this time CODE STATUS: Alternative code SYMPTOMS: --Pain, has complicated wounds, left heel, sacral, left hip, certainly possible these are contributing to his pain burden. Currently does not have pain medicine ordered, sparing use due to altered mental status. Appears comfortable at this time but will continue to monitor closely. At risk for ongoing pain secondary to immobility --Complicated wounds: Patient is chair bound for the past 3 months, sister indicates he did not have these wounds when entering the assisted living facility 3 months ago. Certainly puts him at risk for ongoing infections and complications. Currently being seen by wound care. Palliative care will continue to follow during hospital course as condition evolves, to assist patient/decision-maker with understanding of medical conditions, weighing benefits/burdens of treatment options, for clarification of goals of treatment. Additionally will assist with any symptoms of palliative concern Attestation Collaborating MD Comments: Dr. Wade Attestation: To help prompt me to consider important information that might be impacting today's encounter and assessment, information from prior notes written by myself or my colleagues may have been "brought forward" into today's note. My signature on this note, however, is an attestation that I personally performed the exam, history, and/or decision-making noted today, and, unless otherwise indicated, the interactions with patient, family, and staff as well as the review of records all occurred today. I also attest that the listed assessment and stated plan reflect my best clinical judgment today based on the combination of historical information, prior notes, and today's exam/ interactions. When time spent is documented, it refers only to time spent today by the signer, or if indicated, combined time spent today by collaborating physician/nurse practitioner.
[2018-09-13] MEDS ORDERED: Collagenase Oint 30 GM Tube TOPICAL PRN (22:42)
[2018-09-13] MEDS: Propofol 1000 mg/100 ml Inj 1,000 MG/100 ML BOTTLE IV.CONT PRN (23:33)
[2018-09-14] MEDS: Ampicillin/Sulbactam Inj 1,500 MG in Sodium Chloride 0.9% Inj 100 ML IV.SIG SCH ×5 (00:42→23:51)
[2018-09-14] MEDS: Oral Hygiene Kit OROPHARYNG SCH ×5 (00:43→23:52)
[2018-09-14] MEDS: Insulin NovoLOG Aspart Correctional Sugar Inj SQ SCH ×4 (01:03→17:43)
[2018-09-14] MEDS: Heparin - SQ 10,000 UNITS/ML Vial SQ SCH ×2 (04:55→15:35)
[2018-09-14] MEDS: Chlorhexidine Gluconate 2% 1 Pack (2 Cloths) TOPICAL SCH (04:55)
[2018-09-14 05:06] LABS: Calcium 8.7 mg/dL (8.5-10.1); Carbon Dioxide 24.5 meq/L (21.0-32.0); Magnesium 2.2 mg/dL (1.5-2.5); Phosphorus 2.1 mg/dL (2.5-4.9); Potassium 3.4 meq/L (3.5-5.1)
[2018-09-14] MEDS: Sodium Hypochlorite 0.125% Top Soln 500 ML Bottle TOPICAL SCH ×3 (05:27→21:51)
[2018-09-14] MEDS: Potassium Chloride 25 MEQ Effervescent Tablet PO PRN (05:46)
[2018-09-14 05:59] LABS: Baso % (Auto) 0.5 % (0.0-2.0); Eos # (Auto) 0.2 th/mm3 (0.0-0.4); Eos % (Auto) 1.9 % (0.0-4.0); Hematocrit 34.5 % (39.0-51.0); Hemoglobin 11.2 gm/dL (13.0-17.0); Lymph # (Auto) 0.8 th/mm3 (1.0-4.8); Lymph % (Auto) 7.5 % (9.0-44.0); Mean Corpuscular HGB Conc 32.5 % (32.0-36.0); Mean Corpuscular Hemoglobin 29.5 pg (27.0-34.0); Mean Corpuscular Volume 90.8 fL (80.0-100.0); Mean Platelet Volume 8.7 fL (7.0-11.0); Mono # (Auto) 0.4 th/mm3 (0.0-0.9); Mono % (Auto) 4.1 % (0.0-8.0); Neut # (Auto) 9.3 th/mm3 (1.8-7.7); Platelet Count 241 th/mm3 (150-450); Red Cell Distribution Width 13.9 % (11.6-17.2); White Blood Count 10.8 th/mm3 (4.0-11.0)
--- NOTE | 2018-09-14 06:04 | XR ---
EXAM DATE: 09/14/2018 5:46 AM EST AGE/SEX: 83 years / Male INDICATIONS: Respiratory failure. CLINICAL DATA: This is the patient's initial encounter. Patient reports that signs and symptoms have been present for 4 - 6 days and indicates a pain score of Nonresponsive. MEDICAL/SURGICAL HISTORY: . Diabetes. Hypertension. Parkinson's disease. Influenza A. Renal ins ufficiency. Sepsis. Non-responsive. COMPARISON: [facility] [place] CHEST 1V SINGLE AP, 09/12/2018. . FINDINGS: A single AP view of the chest demonstrates the lungs to be symmetrically aerated without evidence of mass, infiltrate or effusion. Endotracheal tube tip largely obscured by the spine felt to be 3 cm fr om the yury. Nasogastric tube coils in the stomach. The cardiomediastinal contours are unremarkable . Osseous structures are intact. CONCLUSION: Clear lungs. Electronically signed by: Juan Carlos Cisse MD Board Certified Radiologist 09/14/2018 6:03 AM EST
[2018-09-14] MEDS: Chlorhexidine 0.12% Oral Kit 15 ML UDC OROPHARYNG SCH ×2 (08:27→21:00)
[2018-09-14] MEDS: Famotidine PF Inj 20 MG/2 ML Vial IV.PUSH SCH ×2 (09:46→21:01)
[2018-09-14] MEDS: Senna/Docusate Sodium 8.6/50 MG Tablet PO SCH ×2 (09:46→20:38)
[2018-09-14] MEDS: Oseltamivir Liq 30 MG/5 ML Oral Syringe PO SCH ×2 (09:47→21:49)
--- NOTE | 2018-09-14 10:54 | P.PNCC ---
Subjective Subjective Remarks/Hospital Course: Subjective 09/11: Afebrile . Lactic acid only slightly decreased this a.m. ID has been consulted patient continues on vancomycin and the patient was noted to be hypernatremic D5W was started last evening and subsequently insulin infusion at 2 units/h. The patient has 3 siblings. Sister met yesterday evidently is the one that goes to the alf facility and feeds him, despite being lethargic. Also informed that that sister was also feeding him narcotics, which the alf facility is investigating. The patient continues to have decreased mentation off propofol. Repeat BMP shows decreasing sodium now 160. Free water flushes have been added to medication regimen. I discussed extensively with Sister Trena Zafar by telephone, the patient's POA the patient's condition and provided a medical status update. The patient's POA, and another sibling requested we place him in DNR. The POA states she has the paperwork at home however she is on vacation at this time and will provided via fax the patient has a living will. Palliative care also has been consulted to help evaluate/to define goals. The patient was placed in alternate CODE STATUS. The patient is hemodynamically stable at this time. 09/12: Afebrile. No further cardiac events overnight. And CPAP trials this a.m. Wound care consulted all wounds unstageable recommendations implemented. Tube feeds initiated per dietitian's recommendations per hypernatremia resolving D5W discontinued. The patient is continued on free water flushes. Leukocytosis resolving. 09/13: No acute events overnight. Patient tolerating CPAP trials. Patient tolerating tube feeds. Continues on low-dose propofol. 09/14: CPAP trials initiated at 8 AM currently patient tolerating . Tube feeds placed on hold in anticipation of possible SBT trials this afternoon. Resolution of leukocytosis and hypernatremia. IV fluids discontinued. Objective Vital Signs / I&O: Vital Signs 09/13/18 10:50 09/13/18 11:00 09/13/18 11:09 Temperature Pulse Rate 66 64 64 Respiratory Rate 18 17 16 Blood Pressure 139/68 153/72 H Pulse Oximetry 99 98 99 09/13/18 11:10 09/13/18 11:20 09/13/18 11:30 Temperature Pulse Rate 65 74 69 Respiratory Rate 17 23 22 Blood Pressure 152/75 H 157/71 H Pulse Oximetry 99 99 99 09/13/18 11:40 09/13/18 11:50 09/13/18 12:00 Temperature 98.9 F Pulse Rate 68 73 73 Respiratory Rate 21 22 21 Blood Pressure 160/74 H 164/71 H 161/75 H Pulse Oximetry 99 99 98 09/13/18 12:10 09/13/18 12:20 09/13/18 12:30 Temperature Pulse Rate 69 66 66 Respiratory Rate 21 21 21 Blood Pressure 159/75 H 155/72 H 151/68 H Pulse Oximetry 99 99 99 09/13/18 12:40 09/13/18 12:50 09/13/18 13:00 Temperature Pulse Rate 65 67 68 Respiratory Rate 23 23 22 Blood Pressure 144/64 H 142/69 H 143/69 H Pulse Oximetry 99 99 99 09/13/18 13:10 09/13/18 13:20 09/13/18 13:30 Temperature Pulse Rate 67 67 68 Respiratory Rate 25 H 21 Blood Pressure 144/70 H 139/67 135/64 Pulse Oximetry 99 99 99 09/13/18 14:00 09/13/18 14:30 09/13/18 15:00 Temperature Pulse Rate 66 65 70 Respiratory Rate 26 H 29 H 21 Blood Pressure 141/65 H 134/60 120/56 L Pulse Oximetry 99 99 99 09/13/18 15:30 09/13/18 15:41 09/13/18 16:00 Temperature Pulse Rate 63 64 62 Respiratory Rate 18 19 18 Blood Pressure 128/59 L 122/57 L Pulse Oximetry 100 100 100 09/13/18 16:30 09/13/18 17:00 09/13/18 17:30 Temperature Pulse Rate 61 63 68 Respiratory Rate 20 18 19 Blood Pressure 145/63 H 151/70 H 146/64 H Pulse Oximetry 99 99 99 09/13/18 18:00 09/13/18 18:31 09/13/18 19:00 Temperature Pulse Rate 72 79 84 Respiratory Rate 24 21 20 Blood Pressure 161/73 H 152/69 H 147/71 H Pulse Oximetry 99 99 99 09/13/18 19:23 09/13/18 19:26 09/13/18 19:30 Temperature Pulse Rate 91 H 90 Respiratory Rate 22 20 21 Blood Pressure 129/63 Pulse Oximetry 99 99 09/13/18 20:00 09/13/18 20:30 09/13/18 21:00 Temperature 98.7 F Pulse Rate 89 86 85 Respiratory Rate 20 22 20 Blood Pressure 122/60 129/63 137/66 Pulse Oximetry 99 99 99 09/13/18 21:30 09/13/18 22:00 09/13/18 22:30 Temperature Pulse Rate 85 84 80 Respiratory Rate 20 26 H 19 Blood Pressure 135/78 128/77 139/76 Pulse Oximetry 97 99 99 09/13/18 23:00 09/13/18 23:18 09/13/18 23:22 Temperature Pulse Rate 77 75 Respiratory Rate 22 19 20 Blood Pressure 166/84 H Pulse Oximetry 99 99 09/13/18 23:30 09/14/18 00:00 09/14/18 00:30 Temperature 97.8 F Pulse Rate 82 83 86 Respiratory Rate 23 23 21 Blood Pressure 167/87 H 180/81 H 176/82 H Pulse Oximetry 99 99 99 09/14/18 01:00 09/14/18 01:30 09/14/18 02:00 Temperature Pulse Rate 90 87 86 Respiratory Rate 23 21 23 Blood Pressure 152/78 H 138/74 141/71 H Pulse Oximetry 99 99 99 09/14/18 02:30 09/14/18 03:00 09/14/18 03:10 Temperature Pulse Rate 83 79 77 Respiratory Rate 21 19 20 Blood Pressure 134/68 131/73 Pulse Oximetry 99 99 09/14/18 03:11 09/14/18 03:30 09/14/18 04:00 Temperature 97.8 F Pulse Rate 80 81 Respiratory Rate 20 20 21 Blood Pressure 141/70 H 148/74 H Pulse Oximetry 100 99 99 09/14/18 04:30 09/14/18 05:00 09/14/18 05:30 Temperature Pulse Rate 82 80 84 Respiratory Rate 19 21 Blood Pressure 118/59 L 128/60 117/60 Pulse Oximetry 98 99 99 09/14/18 06:00 09/14/18 06:30 09/14/18 07:32 Temperature Pulse Rate 79 79 76 Respiratory Rate 18 Blood Pressure 123/62 131/66 Pulse Oximetry 99 99 96 Intake & Output 09/13/18 09/14/18 09/14/18 18:59 06:59 18:59 Intake Total 796.5 / 796.5 1058 / 1058 Output Total 750 / 750 1250 / 1250 Balance 46.5 / 46.5 -192 / -192 Weight 79.4 kg Intake: IV 700.5 / 700.5 300 / 300 NovoLIN R (IV Infusion) 100 5 / 5 UNIT In NS Inj 99 ML @ Per Protocol IV.CONT TITRATE PRN Rx #:[id number] LR 1000 mL Inj 1,000 ML @ 42 233 / 233 mls/hr IV.CONT .[id number] [facility] Rx# :[id number] Diprivan 1000 mg/100 ml Inj 1, 100 / 100 000 mg In 100 ml @ 5 MCG/KG/MIN 2.381 mls/hr IV.CONT TITRATE PRN Rx#:[id number] Unasyn Inj 1,500 MG In NS Inj 200 / 200 200 / 200 100 ML @ 200 mls/hr IV.SIG Q6H [facility] Rx#:[id number] Vancomycin Inj 1,250 MG In NS 262.5 / 262.5 Inj 250 ML @ 250 mls/hr IV.SIG Q24H [facility] Rx#:[id number] Oral 0 / 0 Tube Feeding 96 / 96 408 / 408 Tube Irrigant 100 / 100 Water Bolus Amount 250 / 250 Output: Urine Amount (Catheter) 750 / 750 1250 / 1250 Indwelling Urethral Catheter 750 / 750 1250 / 1250 Other: Date of Last Bowel Movement 09/13/18 09/14/18 # Bowel Movements 2 Result Diagrams: 09/14/18 05:25 09/14/18 04:05 Other Results: Laboratory Results WBC 10.8 th/mm3 (4.0-11.0) 09/14/18 05:25 RBC 3.80 mil/mm3 (4.50-5.90) L 09/14/18 05:25 Hgb 11.2 gm/dL (13.0-17.0) L 09/14/18 05:25 Hct 34.5 % (39.0-51.0) L 09/14/18 05:25 MCV 90.8 fL (80.0-100.0) 09/14/18 05:25 MCH 29.5 pg (27.0-34.0) 09/14/18 05:25 MCHC 32.5 % (32.0-36.0) 09/14/18 05:25 RDW 13.9 % (11.6-17.2) 09/14/18 05:25 Plt Count 241 th/mm3 (150-450) 09/14/18 05:25 MPV 8.7 fL (7.0-11.0) 09/14/18 05:25 Prelim Diff (Auto) Slide review pending 09/13/18 08:20 Neut % (Auto) 86.0 % (16.0-70.0) H 09/14/18 05:25 Lymph % (Auto) 7.5 % (9.0-44.0) L 09/14/18 05:25 [place] % (Auto) 4.1 % (0.0-8.0) 09/14/18 05:25 Eos % (Auto) 1.9 % (0.0-4.0) 09/14/18 05:25 Baso % (Auto) 0.5 % (0.0-2.0) 09/14/18 05:25 Neut # (Auto) 9.3 th/mm3 (1.8-7.7) H 09/14/18 05:25 Lymph # (Auto) 0.8 th/mm3 (1.0-4.8) L 09/14/18 05:25 [place] # (Auto) 0.4 th/mm3 (0.0-0.9) 09/14/18 05:25 Eos # (Auto) 0.2 th/mm3 (0.0-0.4) 09/14/18 05:25 Baso # (Auto) 0.0 th/mm3 (0.0-0.2) 09/14/18 05:25 WBC Differential . 09/14/18 05:25 Diff Scan Auto diff confirmed 09/13/18 08:20 Differential Comment Auto diff final 09/14/18 05:25 Hematology Comments 09/13/18 08:20 PT 11.6 sec (9.8-11.6) 09/10/18 13:53 INR 1.1 Ratio 09/10/18 13:53 APTT 25.2 sec (23.4-31.7) 09/10/18 13:53 Puncture Site Right radial 09/11/18 12:30 Patient Temperature 98.6 09/11/18 12:30 O2 Saturation 97 % (90-100) 09/11/18 12:30 ABG pH 7.46 (7.380-7.420) H 09/11/18 12:30 ABG pCO2 31 mmHg (38-42) L 09/11/18 12:30 ABG pO2 178 mmHG (61-120) H 09/11/18 12:30 ABG HCO3 22 mmol/L (22-26) 09/11/18 12:30 ABG O2 Content 15.4 Vol % (12.0-20.0) 09/11/18 12:30 ABG Base Excess -1.8 mmol/L (-2-2) 09/11/18 12:30 ABG Methemoglobin 1.5 % (0-2) 09/11/18 12:30 Lino Test Present 09/11/18 12:30 Hemoglobin 11.1 G/DL (12.0-16.0) L 09/11/18 12:30 Carboxyhemoglobin 0.7 % (0-4) 09/11/18 12:30 O2 Delivery Device Ventilator 09/11/18 12:30 Vent Setting Prvc/[id number]/5peep 09/11/18 12:30 Inspired O2 35 % 09/11/18 12:30 Critical Value No 09/11/18 12:30 Sodium 148 meq/L (136-145) H 09/14/18 04:05 Potassium 3.4 meq/L (3.5-5.1) L 09/14/18 04:05 Chloride 116 meq/L (98-107) H 09/14/18 04:05 Carbon Dioxide 24.5 meq/L (21.0-32.0) 09/14/18 04:05 Anion Gap 8 meq/L (5-15) 09/14/18 04:05 BUN 27 mg/dL (7-18) H 09/14/18 04:05 Creatinine 0.94 mg/dL (0.60-1.30) 09/14/18 04:05 Estimated GFR 77 mL/min (>89) L 09/14/18 04:05 POC Glucose 183 mg/dl (68-110) H 09/14/18 00:42 Random Glucose 149 mg/dL (74-106) H 09/14/18 04:05 Hemoglobin A1c 8.8 % (4.3-6.0) H 09/11/18 13:50 Lactic Acid 5.4 mmol/L (0.4-2.0) H* 09/11/18 10:04 Calcium 8.7 mg/dL (8.5-10.1) 09/14/18 04:05 Calcium Adj for Albumin Cancelled 09/10/18 13:53 Phosphorus 2.1 mg/dL (2.5-4.9) L 09/14/18 04:05 Magnesium 2.2 mg/dL (1.5-2.5) 09/14/18 04:05 Total Bilirubin 1.8 mg/dL (0.2-1.0) H 09/13/18 05:49 AST 37 U/L (15-37) 09/13/18 05:49 ALT 10 U/L (12-78) L 09/13/18 05:49 Alkaline Phosphatase 162 U/L (45-117) H 09/13/18 05:49 Ammonia 18 mcmol/L (11-32) 09/10/18 20:59 Total Creatine Kinase 154 U/L (39-308) 09/11/18 02:45 CK-MB (CK-2) Less than 1.0 ng/mL (0.5-3.6) 09/10/18 13:53 CK-MB (CK-2) % 0.3 % (0.0-4.0) 09/10/18 13:53 Troponin I 0.05 ng/mL (0.02-0.05) 09/10/18 20:59 B-Natriuretic Peptide 39 pg/mL (0-100) 09/11/18 13:50 Total Protein 6.0 g/dL (6.4-8.2) L 09/13/18 05:49 Albumin 1.4 g/dL (3.4-5.0) L 09/13/18 05:49 TSH 0.435 uIU/mL (0.358-3.740) 09/10/18 20:59 Thyroxine (T4) 8.7 mcg/dL (4.5-12.1) 09/10/18 20:59 Cortisol 34.8 mcg/dL 09/10/18 20:59 Urine Color Norma (Yellw/Straw) 09/10/18 15:15 Urine Clarity Hazy (Clear) H 09/10/18 15:15 Urine pH 5.0 (5.0-8.5) 09/10/18 15:15 Ur Specific [place] 1.023 (1.002-1.035) 09/10/18 15:15 Urine Protein 100 mg/dL (Neg-Trace) H 09/10/18 15:15 Urine Glucose (UA) Negative mg/dL (Negative) 09/10/18 15:15 Urine Ketones Negative mg/dL (Negative) 09/10/18 15:15 Urine Occult Blood Negative (Negative) 09/10/18 15:15 Urine Nitrate Negative (Negative) 09/10/18 15:15 Urine Bilirubin Negative (Negative) 09/10/18 15:15 Urine Urobilinogen 4 or greater mg/dL (Less than 2) 09/10/18 15:15 Ur Leukocyte Esterase Negative (Negative) 09/10/18 15:15 Urine RBC 1 /hpf (0-3) 09/10/18 15:15 Urine WBC 3 /hpf (0-5) 09/10/18 15:15 Amorphous Sediment Rare /hpf (None) H 09/10/18 15:15 Urine Bacteria Rare /hpf (None) H 09/10/18 15:15 Granular Casts 1 /lpf (None) 09/10/18 15:15 Urine Mucus Few /lpf (Occasional) H 09/10/18 15:15 Micro UA Comment Cath-culture ind 09/10/18 15:15 Ur Microscopic Review Not Reportable 09/10/18 15:15 Urine Culture Comments Cath-cult indicated 09/10/18 15:15 Nasal Screen MRSA (PCR) Not detected (Negative) 09/10/18 18:30 Random Vancomycin 14.6 Comment 09/12/18 17:39 Impressions Extremity Arterial Study 09/11/18 00:00 CONCLUSION: 1. Normal ANITRA bilaterally. 2. 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 Foot X-Ray 09/11/18 00:00 CONCLUSION: Chronic changes and no definite fracture for technique. Liver Ultrasound 09/12/18 00:00 CONCLUSION: 1. Gallbladder sludge without gallbladder wall thickening 2. No intrahepatic biliary duct dilatation Chest X-Ray 09/14/18 04:00 CONCLUSION: Clear lungs. Objective Remarks: GENERAL: Well-developed well-nourished early gentleman, intubated and lightly sedated on Propofol SKIN: Warm and dry. HEAD: Atraumatic. Normocephalic. EYES: Pupils equal and round. No scleral icterus. No injection or drainage. ENT: No nasal bleeding or discharge. Mucous membranes pink and moist. NECK: Trachea midline. No JVD. CARDIOVASCULAR: Normal rate, regular rhythm. RESPIRATORY: No accessory muscle use. Clear to auscultation. Breath sounds equal bilaterally. GASTROINTESTINAL: Abdomen soft, non-tender, nondistended. No guarding. MUSCULOSKELETAL: Extremities without clubbing, cyanosis. 1+ edema bilateral upper extremities. left heel necrotic skin wound, left hip, necrotic skin wound gluteal fold unstageable. NEUROLOGICAL: Intubated and sedated. RASS -1. No gross focal/sensory deficits. Following commands. Assessment and Plan - Problem List (1) Influenza A Code(s): J10.1 - Influenza due to other identified influenza virus with other respiratory manifestations Status: Acute (2) Sacral decubitus ulcer, stage IV Code(s): L89.154 - Pressure ulcer of sacral region, stage 4 Status: Acute (3) Decubitus ulcer of ankle Code(s): L89.509 - Pressure ulcer of unspecified ankle, unspecified stage Status: Acute (4) Decubitus ulcer, hip Code(s): L89.209 - Pressure ulcer of unspecified hip, unspecified stage Status : Acute (5) Renal insufficiency Code(s): N28.9 - Disorder of kidney and ureter, unspecified Status: Acute (6) Sepsis Code(s): A41.9 - Sepsis, unspecified organism Status: Acute - Assessment and Plan Plan: Assessment This is a 83-year-old alf with multiple comorbidities that had an alteration in mental status most likely secondary to sepsis the patient required intubation for airway detection and due to respiratory insufficiency, with noted concomitant influenza A diagnosis. The patient is critically ill. Plan by systems: Neurologic: Dementia Parkinson's disease Metabolic encephalopathy, most likely secondary to sepsis Propofol infusions to maintain ventilator synchrony Daily sedation vacation Ammonia, cortisol, TSH level-WNL Home medications and Singulair,Norvasc, Continue Sinemet 25/100 Respiratory: Acute hypoxemic respiratory failure 1/5 intubated in the ED 8.0 ET tube 26cm at the lip Ventilator bundle Duo nebs every 4 hours scheduled and every 2 hours as needed Wean FiO2 to maintain O2 saturation greater than 92% Follow-up chest x-ray in a.m. Reinitiate CPAP trials Cardiovascular: Sinus tachycardia-resolved Normotensive Initial troponin 0.02->0.05 Maintain map greater than 65 mmHg Renal: Maintain Lainez Trend creatinine kinase-decreasing -- Strict I/Os FEN/GI: Hypernatremia-resolved Severe protein calorie malnutrition D5W discontinued Sodium level 148, continue free water flushes 200 cc every 6 hours Begin Glucerna tube feeds goal rate 60 cc/hour and Bhanu protein packets 3 times daily Bowel regimen Zofran for nausea Albumin 1.4 Heme/ID: Influenza A Leukocytosis-resolved Sepsis Tamiflu x 7days 09/10 Pneumococcal, Legionella urine antigens-NGTD 09/10 sputum culture-staph aureus 09/10 blood and urine cultures- NGTD Wound culture to-group D enterococcus,MRSA Patient noted to have multiple necrotic unstageable wound ID following-Unasyn and Vanco. Cefepime discontinued 09/11 Endocrine: Diabetes mellitus Glucose monitoring per ICU protocol Insulin infusion discontinued 09/13 -- SSI-increase to high-dose Prophylaxis: GI Prophylaxis Famotidine twice daily DVT Prophylaxis -- SCDs Subcutaneous heparin every 12 hours Lines: Peripheral IVs providing adequate access. Central line if clinically indicated Dispo: Level 3 follow-up Code Status: Alternative Discussed Condition With: CARPORT ERECTOR at bedside.
[2018-09-14] MEDS: Vancomycin Inj 1,250 MG in Sodium Chlor 0.9% Inj 250 ML IV.SIG SCH (11:54)
--- NOTE | 2018-09-14 15:08 | P.PNID ---
Subjective Remarks: Patient is an 83-year-old male, brought into the hospital with altered mental status. He apparently also has been having breathing problem the last several days. There was no mention of any fever chills or any congestion. No mention of any other problem as far as or any GI complaints. According to the record patient is able to communicate but otherwise nonambulatory as a baseline. On evaluation he was found to have leukocytosis. His creatinine was 1.8. Lactic acid was elevated. Chest x-ray was normal. Urinalysis was unremarkable. Patient required intubation. His initial white count was 17,000 , and its down to 16,000. Influenza testing is positive for influenza A. Blood cultures are negative. Patient was found to have multiple decubitus including the left hip, the coccyx, and bilateral heel. His LFTs are also mildly elevated. Infectious disease consultation has been requested to assist with evaluation and treatment of leukocytosis. Notes reviewed Doing well on CPAP Temps ok Looks comfortable on CPAP Temps ok WBC lower CXR clear Liver US with GB sludge no fluid around Influenza A Ag (+) Sputum Staph aureus MSSA Wound C/S MRSA, skin almas and Enterococcus Antibiotics: Tamiflu Unasyn Vancomycin Past Medical History: Parkinson disease (Acute) Diabetes (Acute) Dementia (Acute) Hypertension (Acute) Hernia (Acute) History of left hip replacement (Acute) Allergies/Adverse Reactions: Allergies No Known Allergies Allergy (Verified 09/10/18 13:43) Objective Vital Signs 09/13/18 15:30 09/13/18 15:41 09/13/18 16:00 Temperature Pulse Rate 63 64 62 Respiratory Rate 18 19 18 Blood Pressure 128/59 L 122/57 L Pulse Oximetry 100 100 100 09/13/18 16:30 09/13/18 17:00 09/13/18 17:30 Temperature Pulse Rate 61 63 68 Respiratory Rate 20 18 19 Blood Pressure 145/63 H 151/70 H 146/64 H Pulse Oximetry 99 99 99 09/13/18 18:00 09/13/18 18:31 09/13/18 19:00 Temperature Pulse Rate 72 79 84 Respiratory Rate 24 21 20 Blood Pressure 161/73 H 152/69 H 147/71 H Pulse Oximetry 99 99 99 09/13/18 19:23 09/13/18 19:26 09/13/18 19:30 Temperature Pulse Rate 91 H 90 Respiratory Rate 22 20 21 Blood Pressure 129/63 Pulse Oximetry 99 99 09/13/18 20:00 09/13/18 20:30 09/13/18 21:00 Temperature 98.7 F Pulse Rate 89 86 85 Respiratory Rate 20 22 20 Blood Pressure 122/60 129/63 137/66 Pulse Oximetry 99 99 99 09/13/18 21:30 09/13/18 22:00 09/13/18 22:30 Temperature Pulse Rate 85 84 80 Respiratory Rate 20 26 H 19 Blood Pressure 135/78 128/77 139/76 Pulse Oximetry 97 99 99 09/13/18 23:00 09/13/18 23:18 09/13/18 23:22 Temperature Pulse Rate 77 75 Respiratory Rate 22 19 20 Blood Pressure 166/84 H Pulse Oximetry 99 99 09/13/18 23:30 09/14/18 00:00 09/14/18 00:30 Temperature 97.8 F Pulse Rate 82 83 86 Respiratory Rate 23 23 21 Blood Pressure 167/87 H 180/81 H 176/82 H Pulse Oximetry 99 99 99 09/14/18 01:00 09/14/18 01:30 09/14/18 02:00 Temperature Pulse Rate 90 87 86 Respiratory Rate 23 21 23 Blood Pressure 152/78 H 138/74 141/71 H Pulse Oximetry 99 99 99 09/14/18 02:30 09/14/18 03:00 09/14/18 03:10 Temperature Pulse Rate 83 79 77 Respiratory Rate 21 19 20 Blood Pressure 134/68 131/73 Pulse Oximetry 99 99 09/14/18 03:11 09/14/18 03:30 09/14/18 04:00 Temperature 97.8 F Pulse Rate 80 81 Respiratory Rate 20 20 21 Blood Pressure 141/70 H 148/74 H Pulse Oximetry 100 99 99 09/14/18 04:30 09/14/18 05:00 09/14/18 05:30 Temperature Pulse Rate 82 80 84 Respiratory Rate 19 21 Blood Pressure 118/59 L 128/60 117/60 Pulse Oximetry 98 99 99 09/14/18 06:00 09/14/18 06:30 09/14/18 07:32 Temperature Pulse Rate 79 79 76 Respiratory Rate 18 Blood Pressure 123/62 131/66 Pulse Oximetry 99 99 96 09/14/18 08:00 09/14/18 11:20 09/14/18 12:00 Temperature 98.1 F 98.5 F Pulse Rate 75 70 75 Respiratory Rate 26 H Blood Pressure 118/64 157/75 H Pulse Oximetry 97 98 98 Intake & Output 09/13/18 09/14/18 09/14/18 18:59 06:59 18:59 Intake Total 796.5 / 796.5 1058 / 1058 362.5 / 362.5 Output Total 750 / 750 1250 / 1250 Balance 46.5 / 46.5 -192 / -192 362.5 / 362.5 Weight 79.4 kg Intake: IV 700.5 / 700.5 300 / 300 362.5 / 362.5 NovoLIN R (IV Infusion) 100 5 / 5 UNIT In NS Inj 99 ML @ Per Protocol IV.CONT TITRATE PRN Rx #:[id number] LR 1000 mL Inj 1,000 ML @ 42 233 / 233 mls/hr IV.CONT .[id number] [facility] Rx# :[id number] Diprivan 1000 mg/100 ml Inj 1, 100 / 100 000 mg In 100 ml @ 5 MCG/KG/MIN 2.381 mls/hr IV.CONT TITRATE PRN Rx#:[id number] Unasyn Inj 1,500 MG In NS Inj 200 / 200 200 / 200 100 / 100 100 ML @ 200 mls/hr IV.SIG Q6H [facility] Rx#:[id number] Vancomycin Inj 1,250 MG In NS 262.5 / 262.5 262.5 / 262.5 Inj 250 ML @ 250 mls/hr IV.SIG Q24H [facility] Rx#:[id number] Oral 0 / 0 Tube Feeding 96 / 96 408 / 408 Tube Irrigant 100 / 100 Water Bolus Amount 250 / 250 Output: Urine Amount (Catheter) 750 / 750 1250 / 1250 Indwelling Urethral Catheter 750 / 750 1250 / 1250 Other: Date of Last Bowel Movement 09/13/18 09/14/18 09/14/18 # Bowel Movements 2 09/10/18 13:53 Blood - Peripheral Aerobic Blood Culture - Preliminary No growth in 4 days 09/10/18 13:53 Blood - Peripheral Anaerobic Blood Culture - Preliminary No growth in 4 days 09/10/18 13:53 Blood - Peripheral Aerobic Blood Culture - Preliminary No growth in 4 days 09/10/18 13:53 Blood - Peripheral Anaerobic Blood Culture - Preliminary No growth in 4 days 09/10/18 20:20 Sputum - Endotracheal Gram Stain - Final 09/10/18 20:20 Sputum - Endotracheal Sputum Culture - Final Staphylococcus aureus 09/10/18 15:55 Wound - Hip Gram Stain - Final 09/10/18 15:55 Wound - Hip Wound Culture - Final Enterococcus faecalis S. aureus MRSA 09/10/18 15:15 Catheterized Urine Urine Culture - Final No growth in 48 hours Lab - Hematology Results 09/13/18 09/14/18 08:20 05:25 WBC 15.0 H 10.8 RBC 3.79 L 3.80 L Hgb 11.5 L 11.2 L Hct 34.6 L 34.5 L MCV 91.1 90.8 MCH 30.5 29.5 MCHC 33.4 32.5 RDW 14.2 13.9 Plt Count 206 241 MPV 9.2 8.7 Prelim Diff (Auto) Slide review pending Neut % (Auto) 81.0 H 86.0 H Lymph % (Auto) 11.6 7.5 L [place] % (Auto) 5.1 4.1 Eos % (Auto) 1.6 1.9 Baso % (Auto) 0.7 0.5 Neut # (Auto) 12.2 H 9.3 H Lymph # (Auto) 1.7 0.8 L [place] # (Auto) 0.8 0.4 Eos # (Auto) 0.2 0.2 Baso # (Auto) 0.1 0.0 WBC Differential . . Diff Scan Auto diff confirmed Differential Comment . Auto diff final Hematology Comments Lab - Chemistry Results 09/11/18 09/12/18 09/12/18 13:50 15:45 16:52 Sodium Potassium Chloride Carbon Dioxide Anion Gap BUN Creatinine Estimated GFR POC Glucose 202 H 198 H Random Glucose Hemoglobin A1c 8.8 H Calcium Phosphorus Magnesium Total Bilirubin AST ALT Alkaline Phosphatase Total Protein Albumin 09/12/18 09/12/18 09/12/18 17:14 18:27 19:14 Sodium Potassium Chloride Carbon Dioxide Anion Gap BUN Creatinine Estimated GFR POC Glucose 153 H 168 H 193 H Random Glucose Hemoglobin A1c Calcium Phosphorus Magnesium Total Bilirubin AST ALT Alkaline Phosphatase Total Protein Albumin 09/12/18 09/12/18 09/12/18 20:48 22:03 23:06 Sodium Potassium Chloride Carbon Dioxide Anion Gap BUN Creatinine Estimated GFR POC Glucose 140 H 136 H 190 H Random Glucose Hemoglobin A1c Calcium Phosphorus Magnesium Total Bilirubin AST ALT Alkaline Phosphatase Total Protein Albumin 09/13/18 09/13/18 09/13/18 00:16 01:30 02:25 Sodium Potassium Chloride Carbon Dioxide Anion Gap BUN Creatinine Estimated GFR POC Glucose 157 H 192 H 155 H Random Glucose Hemoglobin A1c Calcium Phosphorus Magnesium Total Bilirubin AST ALT Alkaline Phosphatase Total Protein Albumin 09/13/18 09/13/18 09/13/18 04:01 05:08 05:49 Sodium 152 H Potassium 3.6 Chloride 122 H Carbon Dioxide 22.1 Anion Gap 8 BUN 22 H Creatinine 0.95 Estimated GFR 76 L POC Glucose 158 H 161 H Random Glucose 162 H Hemoglobin A1c Calcium 8.4 L Phosphorus 2.5 Magnesium 2.2 Total Bilirubin 1.8 H AST 37 ALT 10 L Alkaline Phosphatase 162 H Total Protein 6.0 L Albumin 1.4 L 09/13/18 09/13/18 09/13/18 05:56 08:11 10:17 Sodium Potassium Chloride Carbon Dioxide Anion Gap BUN Creatinine Estimated GFR POC Glucose 160 H 151 H 175 H Random Glucose Hemoglobin A1c Calcium Phosphorus Magnesium Total Bilirubin AST ALT Alkaline Phosphatase Total Protein Albumin 09/13/18 09/13/18 09/14/18 11:29 17:13 00:42 Sodium Potassium Chloride Carbon Dioxide Anion Gap BUN Creatinine Estimated GFR POC Glucose 212 H 129 H 183 H Random Glucose Hemoglobin A1c Calcium Phosphorus Magnesium Total Bilirubin AST ALT Alkaline Phosphatase Total Protein Albumin 09/14/18 09/14/18 04:05 11:35 Sodium 148 H Potassium 3.4 L Chloride 116 H Carbon Dioxide 24.5 Anion Gap 8 BUN 27 H Creatinine 0.94 Estimated GFR 77 L POC Glucose 249 H Random Glucose 149 H Hemoglobin A1c Calcium 8.7 Phosphorus 2.1 L Magnesium 2.2 Total Bilirubin AST ALT Alkaline Phosphatase Total Protein Albumin Imaging: ITS Impressions Extremity Arterial Study 09/11/18 00:00 CONCLUSION: 1. Normal ANITRA bilaterally. 2. 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 Foot X-Ray 09/11/18 00:00 CONCLUSION: Chronic changes and no definite fracture for technique. Liver Ultrasound 09/12/18 00:00 CONCLUSION: 1. Gallbladder sludge without gallbladder wall thickening 2. No intrahepatic biliary duct dilatation Chest X-Ray 09/14/18 04:00 CONCLUSION: Clear lungs. Physical Exam: GENERAL: opens eyes, on CPAP, NAD. SKIN: Cool and dry. No generalized rash. He has dry decubitus in both heel, larger on L than on R. There is an unstageable decubitus, black eschar, about 1.2 in, in L hip. There is a large black eschar in coccyx. HEAD: Atraumatic. Normocephalic. No temporal wasting, or tenderness. EYES: [place] conjunctiva. No petechia or hemorrhage. No scleral icterus. No injection or drainage. EARS, NOSE AND THROAT: Nose without bleeding or purulent nasal discharge. He is orally intubated. NECK: Trachea midline. Supple and not tender, no meningeal signs CARDIOVASCULAR: Regular rate and rhythm. No murmurs, rubs or gallops heard RESPIRATORY: Clear to auscultation. Breath sounds equal bilaterally. No rales , wheezing or rhonchi ABDOMEN: Soft, non-tender, nondistended. Bowel sounds present and normoactive. EXTREMITIES: No clubbing, cyanosis, or edema. NEUROLOGICAL: Opens eyes PSYCHIATRIC: Unable to assess : Lainez catheter in place, urine looks clear LINE: No evidence of infection Assessment and Plan - Plan Impression Leukocytosis, etiology? - CXR clear - UA ok - has multiple unstageable decubitus - dehydrated - abnormal LFT Multiple decubitus, unstageable Influenza A (+) Respiratory failure Renal insufficiency, better, likely dehydrated Recommendation Follow C/S Continue IV Unasyn Continue Vancomycin Wound care Follow CBC Weaning per CCM
[2018-09-14] MEDS: Propofol 1000 mg/100 ml Inj 1,000 MG/100 ML BOTTLE IV.CONT PRN (21:58)
[2018-09-15] MEDS: Insulin NovoLOG Aspart Correctional Sugar Inj SQ SCH ×5 (00:30→23:51)
[2018-09-15] MEDS: Chlorhexidine Gluconate 2% 1 Pack (2 Cloths) TOPICAL SCH (03:11)
[2018-09-15] MEDS: Ampicillin/Sulbactam Inj 1,500 MG in Sodium Chloride 0.9% Inj 100 ML IV.SIG SCH ×4 (04:27→22:31)
[2018-09-15] MEDS: Oral Hygiene Kit OROPHARYNG SCH ×4 (04:27→23:12)
[2018-09-15] MEDS: Heparin - SQ 10,000 UNITS/ML Vial SQ SCH ×2 (04:27→15:39)
[2018-09-15] MEDS: Sodium Hypochlorite 0.125% Top Soln 500 ML Bottle TOPICAL SCH ×3 (05:26→21:06)
[2018-09-15 06:09] LABS: Baso % (Auto) 0.5 % (0.0-2.0); Eos # (Auto) 0.2 th/mm3 (0.0-0.4); Hematocrit 35.7 % (39.0-51.0); Hemoglobin 11.5 gm/dL (13.0-17.0); Lymph # (Auto) 1.1 th/mm3 (1.0-4.8); Lymph % (Auto) 13.9 % (9.0-44.0); Mean Corpuscular HGB Conc 32.1 % (32.0-36.0); Mean Corpuscular Hemoglobin 29.5 pg (27.0-34.0); Mean Corpuscular Volume 91.9 fL (80.0-100.0); Mono # (Auto) 0.4 th/mm3 (0.0-0.9); Neut # (Auto) 6.3 th/mm3 (1.8-7.7); Neut % (Auto) 77.6 % (16.0-70.0); Platelet Count 195 th/mm3 (150-450); Red Blood Count 3.89 mil/mm3 (4.50-5.90); White Blood Count 8.1 th/mm3 (4.0-11.0)
[2018-09-15 06:35] LABS: Calcium 8.9 mg/dL (8.5-10.1); Carbon Dioxide 25.1 meq/L (21.0-32.0); Magnesium 2.1 mg/dL (1.5-2.5); Phosphorus 2.7 mg/dL (2.5-4.9); Potassium 3.7 meq/L (3.5-5.1)
[2018-09-15] MEDS: Propofol 1000 mg/100 ml Inj 1,000 MG/100 ML BOTTLE IV.CONT PRN (06:57)
[2018-09-15 07:30] LABS: Eosinophils 4 % (0-4); Lymphocytes 10 % (9-44); Monocytes 2 % (0-8); Platelet Estimate Normal (Normal); Platelet Morphology Normal (Normal); RBC Morphology Normal (Normal)
[2018-09-15] MEDS: Chlorhexidine 0.12% Oral Kit 15 ML UDC OROPHARYNG SCH ×2 (07:33→20:20)
[2018-09-15] MEDS: Oseltamivir Liq 30 MG/5 ML Oral Syringe PO SCH ×2 (09:13→21:54)
[2018-09-15] MEDS: Famotidine PF Inj 20 MG/2 ML Vial IV.PUSH SCH ×2 (09:13→20:20)
[2018-09-15] MEDS: Senna/Docusate Sodium 8.6/50 MG Tablet PO SCH ×2 (09:13→20:20)
[2018-09-15] MEDS: Vancomycin Inj 1,250 MG in Sodium Chlor 0.9% Inj 250 ML IV.SIG SCH (11:39)
[2018-09-15] MEDS ORDERED: hydrALAZINE HCl Inj 20 MG/ML Vial IV.PUSH PRN (11:41)
[2018-09-15] MEDS: hydrALAZINE 50 MG Tablet PO PRN (15:39)
--- NOTE | 2018-09-15 15:53 | P.PNCC ---
Subjective Subjective Remarks/Hospital Course: Subjective 09/11: Afebrile . Lactic acid only slightly decreased this a.m. ID has been consulted patient continues on vancomycin and the patient was noted to be hypernatremic D5W was started last evening and subsequently insulin infusion at 2 units/h. The patient has 3 siblings. Sister met yesterday evidently is the one that goes to the half-way facility and feeds him, despite being lethargic. Also informed that that sister was also feeding him narcotics, which the half-way facility is investigating. The patient continues to have decreased mentation off propofol. Repeat BMP shows decreasing sodium now 160. Free water flushes have been added to medication regimen. I discussed extensively with Sister Trena Zafar by telephone, the patient's POA the patient's condition and provided a medical status update. The patient's POA, and another sibling requested we place him in DNR. The POA states she has the paperwork at home however she is on vacation at this time and will provided via fax the patient has a living will. Palliative care also has been consulted to help evaluate/to define goals. The patient was placed in alternate CODE STATUS. The patient is hemodynamically stable at this time. 09/12: Afebrile. No further cardiac events overnight. And CPAP trials this a.m. Wound care consulted all wounds unstageable recommendations implemented. Tube feeds initiated per dietitian's recommendations per hypernatremia resolving D5W discontinued. The patient is continued on free water flushes. Leukocytosis resolving. 09/13: No acute events overnight. Patient tolerating CPAP trials. Patient tolerating tube feeds. Continues on low-dose propofol. 09/14: CPAP trials initiated at 8 AM currently patient tolerating . Tube feeds placed on hold in anticipation of possible SBT trials this afternoon. Resolution of leukocytosis and hypernatremia. IV fluids discontinued. 09/15:The patient has been on CPAP since 6am, sedation remains off. Pt still lethargic , unable to perform SBT at this time. Precedex infusion initiated to facilitate ventilator weaning propofol has been discontinued. Patient remains slightly hypernatremia increase in free water flushes. Patient is responding off of sedation though still lethargic. Objective Vital Signs / I&O: Vital Signs 09/14/18 15:40 09/14/18 16:00 09/14/18 16:30 Temperature 98.1 F Pulse Rate 71 75 74 Respiratory Rate 29 H Blood Pressure 134/69 134/70 Pulse Oximetry 100 100 99 09/14/18 17:00 09/14/18 17:30 09/14/18 18:00 Temperature Pulse Rate 71 68 68 Respiratory Rate Blood Pressure 142/71 H 155/76 H 158/77 H Pulse Oximetry 99 99 99 09/14/18 18:30 09/14/18 19:00 09/14/18 19:30 Temperature Pulse Rate 67 68 72 Respiratory Rate 30 H Blood Pressure 153/73 H 145/70 H 145/72 H Pulse Oximetry 100 99 99 09/14/18 20:00 09/14/18 20:30 09/14/18 21:00 Temperature 97.9 F Pulse Rate 74 73 72 Respiratory Rate Blood Pressure 132/64 139/70 130/88 Pulse Oximetry 99 99 99 09/14/18 21:30 09/14/18 22:00 09/14/18 22:30 Temperature Pulse Rate 74 72 73 Respiratory Rate Blood Pressure 131/66 131/67 142/70 H Pulse Oximetry 100 100 99 09/14/18 23:00 09/14/18 23:15 09/14/18 23:17 Temperature Pulse Rate 70 71 Respiratory Rate 14 14 Blood Pressure 126/65 Pulse Oximetry 99 99 09/14/18 23:30 09/15/18 00:00 09/15/18 00:30 Temperature 97.6 F Pulse Rate 70 75 74 Respiratory Rate Blood Pressure 134/72 163/86 H 146/71 H Pulse Oximetry 99 98 100 09/15/18 01:00 09/15/18 01:30 09/15/18 02:00 Temperature Pulse Rate 75 74 72 Respiratory Rate Blood Pressure 136/65 134/68 118/65 Pulse Oximetry 99 99 98 09/15/18 02:30 09/15/18 03:00 09/15/18 03:10 Temperature Pulse Rate 69 66 71 Respiratory Rate 18 Blood Pressure 128/69 114/64 Pulse Oximetry 98 93 L 09/15/18 03:30 09/15/18 03:54 09/15/18 04:00 Temperature 97.9 F Pulse Rate 67 66 Respiratory Rate 20 Blood Pressure 118/62 129/62 Pulse Oximetry 98 99 99 09/15/18 07:22 09/15/18 08:00 09/15/18 11:31 Temperature 97.5 F L Pulse Rate 60 64 67 Respiratory Rate 14 25 H Blood Pressure 154/77 H Pulse Oximetry 100 97 09/15/18 11:33 09/15/18 11:38 09/15/18 14:52 Temperature 98.2 F Pulse Rate 65 68 Respiratory Rate 25 H 24 Blood Pressure 129/66 Pulse Oximetry 99 100 100 Intake & Output 09/14/18 09/15/18 09/15/18 18:59 06:59 18:59 Intake Total 1062.5 / 1062.5 1835 / 1835 362.5 / 362.5 Output Total 1200 / 1200 650 / 650 Balance -137.5 / -137.5 1185 / 1185 362.5 / 362.5 Weight 95.4 kg Intake: IV 462.5 / 462.5 1167 / 1167 362.5 / 362.5 LR 1000 mL Inj 1,000 ML @ 42 767 / 767 mls/hr IV.CONT .[id number] [facility] Rx# :[id number] Diprivan 1000 mg/100 ml Inj 1, 200 / 200 000 mg In 100 ml @ 5 MCG/KG/MIN 2.381 mls/hr IV.CONT TITRATE PRN Rx#:[id number] Unasyn Inj 1,500 MG In NS Inj 200 / 200 200 / 200 100 / 100 100 ML @ 200 mls/hr IV.SIG Q6H [facility] Rx#:[id number] Vancomycin Inj 1,250 MG In NS 262.5 / 262.5 262.5 / 262.5 Inj 250 ML @ 250 mls/hr IV.SIG Q24H [facility] Rx#:[id number] Tube Feeding 100 / 100 168 / 168 Tube Irrigant 100 / 100 Water Bolus Amount 500 / 500 400 / 400 Output: Urine Amount (Catheter) 1200 / 1200 650 / 650 Indwelling Urethral Catheter 1200 / 1200 650 / 650 Other: Date of Last Bowel Movement 09/14/18 09/14/18 09/14/18 # Bowel Movements 1 1 Result Diagrams: 09/15/18 04:55 09/15/18 04:55 Other Results: Laboratory Results WBC 8.1 th/mm3 (4.0-11.0) 09/15/18 04:55 RBC 3.89 mil/mm3 (4.50-5.90) L 09/15/18 04:55 Hgb 11.5 gm/dL (13.0-17.0) L 09/15/18 04:55 Hct 35.7 % (39.0-51.0) L 09/15/18 04:55 MCV 91.9 fL (80.0-100.0) 09/15/18 04:55 MCH 29.5 pg (27.0-34.0) 09/15/18 04:55 MCHC 32.1 % (32.0-36.0) 09/15/18 04:55 RDW 14.0 % (11.6-17.2) 09/15/18 04:55 Plt Count 195 th/mm3 (150-450) 09/15/18 04:55 MPV 10.0 fL (7.0-11.0) 09/15/18 04:55 Prelim Diff (Auto) Slide review pending 09/15/18 04:55 Neut % (Auto) 77.6 % (16.0-70.0) H 09/15/18 04:55 Lymph % (Auto) 13.9 % (9.0-44.0) 09/15/18 04:55 [place] % (Auto) 5.0 % (0.0-8.0) 09/15/18 04:55 Eos % (Auto) 3.0 % (0.0-4.0) 09/15/18 04:55 Baso % (Auto) 0.5 % (0.0-2.0) 09/15/18 04:55 Neut # (Auto) 6.3 th/mm3 (1.8-7.7) 09/15/18 04:55 Lymph # (Auto) 1.1 th/mm3 (1.0-4.8) 09/15/18 04:55 [place] # (Auto) 0.4 th/mm3 (0.0-0.9) 09/15/18 04:55 Eos # (Auto) 0.2 th/mm3 (0.0-0.4) 09/15/18 04:55 Baso # (Auto) 0.0 th/mm3 (0.0-0.2) 09/15/18 04:55 WBC Differential Manual diff final 09/15/18 04:55 Diff Scan Auto diff confirmed 09/13/18 08:20 Seg Neuts % (Manual) 70 % (16-70) 09/15/18 04:55 Band Neuts % (Manual) 14 % (0-6) H 09/15/18 04:55 Lymphocytes % (Manual) 10 % (9-44) 09/15/18 04:55 Monocytes % (Manual) 2 % (0-8) 09/15/18 04:55 Eosinophils % (Manual) 4 % (0-4) 09/15/18 04:55 Abs Neuts (Manual) 6.8 th/mm3 (1.8-7.7) 09/15/18 04:55 Differential Comment . 09/15/18 04:55 Platelet Estimate Normal (Normal) 09/15/18 04:55 Platelet Morphology Normal (Normal) 09/15/18 04:55 RBC Morphology Normal (Normal) 09/15/18 04:55 Hematology Comments 09/13/18 08:20 PT 11.6 sec (9.8-11.6) 09/10/18 13:53 INR 1.1 Ratio 09/10/18 13:53 APTT 25.2 sec (23.4-31.7) 09/10/18 13:53 Puncture Site Right radial 09/11/18 12:30 Patient Temperature 98.6 09/11/18 12:30 O2 Saturation 97 % (90-100) 09/11/18 12:30 ABG pH 7.46 (7.380-7.420) H 09/11/18 12:30 ABG pCO2 31 mmHg (38-42) L 09/11/18 12:30 ABG pO2 178 mmHG (61-120) H 09/11/18 12:30 ABG HCO3 22 mmol/L (22-26) 09/11/18 12:30 ABG O2 Content 15.4 Vol % (12.0-20.0) 09/11/18 12:30 ABG Base Excess -1.8 mmol/L (-2-2) 09/11/18 12:30 ABG Methemoglobin 1.5 % (0-2) 09/11/18 12:30 Lino Test Present 09/11/18 12:30 Hemoglobin 11.1 G/DL (12.0-16.0) L 09/11/18 12:30 Carboxyhemoglobin 0.7 % (0-4) 09/11/18 12:30 O2 Delivery Device Ventilator 09/11/18 12:30 Vent Setting [id number]/[id number]/14/5peep 09/11/18 12:30 Inspired O2 35 % 09/11/18 12:30 Critical Value No 09/11/18 12:30 Sodium 149 meq/L (136-145) H 09/15/18 04:55 Potassium 3.7 meq/L (3.5-5.1) 09/15/18 04:55 Chloride 117 meq/L (98-107) H 09/15/18 04:55 Carbon Dioxide 25.1 meq/L (21.0-32.0) 09/15/18 04:55 Anion Gap 7 meq/L (5-15) 09/15/18 04:55 BUN 35 mg/dL (7-18) H 09/15/18 04:55 Creatinine 0.88 mg/dL (0.60-1.30) 09/15/18 04:55 Estimated GFR 83 mL/min (>89) L 09/15/18 04:55 POC Glucose 188 mg/dl (68-110) H 09/15/18 11:16 Random Glucose 138 mg/dL (74-106) H 09/15/18 04:55 Hemoglobin A1c 8.8 % (4.3-6.0) H 09/11/18 13:50 Lactic Acid 5.4 mmol/L (0.4-2.0) H* 09/11/18 10:04 Calcium 8.9 mg/dL (8.5-10.1) 09/15/18 04:55 Calcium Adj for Albumin Cancelled 09/10/18 13:53 Phosphorus 2.7 mg/dL (2.5-4.9) 09/15/18 04:55 Magnesium 2.1 mg/dL (1.5-2.5) 09/15/18 04:55 Total Bilirubin 1.8 mg/dL (0.2-1.0) H 09/13/18 05:49 AST 37 U/L (15-37) 09/13/18 05:49 ALT 10 U/L (12-78) L 09/13/18 05:49 Alkaline Phosphatase 162 U/L (45-117) H 09/13/18 05:49 Ammonia 18 mcmol/L (11-32) 09/10/18 20:59 Total Creatine Kinase 154 U/L (39-308) 09/11/18 02:45 CK-MB (CK-2) Less than 1.0 ng/mL (0.5-3.6) 09/10/18 13:53 CK-MB (CK-2) % 0.3 % (0.0-4.0) 09/10/18 13:53 Troponin I 0.05 ng/mL (0.02-0.05) 09/10/18 20:59 B-Natriuretic Peptide 39 pg/mL (0-100) 09/11/18 13:50 Total Protein 6.0 g/dL (6.4-8.2) L 09/13/18 05:49 Albumin 1.4 g/dL (3.4-5.0) L 09/13/18 05:49 TSH 0.435 uIU/mL (0.358-3.740) 09/10/18 20:59 Thyroxine (T4) 8.7 mcg/dL (4.5-12.1) 09/10/18 20:59 Cortisol 34.8 mcg/dL 09/10/18 20:59 Urine Color Norma (Yellw/Straw) 09/10/18 15:15 Urine Clarity Hazy (Clear) H 09/10/18 15:15 Urine pH 5.0 (5.0-8.5) 09/10/18 15:15 Ur Specific [place] 1.023 (1.002-1.035) 09/10/18 15:15 Urine Protein 100 mg/dL (Neg-Trace) H 09/10/18 15:15 Urine Glucose (UA) Negative mg/dL (Negative) 09/10/18 15:15 Urine Ketones Negative mg/dL (Negative) 09/10/18 15:15 Urine Occult Blood Negative (Negative) 09/10/18 15:15 Urine Nitrate Negative (Negative) 09/10/18 15:15 Urine Bilirubin Negative (Negative) 09/10/18 15:15 Urine Urobilinogen 4 or greater mg/dL (Less than 2) 09/10/18 15:15 Ur Leukocyte Esterase Negative (Negative) 09/10/18 15:15 Urine RBC 1 /hpf (0-3) 09/10/18 15:15 Urine WBC 3 /hpf (0-5) 09/10/18 15:15 Amorphous Sediment Rare /hpf (None) H 09/10/18 15:15 Urine Bacteria Rare /hpf (None) H 09/10/18 15:15 Granular Casts 1 /lpf (None) 09/10/18 15:15 Urine Mucus Few /lpf (Occasional) H 09/10/18 15:15 Micro UA Comment Cath-culture ind 09/10/18 15:15 Ur Microscopic Review Not Reportable 09/10/18 15:15 Urine Culture Comments Cath-cult indicated 09/10/18 15:15 Nasal Screen MRSA (PCR) Not detected (Negative) 09/10/18 18:30 Random Vancomycin 14.6 Comment 09/12/18 17:39 Impressions Extremity Arterial Study 09/11/18 00:00 CONCLUSION: 1. Normal ANITRA bilaterally. 2. 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 Foot X-Ray 09/11/18 00:00 CONCLUSION: Chronic changes and no definite fracture for technique. Liver Ultrasound 09/12/18 00:00 CONCLUSION: 1. Gallbladder sludge without gallbladder wall thickening 2. No intrahepatic biliary duct dilatation Chest X-Ray 09/14/18 04:00 CONCLUSION: Clear lungs. Objective Remarks: GENERAL: Well-developed well-nourished early gentleman, intubated on no sedation currently performing CPAP SKIN: Warm and dry. HEAD: Atraumatic. Normocephalic. EYES: Pupils equal and round. No scleral icterus. No injection or drainage. ENT: No nasal bleeding or discharge. Mucous membranes pink and moist. NECK: Trachea midline. No JVD. CARDIOVASCULAR: Normal rate, regular rhythm. RESPIRATORY: No accessory muscle use. Clear to auscultation. Breath sounds equal bilaterally. GASTROINTESTINAL: Abdomen soft, non-tender, nondistended. No guarding. MUSCULOSKELETAL: Extremities without clubbing, cyanosis. 1+ edema bilateral upper extremities. left heel necrotic skin wound, left hip, necrotic skin wound gluteal fold unstageable. NEUROLOGICAL: Intubated and sedated. RASS -1. No gross focal/sensory deficits. Following commands. Assessment and Plan - Problem List (1) Influenza A Code(s): J10.1 - Influenza due to other identified influenza virus with other respiratory manifestations Status: Acute (2) Sacral decubitus ulcer, stage IV Code(s): L89.154 - Pressure ulcer of sacral region, stage 4 Status: Acute (3) Decubitus ulcer of ankle Code(s): L89.509 - Pressure ulcer of unspecified ankle, unspecified stage Status: Acute (4) Decubitus ulcer, hip Code(s): L89.209 - Pressure ulcer of unspecified hip, unspecified stage Status : Acute (5) Renal insufficiency Code(s): N28.9 - Disorder of kidney and ureter, unspecified Status: Acute (6) Sepsis Code(s): A41.9 - Sepsis, unspecified organism Status: Acute - Assessment and Plan Plan: Assessment This is a 83-year-old half-way with multiple comorbidities that had an alteration in mental status most likely secondary to sepsis the patient required intubation for airway detection and due to respiratory insufficiency, with noted concomitant influenza A diagnosis. The patient is critically ill. Plan by systems: Neurologic: Dementia Parkinson's disease Metabolic encephalopathy, most likely secondary to sepsis Propofol infusions to maintain ventilator synchrony Daily sedation vacation Ammonia, cortisol, TSH level-WNL Home medications and Singulair,Norvasc, Continue Sinemet 25/100 Respiratory: Acute hypoxemic respiratory failure 09/10 intubated in the ED 8.0 ET tube 26cm at the lip Ventilator bundle Duo nebs every 4 hours scheduled and every 2 hours as needed Wean FiO2 to maintain O2 saturation greater than 92% Follow-up chest x-ray in a.m. Continue CPAP trials-change to Precedex infusion to facilitate ventilator Cardiovascular: Sinus tachycardia-resolved Normotensive Initial troponin 0.02->0.05 Maintain map greater than 65 mmHg Hydralazine PRN for systolic greater than 1 6 Renal: Maintain Lainez -- Strict I/Os FEN/GI: Hypernatremia-resolved Severe protein calorie malnutrition D5W discontinued Sodium level 149, increase free water flushes 250 cc every 6 hours Begin Glucerna tube feeds goal rate 60 cc/hour and Bhanu protein packets 3 times daily Bowel regimen Zofran for nausea Albumin 1.4 Heme/ID: Influenza A Leukocytosis-resolved Sepsis Tamiflu x 7days 09/10 Pneumococcal, Legionella urine antigens-NGTD 09/10 sputum culture-staph aureus 09/10 blood and urine cultures- NGTD Wound culture to-group D enterococcus,MRSA Patient noted to have multiple necrotic unstageable wound ID following-Unasyn and Vanco. Cefepime discontinued 09/11 Endocrine: Diabetes mellitus Glucose monitoring per ICU protocol Insulin infusion discontinued 09/13 -- SSI-increase to high-dose Prophylaxis: GI Prophylaxis Famotidine twice daily DVT Prophylaxis -- SCDs Subcutaneous heparin every 12 hours Lines: Peripheral IVs providing adequate access. Central line if clinically indicated Dispo: Level 3 follow-up Palliative care is following plan for trial of extubation upon successful SBT parameters. Code Status: Alternative Discussed Condition With: No family at bedside. Discussed with MOTION PICTURE OPERATOR at bedside.
[2018-09-15 15:57] LABS: ABG Base Excess 2.3 mmol/L (-2-2); ABG PCO2 35 mmHg (38-42); ABG PO2 123 mmHG (61-120)
[2018-09-15] MEDS: Dexmedetomidine Inj 200 MCG in Sodium Chlor 0.9% Inj 48 ML IV.CONT PRN (17:18)
--- NOTE | 2018-09-15 17:53 | P.PNPOD ---
Subjective Interval history: Patient seen bedside intubated. Nursing present bedside for dressing change and evaluation. Physical Exam Vital signs: Vital Signs 09/14/18 18:00 09/14/18 18:30 09/14/18 19:00 Temperature Pulse Rate 68 67 68 Respiratory Rate Blood Pressure 158/77 H 153/73 H 145/70 H Pulse Oximetry 99 100 99 09/14/18 19:30 09/14/18 20:00 09/14/18 20:30 Temperature 97.9 F Pulse Rate 72 74 73 Respiratory Rate 30 H Blood Pressure 145/72 H 132/64 139/70 Pulse Oximetry 99 99 99 09/14/18 21:00 09/14/18 21:30 09/14/18 22:00 Temperature Pulse Rate 72 74 72 Respiratory Rate Blood Pressure 130/88 131/66 131/67 Pulse Oximetry 99 100 100 09/14/18 22:30 09/14/18 23:00 09/14/18 23:15 Temperature Pulse Rate 73 70 Respiratory Rate 14 Blood Pressure 142/70 H 126/65 Pulse Oximetry 99 99 99 09/14/18 23:17 09/14/18 23:30 09/15/18 00:00 Temperature 97.6 F Pulse Rate 71 70 75 Respiratory Rate 14 Blood Pressure 134/72 163/86 H Pulse Oximetry 99 98 09/15/18 00:30 09/15/18 01:00 09/15/18 01:30 Temperature Pulse Rate 74 75 74 Respiratory Rate Blood Pressure 146/71 H 136/65 134/68 Pulse Oximetry 100 99 99 09/15/18 02:00 09/15/18 02:30 09/15/18 03:00 Temperature Pulse Rate 72 69 66 Respiratory Rate Blood Pressure 118/65 128/69 114/64 Pulse Oximetry 98 98 93 L 09/15/18 03:10 09/15/18 03:30 09/15/18 03:54 Temperature Pulse Rate 71 67 Respiratory Rate 18 20 Blood Pressure 118/62 Pulse Oximetry 98 99 09/15/18 04:00 09/15/18 07:22 09/15/18 08:00 Temperature 97.9 F 97.5 F L Pulse Rate 66 60 64 Respiratory Rate 14 Blood Pressure 129/62 154/77 H Pulse Oximetry 99 100 97 09/15/18 11:31 09/15/18 11:33 09/15/18 11:38 Temperature 98.2 F Pulse Rate 67 65 Respiratory Rate 25 H 25 H Blood Pressure 129/66 Pulse Oximetry 99 100 09/15/18 14:52 09/15/18 16:00 Temperature 98.6 F Pulse Rate 68 80 Respiratory Rate 24 Blood Pressure 160/77 H Pulse Oximetry 100 99 Intake & Output 09/14/18 09/15/18 09/15/18 18:59 06:59 18:59 Intake Total 1062.5 / 1062.5 1835 / 1835 892.5 / 892.5 Output Total 1200 / 1200 650 / 650 1200 / 1200 Balance -137.5 / -137.5 1185 / 1185 -307.5 / -307.5 Weight 95.4 kg Intake: IV 462.5 / 462.5 1167 / 1167 392.5 / 392.5 LR 1000 mL Inj 1,000 ML @ 42 767 / 767 mls/hr IV.CONT .[id number] [facility] Rx# :[id number] Diprivan 1000 mg/100 ml Inj 1, 200 / 200 30 / 30 000 mg In 100 ml @ 5 MCG/KG/MIN 2.381 mls/hr IV.CONT TITRATE PRN Rx#:[id number] Unasyn Inj 1,500 MG In NS Inj 200 / 200 200 / 200 100 / 100 100 ML @ 200 mls/hr IV.SIG Q6H [facility] Rx#:[id number] Vancomycin Inj 1,250 MG In NS 262.5 / 262.5 262.5 / 262.5 Inj 250 ML @ 250 mls/hr IV.SIG Q24H [facility] Rx#:[id number] Oral 0 / 0 Tube Feeding 100 / 100 168 / 168 Tube Irrigant 100 / 100 Water Bolus Amount 500 / 500 400 / 400 500 / 500 Output: Urine Amount (Catheter) 1200 / 1200 650 / 650 1200 / 1200 Indwelling Urethral Catheter 1200 / 1200 650 / 650 1200 / 1200 Other: Date of Last Bowel Movement 09/14/18 09/14/18 09/14/18 # Bowel Movements 1 1 0 Narrative: Left heel eschar noted with no surrounding erythema and edema. No clinical signs of infection. Right heel deep tissue injury with blister. No clinical signs of infection. Capillary refill time under 3 seconds to digits x10. DP/PT pulses palpable. Contracture noted to bilateral lower extremity. Medications and Allergies Active Medications: Active Medications Acetaminophen (Tylenol) 650 mg PO Q6H PRN PRN Reason: PAIN 1-10 AND/OR FEVER >101F Al Hydroxide/Mg Hydroxide (Milk Of Xavier Calero) 30 ml PO Q12H PRN PRN Reason: Mild Constipation Albuterol (Albuterol Neb (Prn)) 2.5 mg NEB Q2HR NEB PRN PRN Reason: SHORTNESS OF BREATH/WHEEZING Albuterol (Duoneb Neb ([facility])) 1 ampul NEB Q4HR NEB [facility] Last Admin: 09/15/18 14:52 Dose: 1 ampul Bisacodyl (Dulcolax Supp) 10 mg RECTAL DAILY PRN PRN Reason: SEVERE CONSITIPATION Carbidopa/Levodopa (Sinemet 25/100 Mg) 1 tab PO TID [facility] Last Admin: 09/15/18 12:52 Dose: 1 tab Chlorhexidine Gluconate (Peridex 0.12% Oral Kit) 15 ml OROPHARYNG BID@0800, 2000 [facility] Last Admin: 09/15/18 07:33 Dose: 15 ml Chlorhexidine Gluconate (Chlorhexidine 2% Cloth) 3 pack TOPICAL DAILY@0400 [facility] Stop: 09/16/18 03:59 Last Admin: 09/15/18 03:11 Dose: Not Given Chlorhexidine Gluconate (Chlorhexidine 2% Cloth) 3 pack TOPICAL DAILY@0400 PRN PRN Reason: Extra cloth needed Stop: 09/16/18 03:59 Collagenase (Santyl Oint) 1 applicatio TOPICAL DAILY PRN PRN Reason: FOR DRESSING CHANGES Dextrose (D50w Vial) 50 ml IV.PUSH UNSCH PRN PRN Reason: PER HYPOGLYCEMIA PROTOCOL Dextrose (D50w Vial) 50 ml IV.PUSH UNSCH PRN PRN Reason: PER HYPOGLYCEMIA PROTOCOL Famotidine (Pepcid Pf Inj) 20 mg IV.PUSH Q12HR [facility] Last Admin: 09/15/18 09:13 Dose: 20 mg Glucagon (Glucagon Inj) 1 mg OTHER PRN PRN PRN Reason: for Hypoglycemia Protocol Heparin Sodium (Porcine) (Heparin Inj) 5,000 units SQ Q12H [facility] Last Admin: 09/15/18 15:39 Dose: 5,000 units Hydralazine HCl (Apresoline Inj) 20 mg IV.PUSH Q4H PRN PRN Reason: SBP>160, DBP>90 Hydralazine HCl (Apresoline) 50 mg PO Q4H PRN PRN Reason: SBP>160, DBP>90 Last Admin: 09/15/18 15:39 Dose: 50 mg Insulin Human Regular 100 unit (/ Sodium Chloride) 100 mls @ 0 mls/hr IV.CONT TITRATE PRN; Protocol PRN Reason: See protocol Last Titration: 09/13/18 13:13 Dose: Infused Ampicillin Sodium/Sulbactam Sodium 1,500 mg/ Sodium Chloride 100 mls @ 200 mls/ hr IV.SIG Q6H [facility] Last Admin: 09/15/18 17:17 Dose: 200 mls/hr Magnesium Sulfate 4 gm/ Sodium (Chloride) 100 mls @ 50 mls/hr IV.SIG UNSCH PRN PRN Reason: For Magnesium 0.9 - 1.1 mg/dL Magnesium Sulfate 2 gm/ Sodium (Chloride) 100 mls @ 50 mls/hr IV.SIG UNSCH PRN PRN Reason: For Magnesium 1.2 - 1.6 mg/dL Potassium Chloride (Kcl 20 Meq Premix Inj) 20 meq in 100 mls @ 50 mls/hr IV.SIG Q2H PRN PRN Reason: For Potassium 3.3 - 3.5 mEq/L Potassium Chloride (Kcl 40 Meq Premix Inj) 40 meq in 100 mls @ 25 mls/hr IV.SIG UNSCH PRN PRN Reason: For Potassium 3.3 - 3.5 mEq/L Potassium Chloride (Kcl 20 Meq Premix Inj) 20 meq in 100 mls @ 50 mls/hr IV.SIG Q2H PRN PRN Reason: For Potassium 2.8 - 3.2 mEq/L Last Infusion: 09/11/18 20:06 Dose: Infused Potassium Phosphate 30 mmol/ (Sodium Chloride) 260 mls @ 42 mls/hr IV.SIG UNSCH PRN PRN Reason: SEE LABEL COMMENTS Sodium Phosphate 30 mmol/ (Sodium Chloride) 260 mls @ 42 mls/hr IV.SIG UNSCH PRN PRN Reason: For Phosphorus < 2.5 mg/dL Potassium Chloride (Kcl 40 Meq Premix Inj) 40 meq in 100 mls @ 25 mls/hr IV.SIG Q2H PRN PRN Reason: For Potassium 2.8 - 3.2 mEq/L Vancomycin HCl 1,250 mg/ (Sodium Chloride) 262.5 mls @ 250 mls/hr IV.SIG Q24H [facility] Last Infusion: 09/15/18 12:53 Dose: Infused Dexmedetomidine HCl 200 mcg/ (Sodium Chloride) 50 mls @ 4.77 mls/hr IV.CONT TITRATE PRN; Protocol PRN Reason: Per Protocol Last Admin: 09/15/18 17:18 Dose: 0.2 mcg/kg/hr, 4.77 mls/hr Insulin Aspart (Novolog Insulin Correctional Sugar Inj) 0 unit SQ Q6HR [facility]; Protocol Last Admin: 09/15/18 11:39 Dose: 5 unit L-Arginine/L-Glutamine/Calcium HMB (Bhanu Packet) 1 packet G-TUBE TID [facility] Last Admin: 09/15/18 17:22 Dose: 1 packet Lactulose (Lactulose Liq) 30 ml PO DAILY PRN PRN Reason: SEVERE CONSITIPATION Magnesium Oxide (Mag-Ox) 800 mg PO UNSCH PRN PRN Reason: For Magnesium 1.2 - 1.6 mg/dL Miscellaneous Information ([facility] Ordered Lab Info) 0 each OTHER ONCE ONE Stop: 09/16/18 11:46 Miscellaneous Medication () 1 each OROPHARYNG 0000,0400,1200,1600 [facility] Last Admin: 09/15/18 15:39 Dose: 1 each Oseltamivir Phosphate (Tamiflu Liq) 75 mg PO BID [facility] Stop: 09/17/18 20:59 Last Admin: 09/15/18 09:13 Dose: 75 mg Pharmacy Profile Note (Vancomycin Consult Pharmacy) 1 each OTHER UNSCH PRN PRN Reason: Pharmacy to dose Potassium Bicarb/Potassium Chloride (K-Lyte Cl Eff) 50 meq PO UNSCH PRN PRN Reason: For Potassium 3.3 - 3.5 mEq/L Last Admin: 09/14/18 05:46 Dose: 50 meq Potassium Phosphate (K-Phos Original) 2,000 mg PO Q4H PRN PRN Reason: Phosphorus Less Than 2.5 mg/dL Potassium Phosphate (K-Phos Original) 2,000 mg PO UNSCH PRN PRN Reason: SEE LABEL COMMENTS Senna/Docusate Sodium (Ginny-Colace) 1 tab PO BID [facility] Last Admin: 09/15/18 09:13 Dose: Not Given Sennosides (Senokot) 17.2 mg PO Q12H PRN PRN Reason: Moderate Constipation Sodium Chloride (Ns Flush) 2 ml IV.FLUSH BID [facility] Last Admin: 09/15/18 09:12 Dose: 2 ml Sodium Chloride (Ns Flush) 2 ml IV.FLUSH PRN PRN PRN Reason: FLUSH AFTER USING IV ACCESS Sodium Hypochlorite (Dakin's 0.125% Top Soln) 0 ml TOPICAL Q8HR [facility] Last Admin: 09/15/18 13:25 Dose: 500 ml Sterile Water (Free Water) 250 ml G-TUBE Q6HR [facility] Last Admin: 09/15/18 17:18 Dose: 250 ml Allergies Allergy/AdvReac Type Severity Reaction Status Date / Time No Known Allergies Allergy Verified 09/10/18 13:43 Home Medications Medication Instructions Recorded Confirmed Type acetaminophen [Tylenol Extra 500 mg PO TID 09/10/18 09/10/18 History Strength] amlodipine [Norvasc] 5 mg PO DAILY 09/10/18 09/10/18 History hydrochlorothiazide 25 mg PO DAILY 09/10/18 09/10/18 History lactulose 2 tbsp PO EVERY OTHER DAY 09/10/18 09/10/18 History memantine 10 mg PO BID 09/10/18 09/10/18 History montelukast [Singulair] 10 mg PO QPM 09/10/18 09/10/18 History sulfamethoxazole-trimethoprim 1 tab PO BID 09/10/18 09/10/18 History Results - Labs CBC & Chem 7: 09/15/18 04:55 09/15/18 04:55 Laboratory Results - last 24 hr 09/15/18 09/15/18 09/15/18 00:05 04:52 04:55 WBC 8.1 RBC 3.89 L Hgb 11.5 L Hct 35.7 L MCV 91.9 MCH 29.5 MCHC 32.1 RDW 14.0 Plt Count 195 MPV 10.0 Prelim Diff (Auto) Slide review pending Neut % (Auto) 77.6 H Lymph % (Auto) 13.9 [place] % (Auto) 5.0 Eos % (Auto) 3.0 Baso % (Auto) 0.5 Neut # (Auto) 6.3 Lymph # (Auto) 1.1 [place] # (Auto) 0.4 Eos # (Auto) 0.2 Baso # (Auto) 0.0 WBC Differential Manual diff final Seg Neuts % (Manual) 70 Band Neuts % (Manual) 14 H Lymphocytes % (Manual) 10 Monocytes % (Manual) 2 Eosinophils % (Manual) 4 Abs Neuts (Manual) 6.8 Differential Comment . Platelet Estimate Normal Platelet Morphology Normal RBC Morphology Normal Puncture Site Patient Temperature O2 Saturation ABG pH ABG pCO2 ABG pO2 ABG HCO3 ABG O2 Content ABG Base Excess ABG Methemoglobin Lino Test Hemoglobin Carboxyhemoglobin O2 Delivery Device Vent Setting Inspired O2 Critical Value Sodium Potassium Chloride Carbon Dioxide Anion Gap BUN Creatinine Estimated GFR POC Glucose 188 H 124 H Random Glucose Calcium Phosphorus Magnesium 09/15/18 09/15/18 09/15/18 04:55 11:16 15:47 WBC RBC Hgb Hct MCV MCH MCHC RDW Plt Count MPV Prelim Diff (Auto) Neut % (Auto) Lymph % (Auto) [place] % (Auto) Eos % (Auto) Baso % (Auto) Neut # (Auto) Lymph # (Auto) [place] # (Auto) Eos # (Auto) Baso # (Auto) WBC Differential Seg Neuts % (Manual) Band Neuts % (Manual) Lymphocytes % (Manual) Monocytes % (Manual) Eosinophils % (Manual) Abs Neuts (Manual) Differential Comment Platelet Estimate Platelet Morphology RBC Morphology Puncture Site Left radial Patient Temperature 98.6 O2 Saturation 96 ABG pH 7.48 H ABG pCO2 35 L ABG pO2 123 H ABG HCO3 26 ABG O2 Content 15.9 ABG Base Excess 2.3 H ABG Methemoglobin 1.5 Lino Test Present Hemoglobin 11.6 L Carboxyhemoglobin 0.7 O2 Delivery Device Ventilator Vent Setting [id number] Inspired O2 30 Critical Value No Sodium 149 H Potassium 3.7 Chloride 117 H Carbon Dioxide 25.1 Anion Gap 7 BUN 35 H Creatinine 0.88 Estimated GFR 83 L POC Glucose 188 H Random Glucose 138 H Calcium 8.9 Phosphorus 2.7 Magnesium 2.1 09/15/18 17:22 WBC RBC Hgb Hct MCV MCH MCHC RDW Plt Count MPV Prelim Diff (Auto) Neut % (Auto) Lymph % (Auto) [place] % (Auto) Eos % (Auto) Baso % (Auto) Neut # (Auto) Lymph # (Auto) [place] # (Auto) Eos # (Auto) Baso # (Auto) WBC Differential Seg Neuts % (Manual) Band Neuts % (Manual) Lymphocytes % (Manual) Monocytes % (Manual) Eosinophils % (Manual) Abs Neuts (Manual) Differential Comment Platelet Estimate Platelet Morphology RBC Morphology Puncture Site Patient Temperature O2 Saturation ABG pH ABG pCO2 ABG pO2 ABG HCO3 ABG O2 Content ABG Base Excess ABG Methemoglobin Lino Test Hemoglobin Carboxyhemoglobin O2 Delivery Device Vent Setting Inspired O2 Critical Value Sodium Potassium Chloride Carbon Dioxide Anion Gap BUN Creatinine Estimated GFR POC Glucose 122 H Random Glucose Calcium Phosphorus Magnesium Microbiology 09/10/18 13:53 Blood - Peripheral Aerobic Blood Culture - Final No growth in 5 days 09/10/18 13:53 Blood - Peripheral Anaerobic Blood Culture - Final No growth in 5 days 09/10/18 13:53 Blood - Peripheral Aerobic Blood Culture - Final No growth in 5 days 09/10/18 13:53 Blood - Peripheral Anaerobic Blood Culture - Final No growth in 5 days Assessment and Plan - Plan 83-year-old male with left heel eschar and right heel deep tissue injury Patient examined and evaluated Continue with daily dressing changes of Santyl to the left heel Daily dressing changes of Betadine soaked gauze to right heel We will continue to evaluate patient weekly while in house Stable bilateral lower extremity No clinical signs of infection to lower extremity Dressing change with nursing present bedside
[2018-09-15 19:28] LABS: Baso % (Auto) 0.5 % (0.0-2.0); Eos # (Auto) 0.2 th/mm3 (0.0-0.4); Eos % (Auto) 2.9 % (0.0-4.0); Hematocrit 34.9 % (39.0-51.0); Hemoglobin 11.3 gm/dL (13.0-17.0); Lymph # (Auto) 0.7 th/mm3 (1.0-4.8); Lymph % (Auto) 9.5 % (9.0-44.0); Mean Corpuscular HGB Conc 32.4 % (32.0-36.0); Mean Corpuscular Hemoglobin 29.2 pg (27.0-34.0); Mean Corpuscular Volume 89.9 fL (80.0-100.0); Mean Platelet Volume 9.1 fL (7.0-11.0); Mono # (Auto) 0.4 th/mm3 (0.0-0.9); Mono % (Auto) 5.2 % (0.0-8.0); Neut # (Auto) 6.3 th/mm3 (1.8-7.7); Neut % (Auto) 81.9 % (16.0-70.0); Platelet Count 256 th/mm3 (150-450); Red Blood Count 3.88 mil/mm3 (4.50-5.90); Red Cell Distribution Width 14.2 % (11.6-17.2); White Blood Count 7.7 th/mm3 (4.0-11.0)
[2018-09-15 19:49] LABS: Anion Gap 8 meq/L (5-15); Blood Urea Nitrogen 38 mg/dL (7-18); Calcium 8.9 mg/dL (8.5-10.1); Carbon Dioxide 25.2 meq/L (21.0-32.0); Chloride 115 meq/L (98-107); Glomerular Filtration Rate Greater Than 89 mL/min (>89); Glucose,Random 135 mg/dL (74-106); Magnesium 1.9 mg/dL (1.5-2.5); Potassium 3.5 meq/L (3.5-5.1); Sodium 148 meq/L (136-145)
[2018-09-15 19:51] LABS: Phosphorus 2.4 mg/dL (2.5-4.9)
[2018-09-15 19:55] LABS: Eosinophils 4 % (0-4); Lymphocytes 8 % (9-44); Metamyelocytes 1 % (0-1); Monocytes 6 % (0-8)
[2018-09-15 19:56] LABS: Platelet Estimate Normal (Normal); Platelet Morphology Normal (Normal); RBC Morphology Normal (Normal)
[2018-09-16] MEDS: Dexmedetomidine Inj 200 MCG in Sodium Chlor 0.9% Inj 48 ML IV.CONT PRN (01:23)
[2018-09-16] MEDS: Heparin - SQ 10,000 UNITS/ML Vial SQ SCH ×2 (03:38→15:21)
[2018-09-16] MEDS: Oral Hygiene Kit OROPHARYNG SCH ×4 (03:38→23:14)
[2018-09-16] MEDS: Ampicillin/Sulbactam Inj 1,500 MG in Sodium Chloride 0.9% Inj 100 ML IV.SIG SCH ×4 (04:22→22:08)
--- NOTE | 2018-09-16 04:53 | XR ---
EXAM DATE: 09/16/2018 4:45 AM EST AGE/SEX: 83 years / Male INDICATIONS: Respiratory failure. CLINICAL DATA: This is the patient's subsequent encounter. Patient reports that signs and symptoms h ave been present for 4 - 6 days and indicates a pain score of Nonresponsive. MEDICAL/SURGICAL HISTORY: Diabetes. Hypertension. Parkinson's disease. Influenza A. Renal insu fficiency. Sepsis. Non-responsive. COMPARISON: [facility] [place] 1[place] SINGLE AP, 09/14/2018. . FINDINGS: Portable AP view of the chest demonstrates a normal-sized cardiac silhouette with calcification of th e aorta. ETT and nasogastric tube are present and EKG lines overlie the patient. Lungs are underinfla marbella with mild subsegmental atelectasis at the lung bases. No effusion, consolidation, or pneumothorax is identified. Bones demonstrate no acute abnormality. CONCLUSION: Mild atelectasis at the lung bases. Otherwise, no acute finding is identified. Electronically signed by: Gregorio Bauer MD Board Certified Radiologist 09/16/2018 4:52 AM EST
[2018-09-16] MEDS: Sodium Hypochlorite 0.125% Top Soln 500 ML Bottle TOPICAL SCH ×3 (06:07→21:30)
[2018-09-16] MEDS: Insulin NovoLOG Aspart Correctional Sugar Inj SQ SCH ×4 (06:08→23:57)
[2018-09-16] MEDS: hydrALAZINE 50 MG Tablet PO PRN ×4 (06:24→21:36)
[2018-09-16 07:07] LABS: Glomerular Filtration Rate Greater Than 89 mL/min (>89)
[2018-09-16] MEDS: Chlorhexidine 0.12% Oral Kit 15 ML UDC OROPHARYNG SCH ×2 (07:26→20:48)
[2018-09-16] MEDS: Senna/Docusate Sodium 8.6/50 MG Tablet PO SCH ×2 (08:27→20:48)
[2018-09-16] MEDS: Oseltamivir Liq 30 MG/5 ML Oral Syringe PO SCH ×2 (08:28→20:48)
[2018-09-16] MEDS: Famotidine PF Inj 20 MG/2 ML Vial IV.PUSH SCH ×2 (08:28→20:48)
--- NOTE | 2018-09-16 09:14 | P.PNID ---
Subjective Remarks: Patient is an 83-year-old male, brought into the hospital with altered mental status. He apparently also has been having breathing problem the last several days. There was no mention of any fever chills or any congestion. No mention of any other problem as far as or any GI complaints. According to the record patient is able to communicate but otherwise nonambulatory as a baseline. On evaluation he was found to have leukocytosis. His creatinine was 1.8. Lactic acid was elevated. Chest x-ray was normal. Urinalysis was unremarkable. Patient required intubation. His initial white count was 17,000 , and its down to 16,000. Influenza testing is positive for influenza A. Blood cultures are negative. Patient was found to have multiple decubitus including the left hip, the coccyx, and bilateral heel. His LFTs are also mildly elevated. Infectious disease consultation has been requested to assist with evaluation and treatment of leukocytosis. Notes reviewed Remains on CPAP, looks comfortable Temps ok Lethargic WBC normalB sludge no fluid around Influenza A Ag (+) Sputum Staph aureus MSSA Wound C/S MRSA, skin almas and Enterococcus Antibiotics: Tamiflu - to finish tomorrow Unasyn Vancomycin Past Medical History: Parkinson disease (Acute) Diabetes (Acute) Dementia (Acute) Hypertension (Acute) Hernia (Acute) History of left hip replacement (Acute) Allergies/Adverse Reactions: Allergies No Known Allergies Allergy (Verified 09/10/18 13:43) Objective Vital Signs 09/15/18 09:30 09/15/18 10:00 09/15/18 10:30 Temperature Pulse Rate 60 61 64 Respiratory Rate Blood Pressure 168/93 H 175/83 H 156/74 H Pulse Oximetry 99 99 99 09/15/18 11:00 09/15/18 11:30 09/15/18 11:31 Temperature Pulse Rate 71 68 67 Respiratory Rate 25 H Blood Pressure 181/84 H 129/66 Pulse Oximetry 99 100 09/15/18 11:33 09/15/18 11:38 09/15/18 12:00 Temperature 98.2 F Pulse Rate 65 60 Respiratory Rate 25 H Blood Pressure 129/66 171/79 H Pulse Oximetry 99 100 97 09/15/18 12:30 09/15/18 13:00 09/15/18 13:30 Temperature Pulse Rate 60 60 62 Respiratory Rate Blood Pressure 157/75 H 170/79 H 160/76 H Pulse Oximetry 99 99 100 09/15/18 14:00 09/15/18 14:01 09/15/18 14:30 Temperature Pulse Rate 60 59 L 59 L Respiratory Rate Blood Pressure 181/81 H 169/81 H Pulse Oximetry 98 99 99 09/15/18 14:52 09/15/18 15:00 09/15/18 15:30 Temperature Pulse Rate 68 71 69 Respiratory Rate 24 Blood Pressure 164/86 H 185/84 H Pulse Oximetry 100 99 97 09/15/18 16:00 09/15/18 16:30 09/15/18 17:00 Temperature 98.6 F Pulse Rate 80 85 87 Respiratory Rate Blood Pressure 160/77 H 155/77 H 153/78 H Pulse Oximetry 99 98 97 09/15/18 17:30 09/15/18 18:00 09/15/18 18:30 Temperature Pulse Rate 84 81 78 Respiratory Rate Blood Pressure 152/97 H 152/79 H 142/75 H Pulse Oximetry 99 98 95 09/15/18 19:00 09/15/18 19:30 09/15/18 19:52 Temperature Pulse Rate 76 75 71 Respiratory Rate 14 Blood Pressure 146/77 H 136/75 Pulse Oximetry 95 96 96 09/15/18 20:00 09/15/18 20:30 09/15/18 21:00 Temperature 98.7 F Pulse Rate 70 71 68 Respiratory Rate Blood Pressure 151/83 H 137/73 134/65 Pulse Oximetry 97 96 97 09/15/18 21:30 09/15/18 22:00 09/15/18 22:30 Temperature Pulse Rate 64 61 57 L Respiratory Rate Blood Pressure 137/69 133/68 134/66 Pulse Oximetry 96 96 96 09/15/18 23:00 09/15/18 23:11 09/15/18 23:13 Temperature Pulse Rate 64 63 Respiratory Rate 14 14 Blood Pressure 168/86 H Pulse Oximetry 95 98 09/15/18 23:30 09/16/18 00:00 09/16/18 00:30 Temperature 98.6 F Pulse Rate 66 71 68 Respiratory Rate Blood Pressure 168/85 H 153/77 H 145/77 H Pulse Oximetry 98 98 96 09/16/18 01:00 09/16/18 01:30 09/16/18 02:00 Temperature Pulse Rate 66 63 59 L Respiratory Rate 18 Blood Pressure 132/72 130/72 Pulse Oximetry 96 96 95 09/16/18 02:01 09/16/18 02:30 09/16/18 03:00 Temperature Pulse Rate 61 59 L 53 L Respiratory Rate 19 14 14 Blood Pressure 151/75 H 129/64 Pulse Oximetry 96 97 96 09/16/18 03:01 09/16/18 03:30 09/16/18 04:00 Temperature 98.6 F Pulse Rate 53 L 49 L 52 L Respiratory Rate 15 14 14 Blood Pressure 153/73 H 148/70 H Pulse Oximetry 98 96 97 09/16/18 04:01 09/16/18 04:08 09/16/18 04:09 Temperature Pulse Rate 57 L 50 L Respiratory Rate 16 15 14 Blood Pressure 161/87 H Pulse Oximetry 97 100 09/16/18 07:18 09/16/18 08:00 Temperature 98.7 F Pulse Rate 59 L 60 Respiratory Rate 19 18 Blood Pressure 149/69 H Pulse Oximetry 100 98 Intake & Output 09/15/18 09/16/18 09/16/18 18:59 06:59 18:59 Intake Total 992.5 / 992.5 316 / 316 Output Total 1200 / 1200 700 / 700 Balance -207.5 / -207.5 -384 / -384 Weight 95.6 kg Intake: IV 492.5 / 492.5 250 / 250 Precedex Inj 200 MCG In NS Inj 50 / 50 48 ML @ 0.2 MCG/KG/HR 4.77 mls/ hr IV.CONT TITRATE PRN Rx#: [id number] Diprivan 1000 mg/100 ml Inj 1, 30 / 30 000 mg In 100 ml @ 5 MCG/KG/MIN 2.381 mls/hr IV.CONT TITRATE PRN Rx#:[id number] Unasyn Inj 1,500 MG In NS Inj 200 / 200 200 / 200 100 ML @ 200 mls/hr IV.SIG Q6H [facility] Rx#:[id number] Vancomycin Inj 1,250 MG In NS 262.5 / 262.5 Inj 250 ML @ 250 mls/hr IV.SIG Q24H [facility] Rx#:[id number] Oral 0 / 0 Tube Feeding 66 / 66 Water Bolus Amount 500 / 500 Output: Urine Amount (Catheter) 1200 / 1200 700 / 700 Indwelling Urethral Catheter 1200 / 1200 700 / 700 Other: Date of Last Bowel Movement 09/14/18 09/14/18 09/14/18 # Bowel Movements 0 1 09/10/18 13:53 Blood - Peripheral Aerobic Blood Culture - Final No growth in 5 days 09/10/18 13:53 Blood - Peripheral Anaerobic Blood Culture - Final No growth in 5 days 09/10/18 13:53 Blood - Peripheral Aerobic Blood Culture - Final No growth in 5 days 09/10/18 13:53 Blood - Peripheral Anaerobic Blood Culture - Final No growth in 5 days 09/10/18 20:20 Sputum - Endotracheal Gram Stain - Final 09/10/18 20:20 Sputum - Endotracheal Sputum Culture - Final Staphylococcus aureus 09/10/18 15:55 Wound - Hip Gram Stain - Final 09/10/18 15:55 Wound - Hip Wound Culture - Final Enterococcus faecalis S. aureus MRSA Lab - Hematology Results 09/15/18 09/15/18 04:55 18:05 WBC 8.1 7.7 RBC 3.89 L 3.88 L Hgb 11.5 L 11.3 L Hct 35.7 L 34.9 L MCV 91.9 89.9 MCH 29.5 29.2 MCHC 32.1 32.4 RDW 14.0 14.2 Plt Count 195 256 D MPV 10.0 9.1 Prelim Diff (Auto) Slide review pending Slide review pending Neut % (Auto) 77.6 H 81.9 H Lymph % (Auto) 13.9 9.5 [place] % (Auto) 5.0 5.2 Eos % (Auto) 3.0 2.9 Baso % (Auto) 0.5 0.5 Neut # (Auto) 6.3 6.3 Lymph # (Auto) 1.1 0.7 L [place] # (Auto) 0.4 0.4 Eos # (Auto) 0.2 0.2 Baso # (Auto) 0.0 0.0 WBC Differential Manual diff final Manual diff final Seg Neuts % (Manual) 70 67 Band Neuts % (Manual) 14 H 14 H Lymphocytes % (Manual) 10 8 L Monocytes % (Manual) 2 6 Eosinophils % (Manual) 4 4 Metamyelocytes % (Man) 1 Abs Neuts (Manual) 6.8 6.3 Differential Comment . . Platelet Estimate Normal Normal Platelet Morphology Normal Normal RBC Morphology Normal Normal Lab - Chemistry Results 09/14/18 09/14/18 09/15/18 11:35 17:05 00:05 Sodium Potassium Chloride Carbon Dioxide Anion Gap BUN Creatinine Estimated GFR POC Glucose 249 H 141 H 188 H Random Glucose Calcium Phosphorus Magnesium 09/15/18 09/15/18 09/15/18 04:52 04:55 11:16 Sodium 149 H Potassium 3.7 Chloride 117 H Carbon Dioxide 25.1 Anion Gap 7 BUN 35 H Creatinine 0.88 Estimated GFR 83 L POC Glucose 124 H 188 H Random Glucose 138 H Calcium 8.9 Phosphorus 2.7 Magnesium 2.1 09/15/18 09/15/18 09/15/18 17:22 18:05 20:45 Sodium 148 H Potassium 3.5 Chloride 115 H Carbon Dioxide 25.2 Anion Gap 8 BUN 38 H Creatinine 0.67 Estimated GFR Greater than 89 POC Glucose 122 H 172 H Random Glucose 135 H Calcium 8.9 Phosphorus 2.4 L Magnesium 1.9 09/15/18 09/16/18 09/16/18 23:17 04:53 04:58 Sodium Potassium Chloride Carbon Dioxide Anion Gap BUN Creatinine 0.70 Estimated GFR Greater than 89 POC Glucose 148 H 206 H Random Glucose Calcium Phosphorus Magnesium Imaging: ITS Impressions Extremity Arterial Study 09/11/18 00:00 CONCLUSION: 1. Normal ANITRA bilaterally. 2. 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 Foot X-Ray 09/11/18 00:00 CONCLUSION: Chronic changes and no definite fracture for technique. Liver Ultrasound 09/12/18 00:00 CONCLUSION: 1. Gallbladder sludge without gallbladder wall thickening 2. No intrahepatic biliary duct dilatation Chest X-Ray 09/16/18 04:00 CONCLUSION: Mild atelectasis at the lung bases. Otherwise, no acute finding is identified. Physical Exam: GENERAL: opens eyes, on CPAP, NAD. SKIN: Cool and dry. No generalized rash. He has dry decubitus in both heel, larger on L than on R. There is an unstageable decubitus, black eschar, about 1.2 in, in L hip. There is a large black eschar in coccyx. EYES: [place] conjunctiva. No petechia or hemorrhage. No scleral icterus. No injection or drainage. EARS, NOSE AND THROAT: Nose without bleeding or purulent nasal discharge. He is orally intubated. NECK: Trachea midline. Supple and not tender, no meningeal signs CARDIOVASCULAR: Regular rate and rhythm. No murmurs, rubs or gallops heard RESPIRATORY: Clear to auscultation. Breath sounds equal bilaterally. No rales , wheezing or rhonchi ABDOMEN: Soft, non-tender, nondistended. Bowel sounds present and normoactive. EXTREMITIES: No clubbing, cyanosis, or edema. NEUROLOGICAL: Opens eyes PSYCHIATRIC: Unable to assess : Lainez catheter in place, urine looks clear LINE: No evidence of infection Assessment and Plan - Plan Impression Leukocytosis, etiology? - CXR clear - UA ok - has multiple unstageable decubitus - dehydrated - abnormal LFT Multiple decubitus, unstageable Influenza A (+) Respiratory failure Renal insufficiency, better, likely dehydrated Recommendation Continue IV Unasyn Continue Vancomycin Continue Abx this weekend, and then determine course of Rx Wound care Weaning per CCM
[2018-09-16] MEDS ORDERED: Pharmacy Ordered Lab Info OTHER ONE (11:45)
[2018-09-16] MEDS: Vancomycin Inj 1,250 MG in Sodium Chlor 0.9% Inj 250 ML IV.SIG SCH (12:44)
--- NOTE | 2018-09-16 13:51 | P.PNPAL ---
Palliative care asked to assist with obtaining information for patient's children. Spoke with patient's sister, Marlen. She states she spoke with patient's son Christian this morning and confirmed she could provide us with his contact information. Per [place] Statutes, in absence of written advance directives, health care proxy decision making falls to the majority of adult children. Important Contacts * Christian Liao, son: [phone] * Blanca Liao, daughter: [phone] * Sin Liao JR: developmentally delayed r/t spinal meningitis Palliative care MIXING TECHNICIAN to speak with family to assist with goals of medical treatment discussion.
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
[2018-09-16 15:11] LABS: Baso # (Auto) 0.1 th/mm3 (0.0-0.2); Baso % (Auto) 0.7 % (0.0-2.0); Eos # (Auto) 0.2 th/mm3 (0.0-0.4); Eos % (Auto) 1.7 % (0.0-4.0); Hematocrit 34.2 % (39.0-51.0); Hemoglobin 11.3 gm/dL (13.0-17.0); Lymph # (Auto) 1.3 th/mm3 (1.0-4.8); Lymph % (Auto) 13.8 % (9.0-44.0); Mean Corpuscular HGB Conc 33.1 % (32.0-36.0); Mean Corpuscular Hemoglobin 29.7 pg (27.0-34.0); Mean Corpuscular Volume 89.8 fL (80.0-100.0); Mono # (Auto) 0.7 th/mm3 (0.0-0.9); Mono % (Auto) 7.3 % (0.0-8.0); Neut # (Auto) 7.1 th/mm3 (1.8-7.7); Neut % (Auto) 76.5 % (16.0-70.0); Platelet Count 307 th/mm3 (150-450); Red Blood Count 3.81 mil/mm3 (4.50-5.90); Red Cell Distribution Width 13.8 % (11.6-17.2); White Blood Count 9.3 th/mm3 (4.0-11.0)
[2018-09-16 15:38] LABS: Eosinophils 1 % (0-4); Lymphocytes 9 % (9-44); Monocytes 2 % (0-8); RBC Morphology Normal (Normal)
[2018-09-16 15:39] LABS: Platelet Estimate Normal (Normal); Platelet Morphology Normal (Normal)
--- NOTE | 2018-09-16 15:42 | P.PNCC ---
Subjective Subjective Remarks/Hospital Course: Subjective 09/11: Afebrile . Lactic acid only slightly decreased this a.m. ID has been consulted patient continues on vancomycin and the patient was noted to be hypernatremic D5W was started last evening and subsequently insulin infusion at 2 units/h. The patient has 3 siblings. Sister met yesterday evidently is the one that goes to the jail facility and feeds him, despite being lethargic. Also informed that that sister was also feeding him narcotics, which the jail facility is investigating. The patient continues to have decreased mentation off propofol. Repeat BMP shows decreasing sodium now 160. Free water flushes have been added to medication regimen. I discussed extensively with Sister Trena Zafar by telephone, the patient's POA the patient's condition and provided a medical status update. The patient's POA, and another sibling requested we place him in DNR. The POA states she has the paperwork at home however she is on vacation at this time and will provided via fax the patient has a living will. Palliative care also has been consulted to help evaluate/to define goals. The patient was placed in alternate CODE STATUS. The patient is hemodynamically stable at this time. 09/12: Afebrile. No further cardiac events overnight. And CPAP trials this a.m. Wound care consulted all wounds unstageable recommendations implemented. Tube feeds initiated per dietitian's recommendations per hypernatremia resolving D5W discontinued. The patient is continued on free water flushes. Leukocytosis resolving. 09/13: No acute events overnight. Patient tolerating CPAP trials. Patient tolerating tube feeds. Continues on low-dose propofol. 09/14: CPAP trials initiated at 8 AM currently patient tolerating . Tube feeds placed on hold in anticipation of possible SBT trials this afternoon. Resolution of leukocytosis and hypernatremia. IV fluids discontinued. 09/15:The patient has been on CPAP since 6am, sedation remains off. Pt still lethargic , unable to perform SBT at this time. Precedex infusion initiated to facilitate ventilator weaning propofol has been discontinued. Patient remains slightly hypernatremia increase in free water flushes. Patient is responding off of sedation though still lethargic. 09/16: Sedation for over 12 hours. Patient responding with upper extremities commands. The patient has continued on CPAP trials for greater than 8 hours. We will attempt SBT. Tentative plan for trial of extubation. Attempts made to contact Christian Liao patient's son and Blanca Liao patient's daughter after obtaining the information from palliative care merchandise flow team member to provide medical status update and began conversation to define goals of care, unsuccessful. Objective Vital Signs / I&O: Vital Signs 09/15/18 15:30 09/15/18 16:00 09/15/18 16:30 Temperature 98.6 F Pulse Rate 69 80 85 Respiratory Rate Blood Pressure 185/84 H 160/77 H 155/77 H Pulse Oximetry 97 99 98 09/15/18 17:00 09/15/18 17:30 09/15/18 18:00 Temperature Pulse Rate 87 84 81 Respiratory Rate Blood Pressure 153/78 H 152/97 H 152/79 H Pulse Oximetry 97 99 98 09/15/18 18:30 09/15/18 19:00 09/15/18 19:30 Temperature Pulse Rate 78 76 75 Respiratory Rate Blood Pressure 142/75 H 146/77 H 136/75 Pulse Oximetry 95 95 96 09/15/18 19:52 09/15/18 20:00 09/15/18 20:30 Temperature 98.7 F Pulse Rate 71 70 71 Respiratory Rate 14 Blood Pressure 151/83 H 137/73 Pulse Oximetry 96 97 96 09/15/18 21:00 09/15/18 21:30 09/15/18 22:00 Temperature Pulse Rate 68 64 61 Respiratory Rate Blood Pressure 134/65 137/69 133/68 Pulse Oximetry 97 96 96 09/15/18 22:30 09/15/18 23:00 09/15/18 23:11 Temperature Pulse Rate 57 L 64 63 Respiratory Rate 14 Blood Pressure 134/66 168/86 H Pulse Oximetry 96 95 09/15/18 23:13 09/15/18 23:30 09/16/18 00:00 Temperature 98.6 F Pulse Rate 66 71 Respiratory Rate 14 Blood Pressure 168/85 H 153/77 H Pulse Oximetry 98 98 98 09/16/18 00:30 09/16/18 01:00 09/16/18 01:30 Temperature Pulse Rate 68 66 63 Respiratory Rate Blood Pressure 145/77 H 132/72 130/72 Pulse Oximetry 96 96 96 09/16/18 02:00 09/16/18 02:01 09/16/18 02:30 Temperature Pulse Rate 59 L 61 59 L Respiratory Rate 18 19 14 Blood Pressure 151/75 H 129/64 Pulse Oximetry 95 96 97 09/16/18 03:00 09/16/18 03:01 09/16/18 03:30 Temperature Pulse Rate 53 L 53 L 49 L Respiratory Rate 14 15 14 Blood Pressure 153/73 H 148/70 H Pulse Oximetry 96 98 96 09/16/18 04:00 09/16/18 04:01 09/16/18 04:08 Temperature 98.6 F Pulse Rate 52 L 57 L 50 L Respiratory Rate 14 16 15 Blood Pressure 161/87 H Pulse Oximetry 97 97 09/16/18 04:09 09/16/18 07:18 09/16/18 08:00 Temperature 98.7 F Pulse Rate 59 L 60 Respiratory Rate 14 19 18 Blood Pressure 149/69 H Pulse Oximetry 100 100 98 09/16/18 11:22 09/16/18 12:00 Temperature 97.8 F Pulse Rate 65 75 Respiratory Rate 14 19 Blood Pressure 145/68 H Pulse Oximetry 99 98 Intake & Output 09/15/18 09/16/18 09/16/18 18:59 06:59 18:59 Intake Total 992.5 / 992.5 316 / 316 382.5 / 382.5 Output Total 1200 / 1200 700 / 700 Balance -207.5 / -207.5 -384 / -384 382.5 / 382.5 Weight 95.6 kg Intake: IV 492.5 / 492.5 250 / 250 382.5 / 382.5 Precedex Inj 200 MCG In NS Inj 50 / 50 20 / 20 48 ML @ 0.2 MCG/KG/HR 4.77 mls/ hr IV.CONT TITRATE PRN Rx#: [id number] Diprivan 1000 mg/100 ml Inj 1, 30 / 30 000 mg In 100 ml @ 5 MCG/KG/MIN 2.381 mls/hr IV.CONT TITRATE PRN Rx#:[id number] Unasyn Inj 1,500 MG In NS Inj 200 / 200 200 / 200 100 / 100 100 ML @ 200 mls/hr IV.SIG Q6H HERRERA Rx#:[id number] Vancomycin Inj 1,250 MG In NS 262.5 / 262.5 262.5 / 262.5 Inj 250 ML @ 250 mls/hr IV.SIG Q24H HERRERA Rx#:[id number] Oral 0 / 0 Tube Feeding 66 / 66 Water Bolus Amount 500 / 500 Output: Urine Amount (Catheter) 1200 / 1200 700 / 700 Indwelling Urethral Catheter 1200 / 1200 700 / 700 Other: Date of Last Bowel Movement 09/14/18 09/14/18 09/14/18 # Bowel Movements 0 1 Result Diagrams: 09/17/18 05:11 09/17/18 05:11 Other Results: Laboratory Results WBC 7.7 th/mm3 (4.0-11.0) 09/15/18 18:05 RBC 3.88 mil/mm3 (4.50-5.90) L 09/15/18 18:05 Hgb 11.3 gm/dL (13.0-17.0) L 09/15/18 18:05 Hct 34.9 % (39.0-51.0) L 09/15/18 18:05 MCV 89.9 fL (80.0-100.0) 09/15/18 18:05 MCH 29.2 pg (27.0-34.0) 09/15/18 18:05 MCHC 32.4 % (32.0-36.0) 09/15/18 18:05 RDW 14.2 % (11.6-17.2) 09/15/18 18:05 Plt Count 256 th/mm3 (150-450) D 09/15/18 18:05 MPV 9.1 fL (7.0-11.0) 09/15/18 18:05 Prelim Diff (Auto) Slide review pending 09/15/18 18:05 Neut % (Auto) 81.9 % (16.0-70.0) H 09/15/18 18:05 Lymph % (Auto) 9.5 % (9.0-44.0) 09/15/18 18:05 [place] % (Auto) 5.2 % (0.0-8.0) 09/15/18 18:05 Eos % (Auto) 2.9 % (0.0-4.0) 09/15/18 18:05 Baso % (Auto) 0.5 % (0.0-2.0) 09/15/18 18:05 Neut # (Auto) 6.3 th/mm3 (1.8-7.7) 09/15/18 18:05 Lymph # (Auto) 0.7 th/mm3 (1.0-4.8) L 09/15/18 18:05 [place] # (Auto) 0.4 th/mm3 (0.0-0.9) 09/15/18 18:05 Eos # (Auto) 0.2 th/mm3 (0.0-0.4) 09/15/18 18:05 Baso # (Auto) 0.0 th/mm3 (0.0-0.2) 09/15/18 18:05 WBC Differential Manual diff final 09/15/18 18:05 Diff Scan Auto diff confirmed 09/13/18 08:20 Seg Neuts % (Manual) 67 % (16-70) 09/15/18 18:05 Band Neuts % (Manual) 14 % (0-6) H 09/15/18 18:05 Lymphocytes % (Manual) 8 % (9-44) L 09/15/18 18:05 Monocytes % (Manual) 6 % (0-8) 09/15/18 18:05 Eosinophils % (Manual) 4 % (0-4) 09/15/18 18:05 Metamyelocytes % (Man) 1 % (0-1) 09/15/18 18:05 Abs Neuts (Manual) 6.3 th/mm3 (1.8-7.7) 09/15/18 18:05 Differential Comment . 09/15/18 18:05 Platelet Estimate Normal (Normal) 09/15/18 18:05 Platelet Morphology Normal (Normal) 09/15/18 18:05 RBC Morphology Normal (Normal) 09/15/18 18:05 Hematology Comments 09/13/18 08:20 PT 11.6 sec (9.8-11.6) 09/10/18 13:53 INR 1.1 Ratio 09/10/18 13:53 APTT 25.2 sec (23.4-31.7) 09/10/18 13:53 Puncture Site Left radial 09/15/18 15:47 Patient Temperature 98.6 09/15/18 15:47 O2 Saturation 96 % (90-100) 09/15/18 15:47 ABG pH 7.48 (7.380-7.420) H 09/15/18 15:47 ABG pCO2 35 mmHg (38-42) L 09/15/18 15:47 ABG pO2 123 mmHG (61-120) H 09/15/18 15:47 ABG HCO3 26 mmol/L (22-26) 09/15/18 15:47 ABG O2 Content 15.9 Vol % (12.0-20.0) 09/15/18 15:47 ABG Base Excess 2.3 mmol/L (-2-2) H 09/15/18 15:47 ABG Methemoglobin 1.5 % (0-2) 09/15/18 15:47 Lino Test Present 09/15/18 15:47 Hemoglobin 11.6 G/DL (12.0-16.0) L 09/15/18 15:47 Carboxyhemoglobin 0.7 % (0-4) 09/15/18 15:47 O2 Delivery Device Ventilator 09/15/18 15:47 Vent Setting Cpap/ps10/peep5 09/15/18 15:47 Inspired O2 30 % 09/15/18 15:47 Critical Value No 09/15/18 15:47 Sodium 148 meq/L (136-145) H 09/15/18 18:05 Potassium 3.5 meq/L (3.5-5.1) 09/15/18 18:05 Chloride 115 meq/L (98-107) H 09/15/18 18:05 Carbon Dioxide 25.2 meq/L (21.0-32.0) 09/15/18 18:05 Anion Gap 8 meq/L (5-15) 09/15/18 18:05 BUN 38 mg/dL (7-18) H 09/15/18 18:05 Creatinine 0.70 mg/dL (0.60-1.30) 09/16/18 04:53 Estimated GFR Greater than 89 mL/min (>89) 09/16/18 04:53 POC Glucose 100 mg/dl (68-110) 09/16/18 11:29 Random Glucose 135 mg/dL (74-106) H 09/15/18 18:05 Hemoglobin A1c 8.8 % (4.3-6.0) H 09/11/18 13:50 Lactic Acid 5.4 mmol/L (0.4-2.0) H* 09/11/18 10:04 Calcium 8.9 mg/dL (8.5-10.1) 09/15/18 18:05 Calcium Adj for Albumin Cancelled 09/10/18 13:53 Phosphorus 2.4 mg/dL (2.5-4.9) L 09/15/18 18:05 Magnesium 1.9 mg/dL (1.5-2.5) 09/15/18 18:05 Total Bilirubin 1.8 mg/dL (0.2-1.0) H 09/13/18 05:49 AST 37 U/L (15-37) 09/13/18 05:49 ALT 10 U/L (12-78) L 09/13/18 05:49 Alkaline Phosphatase 162 U/L (45-117) H 09/13/18 05:49 Ammonia 18 mcmol/L (11-32) 09/10/18 20:59 Total Creatine Kinase 154 U/L (39-308) 09/11/18 02:45 CK-MB (CK-2) Less than 1.0 ng/mL (0.5-3.6) 09/10/18 13:53 CK-MB (CK-2) % 0.3 % (0.0-4.0) 09/10/18 13:53 Troponin I 0.05 ng/mL (0.02-0.05) 09/10/18 20:59 B-Natriuretic Peptide 39 pg/mL (0-100) 09/11/18 13:50 Total Protein 6.0 g/dL (6.4-8.2) L 09/13/18 05:49 Albumin 1.4 g/dL (3.4-5.0) L 09/13/18 05:49 TSH 0.435 uIU/mL (0.358-3.740) 09/10/18 20:59 Thyroxine (T4) 8.7 mcg/dL (4.5-12.1) 09/10/18 20:59 Cortisol 34.8 mcg/dL 09/10/18 20:59 Urine Color Norma (Yellw/Straw) 09/10/18 15:15 Urine Clarity Hazy (Clear) H 09/10/18 15:15 Urine pH 5.0 (5.0-8.5) 09/10/18 15:15 Ur Specific [place] 1.023 (1.002-1.035) 09/10/18 15:15 Urine Protein 100 mg/dL (Neg-Trace) H 09/10/18 15:15 Urine Glucose (UA) Negative mg/dL (Negative) 09/10/18 15:15 Urine Ketones Negative mg/dL (Negative) 09/10/18 15:15 Urine Occult Blood Negative (Negative) 09/10/18 15:15 Urine Nitrate Negative (Negative) 09/10/18 15:15 Urine Bilirubin Negative (Negative) 09/10/18 15:15 Urine Urobilinogen 4 or greater mg/dL (Less than 2) 09/10/18 15:15 Ur Leukocyte Esterase Negative (Negative) 09/10/18 15:15 Urine RBC 1 /hpf (0-3) 09/10/18 15:15 Urine WBC 3 /hpf (0-5) 09/10/18 15:15 Amorphous Sediment Rare /hpf (None) H 09/10/18 15:15 Urine Bacteria Rare /hpf (None) H 09/10/18 15:15 Granular Casts 1 /lpf (None) 09/10/18 15:15 Urine Mucus Few /lpf (Occasional) H 09/10/18 15:15 Micro UA Comment Cath-culture ind 09/10/18 15:15 Ur Microscopic Review Not Reportable 09/10/18 15:15 Urine Culture Comments Cath-cult indicated 09/10/18 15:15 Nasal Screen MRSA (PCR) Not detected (Negative) 09/10/18 18:30 Vancomycin Trough 12.1 mcg/mL (5.0-10.0) H 09/16/18 12:24 Random Vancomycin 14.6 Comment 09/12/18 17:39 Impressions Extremity Arterial Study 09/11/18 00:00 CONCLUSION: 1. Normal ANITRA bilaterally. 2. 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 Foot X-Ray 09/11/18 00:00 CONCLUSION: Chronic changes and no definite fracture for technique. Liver Ultrasound 09/12/18 00:00 CONCLUSION: 1. Gallbladder sludge without gallbladder wall thickening 2. No intrahepatic biliary duct dilatation Chest X-Ray 09/16/18 04:00 CONCLUSION: Mild atelectasis at the lung bases. Otherwise, no acute finding is identified. Objective Remarks: GENERAL: Well-developed well-nourished elderly gentleman, intubated on no sedation greater than 24-hour currently performing CPAP SKIN: Warm and dry. HEAD: Atraumatic. Normocephalic. EYES: Pupils equal and round. No scleral icterus. No injection or drainage. ENT: No nasal bleeding or discharge. Mucous membranes pink and moist. NECK: Trachea midline. No JVD. CARDIOVASCULAR: Normal rate, regular rhythm. RESPIRATORY: No accessory muscle use. Clear to auscultation. Breath sounds equal bilaterally. GASTROINTESTINAL: Abdomen soft, non-tender, nondistended. No guarding. MUSCULOSKELETAL: Extremities without clubbing, cyanosis. 1+ edema bilateral upper extremities. left heel necrotic skin wound, left hip, necrotic skin wound gluteal fold unstageable. NEUROLOGICAL: Intubated RASS 0 to -1. Difficult to assess secondary to Parkinson's and dementia previously at a memory care center, baseline not of established upon presentation of to ED no gross focal/sensory deficits. Following commands in upper extremities. Assessment and Plan - Problem List (1) Influenza A Code(s): J10.1 - Influenza due to other identified influenza virus with other respiratory manifestations Status: Acute (2) Sacral decubitus ulcer, stage IV Code(s): L89.154 - Pressure ulcer of sacral region, stage 4 Status: Acute (3) Decubitus ulcer of ankle Code(s): L89.509 - Pressure ulcer of unspecified ankle, unspecified stage Status: Acute (4) Decubitus ulcer, hip Code(s): L89.209 - Pressure ulcer of unspecified hip, unspecified stage Status : Acute (5) Renal insufficiency Code(s): N28.9 - Disorder of kidney and ureter, unspecified Status: Acute (6) Sepsis Code(s): A41.9 - Sepsis, unspecified organism Status: Acute - Assessment and Plan Plan: Plan by systems: Neurologic: Dementia Parkinson's disease Metabolic encephalopathy, most likely secondary to sepsis Propofol infusions to maintain ventilator synchrony Daily sedation vacation Ammonia, cortisol, TSH level-WN Home medications and Marlen Shah, Continue Sinemet 25/100 Respiratory: Acute hypoxemic respiratory failure 1/5 intubated in the ED 8.0 ET tube 26cm at the lip Ventilator bundle Duo nebs every 4 hours scheduled and every 2 hours as needed Wean FiO2 to maintain O2 saturation greater than 92% Follow-up chest x-ray in a.m. Continue CPAP trials plan for trial of extubation- ETT day 7 Cardiovascular: Sinus tachycardia-resolved Normotensive Initial troponin 0.02->0.05 Maintain map greater than 65 mmHg Hydralazine PRN for systolic greater than 160 mmHg Renal: Maintain Lainez -- Strict I/Os FEN/GI: Hypernatremia-resolved Severe protein calorie malnutrition D5W discontinued Free water flushes 250 cc every 6 hours Glucerna tube feeds goal rate 60 cc/hour and Bhanu protein packets 3 times daily Bowel regimen Zofran for nausea Albumin 1.4 Heme/ID: Influenza A Leukocytosis-resolved Sepsis Tamiflu x 7days discontinued 09/17 09/10 Pneumococcal, Legionella urine antigens-NGTD 09/10 sputum culture-staph aureus 09/10 blood and urine cultures- NGTD Wound culture to-group D enterococcus,MRSA Patient noted to have multiple necrotic unstageable wound ID following-Unasyn and Vanco. Cefepime discontinued 09/11 Endocrine: Diabetes mellitus Glucose monitoring per ICU protocol Insulin infusion discontinued 09/13 -- SSI-increase to high-dose Prophylaxis: GI Prophylaxis Famotidine twice daily DVT Prophylaxis -- SCDs Subcutaneous heparin every 12 hours Lines: Peripheral IVs providing adequate access. Central line if clinically indicated Dispo: Level 3 follow-up Palliative care is following plan for trial of extubation upon successful SBT parameters. Plan for trial of extubation. Patient is day 7 ETT, unable to obtain SBT formally. Plan for trial of extubation if agreed upon with family after palliative care merchandise flow team member meeting Code Status: Alternative Discussed Condition With: Attempts made to contact the patient's son and daughter to discuss patient's status, define goals of care. Unsuccessful I attempted to contact Blanca Liao [phone], and Christian Liao [phone]. Discussed treatment plan with FURNITURE MECHANIC at bedside
[2018-09-16 15:51] LABS: Anion Gap 7 meq/L (5-15); Blood Urea Nitrogen 27 mg/dL (7-18); Calcium 8.9 mg/dL (8.5-10.1); Carbon Dioxide 27.6 meq/L (21.0-32.0); Chloride 113 meq/L (98-107); Glomerular Filtration Rate Greater Than 89 mL/min (>89); Glucose,Random 122 mg/dL (74-106); Potassium 3.5 meq/L (3.5-5.1); Sodium 148 meq/L (136-145)
[2018-09-16 22:19] LABS: Amphetamine Screen,Urine Neg (Neg); Barbiturate Screen,Urine Neg (Neg); Cannabinoid Screen,Urine Neg (Neg); Cocaine Screen,Urine Neg (Neg); Opiate Screen,Urine Neg (Neg)
[2018-09-17] MEDS: Heparin - SQ 10,000 UNITS/ML Vial SQ SCH ×2 (03:46→17:02)
[2018-09-17] MEDS: Oral Hygiene Kit OROPHARYNG SCH ×4 (03:46→23:22)
[2018-09-17] MEDS: Ampicillin/Sulbactam Inj 1,500 MG in Sodium Chloride 0.9% Inj 100 ML IV.SIG SCH ×4 (04:16→22:57)
[2018-09-17] MEDS: Sodium Hypochlorite 0.125% Top Soln 500 ML Bottle TOPICAL SCH ×3 (05:23→22:29)
[2018-09-17 05:41] LABS: Baso % (Auto) 0.6 % (0.0-2.0); Eos # (Auto) 0.2 th/mm3 (0.0-0.4); Eos % (Auto) 2.3 % (0.0-4.0); Hematocrit 29.9 % (39.0-51.0); Lymph # (Auto) 1.1 th/mm3 (1.0-4.8); Lymph % (Auto) 13.9 % (9.0-44.0); Mean Corpuscular HGB Conc 33.3 % (32.0-36.0); Mean Corpuscular Hemoglobin 29.7 pg (27.0-34.0); Mean Platelet Volume 8.2 fL (7.0-11.0); Mono # (Auto) 0.6 th/mm3 (0.0-0.9); Mono % (Auto) 7.1 % (0.0-8.0); Neut % (Auto) 76.1 % (16.0-70.0); Platelet Count 272 th/mm3 (150-450); Red Blood Count 3.36 mil/mm3 (4.50-5.90); Red Cell Distribution Width 14.1 % (11.6-17.2); White Blood Count 7.8 th/mm3 (4.0-11.0)
[2018-09-17] MEDS: Insulin NovoLOG Aspart Correctional Sugar Inj SQ SCH ×4 (05:41→23:22)
[2018-09-17 06:10] LABS: Anion Gap 9 meq/L (5-15); Blood Urea Nitrogen 22 mg/dL (7-18); Calcium 8.2 mg/dL (8.5-10.1); Carbon Dioxide 26.5 meq/L (21.0-32.0); Chloride 110 meq/L (98-107); Glomerular Filtration Rate Greater Than 89 mL/min (>89); Glucose,Random 152 mg/dL (74-106); Magnesium 1.7 mg/dL (1.5-2.5); Phosphorus 2.5 mg/dL (2.5-4.9); Potassium 3.1 meq/L (3.5-5.1); Sodium 145 meq/L (136-145)
[2018-09-17] MEDS: Potassium Chlor 20 mEq Premix 20 MEQ/100 ML PIGGYBACK IV.SIG PRN ×4 (06:29→15:17)
[2018-09-17 07:50] LABS: Eosinophils 2 % (0-4); Lymphocytes 7 % (9-44); Metamyelocytes 3 % (0-1); Monocytes 1 % (0-8); Myelocytes 1 % (0-0)
[2018-09-17 07:51] LABS: Platelet Estimate Normal (Normal); Platelet Morphology Normal (Normal)
[2018-09-17] MEDS: Chlorhexidine 0.12% Oral Kit 15 ML UDC OROPHARYNG SCH ×2 (09:10→20:18)
[2018-09-17] MEDS: Famotidine PF Inj 20 MG/2 ML Vial IV.PUSH SCH ×2 (09:11→20:17)
[2018-09-17] MEDS: Senna/Docusate Sodium 8.6/50 MG Tablet PO SCH ×2 (09:11→20:17)
[2018-09-17] MEDS: Oseltamivir Liq 30 MG/5 ML Oral Syringe PO SCH (11:52)
[2018-09-17] MEDS: Vancomycin Inj 1,500 MG in Sodium Chlor 0.9% Inj 500 ML IV.SIG SCH (11:52)
--- NOTE | 2018-09-17 16:39 | P.PNCC ---
Subjective Subjective Remarks/Hospital Course: Subjective 09/11: Afebrile . Lactic acid only slightly decreased this a.m. ID has been consulted patient continues on vancomycin and the patient was noted to be hypernatremic D5W was started last evening and subsequently insulin infusion at 2 units/h. The patient has 3 siblings. Sister met yesterday evidently is the one that goes to the detention facility and feeds him, despite being lethargic. Also informed that that sister was also feeding him narcotics, which the detention facility is investigating. The patient continues to have decreased mentation off propofol. Repeat BMP shows decreasing sodium now 160. Free water flushes have been added to medication regimen. I discussed extensively with Sister Trena Zafar by telephone, the patient's POA the patient's condition and provided a medical status update. The patient's POA, and another sibling requested we place him in DNR. The POA states she has the paperwork at home however she is on vacation at this time and will provided via fax the patient has a living will. Palliative care also has been consulted to help evaluate/to define goals. The patient was placed in alternate CODE STATUS. The patient is hemodynamically stable at this time. 09/12: Afebrile. No further cardiac events overnight. And CPAP trials this a.m. Wound care consulted all wounds unstageable recommendations implemented. Tube feeds initiated per dietitian's recommendations per hypernatremia resolving D5W discontinued. The patient is continued on free water flushes. Leukocytosis resolving. 09/13: No acute events overnight. Patient tolerating CPAP trials. Patient tolerating tube feeds. Continues on low-dose propofol. 09/14: CPAP trials initiated at 8 AM currently patient tolerating . Tube feeds placed on hold in anticipation of possible SBT trials this afternoon. Resolution of leukocytosis and hypernatremia. IV fluids discontinued. 09/15:The patient has been on CPAP since 6am, sedation remains off. Pt still lethargic , unable to perform SBT at this time. Precedex infusion initiated to facilitate ventilator weaning propofol has been discontinued. Patient remains slightly hypernatremia increase in free water flushes. Patient is responding off of sedation though still lethargic. 09/16: Sedation for over 12 hours. Patient responding with upper extremities commands. The patient has continued on CPAP trials for greater than 8 hours. We will attempt SBT. Tentative plan for trial of extubation. Attempts made to contact Christian Liao patient's son and Blanca Liao patient's daughter after obtaining the information from palliative care steam turbine assembler to provide medical status update and began conversation to define goals of care, unsuccessful. 09/17: Late entry note, patient seen earlier approximately 11 AM. No acute events overnight. Hypernatremia resolving with addition of free water flushes over the last 36 hours. Patient was noted to be on IV normal saline 75cc/hr this a.m. upon evaluation which has now been discontinued. I discussed with palliative care steam turbine assembler Judy Kebede on 09/16 evening family discussed with palliative care steam turbine assembler chronicity of patient's illness and prolonged deterioration over the last 3-6 months, they are considering possible hospice versus initiation of comfort care measures. The patient was off sedation for greater than 48 hours spontaneous eye opening movement of upper extremities weakly nodding head to yes and no questions no movement of lower extremities. The patient is tolerating CPAP. Objective Vital Signs / I&O: Vital Signs 09/16/18 17:00 09/16/18 17:30 09/16/18 18:00 Temperature Pulse Rate 81 79 72 Respiratory Rate 23 21 23 Blood Pressure 138/68 157/74 H 149/72 H Pulse Oximetry 98 98 99 09/16/18 18:30 09/16/18 19:00 09/16/18 19:30 Temperature Pulse Rate 74 75 71 Respiratory Rate 27 H 25 H 25 H Blood Pressure 151/73 H 153/74 H 163/77 H Pulse Oximetry 98 98 98 09/16/18 19:33 09/16/18 20:00 09/16/18 20:30 Temperature 100 F H Pulse Rate 71 76 73 Respiratory Rate 26 H 18 17 Blood Pressure 165/79 H 175/82 H Pulse Oximetry 99 97 99 09/16/18 21:00 09/16/18 21:30 09/16/18 22:00 Temperature Pulse Rate 73 79 77 Respiratory Rate 15 16 15 Blood Pressure 157/74 H 171/83 H 163/78 H Pulse Oximetry 98 100 98 09/16/18 22:30 09/16/18 23:00 09/16/18 23:30 Temperature Pulse Rate 75 75 80 Respiratory Rate 16 15 18 Blood Pressure 154/74 H 154/74 H 167/79 H Pulse Oximetry 99 99 99 09/17/18 00:00 09/17/18 00:05 09/17/18 00:30 Temperature 98.8 F Pulse Rate 74 74 73 Respiratory Rate 15 14 15 Blood Pressure 155/73 H 156/75 H Pulse Oximetry 98 99 99 09/17/18 01:00 09/17/18 01:30 09/17/18 02:00 Temperature Pulse Rate 75 72 82 Respiratory Rate 16 15 32 H Blood Pressure 161/78 H 160/77 H Pulse Oximetry 99 99 09/17/18 02:01 09/17/18 02:30 09/17/18 03:00 Temperature Pulse Rate 82 70 72 Respiratory Rate 22 15 19 Blood Pressure 181/102 H 168/83 H 195/93 H Pulse Oximetry 97 98 09/17/18 03:02 09/17/18 03:30 09/17/18 04:00 Temperature 98.2 F Pulse Rate 69 68 67 Respiratory Rate 18 15 14 Blood Pressure 165/82 H 167/80 H 172/81 H Pulse Oximetry 97 98 99 09/17/18 04:30 09/17/18 05:00 09/17/18 05:30 Temperature Pulse Rate 63 68 66 Respiratory Rate 15 14 14 Blood Pressure 175/83 H 151/73 H 160/79 H Pulse Oximetry 100 99 100 09/17/18 06:00 09/17/18 06:30 09/17/18 06:59 Temperature Pulse Rate 66 64 Respiratory Rate 14 14 14 Blood Pressure 168/79 H 167/81 H Pulse Oximetry 100 100 100 09/17/18 07:00 09/17/18 07:30 09/17/18 07:34 Temperature Pulse Rate 66 76 68 Respiratory Rate 14 35 H 20 Blood Pressure 167/85 H 153/115 H Pulse Oximetry 99 98 09/17/18 07:41 09/17/18 08:00 09/17/18 08:30 Temperature Pulse Rate 71 71 72 Respiratory Rate 15 15 15 Blood Pressure 165/81 H 152/78 H 154/78 H Pulse Oximetry 99 100 97 09/17/18 09:00 09/17/18 09:30 09/17/18 10:00 Temperature Pulse Rate 69 70 70 Respiratory Rate 14 15 16 Blood Pressure 153/73 H 160/78 H 185/91 H Pulse Oximetry 98 99 95 09/17/18 10:30 09/17/18 10:55 09/17/18 10:56 Temperature Pulse Rate 69 66 Respiratory Rate 14 14 14 Blood Pressure 167/80 H Pulse Oximetry 98 100 09/17/18 11:00 09/17/18 11:15 09/17/18 11:30 Temperature Pulse Rate 65 65 65 Respiratory Rate 8 L 7 L 9 L Blood Pressure 185/81 H 164/79 H 149/76 H Pulse Oximetry 100 100 100 09/17/18 12:00 09/17/18 12:01 09/17/18 12:30 Temperature Pulse Rate 68 68 66 Respiratory Rate 8 L 8 L 7 L Blood Pressure 168/74 H 168/82 H Pulse Oximetry 99 100 09/17/18 13:00 09/17/18 13:30 09/17/18 14:00 Temperature Pulse Rate 66 71 66 Respiratory Rate 7 L 12 8 L Blood Pressure 169/79 H 178/84 H 168/79 H Pulse Oximetry 92 L 100 09/17/18 14:30 09/17/18 15:00 09/17/18 15:06 Temperature Pulse Rate 69 66 Respiratory Rate 10 L 14 14 Blood Pressure 177/84 H Pulse Oximetry 100 100 Intake & Output 09/16/18 09/17/18 09/17/18 18:59 06:59 18:59 Intake Total 982.5 / 982.5 366 / 366 882 / 882 Output Total 600 / 600 650 / 650 400 / 400 Balance 382.5 / 382.5 -284 / -284 482 / 482 Weight 95.2 kg Intake: IV 482.5 / 482.5 200 / 200 882 / 882 Precedex Inj 200 MCG In NS Inj 20 / 20 48 ML @ 0.2 MCG/KG/HR 4.77 mls/ hr IV.CONT TITRATE PRN Rx#: [id number] Unasyn Inj 1,500 MG In NS Inj 200 / 200 200 / 200 100 / 100 100 ML @ 200 mls/hr IV.SIG Q6H [facility] Rx#:[id number] KCl 20 mEq Premix Inj 20 meq In 285 / 285 100 ml @ 50 mls/hr IV.SIG Q2H PRN Rx#:[id number] Vancomycin Inj 1,250 MG In NS 262.5 / 262.5 Inj 250 ML @ 250 mls/hr IV.SIG Q24H [facility] Rx#:[id number] Vancomycin Inj 1,500 MG In NS 497 / 497 Inj 500 ML @ 250 mls/hr IV.SIG Q24H [facility] Rx#:[id number] Oral 0 / 0 Tube Feeding 166 / 166 Water Bolus Amount 500 / 500 Output: Urine 650 / 650 Urine Amount (Catheter) 600 / 600 400 / 400 Indwelling Urethral Catheter 600 / 600 400 / 400 Other: Date of Last Bowel Movement 09/14/18 09/14/18 09/14/18 # Bowel Movements 0 Result Diagrams: 09/17/18 05:11 09/17/18 05:11 Other Results: Laboratory Results WBC 7.8 th/mm3 (4.0-11.0) 09/17/18 05:11 RBC 3.36 mil/mm3 (4.50-5.90) L 09/17/18 05:11 Hgb 10.0 gm/dL (13.0-17.0) L 09/17/18 05:11 Hct 29.9 % (39.0-51.0) L 09/17/18 05:11 MCV 89.0 fL (80.0-100.0) 09/17/18 05:11 MCH 29.7 pg (27.0-34.0) 09/17/18 05:11 MCHC 33.3 % (32.0-36.0) 09/17/18 05:11 RDW 14.1 % (11.6-17.2) 09/17/18 05:11 Plt Count 272 th/mm3 (150-450) 09/17/18 05:11 MPV 8.2 fL (7.0-11.0) 09/17/18 05:11 Prelim Diff (Auto) Slide review pending 09/17/18 05:11 Neut % (Auto) 76.1 % (16.0-70.0) H 09/17/18 05:11 Lymph % (Auto) 13.9 % (9.0-44.0) 09/17/18 05:11 [place] % (Auto) 7.1 % (0.0-8.0) 09/17/18 05:11 Eos % (Auto) 2.3 % (0.0-4.0) 09/17/18 05:11 Baso % (Auto) 0.6 % (0.0-2.0) 09/17/18 05:11 Neut # (Auto) 6.0 th/mm3 (1.8-7.7) 09/17/18 05:11 Lymph # (Auto) 1.1 th/mm3 (1.0-4.8) 09/17/18 05:11 [place] # (Auto) 0.6 th/mm3 (0.0-0.9) 09/17/18 05:11 Eos # (Auto) 0.2 th/mm3 (0.0-0.4) 09/17/18 05:11 Baso # (Auto) 0.0 th/mm3 (0.0-0.2) 09/17/18 05:11 WBC Differential Manual diff final 09/17/18 05:11 Diff Scan Auto diff confirmed 09/13/18 08:20 Seg Neuts % (Manual) 72 % (16-70) H 09/17/18 05:11 Band Neuts % (Manual) 14 % (0-6) H 09/17/18 05:11 Lymphocytes % (Manual) 7 % (9-44) L 09/17/18 05:11 Monocytes % (Manual) 1 % (0-8) 09/17/18 05:11 Eosinophils % (Manual) 2 % (0-4) 09/17/18 05:11 Metamyelocytes % (Man) 3 % (0-1) H 09/17/18 05:11 Myelocytes % (Man) 1 % (0-0) H 09/17/18 05:11 Abs Neuts (Manual) 7.0 th/mm3 (1.8-7.7) 09/17/18 05:11 Differential Comment . 09/17/18 05:11 Platelet Estimate Normal (Normal) 09/17/18 05:11 Platelet Morphology Normal (Normal) 09/17/18 05:11 RBC Morphology Normal (Normal) 09/16/18 14:55 Hematology Comments 09/13/18 08:20 PT 11.6 sec (9.8-11.6) 09/10/18 13:53 INR 1.1 Ratio 09/10/18 13:53 APTT 25.2 sec (23.4-31.7) 09/10/18 13:53 Puncture Site Left radial 09/15/18 15:47 Patient Temperature 98.6 09/15/18 15:47 O2 Saturation 96 % (90-100) 09/15/18 15:47 ABG pH 7.48 (7.380-7.420) H 09/15/18 15:47 ABG pCO2 35 mmHg (38-42) L 09/15/18 15:47 ABG pO2 123 mmHG (61-120) H 09/15/18 15:47 ABG HCO3 26 mmol/L (22-26) 09/15/18 15:47 ABG O2 Content 15.9 Vol % (12.0-20.0) 09/15/18 15:47 ABG Base Excess 2.3 mmol/L (-2-2) H 09/15/18 15:47 ABG Methemoglobin 1.5 % (0-2) 09/15/18 15:47 Lino Test Present 09/15/18 15:47 Hemoglobin 11.6 G/DL (12.0-16.0) L 09/15/18 15:47 Carboxyhemoglobin 0.7 % (0-4) 09/15/18 15:47 O2 Delivery Device Ventilator 09/15/18 15:47 Vent Setting Cpap/ps10/peep5 09/15/18 15:47 Inspired O2 30 % 09/15/18 15:47 Critical Value No 09/15/18 15:47 Sodium 145 meq/L (136-145) 09/17/18 05:11 Potassium 3.1 meq/L (3.5-5.1) L 09/17/18 05:11 Chloride 110 meq/L (98-107) H 09/17/18 05:11 Carbon Dioxide 26.5 meq/L (21.0-32.0) 09/17/18 05:11 Anion Gap 9 meq/L (5-15) 09/17/18 05:11 BUN 22 mg/dL (7-18) H 09/17/18 05:11 Creatinine 0.65 mg/dL (0.60-1.30) 09/17/18 05:11 Estimated GFR Greater than 89 mL/min (>89) 09/17/18 05:11 POC Glucose 161 mg/dl (68-110) H 09/17/18 12:18 Random Glucose 152 mg/dL (74-106) H 09/17/18 05:11 Hemoglobin A1c 8.8 % (4.3-6.0) H 09/11/18 13:50 Lactic Acid 1.0 mmol/L (0.4-2.0) 09/17/18 05:11 Calcium 8.2 mg/dL (8.5-10.1) L 09/17/18 05:11 Calcium Adj for Albumin Cancelled 09/10/18 13:53 Phosphorus 2.5 mg/dL (2.5-4.9) 09/17/18 05:11 Magnesium 1.7 mg/dL (1.5-2.5) 09/17/18 05:11 Total Bilirubin 1.8 mg/dL (0.2-1.0) H 09/13/18 05:49 AST 37 U/L (15-37) 09/13/18 05:49 ALT 10 U/L (12-78) L 09/13/18 05:49 Alkaline Phosphatase 162 U/L (45-117) H 09/13/18 05:49 Ammonia Less than 10 mcmol/L (11-32) L 09/17/18 05:11 Total Creatine Kinase 154 U/L (39-308) 09/11/18 02:45 CK-MB (CK-2) Less than 1.0 ng/mL (0.5-3.6) 09/10/18 13:53 CK-MB (CK-2) % 0.3 % (0.0-4.0) 09/10/18 13:53 Troponin I 0.05 ng/mL (0.02-0.05) 09/10/18 20:59 B-Natriuretic Peptide 39 pg/mL (0-100) 09/11/18 13:50 Total Protein 6.0 g/dL (6.4-8.2) L 09/13/18 05:49 Albumin 1.4 g/dL (3.4-5.0) L 09/13/18 05:49 TSH 0.435 uIU/mL (0.358-3.740) 09/10/18 20:59 Thyroxine (T4) 8.7 mcg/dL (4.5-12.1) 09/10/18 20:59 Cortisol 34.8 mcg/dL 09/10/18 20:59 Urine Color Norma (Yellw/Straw) 09/10/18 15:15 Urine Clarity Hazy (Clear) H 09/10/18 15:15 Urine pH 5.0 (5.0-8.5) 09/10/18 15:15 Ur Specific Jackpot 1.023 (1.002-1.035) 09/10/18 15:15 Urine Protein 100 mg/dL (Neg-Trace) H 09/10/18 15:15 Urine Glucose (UA) Negative mg/dL (Negative) 09/10/18 15:15 Urine Ketones Negative mg/dL (Negative) 09/10/18 15:15 Urine Occult Blood Negative (Negative) 09/10/18 15:15 Urine Nitrate Negative (Negative) 09/10/18 15:15 Urine Bilirubin Negative (Negative) 09/10/18 15:15 Urine Urobilinogen 4 or greater mg/dL (Less than 2) 09/10/18 15:15 Ur Leukocyte Esterase Negative (Negative) 09/10/18 15:15 Urine RBC 1 /hpf (0-3) 09/10/18 15:15 Urine WBC 3 /hpf (0-5) 09/10/18 15:15 Amorphous Sediment Rare /hpf (None) H 09/10/18 15:15 Urine Bacteria Rare /hpf (None) H 09/10/18 15:15 Granular Casts 1 /lpf (None) 09/10/18 15:15 Urine Mucus Few /lpf (Occasional) H 09/10/18 15:15 Micro UA Comment Cath-culture ind 09/10/18 15:15 Ur Microscopic Review Not Reportable 09/10/18 15:15 Urine Culture Comments Cath-cult indicated 09/10/18 15:15 Nasal Screen MRSA (PCR) Not detected (Negative) 09/10/18 18:30 Vancomycin Trough 12.1 mcg/mL (5.0-10.0) H 09/16/18 12:24 Random Vancomycin 14.6 Comment 09/12/18 17:39 Urine Opiates Screen Neg (Neg) 09/16/18 16:25 Ur Barbiturates Screen Neg (Neg) 09/16/18 16:25 Ur Amphetamines Screen Neg (Neg) 09/16/18 16:25 U Benzodiazepines Scrn Neg (Neg) 09/16/18 16:25 Urine Cocaine Screen Neg (Neg) 09/16/18 16:25 U Cannabinoids Screen Neg (Neg) 09/16/18 16:25 Impressions Extremity Arterial Study 09/11/18 00:00 CONCLUSION: 1. Normal ANITRA bilaterally. 2. 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 Foot X-Ray 09/11/18 00:00 CONCLUSION: Chronic changes and no definite fracture for technique. Liver Ultrasound 09/12/18 00:00 CONCLUSION: 1. Gallbladder sludge without gallbladder wall thickening 2. No intrahepatic biliary duct dilatation Chest X-Ray 09/16/18 04:00 CONCLUSION: Mild atelectasis at the lung bases. Otherwise, no acute finding is identified. Objective Remarks: GENERAL: Well-developed well-nourished elderly gentleman, intubated weakly nodding head to yes and no questions SKIN: Warm and dry. HEAD: Atraumatic. Normocephalic. EYES: Pupils equal and round. No scleral icterus. No injection or drainage. ENT: No nasal bleeding or discharge. Mucous membranes pink and moist. NECK: Trachea midline. No JVD. CARDIOVASCULAR: Normal rate, regular rhythm. RESPIRATORY: No accessory muscle use. Clear to auscultation. Breath sounds equal bilaterally. GASTROINTESTINAL: Abdomen soft, non-tender, nondistended. No guarding. MUSCULOSKELETAL: Extremities without clubbing, cyanosis. 1+ edema bilateral upper extremities. left heel necrotic skin wound, left hip, necrotic skin wound gluteal fold unstageable. NEUROLOGICAL: Intubated RASS 0 to -1. Difficultto assess secondary to Parkinson 's and dementia previously at a memory care center, baseline not of established upon presentation of to ED no gross focal/sensory deficits. Following commands in upper extremities. Assessment and Plan - Problem List (1) Influenza A Code(s): J10.1 - Influenza due to other identified influenza virus with other respiratory manifestations Status: Acute (2) Sacral decubitus ulcer, stage IV Code(s): L89.154 - Pressure ulcer of sacral region, stage 4 Status: Acute (3) Decubitus ulcer of ankle Code(s): L89.509 - Pressure ulcer of unspecified ankle, unspecified stage Status: Acute (4) Decubitus ulcer, hip Code(s): L89.209 - Pressure ulcer of unspecified hip, unspecified stage Status : Acute (5) Renal insufficiency Code(s): N28.9 - Disorder of kidney and ureter, unspecified Status: Acute (6) Sepsis Code(s): A41.9 - Sepsis, unspecified organism Status: Acute - Assessment and Plan Plan: Plan by systems: Neurologic: Dementia Parkinson's disease Metabolic encephalopathy, most likely secondary to sepsis Propofol infusions to maintain ventilator synchrony Daily sedation vacation Ammonia, cortisol, TSH level-WNL Home medications and Singulair,Norvasc, Continue Sinemet 25/100 Respiratory: Acute hypoxemic respiratory failure 1/5 intubated in the ED 8.0 ET tube 26cm at the lip Ventilator bundle Duo nebs every 4 hours scheduled and every 2 hours as needed Wean FiO2 to maintain O2 saturation greater than 92% Follow-up chest x-ray in a.m. Continue CPAP trials plan for trial of extubation- ETT day 7 Cardiovascular: Sinus tachycardia-resolved Normotensive Initial troponin 0.02->0.05 Maintain map greater than 65 mmHg Hydralazine PRN for systolic greater than 160 mmHg Renal: Maintain Lainez -- Strict I/Os FEN/GI: Hypernatremia-resolved Severe protein calorie malnutrition D5W discontinued Continue Free water flushes 250 cc every 6 hours, monitor BMP Glucerna tube feeds goal rate 60 cc/hour and Bhanu protein packets 3 times daily Bowel regimen-last BM 09/16 Zofran for nausea Albumin 1.4 Heme/ID: Influenza A Leukocytosis-resolved Sepsis Tamiflu x 7days discontinued 09/17 09/10 Pneumococcal, Legionella urine antigens-NGTD 09/10 sputum culture-staph aureus 09/10 blood and urine cultures- NGTD Wound culture to-group D enterococcus,MRSA Patient noted to have multiple necrotic unstageable wound ID following-Unasyn and Vanco. Cefepime discontinued 09/11 Endocrine: Diabetes mellitus Glucose monitoring per ICU protocol Insulin infusion discontinued 09/13 -- SSI-increase to high-dose Prophylaxis: GI Prophylaxis Famotidine twice daily DVT Prophylaxis -- SCDs Subcutaneous heparin every 12 hours Lines: Peripheral IVs providing adequate access. Central line if clinically indicated Dispo: Level 3 follow-up Palliative care is following plan for trial of extubation upon successful SBT parameters. Plan for trial of extubation. Patient is day 8 ETT, unable to obtain SBT formally. Plan for trial of extubation, will await discussion with family in terms of goals of care with palliative care team. Code Status: DNR Discussed Condition With: Judy PUENTES, and STONEWORKING SANDER at bedside. No family at bedside at this time.
[2018-09-17] MEDS: hydrALAZINE 50 MG Tablet PO PRN (23:22)
[2018-09-18 01:20] LABS: Baso # (Auto) 0.1 th/mm3 (0.0-0.2); Eos # (Auto) 0.2 th/mm3 (0.0-0.4); Eos % (Auto) 2.9 % (0.0-4.0); Hematocrit 32.6 % (39.0-51.0); Hemoglobin 10.7 gm/dL (13.0-17.0); Lymph # (Auto) 0.9 th/mm3 (1.0-4.8); Lymph % (Auto) 12.1 % (9.0-44.0); Mean Corpuscular HGB Conc 32.8 % (32.0-36.0); Mean Corpuscular Hemoglobin 29.2 pg (27.0-34.0); Mean Corpuscular Volume 89.2 fL (80.0-100.0); Mean Platelet Volume 8.1 fL (7.0-11.0); Mono # (Auto) 0.4 th/mm3 (0.0-0.9); Mono % (Auto) 5.4 % (0.0-8.0); Neut # (Auto) 5.8 th/mm3 (1.8-7.7); Neut % (Auto) 78.6 % (16.0-70.0); Platelet Count 301 th/mm3 (150-450); Red Blood Count 3.66 mil/mm3 (4.50-5.90); Red Cell Distribution Width 13.9 % (11.6-17.2); White Blood Count 7.4 th/mm3 (4.0-11.0)
[2018-09-18 01:37] LABS: Sodium 144 meq/L (136-145)
[2018-09-18 01:38] LABS: Chloride 112 meq/L (98-107); Potassium 3.4 meq/L (3.5-5.1)
[2018-09-18 01:42] LABS: Anion Gap 7 meq/L (5-15); Blood Urea Nitrogen 17 mg/dL (7-18); Calcium 7.9 mg/dL (8.5-10.1); Carbon Dioxide 24.7 meq/L (21.0-32.0); Glomerular Filtration Rate Greater Than 89 mL/min (>89); Glucose,Random 175 mg/dL (74-106); Magnesium 1.8 mg/dL (1.5-2.5); Phosphorus 2.1 mg/dL (2.5-4.9)
[2018-09-18 02:03] LABS: Eosinophils 3 % (0-4); Lymphocytes 8 % (9-44); Monocytes 3 % (0-8)
[2018-09-18 02:04] LABS: Platelet Estimate Normal (Normal); Platelet Morphology Normal (Normal)
[2018-09-18] MEDS: Potassium Chloride 25 MEQ Effervescent Tablet PO PRN (02:22)
[2018-09-18] MEDS: Potassium Phosphate 500 MG Soluble Tablet PO PRN ×2 (02:23→06:23)
[2018-09-18] MEDS: Heparin - SQ 10,000 UNITS/ML Vial SQ SCH ×2 (04:56→16:35)
[2018-09-18] MEDS: Oral Hygiene Kit OROPHARYNG SCH ×4 (04:56→23:34)
[2018-09-18] MEDS: Ampicillin/Sulbactam Inj 1,500 MG in Sodium Chloride 0.9% Inj 100 ML IV.SIG SCH ×4 (04:57→23:32)
[2018-09-18] MEDS: Sodium Hypochlorite 0.125% Top Soln 500 ML Bottle TOPICAL SCH ×3 (05:00→21:06)
[2018-09-18] MEDS: Insulin NovoLOG Aspart Correctional Sugar Inj SQ SCH ×4 (05:00→23:33)
[2018-09-18] MEDS: hydrALAZINE 50 MG Tablet PO PRN ×2 (05:48→23:34)
[2018-09-18] MEDS: Famotidine PF Inj 20 MG/2 ML Vial IV.PUSH SCH ×2 (10:10→21:05)
[2018-09-18] MEDS: Chlorhexidine 0.12% Oral Kit 15 ML UDC OROPHARYNG SCH ×2 (10:10→21:05)
[2018-09-18] MEDS: Senna/Docusate Sodium 8.6/50 MG Tablet PO SCH ×2 (10:11→21:06)
[2018-09-18] MEDS: Vancomycin Inj 1,500 MG in Sodium Chlor 0.9% Inj 500 ML IV.SIG SCH (13:11)
--- NOTE | 2018-09-18 15:44 | P.PNCC ---
Subjective Subjective Remarks/Hospital Course: Subjective 09/11: Afebrile . Lactic acid only slightly decreased this a.m. ID has been consulted patient continues on vancomycin and the patient was noted to be hypernatremic D5W was started last evening and subsequently insulin infusion at 2 units/h. The patient has 3 siblings. Sister met yesterday evidently is the one that goes to the [facility] facility and feeds him, despite being lethargic. Also informed that that sister was also feeding him narcotics, which the [facility] facility is investigating. The patient continues to have decreased mentation off propofol. Repeat BMP shows decreasing sodium now 160. Free water flushes have been added to medication regimen. I discussed extensively with Sister Trena Zafar by telephone, the patient's POA the patient's condition and provided a medical status update. The patient's POA, and another sibling requested we place him in DNR. The POA states she has the paperwork at home however she is on vacation at this time and will provided via fax the patient has a living will. Palliative care also has been consulted to help evaluate/to define goals. The patient was placed in alternate CODE STATUS. The patient is hemodynamically stable at this time. 09/12: Afebrile. No further cardiac events overnight. And CPAP trials this a.m. Wound care consulted all wounds unstageable recommendations implemented. Tube feeds initiated per dietitian's recommendations per hypernatremia resolving D5W discontinued. The patient is continued on free water flushes. Leukocytosis resolving. 09/13: No acute events overnight. Patient tolerating CPAP trials. Patient tolerating tube feeds. Continues on low-dose propofol. 09/14: CPAP trials initiated at 8 AM currently patient tolerating . Tube feeds placed on hold in anticipation of possible SBT trials this afternoon. Resolution of leukocytosis and hypernatremia. IV fluids discontinued. 09/15:The patient has been on CPAP since 6am, sedation remains off. Pt still lethargic , unable to perform SBT at this time. Precedex infusion initiated to facilitate ventilator weaning propofol has been discontinued. Patient remains slightly hypernatremia increase in free water flushes. Patient is responding off of sedation though still lethargic. 09/16: Sedation for over 12 hours. Patient responding with upper extremities commands. The patient has continued on CPAP trials for greater than 8 hours. We will attempt SBT. Tentative plan for trial of extubation. Attempts made to contact Christian Liao patient's son and Blanca Liao patient's daughter after obtaining the information from palliative care boarder steam to provide medical status update and began conversation to define goals of care, unsuccessful. 09/17: Late entry note, patient seen earlier approximately 11 AM. No acute events overnight. Hypernatremia resolving with addition of free water flushes over the last 36 hours. Patient was noted to be on IV normal saline 75cc/hr this a.m. upon evaluation which has now been discontinued. I discussed with palliative care boarder steam Judy Kebede on 09/16 evening family discussed with palliative care boarder steam chronicity of patient's illness and prolonged deterioration over the last 3-6 months, they are considering possible hospice versus initiation of comfort care measures. The patient was off sedation for greater than 48 hours spontaneous eye opening movement of upper extremities weakly nodding head to yes and no questions no movement of lower extremities. The patient is tolerating CPAP. 09/18: The patient has remained off sedation for greater than 72-hour, intermittently following commands. The patient has failed CPAP trials. Discussion with family per RN consideration for hospice is underway per the patient's children. Plan follow-up on Wednesday with palliative care team. The patient continues on antibiotics. Tamiflu discontinued yesterday, after 7-day dosing. Intermittently following commands today. Objective Vital Signs / I&O: Vital Signs 09/17/18 15:30 09/17/18 16:00 09/17/18 16:30 Temperature 98.7 F Pulse Rate 69 66 66 Respiratory Rate 14 14 14 Blood Pressure 167/85 H 165/82 H 161/78 H Pulse Oximetry 99 97 98 09/17/18 17:00 09/17/18 17:30 09/17/18 18:00 Temperature Pulse Rate 69 70 66 Respiratory Rate 15 15 16 Blood Pressure 174/86 H 188/89 H 166/79 H Pulse Oximetry 97 98 98 09/17/18 18:30 09/17/18 19:00 09/17/18 19:30 Temperature Pulse Rate 67 64 66 Respiratory Rate 18 14 14 Blood Pressure 178/85 H 159/85 H Pulse Oximetry 100 09/17/18 20:00 09/17/18 23:25 09/17/18 23:30 Temperature 98.2 F Pulse Rate 66 66 64 Respiratory Rate 15 16 14 Blood Pressure 151/75 H 156/78 H 165/79 H Pulse Oximetry 100 100 100 09/17/18 23:43 09/17/18 23:44 09/18/18 00:00 Temperature 98.4 F Pulse Rate 72 66 Respiratory Rate 22 22 17 Blood Pressure 156/78 H Pulse Oximetry 100 100 09/18/18 00:30 09/18/18 01:00 09/18/18 01:30 Temperature Pulse Rate 64 65 63 Respiratory Rate 16 14 15 Blood Pressure 154/72 H 149/71 H 153/75 H Pulse Oximetry 100 100 100 09/18/18 02:00 09/18/18 02:30 09/18/18 03:00 Temperature Pulse Rate 65 65 64 Respiratory Rate 15 16 16 Blood Pressure 157/76 H 159/76 H 156/75 H Pulse Oximetry 100 100 100 09/18/18 03:24 09/18/18 03:25 09/18/18 03:30 Temperature Pulse Rate 74 68 Respiratory Rate 20 20 18 Blood Pressure 164/81 H Pulse Oximetry 100 100 09/18/18 04:00 09/18/18 04:30 09/18/18 05:00 Temperature 98.3 F Pulse Rate 66 66 65 Respiratory Rate 18 16 16 Blood Pressure 165/84 H 166/81 H 161/77 H Pulse Oximetry 100 100 100 09/18/18 05:31 09/18/18 05:57 09/18/18 06:00 Temperature Pulse Rate 70 66 65 Respiratory Rate 24 18 19 Blood Pressure 197/92 H 134/75 153/74 H Pulse Oximetry 100 100 100 09/18/18 06:30 09/18/18 06:57 09/18/18 07:00 Temperature Pulse Rate 62 63 Respiratory Rate 16 14 15 Blood Pressure 144/71 H 152/72 H Pulse Oximetry 100 100 100 09/18/18 07:30 09/18/18 07:48 09/18/18 08:00 Temperature 98.2 F Pulse Rate 63 73 62 Respiratory Rate 15 20 15 Blood Pressure 152/72 H 147/70 H Pulse Oximetry 100 100 09/18/18 08:30 09/18/18 09:00 09/18/18 09:30 Temperature Pulse Rate 63 62 62 Respiratory Rate 16 15 15 Blood Pressure 163/77 H 156/72 H 161/77 H Pulse Oximetry 100 100 100 09/18/18 10:00 09/18/18 10:30 09/18/18 11:48 Temperature Pulse Rate 62 60 Respiratory Rate 15 16 30 H Blood Pressure 164/75 H 158/74 H Pulse Oximetry 100 100 100 09/18/18 15:01 Temperature Pulse Rate Respiratory Rate 16 Blood Pressure Pulse Oximetry 100 Intake & Output 09/17/18 09/18/18 09/18/18 18:59 06:59 18:59 Intake Total 1708 / 1708 1178 / 1178 110 / 110 Output Total 425 / 425 650 / 650 Balance 1283 / 1283 528 / 528 110 / 110 Weight 96.3 kg Intake: IV 1062 / 1062 218 / 218 110 / 110 Unasyn Inj 1,500 MG In NS Inj 198 / 198 200 / 200 110 / 110 100 ML @ 200 mls/hr IV.SIG Q6H HERRERA Rx#:[id number] KCl 20 mEq Premix Inj 20 meq In 367 / 367 100 ml @ 50 mls/hr IV.SIG Q2H PRN Rx#:[id number] Vancomycin Inj 1,500 MG In NS 497 / 497 Inj 500 ML @ 250 mls/hr IV.SIG Q24H HERRERA Rx#:[id number] Oral 0 / 0 Tube Feeding 326 / 326 460 / 460 Tube Irrigant 120 / 120 Water Bolus Amount 200 / 200 500 / 500 Output: Urine 650 / 650 Urine Amount (Catheter) 425 / 425 Condom 25 / 25 Indwelling Urethral Catheter 400 / 400 Other: # Incontinent Voids 1 1 Date of Last Bowel Movement 09/14/18 09/14/18 09/13/18 # Bowel Movements 1 0 Result Diagrams: 09/18/18 00:57 09/18/18 00:57 Other Results: Laboratory Results WBC 7.4 th/mm3 (4.0-11.0) 09/18/18 00:57 RBC 3.66 mil/mm3 (4.50-5.90) L 09/18/18 00:57 Hgb 10.7 gm/dL (13.0-17.0) L 09/18/18 00:57 Hct 32.6 % (39.0-51.0) L 09/18/18 00:57 MCV 89.2 fL (80.0-100.0) 09/18/18 00:57 MCH 29.2 pg (27.0-34.0) 09/18/18 00:57 MCHC 32.8 % (32.0-36.0) 09/18/18 00:57 RDW 13.9 % (11.6-17.2) 09/18/18 00:57 Plt Count 301 th/mm3 (150-450) 09/18/18 00:57 MPV 8.1 fL (7.0-11.0) 09/18/18 00:57 Prelim Diff (Auto) Slide review pending 09/18/18 00:57 Neut % (Auto) 78.6 % (16.0-70.0) H 09/18/18 00:57 Lymph % (Auto) 12.1 % (9.0-44.0) 09/18/18 00:57 [place] % (Auto) 5.4 % (0.0-8.0) 09/18/18 00:57 Eos % (Auto) 2.9 % (0.0-4.0) 09/18/18 00:57 Baso % (Auto) 1.0 % (0.0-2.0) 09/18/18 00:57 Neut # (Auto) 5.8 th/mm3 (1.8-7.7) 09/18/18 00:57 Lymph # (Auto) 0.9 th/mm3 (1.0-4.8) L 09/18/18 00:57 [place] # (Auto) 0.4 th/mm3 (0.0-0.9) 09/18/18 00:57 Eos # (Auto) 0.2 th/mm3 (0.0-0.4) 09/18/18 00:57 Baso # (Auto) 0.1 th/mm3 (0.0-0.2) 09/18/18 00:57 WBC Differential Manual diff final 09/18/18 00:57 Diff Scan Auto diff confirmed 09/13/18 08:20 Seg Neuts % (Manual) 73 % (16-70) H 09/18/18 00:57 Band Neuts % (Manual) 12 % (0-6) H 09/18/18 00:57 Lymphocytes % (Manual) 8 % (9-44) L 09/18/18 00:57 Monocytes % (Manual) 3 % (0-8) 09/18/18 00:57 Eosinophils % (Manual) 3 % (0-4) 09/18/18 00:57 Basophils % (Manual) 1 % (0-2) 09/18/18 00:57 Metamyelocytes % (Man) 3 % (0-1) H 09/17/18 05:11 Myelocytes % (Man) 1 % (0-0) H 09/17/18 05:11 Abs Neuts (Manual) 6.3 th/mm3 (1.8-7.7) 09/18/18 00:57 Differential Comment . 09/18/18 00:57 Platelet Estimate Normal (Normal) 09/18/18 00:57 Platelet Morphology Normal (Normal) 09/18/18 00:57 RBC Morphology Normal (Normal) 09/16/18 14:55 Hematology Comments 09/13/18 08:20 PT 11.6 sec (9.8-11.6) 09/10/18 13:53 INR 1.1 Ratio 09/10/18 13:53 APTT 25.2 sec (23.4-31.7) 09/10/18 13:53 Puncture Site Left radial 09/15/18 15:47 Patient Temperature 98.6 09/15/18 15:47 O2 Saturation 96 % (90-100) 09/15/18 15:47 ABG pH 7.48 (7.380-7.420) H 09/15/18 15:47 ABG pCO2 35 mmHg (38-42) L 09/15/18 15:47 ABG pO2 123 mmHG (61-120) H 09/15/18 15:47 ABG HCO3 26 mmol/L (22-26) 09/15/18 15:47 ABG O2 Content 15.9 Vol % (12.0-20.0) 09/15/18 15:47 ABG Base Excess 2.3 mmol/L (-2-2) H 09/15/18 15:47 ABG Methemoglobin 1.5 % (0-2) 09/15/18 15:47 Lino Test Present 09/15/18 15:47 Hemoglobin 11.6 G/DL (12.0-16.0) L 09/15/18 15:47 Carboxyhemoglobin 0.7 % (0-4) 09/15/18 15:47 O2 Delivery Device Ventilator 09/15/18 15:47 Vent Setting Cpap/ps10/peep5 09/15/18 15:47 Inspired O2 30 % 09/15/18 15:47 Critical Value No 09/15/18 15:47 Sodium 144 meq/L (136-145) 09/18/18 00:57 Potassium 3.4 meq/L (3.5-5.1) L 09/18/18 00:57 Chloride 112 meq/L (98-107) H 09/18/18 00:57 Carbon Dioxide 24.7 meq/L (21.0-32.0) 09/18/18 00:57 Anion Gap 7 meq/L (5-15) 09/18/18 00:57 BUN 17 mg/dL (7-18) 09/18/18 00:57 Creatinine 0.67 mg/dL (0.60-1.30) 09/18/18 00:57 Estimated GFR Greater than 89 mL/min (>89) 09/18/18 00:57 POC Glucose 209 mg/dl (68-110) H 09/18/18 12:49 Random Glucose 175 mg/dL (74-106) H 09/18/18 00:57 Hemoglobin A1c 8.8 % (4.3-6.0) H 09/11/18 13:50 Lactic Acid 1.0 mmol/L (0.4-2.0) 09/17/18 05:11 Calcium 7.9 mg/dL (8.5-10.1) L 09/18/18 00:57 Calcium Adj for Albumin Cancelled 09/10/18 13:53 Phosphorus 2.1 mg/dL (2.5-4.9) L 09/18/18 00:57 Magnesium 1.8 mg/dL (1.5-2.5) 09/18/18 00:57 Total Bilirubin 1.8 mg/dL (0.2-1.0) H 09/13/18 05:49 AST 37 U/L (15-37) 09/13/18 05:49 ALT 10 U/L (12-78) L 09/13/18 05:49 Alkaline Phosphatase 162 U/L (45-117) H 09/13/18 05:49 Ammonia Less than 10 mcmol/L (11-32) L 09/17/18 05:11 Total Creatine Kinase 154 U/L (39-308) 09/11/18 02:45 CK-MB (CK-2) Less than 1.0 ng/mL (0.5-3.6) 09/10/18 13:53 CK-MB (CK-2) % 0.3 % (0.0-4.0) 09/10/18 13:53 Troponin I 0.05 ng/mL (0.02-0.05) 09/10/18 20:59 B-Natriuretic Peptide 39 pg/mL (0-100) 09/11/18 13:50 Total Protein 6.0 g/dL (6.4-8.2) L 09/13/18 05:49 Albumin 1.4 g/dL (3.4-5.0) L 09/13/18 05:49 TSH 0.435 uIU/mL (0.358-3.740) 09/10/18 20:59 Thyroxine (T4) 8.7 mcg/dL (4.5-12.1) 09/10/18 20:59 Cortisol 34.8 mcg/dL 09/10/18 20:59 Urine Color Norma (Yellw/Straw) 09/10/18 15:15 Urine Clarity Hazy (Clear) H 09/10/18 15:15 Urine pH 5.0 (5.0-8.5) 09/10/18 15:15 Ur Specific [place] 1.023 (1.002-1.035) 09/10/18 15:15 Urine Protein 100 mg/dL (Neg-Trace) H 09/10/18 15:15 Urine Glucose (UA) Negative mg/dL (Negative) 09/10/18 15:15 Urine Ketones Negative mg/dL (Negative) 09/10/18 15:15 Urine Occult Blood Negative (Negative) 09/10/18 15:15 Urine Nitrate Negative (Negative) 09/10/18 15:15 Urine Bilirubin Negative (Negative) 09/10/18 15:15 Urine Urobilinogen 4 or greater mg/dL (Less than 2) 09/10/18 15:15 Ur Leukocyte Esterase Negative (Negative) 09/10/18 15:15 Urine RBC 1 /hpf (0-3) 09/10/18 15:15 Urine WBC 3 /hpf (0-5) 09/10/18 15:15 Amorphous Sediment Rare /hpf (None) H 09/10/18 15:15 Urine Bacteria Rare /hpf (None) H 09/10/18 15:15 Granular Casts 1 /lpf (None) 09/10/18 15:15 Urine Mucus Few /lpf (Occasional) H 09/10/18 15:15 Micro UA Comment Cath-culture ind 09/10/18 15:15 Ur Microscopic Review Not Reportable 09/10/18 15:15 Urine Culture Comments Cath-cult indicated 09/10/18 15:15 Nasal Screen MRSA (PCR) Not detected (Negative) 09/10/18 18:30 Vancomycin Trough 12.1 mcg/mL (5.0-10.0) H 09/16/18 12:24 Random Vancomycin 14.6 Comment 09/12/18 17:39 Urine Opiates Screen Neg (Neg) 09/16/18 16:25 Ur Barbiturates Screen Neg (Neg) 09/16/18 16:25 Ur Amphetamines Screen Neg (Neg) 09/16/18 16:25 U Benzodiazepines Scrn Neg (Neg) 09/16/18 16:25 Urine Cocaine Screen Neg (Neg) 09/16/18 16:25 U Cannabinoids Screen Neg (Neg) 09/16/18 16:25 Impressions Extremity Arterial Study 09/11/18 00:00 CONCLUSION: 1. Normal ANITRA bilaterally. 2. 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 Foot X-Ray 09/11/18 00:00 CONCLUSION: Chronic changes and no definite fracture for technique. Liver Ultrasound 09/12/18 00:00 CONCLUSION: 1. Gallbladder sludge without gallbladder wall thickening 2. No intrahepatic biliary duct dilatation Chest X-Ray 09/16/18 04:00 CONCLUSION: Mild atelectasis at the lung bases. Otherwise, no acute finding is identified. Objective Remarks: GENERAL: Well-developed well-nourished elderly gentleman, intubated. SKIN: Warm and dry. HEAD: Atraumatic. Normocephalic. EYES: Pupils equal and round. No scleral icterus. No injection or drainage. ENT: No nasal bleeding or discharge. Mucous membranes pink and moist. NECK: Trachea midline. No JVD. CARDIOVASCULAR: Normal rate, regular rhythm. RESPIRATORY: No accessory muscle use. Clear to auscultation. Breath sounds equal bilaterally. GASTROINTESTINAL: Abdomen soft, non-tender, nondistended. No guarding. MUSCULOSKELETAL: Extremities without clubbing, cyanosis. 1+ edema bilateral upper extremities. left heel necrotic skin wound, left hip, necrotic skin wound gluteal fold unstageable. NEUROLOGICAL: Intubated , on no sedation. difficult to assess secondary to Parkinson's and dementia previously at a memory care center, baseline not of established upon presentation of to ED no gross focal/sensory deficits. Intermittently responsive. Movement of upper extremities on command intermittently. Assessment and Plan - Problem List (1) Influenza A Code(s): J10.1 - Influenza due to other identified influenza virus with other respiratory manifestations Status: Acute (2) Sacral decubitus ulcer, stage IV Code(s): L89.154 - Pressure ulcer of sacral region, stage 4 Status: Acute (3) Decubitus ulcer of ankle Code(s): L89.509 - Pressure ulcer of unspecified ankle, unspecified stage Status: Acute (4) Decubitus ulcer, hip Code(s): L89.209 - Pressure ulcer of unspecified hip, unspecified stage Status : Acute (5) Renal insufficiency Code(s): N28.9 - Disorder of kidney and ureter, unspecified Status: Acute (6) Sepsis Code(s): A41.9 - Sepsis, unspecified organism Status: Acute - Assessment and Plan Plan: Plan by systems: Neurologic: Dementia Parkinson's disease Metabolic encephalopathy, most likely secondary to sepsis Propofol infusion off for > 72 hours, family/sisters requesting interaction with patient-deciding goals of care Daily sedation vacation Ammonia, cortisol, TSH level-WNL Home medications and Singulair,Norvasc, Continue Sinemet 25/100 Respiratory: Acute hypoxemic respiratory failure 1/5 intubated in the ED 8.0 ET tube 26cm at the lip Ventilator bundle Duo nebs every 4 hours scheduled and every 2 hours as needed Wean FiO2 to maintain O2 saturation greater than 92% Follow-up chest x-ray in a.m. Continue CPAP trials plan for trial of extubation- ETT day 8 Family leaning toward not proceeding with tracheostomy and PEGfollowing with palliative care team Cardiovascular: Sinus tachycardia-resolved Normotensive Initial troponin 0.02->0.05 Maintain map greater than 65 mmHg Hydralazine PRN for systolic greater than 160 mmHg Renal: Maintain Lainez -- Strict I/Os FEN/GI: Hypernatremia-resolved Severe protein calorie malnutrition D5W discontinued Continue Free water flushes 250 cc every 6 hours, monitor BMP Glucerna tube feeds goal rate 60 cc/hour and Bhanu protein packets 3 times daily Bowel regimen-last BM 09/16 Zofran for nausea Albumin 1.4 Heme/ID: Influenza A Leukocytosis-resolved Sepsis Tamiflu x 7days discontinued 09/17 09/10 Pneumococcal, Legionella urine antigens-NGTD 09/10 sputum culture-staph aureus 09/10 blood and urine cultures- NGTD Wound culture to-group D enterococcus,MRSA Patient noted to have multiple necrotic unstageable wound ID following-Unasyn and Vanco. Cefepime discontinued 09/11 Endocrine: Diabetes mellitus Glucose monitoring per ICU protocol Insulin infusion discontinued 09/13 -- SSI-increase to high-dose Prophylaxis: GI Prophylaxis Famotidine twice daily DVT Prophylaxis -- SCDs Subcutaneous heparin every 12 hours Lines: Peripheral IVs providing adequate access. Central line if clinically indicated Dispo: Level 3 follow-up Palliative care is following plan for trial of extubation upon successful SBT parameters. Plan for trial of extubation. Patient is day 8 ETT, unable to obtain SBT formally. Plan for trial of extubation, will await discussion with family in terms of goals of care with palliative care team. Per patient siblings today related to RN while visiting that the children are considering possibly hospice care. Code Status: Alternative Discussed Condition With: No family at bedside discussed with FENCE INSTALLER
[2018-09-19] MEDS: Heparin - SQ 10,000 UNITS/ML Vial SQ SCH ×2 (04:45→15:49)
[2018-09-19] MEDS: Ampicillin/Sulbactam Inj 1,500 MG in Sodium Chloride 0.9% Inj 100 ML IV.SIG SCH (04:46)
[2018-09-19] MEDS: Oral Hygiene Kit OROPHARYNG SCH ×3 (04:46→15:49)
[2018-09-19] MEDS: Sodium Hypochlorite 0.125% Top Soln 500 ML Bottle TOPICAL SCH ×3 (05:04→21:57)
[2018-09-19] MEDS: Insulin NovoLOG Aspart Correctional Sugar Inj SQ SCH ×3 (05:04→17:07)
[2018-09-19 07:05] LABS: Baso % (Auto) 0.6 % (0.0-2.0); Eos # (Auto) 0.2 th/mm3 (0.0-0.4); Eos % (Auto) 2.9 % (0.0-4.0); Hemoglobin 10.8 gm/dL (13.0-17.0); Lymph # (Auto) 1.1 th/mm3 (1.0-4.8); Lymph % (Auto) 13.4 % (9.0-44.0); Mean Corpuscular HGB Conc 33.8 % (32.0-36.0); Mean Corpuscular Hemoglobin 29.9 pg (27.0-34.0); Mean Corpuscular Volume 88.6 fL (80.0-100.0); Mean Platelet Volume 8.6 fL (7.0-11.0); Mono # (Auto) 0.4 th/mm3 (0.0-0.9); Mono % (Auto) 4.5 % (0.0-8.0); Neut # (Auto) 6.7 th/mm3 (1.8-7.7); Neut % (Auto) 78.6 % (16.0-70.0); Platelet Count 286 th/mm3 (150-450); Red Blood Count 3.61 mil/mm3 (4.50-5.90); Red Cell Distribution Width 13.9 % (11.6-17.2); White Blood Count 8.5 th/mm3 (4.0-11.0)
[2018-09-19 07:09] LABS: Anion Gap 8 meq/L (5-15); Blood Urea Nitrogen 23 mg/dL (7-18); Calcium 8.2 mg/dL (8.5-10.1); Carbon Dioxide 28.6 meq/L (21.0-32.0); Chloride 105 meq/L (98-107); Glomerular Filtration Rate Greater Than 89 mL/min (>89); Glucose,Random 151 mg/dL (74-106); Magnesium 1.9 mg/dL (1.5-2.5); Phosphorus 2.3 mg/dL (2.5-4.9); Sodium 142 meq/L (136-145)
[2018-09-19 08:08] LABS: Eosinophils 2 % (0-4); Lymphocytes 13 % (9-44); Metamyelocytes 1 % (0-1); Monocytes 6 % (0-8); Myelocytes 3 % (0-0)
[2018-09-19 08:09] LABS: Platelet Estimate Normal (Normal); Platelet Morphology Normal (Normal); Toxic Granulation 1+
[2018-09-19] MEDS: Senna/Docusate Sodium 8.6/50 MG Tablet PO SCH ×2 (08:14→21:57)
[2018-09-19] MEDS: Chlorhexidine 0.12% Oral Kit 15 ML UDC OROPHARYNG SCH ×2 (08:14→21:57)
[2018-09-19] MEDS: Famotidine PF Inj 20 MG/2 ML Vial IV.PUSH SCH ×2 (08:15→21:56)
--- NOTE | 2018-09-19 08:33 | P.PNCC ---
Subjective Subjective Remarks/Hospital Course: Subjective 09/11: Afebrile . Lactic acid only slightly decreased this a.m. ID has been consulted patient continues on vancomycin and the patient was noted to be hypernatremic D5W was started last evening and subsequently insulin infusion at 2 units/h. The patient has 3 siblings. Sister met yesterday evidently is the one that goes to the longterm facility and feeds him, despite being lethargic. Also informed that that sister was also feeding him narcotics, which the longterm facility is investigating. The patient continues to have decreased mentation off propofol. Repeat BMP shows decreasing sodium now 160. Free water flushes have been added to medication regimen. I discussed extensively with Sister Trena Zafar by telephone, the patient's POA the patient's condition and provided a medical status update. The patient's POA, and another sibling requested we place him in DNR. The POA states she has the paperwork at home however she is on vacation at this time and will provided via fax the patient has a living will. Palliative care also has been consulted to help evaluate/to define goals. The patient was placed in alternate CODE STATUS. The patient is hemodynamically stable at this time. 09/12: Afebrile. No further cardiac events overnight. And CPAP trials this a.m. Wound care consulted all wounds unstageable recommendations implemented. Tube feeds initiated per dietitian's recommendations per hypernatremia resolving D5W discontinued. The patient is continued on free water flushes. Leukocytosis resolving. 09/13: No acute events overnight. Patient tolerating CPAP trials. Patient tolerating tube feeds. Continues on low-dose propofol. 09/14: CPAP trials initiated at 8 AM currently patient tolerating . Tube feeds placed on hold in anticipation of possible SBT trials this afternoon. Resolution of leukocytosis and hypernatremia. IV fluids discontinued. 09/15:The patient has been on CPAP since 6am, sedation remains off. Pt still lethargic , unable to perform SBT at this time. Precedex infusion initiated to facilitate ventilator weaning propofol has been discontinued. Patient remains slightly hypernatremia increase in free water flushes. Patient is responding off of sedation though still lethargic. 09/16: Sedation for over 12 hours. Patient responding with upper extremities commands. The patient has continued on CPAP trials for greater than 8 hours. We will attempt SBT. Tentative plan for trial of extubation. Attempts made to contact Christian Liao patient's son and Blanca Liao patient's daughter after obtaining the information from palliative care application development team lead to provide medical status update and began conversation to define goals of care, unsuccessful. 09/17: Late entry note, patient seen earlier approximately 11 AM. No acute events overnight. Hypernatremia resolving with addition of free water flushes over the last 36 hours. Patient was noted to be on IV normal saline 75cc/hr this a.m. upon evaluation which has now been discontinued. I discussed with palliative care application development team lead Judy Kebede on 09/16 evening family discussed with palliative care application development team lead chronicity of patient's illness and prolonged deterioration over the last 3-6 months, they are considering possible hospice versus initiation of comfort care measures. The patient was off sedation for greater than 48 hours spontaneous eye opening movement of upper extremities weakly nodding head to yes and no questions no movement of lower extremities. The patient is tolerating CPAP. 09/18: The patient has remained off sedation for greater than 72-hour, intermittently following commands. The patient has failed CPAP trials. Discussion with family per RN consideration for hospice is underway per the patient's children. Plan follow-up on Wednesday with palliative care team. The patient continues on antibiotics. Tamiflu discontinued yesterday, after 7-day dosing. Intermittently following commands today. 09/19: Afebrile. The patient is arousable, remains off sedation in order to communicate with siblings, and children. Oxycodone added to medication regimen , last evening. The patient is tolerating tube feeds. Noted ETT day , awaiting decision from family regarding disposition for possible tracheostomy and PEG placement. Objective Vital Signs / I&O: Vital Signs 09/18/18 08:30 09/18/18 09:00 09/18/18 09:30 Temperature Pulse Rate 63 62 62 Respiratory Rate 16 15 15 Blood Pressure 163/77 H 156/72 H 161/77 H Pulse Oximetry 100 100 100 09/18/18 10:00 09/18/18 10:30 09/18/18 11:00 Temperature Pulse Rate 62 60 60 Respiratory Rate 15 16 14 Blood Pressure 164/75 H 158/74 H 145/67 H Pulse Oximetry 100 100 100 09/18/18 11:30 09/18/18 11:48 09/18/18 12:00 Temperature 98.1 F Pulse Rate 60 62 Respiratory Rate 15 30 H 15 Blood Pressure 148/70 H 140/65 Pulse Oximetry 100 100 100 09/18/18 12:30 09/18/18 13:00 09/18/18 13:30 Temperature Pulse Rate 63 61 59 L Respiratory Rate 15 15 14 Blood Pressure 153/74 H 145/78 H 153/72 H Pulse Oximetry 100 100 100 09/18/18 14:00 09/18/18 14:30 09/18/18 15:00 Temperature Pulse Rate 62 64 65 Respiratory Rate 16 16 17 Blood Pressure 145/70 H 144/70 H 152/74 H Pulse Oximetry 100 100 100 09/18/18 15:01 09/18/18 15:30 09/18/18 16:00 Temperature Pulse Rate 62 64 Respiratory Rate 16 15 17 Blood Pressure 146/70 H 167/79 H Pulse Oximetry 100 100 100 09/18/18 16:30 09/18/18 17:00 09/18/18 17:30 Temperature Pulse Rate 62 62 61 Respiratory Rate 15 14 14 Blood Pressure 161/76 H 161/74 H 168/79 H Pulse Oximetry 100 100 100 09/18/18 18:00 09/18/18 18:30 09/18/18 19:00 Temperature Pulse Rate 62 57 L 54 L Respiratory Rate 14 14 14 Blood Pressure 161/80 H 186/85 H Pulse Oximetry 100 100 100 09/18/18 19:01 09/18/18 19:30 09/18/18 19:35 Temperature Pulse Rate 55 L 57 L Respiratory Rate 14 14 14 Blood Pressure 127/66 125/64 Pulse Oximetry 100 100 100 09/18/18 20:00 09/18/18 23:10 09/19/18 00:00 Temperature 97.6 F 98.4 F Pulse Rate 61 62 Respiratory Rate 14 14 14 Blood Pressure 181/86 H 161/76 H Pulse Oximetry 100 100 100 09/19/18 04:00 09/19/18 04:17 09/19/18 07:24 Temperature 98.4 F Pulse Rate 61 Respiratory Rate 14 17 15 Blood Pressure 154/70 H Pulse Oximetry 100 100 98 Intake & Output 09/18/18 09/19/18 09/19/18 18:59 06:59 18:59 Intake Total 1778 / 1778 1206 / 1206 Output Total 800 / 800 Balance 177 / 1778 406 / 406 Weight 96 kg Intake: IV 856 / 856 100 / 100 Unasyn Inj 1,500 MG In NS Inj 220 / 220 100 / 100 100 ML @ 200 mls/hr IV.SIG Q6H HERRERA Rx#:[id number] Vancomycin Inj 1,500 MG In NS 636 / 636 Inj 500 ML @ 250 mls/hr IV.SIG Q24H HERRERA Rx#:[id number] Oral 0 / 0 0 / 0 Tube Feeding 602 / 602 606 / 606 Tube Irrigant 120 / 120 Water Bolus Amount 200 / 200 500 / 500 Output: Urine 800 / 800 Other: # Incontinent Voids 4 2 Date of Last Bowel Movement 09/13/18 09/18/18 # Bowel Movements 0 # Incontinent Bowel Movements 1 Result Diagrams: 09/19/18 04:27 09/19/18 04:27 Other Results: Laboratory Results WBC 8.5 th/mm3 (4.0-11.0) 09/19/18 04:27 RBC 3.61 mil/mm3 (4.50-5.90) L 09/19/18 04:27 Hgb 10.8 gm/dL (13.0-17.0) L 09/19/18 04:27 Hct 32.0 % (39.0-51.0) L 09/19/18 04:27 MCV 88.6 fL (80.0-100.0) 09/19/18 04:27 MCH 29.9 pg (27.0-34.0) 09/19/18 04:27 MCHC 33.8 % (32.0-36.0) 09/19/18 04:27 RDW 13.9 % (11.6-17.2) 09/19/18 04:27 Plt Count 286 th/mm3 (150-450) 09/19/18 04:27 MPV 8.6 fL (7.0-11.0) 09/19/18 04:27 Prelim Diff (Auto) Slide review pending 09/19/18 04:27 Neut % (Auto) 78.6 % (16.0-70.0) H 09/19/18 04:27 Lymph % (Auto) 13.4 % (9.0-44.0) 09/19/18 04:27 [place] % (Auto) 4.5 % (0.0-8.0) 09/19/18 04:27 Eos % (Auto) 2.9 % (0.0-4.0) 09/19/18 04:27 Baso % (Auto) 0.6 % (0.0-2.0) 09/19/18 04:27 Neut # (Auto) 6.7 th/mm3 (1.8-7.7) 09/19/18 04:27 Lymph # (Auto) 1.1 th/mm3 (1.0-4.8) 09/19/18 04:27 [place] # (Auto) 0.4 th/mm3 (0.0-0.9) 09/19/18 04:27 Eos # (Auto) 0.2 th/mm3 (0.0-0.4) 09/19/18 04:27 Baso # (Auto) 0.0 th/mm3 (0.0-0.2) 09/19/18 04:27 WBC Differential Manual diff final 09/19/18 04:27 Diff Scan Auto diff confirmed 09/13/18 08:20 Seg Neuts % (Manual) 64 % (16-70) 09/19/18 04:27 Band Neuts % (Manual) 11 % (0-6) H 09/19/18 04:27 Lymphocytes % (Manual) 13 % (9-44) 09/19/18 04:27 Monocytes % (Manual) 6 % (0-8) 09/19/18 04:27 Eosinophils % (Manual) 2 % (0-4) 09/19/18 04:27 Basophils % (Manual) 1 % (0-2) 09/18/18 00:57 Metamyelocytes % (Man) 1 % (0-1) 09/19/18 04:27 Myelocytes % (Man) 3 % (0-0) H 09/19/18 04:27 Abs Neuts (Manual) 6.7 th/mm3 (1.8-7.7) 09/19/18 04:27 Differential Comment . 09/19/18 04:27 Toxic Granulation 1+ (None) H 09/19/18 04:27 Platelet Estimate Normal (Normal) 09/19/18 04:27 Platelet Morphology Normal (Normal) 09/19/18 04:27 RBC Morphology Normal (Normal) 09/16/18 14:55 Hematology Comments 09/13/18 08:20 PT 11.6 sec (9.8-11.6) 09/10/18 13:53 INR 1.1 Ratio 09/10/18 13:53 APTT 25.2 sec (23.4-31.7) 09/10/18 13:53 Puncture Site Left radial 09/15/18 15:47 Patient Temperature 98.6 09/15/18 15:47 O2 Saturation 96 % (90-100) 09/15/18 15:47 ABG pH 7.48 (7.380-7.420) H 09/15/18 15:47 ABG pCO2 35 mmHg (38-42) L 09/15/18 15:47 ABG pO2 123 mmHG (61-120) H 09/15/18 15:47 ABG HCO3 26 mmol/L (22-26) 09/15/18 15:47 ABG O2 Content 15.9 Vol % (12.0-20.0) 09/15/18 15:47 ABG Base Excess 2.3 mmol/L (-2-2) H 09/15/18 15:47 ABG Methemoglobin 1.5 % (0-2) 09/15/18 15:47 Lino Test Present 09/15/18 15:47 Hemoglobin 11.6 G/DL (12.0-16.0) L 09/15/18 15:47 Carboxyhemoglobin 0.7 % (0-4) 09/15/18 15:47 O2 Delivery Device Ventilator 09/15/18 15:47 Vent Setting Cpap/ps10/peep5 09/15/18 15:47 Inspired O2 30 % 09/15/18 15:47 Critical Value No 09/15/18 15:47 Sodium 142 meq/L (136-145) 09/19/18 04:27 Potassium 4.0 meq/L (3.5-5.1) 09/19/18 04:27 Chloride 105 meq/L (98-107) 09/19/18 04:27 Carbon Dioxide 28.6 meq/L (21.0-32.0) 09/19/18 04:27 Anion Gap 8 meq/L (5-15) 09/19/18 04:27 BUN 23 mg/dL (7-18) H 09/19/18 04:27 Creatinine 0.75 mg/dL (0.60-1.30) 09/19/18 04:27 Estimated GFR Greater than 89 mL/min (>89) 09/19/18 04:27 POC Glucose 168 mg/dl (68-110) H 09/19/18 04:31 Random Glucose 151 mg/dL (74-106) H 09/19/18 04:27 Hemoglobin A1c 8.8 % (4.3-6.0) H 09/11/18 13:50 Lactic Acid 1.0 mmol/L (0.4-2.0) 09/17/18 05:11 Calcium 8.2 mg/dL (8.5-10.1) L 09/19/18 04:27 Calcium Adj for Albumin Cancelled 09/10/18 13:53 Phosphorus 2.3 mg/dL (2.5-4.9) L 09/19/18 04:27 Magnesium 1.9 mg/dL (1.5-2.5) 09/19/18 04:27 Total Bilirubin 1.8 mg/dL (0.2-1.0) H 09/13/18 05:49 AST 37 U/L (15-37) 09/13/18 05:49 ALT 10 U/L (12-78) L 09/13/18 05:49 Alkaline Phosphatase 162 U/L (45-117) H 09/13/18 05:49 Ammonia Less than 10 mcmol/L (11-32) L 09/17/18 05:11 Total Creatine Kinase 154 U/L (39-308) 09/11/18 02:45 CK-MB (CK-2) Less than 1.0 ng/mL (0.5-3.6) 09/10/18 13:53 CK-MB (CK-2) % 0.3 % (0.0-4.0) 09/10/18 13:53 Troponin I 0.05 ng/mL (0.02-0.05) 09/10/18 20:59 B-Natriuretic Peptide 39 pg/mL (0-100) 09/11/18 13:50 Total Protein 6.0 g/dL (6.4-8.2) L 09/13/18 05:49 Albumin 1.4 g/dL (3.4-5.0) L 09/13/18 05:49 TSH 0.435 uIU/mL (0.358-3.740) 09/10/18 20:59 Thyroxine (T4) 8.7 mcg/dL (4.5-12.1) 09/10/18 20:59 Cortisol 34.8 mcg/dL 09/10/18 20:59 Urine Color Norma (Yellw/Straw) 09/10/18 15:15 Urine Clarity Hazy (Clear) H 09/10/18 15:15 Urine pH 5.0 (5.0-8.5) 09/10/18 15:15 Ur Specific [place] 1.023 (1.002-1.035) 09/10/18 15:15 Urine Protein 100 mg/dL (Neg-Trace) H 09/10/18 15:15 Urine Glucose (UA) Negative mg/dL (Negative) 09/10/18 15:15 Urine Ketones Negative mg/dL (Negative) 09/10/18 15:15 Urine Occult Blood Negative (Negative) 09/10/18 15:15 Urine Nitrate Negative (Negative) 09/10/18 15:15 Urine Bilirubin Negative (Negative) 09/10/18 15:15 Urine Urobilinogen 4 or greater mg/dL (Less than 2) 09/10/18 15:15 Ur Leukocyte Esterase Negative (Negative) 09/10/18 15:15 Urine RBC 1 /hpf (0-3) 09/10/18 15:15 Urine WBC 3 /hpf (0-5) 09/10/18 15:15 Amorphous Sediment Rare /hpf (None) H 09/10/18 15:15 Urine Bacteria Rare /hpf (None) H 09/10/18 15:15 Granular Casts 1 /lpf (None) 09/10/18 15:15 Urine Mucus Few /lpf (Occasional) H 09/10/18 15:15 Micro UA Comment Cath-culture ind 09/10/18 15:15 Ur Microscopic Review Not Reportable 09/10/18 15:15 Urine Culture Comments Cath-cult indicated 09/10/18 15:15 Nasal Screen MRSA (PCR) Not detected (Negative) 09/10/18 18:30 Vancomycin Trough 12.1 mcg/mL (5.0-10.0) H 09/16/18 12:24 Random Vancomycin 14.6 Comment 09/12/18 17:39 Urine Opiates Screen Neg (Neg) 09/16/18 16:25 Ur Barbiturates Screen Neg (Neg) 09/16/18 16:25 Ur Amphetamines Screen Neg (Neg) 09/16/18 16:25 U Benzodiazepines Scrn Neg (Neg) 09/16/18 16:25 Urine Cocaine Screen Neg (Neg) 09/16/18 16:25 U Cannabinoids Screen Neg (Neg) 09/16/18 16:25 Impressions Extremity Arterial Study 09/11/18 00:00 CONCLUSION: 1. Normal ANITRA bilaterally. 2. 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 Foot X-Ray 09/11/18 00:00 CONCLUSION: Chronic changes and no definite fracture for technique. Liver Ultrasound 09/12/18 00:00 CONCLUSION: 1. Gallbladder sludge without gallbladder wall thickening 2. No intrahepatic biliary duct dilatation Chest X-Ray 09/16/18 04:00 CONCLUSION: Mild atelectasis at the lung bases. Otherwise, no acute finding is identified. Objective Remarks: GENERAL: Well-developed well-nourished elderly gentleman, intubated, arouses when stimulated SKIN: Warm and dry. HEAD: Atraumatic. Normocephalic. EYES: Pupils equal and round. No scleral icterus. No injection or drainage. ENT: No nasal bleeding or discharge. Mucous membranes pink and moist. NECK: Trachea midline. No JVD. CARDIOVASCULAR: Normal rate, regular rhythm. RESPIRATORY: No accessory muscle use. Clear to auscultation. Breath sounds equal bilaterally. GASTROINTESTINAL: Abdomen soft, non-tender, nondistended. No guarding. MUSCULOSKELETAL: Extremities without clubbing, cyanosis. 2+ edema bilateral upper extremities. left heel necrotic skin wound, left hip, necrotic skin wound gluteal fold unstageable. NEUROLOGICAL: Intubated , on no sedation. difficult to assess secondary to Parkinson's and dementia previously at a memory care center, baseline not of established upon presentation of to ED no gross focal/sensory deficits. Intermittently responsive. Movement of upper extremities on command intermittently. Assessment and Plan - Problem List (1) Influenza A Code(s): J10.1 - Influenza due to other identified influenza virus with other respiratory manifestations Status: Acute (2) Sacral decubitus ulcer, stage IV Code(s): L89.154 - Pressure ulcer of sacral region, stage 4 Status: Acute (3) Decubitus ulcer of ankle Code(s): L89.509 - Pressure ulcer of unspecified ankle, unspecified stage Status: Acute (4) Decubitus ulcer, hip Code(s): L89.209 - Pressure ulcer of unspecified hip, unspecified stage Status : Acute (5) Renal insufficiency Code(s): N28.9 - Disorder of kidney and ureter, unspecified Status: Acute (6) Sepsis Code(s): A41.9 - Sepsis, unspecified organism Status: Acute - Assessment and Plan Plan: Plan by systems: Neurologic: Dementia Parkinson's disease Metabolic encephalopathy, most likely secondary to sepsis Chronic pain Propofol infusion off for > 72 hours, family/sisters requesting interaction with patient-deciding goals of care Daily sedation vacation Ammonia, cortisol, TSH level-WNL Home medications and Singulair,Norvasc, Continue Sinemet 25/100 Code on 5 mg every 6 hours as needed for severe pain 8-10 Respiratory: Acute hypoxemic respiratory failure Pneumonia 09/10 intubated in the ED 8.0 ET tube 26cm at the lip Ventilator bundle Duo nebs every 4 hours scheduled and every 2 hours as needed Wean FiO2 to maintain O2 saturation greater than 92% Continue CPAP trials plan for trial of extubation- ETT day 10 Family leaning toward not proceeding with tracheostomy and PEGfollowing with palliative care team Tamiflu completed 09/17 Cardiovascular: Sinus tachycardia-resolved Normotensive Initial troponin 0.02->0.05 Maintain map greater than 65 mmHg Hydralazine PRN for systolic greater than 160 mmHg Renal: Maintain Lainez -- Strict I/Os FEN/GI: Hypernatremia-resolved Severe protein calorie malnutrition D5W discontinued Continue Free water flushes 250 cc every 6 hours, monitor BMP Glucerna tube feeds goal rate 60 cc/hour and Bhanu protein packets 3 times daily Bowel regimen-last BM 09/18, sodium level 142 Zofran for nausea Albumin 1.4 Heme/ID: Influenza A Leukocytosis-resolved Sepsis Tamiflu x 7days discontinued 09/17 09/10 Pneumococcal, Legionella urine antigens-NGTD 09/10 sputum culture-staph aureus 09/10 blood and urine cultures- NGTD Wound culture to-group D enterococcus,MRSA Patient noted to have multiple necrotic unstageable wound ID following-Unasyn and Vanco. Cefepime discontinued 09/11 Endocrine: Diabetes mellitus Glucose monitoring per ICU protocol Insulin infusion discontinued 09/13 -- SSI-increase to high-dose Prophylaxis: GI Prophylaxis Famotidine twice daily DVT Prophylaxis -- SCDs Subcutaneous heparin every 12 hours Lines: Peripheral IVs providing adequate access. Central line if clinically indicated Dispo: Level 3 follow-up Palliative care is following plan for trial of extubation upon successful SBT parameters. Plan for trial of extubation. Patient is day 10 ETT, unable to obtain SBT formally. Plan for trial of extubation, will await discussion with family in terms of goals of care with palliative care team. Per patient siblings today related to RN while visiting that the children are considering possibly hospice care. Code Status: Alternative Discussed Condition With: Discussed with [employer] at bedside
--- NOTE | 2018-09-19 09:14 | P.PNID ---
Subjective Remarks: Patient is an 83-year-old male, brought into the hospital with altered mental status. He apparently also has been having breathing problem the last several days. There was no mention of any fever chills or any congestion. No mention of any other problem as far as or any GI complaints. According to the record patient is able to communicate but otherwise nonambulatory as a baseline. On evaluation he was found to have leukocytosis. His creatinine was 1.8. Lactic acid was elevated. Chest x-ray was normal. Urinalysis was unremarkable. Patient required intubation. His initial white count was 17,000 , and its down to 16,000. Influenza testing is positive for influenza A. Blood cultures are negative. Patient was found to have multiple decubitus including the left hip, the coccyx, and bilateral heel. His LFTs are also mildly elevated. Infectious disease consultation has been requested to assist with evaluation and treatment of leukocytosis. Notes reviewed Failed CPAP this weekend Lethargic Temps ok WBC normal Antibiotics: Unasyn Vancomycin Past Medical History: Parkinson disease (Acute) Diabetes (Acute) Dementia (Acute) Hypertension (Acute) Hernia (Acute) History of left hip replacement (Acute) Allergies/Adverse Reactions: Allergies No Known Allergies Allergy (Verified 09/10/18 13:43) Objective Vital Signs 09/18/18 09:30 09/18/18 10:00 09/18/18 10:30 Temperature Pulse Rate 62 62 60 Respiratory Rate 15 15 16 Blood Pressure 161/77 H 164/75 H 158/74 H Pulse Oximetry 100 100 100 09/18/18 11:00 09/18/18 11:30 09/18/18 11:48 Temperature Pulse Rate 60 60 Respiratory Rate 14 15 30 H Blood Pressure 145/67 H 148/70 H Pulse Oximetry 100 100 100 09/18/18 12:00 09/18/18 12:30 09/18/18 13:00 Temperature 98.1 F Pulse Rate 62 63 61 Respiratory Rate 15 15 15 Blood Pressure 140/65 153/74 H 145/78 H Pulse Oximetry 100 100 100 09/18/18 13:30 09/18/18 14:00 09/18/18 14:30 Temperature Pulse Rate 59 L 62 64 Respiratory Rate 14 16 16 Blood Pressure 153/72 H 145/70 H 144/70 H Pulse Oximetry 100 100 100 09/18/18 15:00 09/18/18 15:01 09/18/18 15:30 Temperature Pulse Rate 65 62 Respiratory Rate 17 16 15 Blood Pressure 152/74 H 146/70 H Pulse Oximetry 100 100 100 09/18/18 16:00 09/18/18 16:30 09/18/18 17:00 Temperature Pulse Rate 64 62 62 Respiratory Rate 17 15 14 Blood Pressure 167/79 H 161/76 H 161/74 H Pulse Oximetry 100 100 100 09/18/18 17:30 09/18/18 18:00 09/18/18 18:30 Temperature Pulse Rate 61 62 57 L Respiratory Rate 14 14 14 Blood Pressure 168/79 H 161/80 H 186/85 H Pulse Oximetry 100 100 100 09/18/18 19:00 09/18/18 19:01 09/18/18 19:30 Temperature Pulse Rate 54 L 55 L 57 L Respiratory Rate 14 14 14 Blood Pressure 127/66 125/64 Pulse Oximetry 100 100 100 09/18/18 19:35 09/18/18 20:00 09/18/18 23:10 Temperature 97.6 F Pulse Rate 61 Respiratory Rate 14 14 14 Blood Pressure 181/86 H Pulse Oximetry 100 100 100 09/19/18 00:00 09/19/18 04:00 09/19/18 04:17 Temperature 98.4 F 98.4 F Pulse Rate 62 61 Respiratory Rate 14 14 17 Blood Pressure 161/76 H 154/70 H Pulse Oximetry 100 100 100 09/19/18 07:24 Temperature Pulse Rate Respiratory Rate 15 Blood Pressure Pulse Oximetry 98 Intake & Output 09/18/18 09/19/18 09/19/18 18:59 06:59 18:59 Intake Total 1778 / 1778 1206 / 1206 Output Total 800 / 800 Balance 1778 / 1778 406 / 406 Weight 96 kg Intake: IV 856 / 856 100 / 100 Unasyn Inj 1,500 MG In NS Inj 220 / 220 100 / 100 100 ML @ 200 mls/hr IV.SIG Q6H HERRERA Rx#:[id number] Vancomycin Inj 1,500 MG In NS 636 / 636 Inj 500 ML @ 250 mls/hr IV.SIG Q24H HERRERA Rx#:[id number] Oral 0 / 0 0 / 0 Tube Feeding 602 / 602 606 / 606 Tube Irrigant 120 / 120 Water Bolus Amount 200 / 200 500 / 500 Output: Urine 800 / 800 Other: # Incontinent Voids 4 2 Date of Last Bowel Movement 09/13/18 09/18/18 # Bowel Movements 0 # Incontinent Bowel Movements 1 Lab - Hematology Results 09/18/18 09/19/18 00:57 04:27 WBC 7.4 8.5 RBC 3.66 L 3.61 L Hgb 10.7 L 10.8 L Hct 32.6 L 32.0 L MCV 89.2 88.6 MCH 29.2 29.9 MCHC 32.8 33.8 RDW 13.9 13.9 Plt Count 301 286 MPV 8.1 8.6 Prelim Diff (Auto) Slide review pending Slide review pending Neut % (Auto) 78.6 H 78.6 H Lymph % (Auto) 12.1 13.4 Hendricks % (Auto) 5.4 4.5 Eos % (Auto) 2.9 2.9 Baso % (Auto) 1.0 0.6 Neut # (Auto) 5.8 6.7 Lymph # (Auto) 0.9 L 1.1 Hendricks # (Auto) 0.4 0.4 Eos # (Auto) 0.2 0.2 Baso # (Auto) 0.1 0.0 WBC Differential Manual diff final Manual diff final Seg Neuts % (Manual) 73 H 64 Band Neuts % (Manual) 12 H 11 H Lymphocytes % (Manual) 8 L 13 Monocytes % (Manual) 3 6 Eosinophils % (Manual) 3 2 Basophils % (Manual) 1 Metamyelocytes % (Man) 1 Myelocytes % (Man) 3 H Abs Neuts (Manual) 6.3 6.7 Differential Comment . . Toxic Granulation 1+ H Platelet Estimate Normal Normal Platelet Morphology Normal Normal Lab - Chemistry Results 09/17/18 09/17/18 09/17/18 12:18 17:57 23:15 Sodium Potassium Chloride Carbon Dioxide Anion Gap BUN Creatinine Estimated GFR POC Glucose 161 H 186 H 147 H Random Glucose Calcium Phosphorus Magnesium 09/18/18 09/18/18 09/18/18 00:57 00:57 04:17 Sodium 144 Potassium 3.4 L Cancelled Chloride 112 H Carbon Dioxide 24.7 Anion Gap 7 BUN 17 Creatinine 0.67 Estimated GFR Greater than 89 POC Glucose 177 H Random Glucose 175 H Calcium 7.9 L Phosphorus 2.1 L Magnesium 1.8 09/18/18 09/18/18 09/18/18 12:49 17:32 23:19 Sodium Potassium Chloride Carbon Dioxide Anion Gap BUN Creatinine Estimated GFR POC Glucose 209 H 115 H 158 H Random Glucose Calcium Phosphorus Magnesium 09/19/18 09/19/18 04:27 04:31 Sodium 142 Potassium 4.0 Chloride 105 Carbon Dioxide 28.6 Anion Gap 8 BUN 23 H Creatinine 0.75 Estimated GFR Greater than 89 POC Glucose 168 H Random Glucose 151 H Calcium 8.2 L Phosphorus 2.3 L Magnesium 1.9 Imaging: ITS Impressions Extremity Arterial Study 09/11/18 00:00 CONCLUSION: 1. Normal ANITRA bilaterally. 2. 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 Foot X-Ray 09/11/18 00:00 CONCLUSION: Chronic changes and no definite fracture for technique. Liver Ultrasound 09/12/18 00:00 CONCLUSION: 1. Gallbladder sludge without gallbladder wall thickening 2. No intrahepatic biliary duct dilatation Chest X-Ray 09/16/18 04:00 CONCLUSION: Mild atelectasis at the lung bases. Otherwise, no acute finding is identified. Physical Exam: GENERAL: opens eyes, on the vent, NAD. SKIN: Cool and dry. No generalized rash. He has dry decubitus in both heel, larger on L than on R. There is an unstageable decubitus, black eschar, about 1.2 in, in L hip. There is a large black eschar in coccyx. EYES: [place] conjunctiva. No petechia or hemorrhage. No scleral icterus. No injection or drainage. EARS, NOSE AND THROAT: Nose without bleeding or purulent nasal discharge. He is orally intubated. NECK: Trachea midline. Supple and not tender, no meningeal signs CARDIOVASCULAR: Regular rate and rhythm. No murmurs, rubs or gallops heard RESPIRATORY: Clear to auscultation. Breath sounds equal bilaterally. No rales , wheezing or rhonchi ABDOMEN: Soft, non-tender, nondistended. Bowel sounds present and normoactive. EXTREMITIES: No clubbing, cyanosis, or edema. NEUROLOGICAL: Opens eyes PSYCHIATRIC: Unable to assess : Lainez catheter in place, urine looks clear LINE: No evidence of infection Assessment and Plan - Plan Impression Leukocytosis, etiology? - CXR clear - UA ok - has multiple unstageable decubitus - dehydrated - abnormal LFT Multiple decubitus, unstageable Influenza A (+) Respiratory failure Renal insufficiency, better, likely dehydrated Recommendation Stop IV Unasyn Continue Vancomycin Family deciding on further care Will need trach and PEG if still continue with current care plan
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
[2018-09-19] MEDS: Vancomycin Inj 1,500 MG in Sodium Chlor 0.9% Inj 500 ML IV.SIG SCH (12:09)
[2018-09-20] MEDS: Insulin NovoLOG Aspart Correctional Sugar Inj SQ SCH ×4 (00:49→17:31)
[2018-09-20] MEDS: Oral Hygiene Kit OROPHARYNG SCH ×4 (00:49→15:03)
[2018-09-20] MEDS: Labetalol HCl Inj 100 MG/20 ML Vial IV.PUSH PRN ×3 (00:50→21:30)
[2018-09-20 05:44] LABS: Baso # (Auto) 0.1 th/mm3 (0.0-0.2); Baso % (Auto) 0.8 % (0.0-2.0); Eos # (Auto) 0.2 th/mm3 (0.0-0.4); Eos % (Auto) 1.9 % (0.0-4.0); Hematocrit 34.1 % (39.0-51.0); Hemoglobin 11.5 gm/dL (13.0-17.0); Lymph # (Auto) 1.4 th/mm3 (1.0-4.8); Lymph % (Auto) 13.6 % (9.0-44.0); Mean Corpuscular HGB Conc 33.7 % (32.0-36.0); Mean Corpuscular Hemoglobin 29.7 pg (27.0-34.0); Mean Platelet Volume 8.9 fL (7.0-11.0); Mono # (Auto) 0.5 th/mm3 (0.0-0.9); Mono % (Auto) 5.2 % (0.0-8.0); Neut % (Auto) 78.5 % (16.0-70.0); Platelet Count 285 th/mm3 (150-450); Red Blood Count 3.87 mil/mm3 (4.50-5.90); Red Cell Distribution Width 14.1 % (11.6-17.2); White Blood Count 10.2 th/mm3 (4.0-11.0)
[2018-09-20] MEDS: Sodium Hypochlorite 0.125% Top Soln 500 ML Bottle TOPICAL SCH ×3 (05:46→21:25)
[2018-09-20] MEDS: Heparin - SQ 10,000 UNITS/ML Vial SQ SCH ×2 (05:46→15:03)
[2018-09-20 06:38] LABS: Eosinophils 3 % (0-4); Lymphocytes 12 % (9-44); Metamyelocytes 2 % (0-1); Monocytes 6 % (0-8); Myelocytes 1 % (0-0)
[2018-09-20 06:39] LABS: Platelet Estimate Normal (Normal); Platelet Morphology Normal (Normal)
[2018-09-20] MEDS: Chlorhexidine 0.12% Oral Kit 15 ML UDC OROPHARYNG SCH ×2 (07:57→21:24)
[2018-09-20] MEDS: Senna/Docusate Sodium 8.6/50 MG Tablet PO SCH ×2 (08:01→21:25)
[2018-09-20] MEDS: Famotidine PF Inj 20 MG/2 ML Vial IV.PUSH SCH ×2 (08:01→21:24)
--- NOTE | 2018-09-20 10:59 | P.PNPAL ---
1030am Called ex- Kaila, she states she is on her way down and has exhibits with her. She states Christian should be arriving this afternoon. 1500: Received call from nurse stating son and sister are at bedside, advised I would follow up later this afternoon.
--- NOTE | 2018-09-20 11:24 | P.DIET ---
Nutritional Evaluation Type of nutrition evaluation: follow-up Nutrition consult regarding: Tube Feeding Nutrition [place] [facility] [place]: 09/11 [facility] [place] 09/13 NPO alert x3 days Objective - Diagnosis Sepsis - Objective % IBW: 93 Body Weight Used for Calculations: Actual (78.4) Energy Needs - Lower Range (kCal/kg): 27 Energy Needs - Upper Range (kCal/kg): 32 Lower Limit kCal/kg (kCals): 2,117 Upper Limit kCal/kg (kCals): 2,509 Lower Limit Protein Factor (Grams per Kg): 1.2 Upper Limit Protein Factor (Grams per Kg): 1.5 Lower Protein Needs (Protein): 94 Upper Protein Needs (Protein): 118 Dietitian Reviewed in Medical Record: Curent medications, Intake & Output, Labs , Medical history, Wound/DTI Diet Order: NPO Wound Care Note: Multiple wounds: Sacrum, R heel, L heel (DTI), L hip (unstageable), sacrococcygeal gluteal cleft (unstageable) Objective Comments: PMH: Dementia, HTN, DM, Parkinson's Labs include: POC glucose 168 141 159 Meds include: novolog Assessment Assessment: Pt remains high nutritional risk r/t current clinical status. Pt off sedation for communication to family, on CPAP trials, and trials for extubation soon. Palliative care note reviewed, pts family likely not proceeding w/ trach and PEG , son coming down from [place] at the time for pts withdrawal of care. Pt currently receiving Glucerna 1.5 @ 60mL/hr at goal rate now. Pt also receiving Bhanu 1 pkt TID to aid in wound healing. Will monitor TF tolerance, wounds, clinical course. Labs reviewed, dietitian following. Recommendations: 1. Continue Glucerna 1.5 @ 60mL/hr at goal rate w/ Bhanu 1 pkt BID to aid in wound healing 2. Will monitor TF tolerance, wounds, clinical course 3. Dietitian following Dietitian to Monitor: Lab values, Renal labs, Intake & Output, Tube feeding tolerance, Weight change, Wound/skin status, Medical course
[2018-09-20] MEDS ORDERED: Pharmacy Ordered Lab Info OTHER ONE (11:45)
[2018-09-20] MEDS: Vancomycin Inj 1,500 MG in Sodium Chlor 0.9% Inj 500 ML IV.SIG SCH (11:56)
[2018-09-20 12:37] LABS: Vancomycin,Trough 18.9 mcg/mL (5.0-10.0)
[2018-09-20 12:39] LABS: Anion Gap 7 meq/L (5-15); Blood Urea Nitrogen 28 mg/dL (7-18); Calcium 8.5 mg/dL (8.5-10.1); Carbon Dioxide 29.7 meq/L (21.0-32.0); Chloride 100 meq/L (98-107); Glomerular Filtration Rate Greater Than 89 mL/min (>89); Glucose,Random 177 mg/dL (74-106); Magnesium 1.9 mg/dL (1.5-2.5); Phosphorus 3.3 mg/dL (2.5-4.9); Sodium 137 meq/L (136-145)
[2018-09-20 12:49] LABS: Potassium 4.6 meq/L (3.5-5.1)
--- NOTE | 2018-09-20 17:30 | P.PNCC ---
Subjective Subjective Remarks/Hospital Course: Subjective 09/11: Afebrile . Lactic acid only slightly decreased this a.m. ID has been consulted patient continues on vancomycin and the patient was noted to be hypernatremic D5W was started last evening and subsequently insulin infusion at 2 units/h. The patient has 3 siblings. Sister met yesterday evidently is the one that goes to the correction facility and feeds him, despite being lethargic. Also informed that that sister was also feeding him narcotics, which the correction facility is investigating. The patient continues to have decreased mentation off propofol. Repeat BMP shows decreasing sodium now 160. Free water flushes have been added to medication regimen. I discussed extensively with Sister Trena Zafar by telephone, the patient's POA the patient's condition and provided a medical status update. The patient's POA, and another sibling requested we place him in DNR. The POA states she has the paperwork at home however she is on vacation at this time and will provided via fax the patient has a living will. Palliative care also has been consulted to help evaluate/to define goals. The patient was placed in alternate CODE STATUS. The patient is hemodynamically stable at this time. 09/12: Afebrile. No further cardiac events overnight. And CPAP trials this a.m. Wound care consulted all wounds unstageable recommendations implemented. Tube feeds initiated per dietitian's recommendations per hypernatremia resolving D5W discontinued. The patient is continued on free water flushes. Leukocytosis resolving. 09/13: No acute events overnight. Patient tolerating CPAP trials. Patient tolerating tube feeds. Continues on low-dose propofol. 09/14: CPAP trials initiated at 8 AM currently patient tolerating . Tube feeds placed on hold in anticipation of possible SBT trials this afternoon. Resolution of leukocytosis and hypernatremia. IV fluids discontinued. 09/15:The patient has been on CPAP since 6am, sedation remains off. Pt still lethargic , unable to perform SBT at this time. Precedex infusion initiated to facilitate ventilator weaning propofol has been discontinued. Patient remains slightly hypernatremia increase in free water flushes. Patient is responding off of sedation though still lethargic. 09/16: Sedation for over 12 hours. Patient responding with upper extremities commands. The patient has continued on CPAP trials for greater than 8 hours. We will attempt SBT. Tentative plan for trial of extubation. Attempts made to contact Christian Liao patient's son and Blanca Liao patient's daughter after obtaining the information from palliative care grocery team member to provide medical status update and began conversation to define goals of care, unsuccessful. 09/17: Late entry note, patient seen earlier approximately 11 AM. No acute events overnight. Hypernatremia resolving with addition of free water flushes over the last 36 hours. Patient was noted to be on IV normal saline 75cc/hr this a.m. upon evaluation which has now been discontinued. I discussed with palliative care grocery team member Judy Kebede on 09/16 evening family discussed with palliative care grocery team member chronicity of patient's illness and prolonged deterioration over the last 3-6 months, they are considering possible hospice versus initiation of comfort care measures. The patient was off sedation for greater than 48 hours spontaneous eye opening movement of upper extremities weakly nodding head to yes and no questions no movement of lower extremities. The patient is tolerating CPAP. 09/18: The patient has remained off sedation for greater than 72-hour, intermittently following commands. The patient has failed CPAP trials. Discussion with family per RN consideration for hospice is underway per the patient's children. Plan follow-up on Wednesday with palliative care team. The patient continues on antibiotics. Tamiflu discontinued yesterday, after 7-day dosing. Intermittently following commands today. 09/19: Afebrile. The patient is arousable, remains off sedation in order to communicate with siblings, and children. Oxycodone added to medication regimen , last evening. The patient is tolerating tube feeds. Noted ETT day 10, awaiting decision from family regarding disposition for possible tracheostomy and PEG placement. 09/20: Patient seen earlier today. Late entry note. No acute change in neurological status. Family leaning toward initiation of hospice or comfort care. The patient remains hemodynamically stable. The patient is tolerating tube feeds. Objective Vital Signs / I&O: Vital Signs 09/19/18 19:35 09/19/18 20:00 09/19/18 23:28 Temperature 98.3 F Pulse Rate 61 Respiratory Rate 15 14 23 Blood Pressure 158/74 H Pulse Oximetry 100 100 100 09/20/18 00:00 09/20/18 03:57 09/20/18 04:00 Temperature 98.0 F 98.1 F Pulse Rate 81 64 Respiratory Rate 22 14 14 Blood Pressure 167/90 H 136/67 Pulse Oximetry 100 100 100 09/20/18 07:26 09/20/18 08:00 09/20/18 12:00 Temperature 98.3 F 98.0 F Pulse Rate 68 78 Respiratory Rate 16 19 22 Blood Pressure 157/77 H Pulse Oximetry 99 100 100 09/20/18 14:06 09/20/18 15:23 09/20/18 16:00 Temperature 99.4 F Pulse Rate 81 Respiratory Rate 18 15 16 Blood Pressure 175/99 H Pulse Oximetry 100 100 100 Intake & Output 09/19/18 09/20/18 09/20/18 18:59 06:59 18:59 Intake Total 1632 / 1632 1251 / 1251 Output Total 1200 / 1200 300 / 300 Balance 432 / 432 951 / 951 Weight 96.1 kg Intake: IV 515 / 515 100 / 100 Vancomycin Inj 1,500 MG In NS 515 / 515 Inj 500 ML @ 250 mls/hr IV.SIG Q24H [facility] Rx#:[id number] Oral 0 / 0 Tube Feeding 617 / 617 651 / 651 Water Bolus Amount 500 / 500 500 / 500 Output: Urine 1200 / 1200 Stool 0 / 0 Urine/Stool Mix 0 / 0 Urine Amount (Catheter) 300 / 300 Condom 300 / 300 Other: Post Void Residual 900 # Voids 4 # Incontinent Voids 2 Date of Last Bowel Movement 09/18/18 09/18/18 09/18/18 # Bowel Movements 0 0 # Incontinent Bowel Movements 0 Result Diagrams: 09/20/18 03:25 09/20/18 11:37 Other Results: Laboratory Results WBC 10.2 th/mm3 (4.0-11.0) 09/20/18 03:25 RBC 3.87 mil/mm3 (4.50-5.90) L 09/20/18 03:25 Hgb 11.5 gm/dL (13.0-17.0) L 09/20/18 03:25 Hct 34.1 % (39.0-51.0) L 09/20/18 03:25 MCV 88.0 fL (80.0-100.0) 09/20/18 03:25 MCH 29.7 pg (27.0-34.0) 09/20/18 03:25 MCHC 33.7 % (32.0-36.0) 09/20/18 03:25 RDW 14.1 % (11.6-17.2) 09/20/18 03:25 Plt Count 285 th/mm3 (150-450) 09/20/18 03:25 MPV 8.9 fL (7.0-11.0) 09/20/18 03:25 Prelim Diff (Auto) Slide review pending 09/20/18 03:25 Neut % (Auto) 78.5 % (16.0-70.0) H 09/20/18 03:25 Lymph % (Auto) 13.6 % (9.0-44.0) 09/20/18 03:25 [place] % (Auto) 5.2 % (0.0-8.0) 09/20/18 03:25 Eos % (Auto) 1.9 % (0.0-4.0) 09/20/18 03:25 Baso % (Auto) 0.8 % (0.0-2.0) 09/20/18 03:25 Neut # (Auto) 8.0 th/mm3 (1.8-7.7) H 09/20/18 03:25 Lymph # (Auto) 1.4 th/mm3 (1.0-4.8) 09/20/18 03:25 [place] # (Auto) 0.5 th/mm3 (0.0-0.9) 09/20/18 03:25 Eos # (Auto) 0.2 th/mm3 (0.0-0.4) 09/20/18 03:25 Baso # (Auto) 0.1 th/mm3 (0.0-0.2) 09/20/18 03:25 WBC Differential Manual diff final 09/20/18 03:25 Diff Scan Auto diff confirmed 09/13/18 08:20 Seg Neuts % (Manual) 68 % (16-70) 09/20/18 03:25 Band Neuts % (Manual) 8 % (0-6) H 09/20/18 03:25 Lymphocytes % (Manual) 12 % (9-44) 09/20/18 03:25 Monocytes % (Manual) 6 % (0-8) 09/20/18 03:25 Eosinophils % (Manual) 3 % (0-4) 09/20/18 03:25 Basophils % (Manual) 1 % (0-2) 09/18/18 00:57 Metamyelocytes % (Man) 2 % (0-1) H 09/20/18 03:25 Myelocytes % (Man) 1 % (0-0) H 09/20/18 03:25 Abs Neuts (Manual) 8.1 th/mm3 (1.8-7.7) H 09/20/18 03:25 Differential Comment . 09/20/18 03:25 Toxic Granulation 1+ (None) H 09/19/18 04:27 Platelet Estimate Normal (Normal) 09/20/18 03:25 Platelet Morphology Normal (Normal) 09/20/18 03:25 RBC Morphology Normal (Normal) 09/16/18 14:55 Hematology Comments 09/13/18 08:20 PT 11.6 sec (9.8-11.6) 09/10/18 13:53 INR 1.1 Ratio 09/10/18 13:53 APTT 25.2 sec (23.4-31.7) 09/10/18 13:53 Puncture Site Left radial 09/15/18 15:47 Patient Temperature 98.6 09/15/18 15:47 O2 Saturation 96 % (90-100) 09/15/18 15:47 ABG pH 7.48 (7.380-7.420) H 09/15/18 15:47 ABG pCO2 35 mmHg (38-42) L 09/15/18 15:47 ABG pO2 123 mmHG (61-120) H 09/15/18 15:47 ABG HCO3 26 mmol/L (22-26) 09/15/18 15:47 ABG O2 Content 15.9 Vol % (12.0-20.0) 09/15/18 15:47 ABG Base Excess 2.3 mmol/L (-2-2) H 09/15/18 15:47 ABG Methemoglobin 1.5 % (0-2) 09/15/18 15:47 Lino Test Present 09/15/18 15:47 Hemoglobin 11.6 G/DL (12.0-16.0) L 09/15/18 15:47 Carboxyhemoglobin 0.7 % (0-4) 09/15/18 15:47 O2 Delivery Device Ventilator 09/15/18 15:47 Vent Setting Cpap/ps10/peep5 09/15/18 15:47 Inspired O2 30 % 09/15/18 15:47 Critical Value No 09/15/18 15:47 Sodium 137 meq/L (136-145) 09/20/18 11:37 Potassium 4.6 meq/L (3.5-5.1) 09/20/18 11:37 Chloride 100 meq/L (98-107) 09/20/18 11:37 Carbon Dioxide 29.7 meq/L (21.0-32.0) 09/20/18 11:37 Anion Gap 7 meq/L (5-15) 09/20/18 11:37 BUN 28 mg/dL (7-18) H 09/20/18 11:37 Creatinine 0.82 mg/dL (0.60-1.30) 09/20/18 11:37 Estimated GFR Greater than 89 mL/min (>89) 09/20/18 11:37 POC Glucose 192 mg/dl (68-110) H 09/20/18 11:57 Random Glucose 177 mg/dL (74-106) H 09/20/18 11:37 Hemoglobin A1c 8.8 % (4.3-6.0) H 09/11/18 13:50 Lactic Acid 1.0 mmol/L (0.4-2.0) 09/17/18 05:11 Calcium 8.5 mg/dL (8.5-10.1) 09/20/18 11:37 Calcium Adj for Albumin Cancelled 09/10/18 13:53 Phosphorus 3.3 mg/dL (2.5-4.9) D 09/20/18 11:37 Magnesium 1.9 mg/dL (1.5-2.5) 09/20/18 11:37 Total Bilirubin 1.8 mg/dL (0.2-1.0) H 09/13/18 05:49 AST 37 U/L (15-37) 09/13/18 05:49 ALT 10 U/L (12-78) L 09/13/18 05:49 Alkaline Phosphatase 162 U/L (45-117) H 09/13/18 05:49 Ammonia Less than 10 mcmol/L (11-32) L 09/17/18 05:11 Total Creatine Kinase 154 U/L (39-308) 09/11/18 02:45 CK-MB (CK-2) Less than 1.0 ng/mL (0.5-3.6) 09/10/18 13:53 CK-MB (CK-2) % 0.3 % (0.0-4.0) 09/10/18 13:53 Troponin I 0.05 ng/mL (0.02-0.05) 09/10/18 20:59 B-Natriuretic Peptide 39 pg/mL (0-100) 09/11/18 13:50 Total Protein 6.0 g/dL (6.4-8.2) L 09/13/18 05:49 Albumin 1.4 g/dL (3.4-5.0) L 09/13/18 05:49 TSH 0.435 uIU/mL (0.358-3.740) 09/10/18 20:59 Thyroxine (T4) 8.7 mcg/dL (4.5-12.1) 09/10/18 20:59 Cortisol 34.8 mcg/dL 09/10/18 20:59 Urine Color Norma (Yellw/Straw) 09/10/18 15:15 Urine Clarity Hazy (Clear) H 09/10/18 15:15 Urine pH 5.0 (5.0-8.5) 09/10/18 15:15 Ur Specific [place] 1.023 (1.002-1.035) 09/10/18 15:15 Urine Protein 100 mg/dL (Neg-Trace) H 09/10/18 15:15 Urine Glucose (UA) Negative mg/dL (Negative) 09/10/18 15:15 Urine Ketones Negative mg/dL (Negative) 09/10/18 15:15 Urine Occult Blood Negative (Negative) 09/10/18 15:15 Urine Nitrate Negative (Negative) 09/10/18 15:15 Urine Bilirubin Negative (Negative) 09/10/18 15:15 Urine Urobilinogen 4 or greater mg/dL (Less than 2) 09/10/18 15:15 Ur Leukocyte Esterase Negative (Negative) 09/10/18 15:15 Urine RBC 1 /hpf (0-3) 09/10/18 15:15 Urine WBC 3 /hpf (0-5) 09/10/18 15:15 Amorphous Sediment Rare /hpf (None) H 09/10/18 15:15 Urine Bacteria Rare /hpf (None) H 09/10/18 15:15 Granular Casts 1 /lpf (None) 09/10/18 15:15 Urine Mucus Few /lpf (Occasional) H 09/10/18 15:15 Micro UA Comment Cath-culture ind 09/10/18 15:15 Ur Microscopic Review Not Reportable 09/10/18 15:15 Urine Culture Comments Cath-cult indicated 09/10/18 15:15 Nasal Screen MRSA (PCR) Not detected (Negative) 09/10/18 18:30 Vancomycin Trough 18.9 mcg/mL (5.0-10.0) H 09/20/18 11:37 Random Vancomycin 14.6 Comment 09/12/18 17:39 Urine Opiates Screen Neg (Neg) 09/16/18 16:25 Ur Barbiturates Screen Neg (Neg) 09/16/18 16:25 Ur Amphetamines Screen Neg (Neg) 09/16/18 16:25 U Benzodiazepines Scrn Neg (Neg) 09/16/18 16:25 Urine Cocaine Screen Neg (Neg) 09/16/18 16:25 U Cannabinoids Screen Neg (Neg) 09/16/18 16:25 Impressions Extremity Arterial Study 09/11/18 00:00 CONCLUSION: 1. Normal ANITRA bilaterally. 2. 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 Foot X-Ray 09/11/18 00:00 CONCLUSION: Chronic changes and no definite fracture for technique. Liver Ultrasound 09/12/18 00:00 CONCLUSION: 1. Gallbladder sludge without gallbladder wall thickening 2. No intrahepatic biliary duct dilatation Chest X-Ray 09/16/18 04:00 CONCLUSION: Mild atelectasis at the lung bases. Otherwise, no acute finding is identified. Objective Remarks: GENERAL: Well-developed well-nourished elderly gentleman, intubated, spontaneous eye opening. SKIN: Warm and dry. HEAD: Atraumatic. Normocephalic. EYES: Pupils equal and round. No scleral icterus. No injection or drainage. ENT: No nasal bleeding or discharge. Mucous membranes pink and moist. NECK: Trachea midline. No JVD. CARDIOVASCULAR: Normal rate, regular rhythm. RESPIRATORY: No accessory muscle use. Clear to auscultation. Breath sounds equal bilaterally. GASTROINTESTINAL: Abdomen soft, non-tender, nondistended. No guarding. MUSCULOSKELETAL: Extremities without clubbing, cyanosis. 2+ edema bilateral upper extremities. left heel necrotic skin wound, left hip, necrotic skin wound gluteal fold unstageable. NEUROLOGICAL: Intubated , on no sedation. difficult to assess secondary to Parkinson's and dementia previously at a memory care center, baseline not of established upon presentation of to ED no gross focal/sensory deficits. Intermittently responsive. Movement of upper extremities on command intermittently. Assessment and Plan - Problem List (1) Influenza A Code(s): J10.1 - Influenza due to other identified influenza virus with other respiratory manifestations Status: Acute (2) Sacral decubitus ulcer, stage IV Code(s): L89.154 - Pressure ulcer of sacral region, stage 4 Status: Acute (3) Decubitus ulcer of ankle Code(s): L89.509 - Pressure ulcer of unspecified ankle, unspecified stage Status: Acute (4) Decubitus ulcer, hip Code(s): L89.209 - Pressure ulcer of unspecified hip, unspecified stage Status : Acute (5) Renal insufficiency Code(s): N28.9 - Disorder of kidney and ureter, unspecified Status: Acute (6) Sepsis Code(s): A41.9 - Sepsis, unspecified organism Status: Acute - Assessment and Plan Plan: Plan by systems: Neurologic: Dementia Parkinson's disease Metabolic encephalopathy, most likely secondary to sepsis Chronic pain Propofol infusion off for > 72 hours, family/sisters requesting interaction with patient-deciding goals of care Daily sedation vacation Ammonia, cortisol, TSH level-WNL Home medications and Singulair,Norvasc, Continue Sinemet 25/100 Code on 5 mg every 6 hours as needed for severe pain 8-10 Respiratory: Acute hypoxemic respiratory failure Pneumonia 1/5 intubated in the ED 8.0 ET tube 26cm at the lip Ventilator bundle Duo nebs every 4 hours scheduled and every 2 hours as needed Wean FiO2 to maintain O2 saturation greater than 92% Continue CPAP trials plan for trial of extubation- ETT day 10 Family leaning toward not proceeding with tracheostomy and PEGfollowing with palliative care team Tamiflu completed 09/17 Cardiovascular: Sinus tachycardia-resolved Normotensive Initial troponin 0.02->0.05 Maintain map greater than 65 mmHg Hydralazine PRN for systolic greater than 160 mmHg Renal: Maintain Lainez -- Strict I/Os FEN/GI: Hypernatremia-resolved Severe protein calorie malnutrition D5W discontinued Continue Free water flushes 250 cc every 6 hours, monitor BMP Glucerna tube feeds goal rate 60 cc/hour and Bhanu protein packets 3 times daily Bowel regimen-last BM 09/18, sodium level 142 Zofran for nausea Albumin 1.4 Heme/ID: Influenza A Leukocytosis-resolved Sepsis Tamiflu x 7days discontinued 09/17 09/10 Pneumococcal, Legionella urine antigens-NGTD 09/10 sputum culture-staph aureus 09/10 blood and urine cultures- NGTD Wound culture to-group D enterococcus,MRSA Patient noted to have multiple necrotic unstageable wound ID following-Unasyn and Vanco. Cefepime discontinued 09/11 Endocrine: Diabetes mellitus Glucose monitoring per ICU protocol Insulin infusion discontinued 09/13 -- SSI-increase to high-dose Prophylaxis: GI Prophylaxis Famotidine twice daily DVT Prophylaxis -- SCDs Subcutaneous heparin every 12 hours Lines: Peripheral IVs providing adequate access. Central line if clinically indicated Dispo: Level 3 follow-up Palliative care is following plan for trial of extubation upon successful SBT parameters. Plan for trial of extubation. Patient is day 10 ETT, unable to obtain SBT formally. Plan for trial of extubation, will await discussion with family in terms of goals of care with palliative care team. Per patient siblings today related to RN while visiting that the children are considering possibly hospice care or possibly withdrawal in upcoming days. Code Status: Alternative Discussed Condition With: COMPOSITION INSTRUCTOR at bedside
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
[2018-09-21] MEDS: Oral Hygiene Kit OROPHARYNG SCH ×4 (00:34→17:59)
[2018-09-21] MEDS: Insulin NovoLOG Aspart Correctional Sugar Inj SQ SCH ×4 (00:34→17:23)
[2018-09-21] MEDS: Sodium Hypochlorite 0.125% Top Soln 500 ML Bottle TOPICAL SCH ×2 (06:32→14:16)
[2018-09-21] MEDS: Heparin - SQ 10,000 UNITS/ML Vial SQ SCH ×2 (06:34→17:59)
[2018-09-21] MEDS: Chlorhexidine 0.12% Oral Kit 15 ML UDC OROPHARYNG SCH ×2 (07:56→21:15)
[2018-09-21] MEDS: Famotidine PF Inj 20 MG/2 ML Vial IV.PUSH SCH (08:00)
[2018-09-21] MEDS: Senna/Docusate Sodium 8.6/50 MG Tablet PO SCH ×2 (08:00→21:15)
--- NOTE | 2018-09-21 11:59 | P.PNCC ---
Subjective Subjective Remarks/Hospital Course: Subjective 09/11: Afebrile . Lactic acid only slightly decreased this a.m. ID has been consulted patient continues on vancomycin and the patient was noted to be hypernatremic D5W was started last evening and subsequently insulin infusion at 2 units/h. The patient has 3 siblings. Sister met yesterday evidently is the one that goes to the snf facility and feeds him, despite being lethargic. Also informed that that sister was also feeding him narcotics, which the snf facility is investigating. The patient continues to have decreased mentation off propofol. Repeat BMP shows decreasing sodium now 160. Free water flushes have been added to medication regimen. I discussed extensively with Sister Trena Zafar by telephone, the patient's POA the patient's condition and provided a medical status update. The patient's POA, and another sibling requested we place him in DNR. The POA states she has the paperwork at home however she is on vacation at this time and will provided via fax the patient has a living will. Palliative care also has been consulted to help evaluate/to define goals. The patient was placed in alternate CODE STATUS. The patient is hemodynamically stable at this time. 09/12: Afebrile. No further cardiac events overnight. And CPAP trials this a.m. Wound care consulted all wounds unstageable recommendations implemented. Tube feeds initiated per dietitian's recommendations per hypernatremia resolving D5W discontinued. The patient is continued on free water flushes. Leukocytosis resolving. 09/13: No acute events overnight. Patient tolerating CPAP trials. Patient tolerating tube feeds. Continues on low-dose propofol. 09/14: CPAP trials initiated at 8 AM currently patient tolerating . Tube feeds placed on hold in anticipation of possible SBT trials this afternoon. Resolution of leukocytosis and hypernatremia. IV fluids discontinued. 09/15:The patient has been on CPAP since 6am, sedation remains off. Pt still lethargic , unable to perform SBT at this time. Precedex infusion initiated to facilitate ventilator weaning propofol has been discontinued. Patient remains slightly hypernatremia increase in free water flushes. Patient is responding off of sedation though still lethargic. 09/16: Sedation for over 12 hours. Patient responding with upper extremities commands. The patient has continued on CPAP trials for greater than 8 hours. We will attempt SBT. Tentative plan for trial of extubation. Attempts made to contact Christian Liao patient's son and Blanca Liao patient's daughter after obtaining the information from palliative care store team member to provide medical status update and began conversation to define goals of care, unsuccessful. 09/17: Late entry note, patient seen earlier approximately 11 AM. No acute events overnight. Hypernatremia resolving with addition of free water flushes over the last 36 hours. Patient was noted to be on IV normal saline 75cc/hr this a.m. upon evaluation which has now been discontinued. I discussed with palliative care store team member Judy Kebede on 09/16 evening family discussed with palliative care store team member chronicity of patient's illness and prolonged deterioration over the last 3-6 months, they are considering possible hospice versus initiation of comfort care measures. The patient was off sedation for greater than 48 hours spontaneous eye opening movement of upper extremities weakly nodding head to yes and no questions no movement of lower extremities. The patient is tolerating CPAP. 09/18: The patient has remained off sedation for greater than 72-hour, intermittently following commands. The patient has failed CPAP trials. Discussion with family per RN consideration for hospice is underway per the patient's children. Plan follow-up on Wednesday with palliative care team. The patient continues on antibiotics. Tamiflu discontinued yesterday, after 7-day dosing. Intermittently following commands today. 09/19: Afebrile. The patient is arousable, remains off sedation in order to communicate with siblings, and children. Oxycodone added to medication regimen , last evening. The patient is tolerating tube feeds. Noted ETT day 10, awaiting decision from family regarding disposition for possible tracheostomy and PEG placement. 09/20: Patient seen earlier today. Late entry note. No acute change in neurological status. Family leaning toward initiation of hospice or comfort care. The patient remains hemodynamically stable. The patient is tolerating tube feeds. 09/21: Afebrile . No change in neurological status . Family at bedside. After family meeting with palliative care yesterday to initiate comfort care measures today. Family does not want tracheostomy or PEG placement given the trajectory of the patient's continued deterioration over a period of time . Objective Vital Signs / I&O: Vital Signs 09/20/18 12:00 09/20/18 12:01 09/20/18 12:02 Temperature 98.0 F Pulse Rate 78 78 78 Respiratory Rate 22 18 18 Blood Pressure 202/102 H 183/87 H Pulse Oximetry 100 100 100 09/20/18 13:00 09/20/18 14:00 09/20/18 14:06 Temperature Pulse Rate 74 78 Respiratory Rate 14 16 18 Blood Pressure 138/71 166/84 H Pulse Oximetry 100 100 100 09/20/18 15:00 09/20/18 15:05 09/20/18 15:08 Temperature Pulse Rate 86 86 85 Respiratory Rate 16 17 17 Blood Pressure 189/97 H 185/91 H 180/112 H Pulse Oximetry 100 100 100 09/20/18 15:23 09/20/18 15:36 09/20/18 16:00 Temperature 99.4 F Pulse Rate 80 81 Respiratory Rate 15 16 16 Blood Pressure 174/89 H 175/99 H Pulse Oximetry 100 100 100 09/20/18 16:17 09/20/18 17:00 09/20/18 18:00 Temperature Pulse Rate 85 86 90 Respiratory Rate 16 15 18 Blood Pressure 178/89 H 167/93 H 173/99 H Pulse Oximetry 100 100 100 09/20/18 19:00 09/20/18 19:34 09/20/18 20:00 Temperature 99.2 F Pulse Rate 86 86 Respiratory Rate 15 16 16 Blood Pressure 164/87 H 163/97 H Pulse Oximetry 100 96 100 09/20/18 21:00 09/20/18 21:39 09/20/18 22:00 Temperature Pulse Rate 85 79 80 Respiratory Rate 15 18 16 Blood Pressure 170/99 H 186/104 H 191/91 H Pulse Oximetry 100 95 95 09/20/18 23:00 09/20/18 23:45 09/21/18 00:00 Temperature Pulse Rate 75 75 Respiratory Rate 16 15 16 Blood Pressure 166/92 H 180/90 H Pulse Oximetry 100 100 100 09/21/18 01:00 09/21/18 01:01 09/21/18 02:00 Temperature Pulse Rate 79 79 77 Respiratory Rate 8 L 11 L 16 Blood Pressure 143/77 H 158/84 H Pulse Oximetry 99 100 100 09/21/18 03:00 09/21/18 04:00 09/21/18 04:12 Temperature Pulse Rate 74 72 Respiratory Rate 16 15 16 Blood Pressure 145/75 H 123/68 Pulse Oximetry 100 100 100 09/21/18 05:00 09/21/18 06:00 09/21/18 07:00 Temperature Pulse Rate 72 71 72 Respiratory Rate 20 19 14 Blood Pressure 127/67 156/83 H 138/65 Pulse Oximetry 100 100 100 09/21/18 07:35 09/21/18 08:00 Temperature 98.4 F Pulse Rate 76 Respiratory Rate 14 15 Blood Pressure 130/65 Pulse Oximetry 99 96 Intake & Output 09/20/18 09/21/18 09/21/18 18:59 06:59 18:59 Intake Total 1103 / 1103 1037 / 1037 515 / 515 Output Total 1050 / 1050 Balance 53 / 53 1037 / 1037 515 / 515 Weight 97.2 kg Intake: IV 515 / 515 Vancomycin Inj 1,500 MG In NS 515 / 515 Inj 500 ML @ 250 mls/hr IV.SIG Q24H HERRERA Rx#:[id number] Oral 0 / 0 0 / 0 Tube Feeding 603 / 603 537 / 537 Water Bolus Amount 500 / 500 500 / 500 Output: Urine 1050 / 1050 Other: Post Void Residual 1,100 # Incontinent Voids 2 1 Date of Last Bowel Movement 09/18/18 09/21/18 09/18/18 # Bowel Movements 0 1 Result Diagrams: 09/20/18 03:25 09/20/18 11:37 Other Results: Laboratory Results WBC 10.2 th/mm3 (4.0-11.0) 09/20/18 03:25 RBC 3.87 mil/mm3 (4.50-5.90) L 09/20/18 03:25 Hgb 11.5 gm/dL (13.0-17.0) L 09/20/18 03:25 Hct 34.1 % (39.0-51.0) L 09/20/18 03:25 MCV 88.0 fL (80.0-100.0) 09/20/18 03:25 MCH 29.7 pg (27.0-34.0) 09/20/18 03:25 MCHC 33.7 % (32.0-36.0) 09/20/18 03:25 RDW 14.1 % (11.6-17.2) 09/20/18 03:25 Plt Count 285 th/mm3 (150-450) 09/20/18 03:25 MPV 8.9 fL (7.0-11.0) 09/20/18 03:25 Prelim Diff (Auto) Slide review pending 09/20/18 03:25 Neut % (Auto) 78.5 % (16.0-70.0) H 09/20/18 03:25 Lymph % (Auto) 13.6 % (9.0-44.0) 09/20/18 03:25 [place] % (Auto) 5.2 % (0.0-8.0) 09/20/18 03:25 Eos % (Auto) 1.9 % (0.0-4.0) 09/20/18 03:25 Baso % (Auto) 0.8 % (0.0-2.0) 09/20/18 03:25 Neut # (Auto) 8.0 th/mm3 (1.8-7.7) H 09/20/18 03:25 Lymph # (Auto) 1.4 th/mm3 (1.0-4.8) 09/20/18 03:25 [place] # (Auto) 0.5 th/mm3 (0.0-0.9) 09/20/18 03:25 Eos # (Auto) 0.2 th/mm3 (0.0-0.4) 09/20/18 03:25 Baso # (Auto) 0.1 th/mm3 (0.0-0.2) 09/20/18 03:25 WBC Differential Manual diff final 09/20/18 03:25 Diff Scan Auto diff confirmed 09/13/18 08:20 Seg Neuts % (Manual) 68 % (16-70) 09/20/18 03:25 Band Neuts % (Manual) 8 % (0-6) H 09/20/18 03:25 Lymphocytes % (Manual) 12 % (9-44) 09/20/18 03:25 Monocytes % (Manual) 6 % (0-8) 09/20/18 03:25 Eosinophils % (Manual) 3 % (0-4) 09/20/18 03:25 Basophils % (Manual) 1 % (0-2) 09/18/18 00:57 Metamyelocytes % (Man) 2 % (0-1) H 09/20/18 03:25 Myelocytes % (Man) 1 % (0-0) H 09/20/18 03:25 Abs Neuts (Manual) 8.1 th/mm3 (1.8-7.7) H 09/20/18 03:25 Differential Comment . 09/20/18 03:25 Toxic Granulation 1+ (None) H 09/19/18 04:27 Platelet Estimate Normal (Normal) 09/20/18 03:25 Platelet Morphology Normal (Normal) 09/20/18 03:25 RBC Morphology Normal (Normal) 09/16/18 14:55 Hematology Comments 09/13/18 08:20 PT 11.6 sec (9.8-11.6) 09/10/18 13:53 INR 1.1 Ratio 09/10/18 13:53 APTT 25.2 sec (23.4-31.7) 09/10/18 13:53 Puncture Site Left radial 09/15/18 15:47 Patient Temperature 98.6 09/15/18 15:47 O2 Saturation 96 % (90-100) 09/15/18 15:47 ABG pH 7.48 (7.380-7.420) H 09/15/18 15:47 ABG pCO2 35 mmHg (38-42) L 09/15/18 15:47 ABG pO2 123 mmHG (61-120) H 09/15/18 15:47 ABG HCO3 26 mmol/L (22-26) 09/15/18 15:47 ABG O2 Content 15.9 Vol % (12.0-20.0) 09/15/18 15:47 ABG Base Excess 2.3 mmol/L (-2-2) H 09/15/18 15:47 ABG Methemoglobin 1.5 % (0-2) 09/15/18 15:47 Lino Test Present 09/15/18 15:47 Hemoglobin 11.6 G/DL (12.0-16.0) L 09/15/18 15:47 Carboxyhemoglobin 0.7 % (0-4) 09/15/18 15:47 O2 Delivery Device Ventilator 09/15/18 15:47 Vent Setting Cpap/ps10/peep5 09/15/18 15:47 Inspired O2 30 % 09/15/18 15:47 Critical Value No 09/15/18 15:47 Sodium 137 meq/L (136-145) 09/20/18 11:37 Potassium 4.6 meq/L (3.5-5.1) 09/20/18 11:37 Chloride 100 meq/L (98-107) 09/20/18 11:37 Carbon Dioxide 29.7 meq/L (21.0-32.0) 09/20/18 11:37 Anion Gap 7 meq/L (5-15) 09/20/18 11:37 BUN 28 mg/dL (7-18) H 09/20/18 11:37 Creatinine 0.82 mg/dL (0.60-1.30) 09/20/18 11:37 Estimated GFR Greater than 89 mL/min (>89) 09/20/18 11:37 POC Glucose 223 mg/dl (68-110) H 09/21/18 06:31 Random Glucose 177 mg/dL (74-106) H 09/20/18 11:37 Hemoglobin A1c 8.8 % (4.3-6.0) H 09/11/18 13:50 Lactic Acid 1.0 mmol/L (0.4-2.0) 09/17/18 05:11 Calcium 8.5 mg/dL (8.5-10.1) 09/20/18 11:37 Calcium Adj for Albumin Cancelled 09/10/18 13:53 Phosphorus 3.3 mg/dL (2.5-4.9) D 09/20/18 11:37 Magnesium 1.9 mg/dL (1.5-2.5) 09/20/18 11:37 Total Bilirubin 1.8 mg/dL (0.2-1.0) H 09/13/18 05:49 AST 37 U/L (15-37) 09/13/18 05:49 ALT 10 U/L (12-78) L 09/13/18 05:49 Alkaline Phosphatase 162 U/L (45-117) H 09/13/18 05:49 Ammonia Less than 10 mcmol/L (11-32) L 09/17/18 05:11 Total Creatine Kinase 154 U/L (39-308) 09/11/18 02:45 CK-MB (CK-2) Less than 1.0 ng/mL (0.5-3.6) 09/10/18 13:53 CK-MB (CK-2) % 0.3 % (0.0-4.0) 09/10/18 13:53 Troponin I 0.05 ng/mL (0.02-0.05) 09/10/18 20:59 B-Natriuretic Peptide 39 pg/mL (0-100) 09/11/18 13:50 Total Protein 6.0 g/dL (6.4-8.2) L 09/13/18 05:49 Albumin 1.4 g/dL (3.4-5.0) L 09/13/18 05:49 TSH 0.435 uIU/mL (0.358-3.740) 09/10/18 20:59 Thyroxine (T4) 8.7 mcg/dL (4.5-12.1) 09/10/18 20:59 Cortisol 34.8 mcg/dL 09/10/18 20:59 Urine Color Norma (Yellw/Straw) 09/10/18 15:15 Urine Clarity Hazy (Clear) H 09/10/18 15:15 Urine pH 5.0 (5.0-8.5) 09/10/18 15:15 Ur Specific [place] 1.023 (1.002-1.035) 09/10/18 15:15 Urine Protein 100 mg/dL (Neg-Trace) H 09/10/18 15:15 Urine Glucose (UA) Negative mg/dL (Negative) 09/10/18 15:15 Urine Ketones Negative mg/dL (Negative) 09/10/18 15:15 Urine Occult Blood Negative (Negative) 09/10/18 15:15 Urine Nitrate Negative (Negative) 09/10/18 15:15 Urine Bilirubin Negative (Negative) 09/10/18 15:15 Urine Urobilinogen 4 or greater mg/dL (Less than 2) 09/10/18 15:15 Ur Leukocyte Esterase Negative (Negative) 09/10/18 15:15 Urine RBC 1 /hpf (0-3) 09/10/18 15:15 Urine WBC 3 /hpf (0-5) 09/10/18 15:15 Amorphous Sediment Rare /hpf (None) H 09/10/18 15:15 Urine Bacteria Rare /hpf (None) H 09/10/18 15:15 Granular Casts 1 /lpf (None) 09/10/18 15:15 Urine Mucus Few /lpf (Occasional) H 09/10/18 15:15 Micro UA Comment Cath-culture ind 09/10/18 15:15 Ur Microscopic Review Not Reportable 09/10/18 15:15 Urine Culture Comments Cath-cult indicated 09/10/18 15:15 Nasal Screen MRSA (PCR) Not detected (Negative) 09/10/18 18:30 Vancomycin Trough 18.9 mcg/mL (5.0-10.0) H 09/20/18 11:37 Random Vancomycin 14.6 Comment 09/12/18 17:39 Urine Opiates Screen Neg (Neg) 09/16/18 16:25 Ur Barbiturates Screen Neg (Neg) 09/16/18 16:25 Ur Amphetamines Screen Neg (Neg) 09/16/18 16:25 U Benzodiazepines Scrn Neg (Neg) 09/16/18 16:25 Urine Cocaine Screen Neg (Neg) 09/16/18 16:25 U Cannabinoids Screen Neg (Neg) 09/16/18 16:25 Impressions Extremity Arterial Study 09/11/18 00:00 CONCLUSION: 1. Normal ANIRTA bilaterally. 2. 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 Foot X-Ray 09/11/18 00:00 CONCLUSION: Chronic changes and no definite fracture for technique. Liver Ultrasound 09/12/18 00:00 CONCLUSION: 1. Gallbladder sludge without gallbladder wall thickening 2. No intrahepatic biliary duct dilatation Chest X-Ray 09/16/18 04:00 CONCLUSION: Mild atelectasis at the lung bases. Otherwise, no acute finding is identified. Objective Remarks: GENERAL: Well-developed well-nourished elderly gentleman, intubated, spontaneous eye opening. SKIN: Warm and dry. HEAD: Atraumatic. Normocephalic. EYES: Pupils equal and round. No scleral icterus. No injection or drainage. ENT: No nasal bleeding or discharge. Mucous membranes pink and moist. NECK: Trachea midline. No JVD. CARDIOVASCULAR: Normal rate, regular rhythm. RESPIRATORY: No accessory muscle use. Clear to auscultation. Breath sounds equal bilaterally. GASTROINTESTINAL: Abdomen soft, non-tender, nondistended. No guarding. MUSCULOSKELETAL: Extremities without clubbing, cyanosis. 2+ edema bilateral upper extremities. left heel necrotic skin wound, left hip, necrotic skin wound gluteal fold unstageable. NEUROLOGICAL: Intubated , on no sedation. difficult to assess secondary to Parkinson's and dementia previously at a memory care center, baseline not of established upon presentation of to ED no gross focal/sensory deficits. Intermittently responsive. Occasionally nods head to yes and no questions. Movement of upper extremities on command intermittently. Assessment and Plan - Problem List (1) Influenza A Code(s): J10.1 - Influenza due to other identified influenza virus with other respiratory manifestations Status: Acute (2) Sacral decubitus ulcer, stage IV Code(s): L89.154 - Pressure ulcer of sacral region, stage 4 Status: Acute (3) Decubitus ulcer of ankle Code(s): L89.509 - Pressure ulcer of unspecified ankle, unspecified stage Status: Acute (4) Decubitus ulcer, hip Code(s): L89.209 - Pressure ulcer of unspecified hip, unspecified stage Status : Acute (5) Renal insufficiency Code(s): N28.9 - Disorder of kidney and ureter, unspecified Status: Acute (6) Sepsis Code(s): A41.9 - Sepsis, unspecified organism Status: Acute - Assessment and Plan Plan: Plan by systems: Neurologic: Dementia Parkinson's disease Metabolic encephalopathy, most likely secondary to sepsis Chronic pain Propofol infusion off for > 72 hours, family/sisters requesting interaction with patient-deciding goals of care Daily sedation vacation Ammonia, cortisol, TSH level-WNL Home medications and Singulair,Norvasc, Continue Sinemet 25/100 Code on 5 mg every 6 hours as needed for severe pain 8-10 Respiratory: Acute hypoxemic respiratory failure Pneumonia Ventilator dependent respiratory failure 09/10 intubated in the ED 8.0 ET tube 26cm at the lip Ventilator bundle Duo nebs every 4 hours scheduled and every 2 hours as needed Wean FiO2 to maintain O2 saturation greater than 92% Continue CPAP trials plan for trial of extubation- ETT day 10 Family leaning toward not proceeding with tracheostomy and PEGfollowing with palliative care team Tamiflu completed 09/17 Cardiovascular: Sinus tachycardia-resolved Normotensive Initial troponin 0.02->0.05 Maintain map greater than 65 mmHg Hydralazine PRN for systolic greater than 160 mmHg Renal: Maintain Lainez -- Strict I/Os FEN/GI: Hypernatremia-resolved Severe protein calorie malnutrition D5W discontinued Continue Free water flushes 250 cc every 6 hours, monitor BMP Glucerna tube feeds goal rate 60 cc/hour and Bhanu protein packets 3 times daily Bowel regimen-last BM 09/18, sodium level 142 Zofran for nausea Albumin 1.4 Heme/ID: Influenza A Leukocytosis-resolved Sepsis Tamiflu x 7days discontinued 09/17 09/10 Pneumococcal, Legionella urine antigens-NGTD 09/10 sputum culture-staph aureus 09/10 blood and urine cultures- NGTD Wound culture to-group D enterococcus,MRSA Patient noted to have multiple necrotic unstageable wound ID following-Unasyn and Vanco. Cefepime discontinued 09/11 Endocrine: Diabetes mellitus Glucose monitoring per ICU protocol Insulin infusion discontinued 09/13 -- SSI-increase to high-dose Prophylaxis: GI Prophylaxis Famotidine twice daily DVT Prophylaxis -- SCDs Subcutaneous heparin every 12 hours Lines: Peripheral IVs providing adequate access. Central line if clinically indicated Dispo: Level 3 follow-up Palliative ongoing palliative care meeting. Family meeting yesterday decision made for initiation of comfort care measures today. Code Status: Alternative Discussed Condition With: Palliative care store team member Ms. Kebede, family at bedside, [employer] at bedside.
[2018-09-21] MEDS ORDERED: Hyoscyamine Inj 0.5 MG/ML Ampul IV.PUSH ONE (12:00)
[2018-09-21] MEDS ORDERED: Morphine Sulfate Inj 8 MG/ML Vial IV.PUSH ONE (12:00)
[2018-09-21] MEDS ORDERED: Acetaminophen 650 MG Supp RECTAL PRN (12:00)
[2018-09-21] MEDS ORDERED: Morphine Inj 4 MG/ML Vial IV.PUSH PRN (12:00)
[2018-09-21] MEDS ORDERED: Hyoscyamine Inj 0.5 MG/ML Ampul IV.PUSH PRN (12:00)
[2018-09-21] MEDS ORDERED: Morphine Inj 4 MG/ML Vial IV.PUSH ONE (12:00)
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
[2018-09-21] MEDS: Vancomycin Inj 1,500 MG in Sodium Chlor 0.9% Inj 500 ML IV.SIG SCH (13:42)
[2018-09-22] MEDS: Famotidine PF Inj 20 MG/2 ML Vial IV.PUSH SCH ×2 (06:54→09:57)
[2018-09-22] MEDS: Insulin NovoLOG Aspart Correctional Sugar Inj SQ SCH ×4 (06:55→17:00)
[2018-09-22] MEDS: Sodium Hypochlorite 0.125% Top Soln 500 ML Bottle TOPICAL SCH ×3 (06:55→13:20)
[2018-09-22] MEDS: Heparin - SQ 10,000 UNITS/ML Vial SQ SCH ×2 (06:56→17:00)
[2018-09-22] MEDS: Oral Hygiene Kit OROPHARYNG SCH ×3 (06:56→17:30)
[2018-09-22] MEDS: Senna/Docusate Sodium 8.6/50 MG Tablet PO SCH (09:57)
[2018-09-22 10:52] VITALS: BP 149/88; TEMP 97.9
[2018-09-22] MEDS: Chlorhexidine 0.12% Oral Kit 15 ML UDC OROPHARYNG SCH (10:57)
[2018-09-22] MEDS: Vancomycin Inj 1,500 MG in Sodium Chlor 0.9% Inj 500 ML IV.SIG SCH (11:21)
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
--- NOTE | 2018-09-22 13:55 | P.DS ---
Date of admission: 09/10/18 15:54 Primary care physician: Rubio Puga MD Brief History from admission: This is an 83-year-old male with a medical history significant for Parkinson's and dementia that resides in a [facility] but normally with [facility] staff and family members. The patient was noted to have a change in mentation as well as the patient became tachycardic and hypoxic. EMS was called the patient was transported emergently to the [facility]. Upon arrival the patient was noted to have a lactic acidemia and a leukocytosis parental diagnosis included healthcare associated pneumonia in the antibiotic coverage. The patient was also bolused with 2 L of normal saline. The patient continued to have respiratory insufficiency and required emergent intubation in the emergency department and placed on sedation. Further review the patient was noted to have significant multiple decubiti ,chronic wounds noted on the left hip the left ankle and sacral area all 3 necrotic and malodorous. Critical care medicine was consulted for management. Further cultures were obtained, the patient was noted to be positive for influenza A. Other cultures are pending. DS: Summary Hospital Course: Patient was admitted to the ICU after being intubated in the ER, started on BS abx for acute respiratory failure and septic shock secondary to suspected bacterial pneumonia, infected wounds, and active influenza. was on broad- spectrum antibiotics. ID helped co-managed abx. Cultures from his wounds grew out enterococcus and MRSA, whereas his sputum culture grew out MSSA. Patient was mechanically ventilated for a few days, and was ultimately extubated and doing well on room air. However his mentation was very poor, very somnolent and not cooperative enough to tolerate any p.o. intake. Ultimately patient's healthcare surrogate decided to descalate care and patient was discharged to hospice. - Time Spent with Patient Total time spent providing and/or coordinating discharge services: Less than 30 minutes - Quality: VTE Deep Vein Thrombosis/Pulmonary Embolism Present on Admission: No Exam Vital signs: Vital Signs 09/21/18 16:00 09/21/18 19:15 09/21/18 20:00 Temperature 99.2 F 98.6 F Pulse Rate 100 H 86 86 Respiratory Rate 33 H 16 22 Blood Pressure 105/71 115/64 Pulse Oximetry 91 L 93 L 09/21/18 23:52 09/22/18 04:00 09/22/18 07:15 Temperature 97.9 F Pulse Rate 82 84 79 Respiratory Rate 22 21 Blood Pressure 149/88 H Pulse Oximetry 98 98 09/22/18 08:00 09/22/18 12:00 Temperature Pulse Rate 79 80 Respiratory Rate 29 H 30 H Blood Pressure Pulse Oximetry 98 95 Intake & Output 09/21/18 09/22/18 09/22/18 18:59 06:59 18:59 Intake Total 515 / 515 0 / 0 Output Total 0 / 0 Balance 515 / 515 0 / 0 Intake: IV 515 / 515 Vancomycin Inj 1,500 MG In NS 515 / 515 Inj 500 ML @ 250 mls/hr IV.SIG Q24H HERRERA Rx#:[id number] Oral 0 / 0 Output: Urine 0 / 0 Other: Post Void Residual 1,100 # Incontinent Voids 3 Date of Last Bowel Movement 09/21/18 09/21/18 09/21/18 # Bowel Movements 0 Narrative: Clear lungs bilaterally, unlabored breathing Heart sounds regular rate and rhythm, no murmurs Patient appears unresponsive to voice Patient not responding to voice or noxious stimuli Lower extremities in bilateral float heels Results Procedures completed during hospitalization: Intubation, mechanical ventilation - Impressions ITS Impressions Extremity Arterial Study 09/11/18 00:00 CONCLUSION: 1. Normal ANITRA bilaterally. 2. 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 Foot X-Ray 09/11/18 00:00 CONCLUSION: Chronic changes and no definite fracture for technique. Liver Ultrasound 09/12/18 00:00 CONCLUSION: 1. Gallbladder sludge without gallbladder wall thickening 2. No intrahepatic biliary duct dilatation Chest X-Ray 09/16/18 04:00 CONCLUSION: Mild atelectasis at the lung bases. Otherwise, no acute finding is identified. Discharge Plan - Discharge Disposition Patient Disposition: [facility] Hospice/Med Facility - Discharge Condition Condition: Stable - Discharge Order Discharge Orders: Discharge Order (Routine); Ordered 09/22/18 Ordered By: Raza Morrison ED Use Only Admit Order (Routine); Ordered 09/10/18 Ordered By: Phoebe Roberts - Discharge Details Discharge Comment: DC once patient has HH arrangements made. - Physicians Team Primary Care Provider: Rubio Puga Attending Provider: Raza Morrison Other Providers: Mary Hernandez ; Neil Wade MD ; Ines Staples DPM ; Margo Cooper MD
[2018-09-22 17:31] VITALS: PULSE 85; RESP 32; O2SAT 89
[2018-09-23] MEDS ORDERED: Pharmacy Ordered Lab Info OTHER ONE (11:45)
== END 2018-09-22 18:20 | disposition hospice, inpatient (51) | DRG 870 ==
LOC: NEPE 13:34 → NEDA 15:54 → HIMC 17:45
PROVIDERS: ADMIT Hospitalist; ATTEND Hospitalist
CPT/HCPCS: 31500; 36600; 51702; 71010; 71045; 73620; 76705; 76937; 80048; 80053; 80202; 80307; 81001; 82140; 82533; 82550; 82552; 82565; 82805; 82948; 82962; 83036; 83520; 83605; 83735; 83880; 84100; 84132; 84436; 84443; 84484; 85025; 85610; 85730; 86403; 87040; 87070; 87077; 87086; 87147; 87186; 87205; 87275; 87276; 87449; 87641; 87804; 90761; 90765; 93005; 93306; 93923; 94002; 94003; 94640; 94656; 94657; 94664; 94665; 96361; 96365; 99291; J0295; J0330; J0456; J0692; J1644; J1815; J1817; J1980; J2060; J2250; J2270; J2704; J3370; J3480; J7030; J7040; J7050; J7070; J7120